=== PATIENT | female | born 1950 | race Caucasian/White ===

== ENCOUNTER 2020-02-22 06:57 | Outpatient (REF) | payer MEDICARE, SELFPAY ==
[2020-02-22 07:24] LABS: Hematocrit 37.1 % (37-47); Hemoglobin 11.5 g/dl (12.0-16.0); Mean Corpuscular Hemoglobin 25.9 pg (27.0-33.0); Mean Corpuscular Volume 83.6 fL (80-98); Mean Platelet Volume 9.7 fL (9.4-12.3); Platelet Count 338 X10*3/uL (160-400); Red Blood Count 4.44 X10*6/uL (4.20-5.50); Red Cell Distribution Width 15.4 % (11.0-16.0); White Blood Count 10.2 X10*3/uL (4.8-10.8)
[2020-02-22 07:51] LABS: Anion Gap 12 (12-20); Blood Urea Nitrogen 13 mg/dL (9-16); Calcium 8.3 mg/dL (8.4-10.2); Carbon Dioxide 28 mmol/L (22-29); Chloride 100 mmol/L (96-108); Estimated Glomerular Filt Rate > 60; Glucose Random 78 mg/dL (60-115); Potassium 4.2 mmol/l (3.3-5.1); Sodium 136 mmol/L (135-145)
== END 2020-02-22 06:58 | disposition home or self-care (01) ==
LOC: HO.MMNH2L 06:57
PROVIDERS: Visit Provider Family Medicine
DX: I10 Essential (primary) hypertension (principal)
CPT/HCPCS: 36415; 80048; 85027

== ENCOUNTER 2020-02-28 | Outpatient (REF) | payer MEDICARE, SELFPAY | END 2020-02-28 00:01 | LOC: HO.MMNH2L | PROVIDERS: Visit Provider Family Medicine | DX: Z20.828 Contact with and (suspected) exposure to other viral communicable diseases (principal) | CPT/HCPCS: U0003 ==

== ENCOUNTER 2020-03-21 05:51 | Outpatient (REF) | payer MEDICARE, SELFPAY ==
[2020-03-21 06:08] LABS: Hematocrit 38.5 % (37-47); Hemoglobin 11.8 g/dl (12.0-16.0); Mean Corpuscular HGB Conc 30.6 g/dl (31.0-35.0); Mean Corpuscular Hemoglobin 25.4 pg (27.0-33.0); Mean Corpuscular Volume 82.8 fL (80-98); Mean Platelet Volume 9.2 fL (9.4-12.3); Platelet Count 358 X10*3/uL (160-400); Red Blood Count 4.65 X10*6/uL (4.20-5.50); Red Cell Distribution Width 16.2 % (11.0-16.0)
[2020-03-21 06:38] LABS: Anion Gap 13 (12-20); Blood Urea Nitrogen 15 mg/dL (9-16); Calcium 8.8 mg/dL (8.4-10.2); Carbon Dioxide 27 mmol/L (22-29); Chloride 102 mmol/L (96-108); Estimated Glomerular Filt Rate > 60; Glucose Random 81 mg/dL (60-115); Potassium 4.7 mmol/l (3.3-5.1); Sodium 137 mmol/L (135-145)
== END 2020-03-21 05:52 | disposition home or self-care (01) ==
LOC: HO.MMNH2L 05:51
PROVIDERS: Visit Provider Family Medicine
DX: I10 Essential (primary) hypertension (principal)
CPT/HCPCS: 36415; 80048; 85027

== ENCOUNTER 2020-05-18 | Outpatient (REF) | payer MEDICARE, SELFPAY ==
[2020-05-18 07:58] LABS: Hemoglobin 12.2 g/dl (12.0-16.0); Mean Corpuscular HGB Conc 31.3 g/dl (31.0-35.0); Mean Corpuscular Hemoglobin 25.2 pg (27.0-33.0); Mean Corpuscular Volume 80.6 fL (80-98); Mean Platelet Volume 9.4 fL (9.4-12.3); Platelet Count 325 X10*3/uL (160-400); Red Blood Count 4.84 X10*6/uL (4.20-5.50); Red Cell Distribution Width 15.9 % (11.0-16.0); White Blood Count 6.4 X10*3/uL (4.8-10.8)
[2020-05-18 08:24] LABS: Anion Gap 13 (12-20); Blood Urea Nitrogen 10 mg/dL (9-16); Calcium 8.8 mg/dL (8.4-10.2); Carbon Dioxide 26 mmol/L (22-29); Chloride 99 mmol/L (96-108); Estimated Glomerular Filt Rate > 60; Glucose Random 81 mg/dL (60-115); Potassium 4.2 mmol/l (3.3-5.1); Sodium 134 mmol/L (135-145)
== END 2020-05-18 00:01 | disposition home or self-care (01) ==
LOC: HO.MMNH2L
PROVIDERS: Visit Provider Family Medicine
DX: M62.82 Rhabdomyolysis (principal); I10 Essential (primary) hypertension; R53.1 Weakness
CPT/HCPCS: 36415; 80048; 85027

== ENCOUNTER 2020-06-17 08:58 | Outpatient (REF) | payer MEDICARE, SELFPAY ==
[2020-06-17 06:53] LABS: Hematocrit 38.6 % (37-47); Mean Corpuscular HGB Conc 31.1 g/dl (31.0-35.0); Mean Corpuscular Hemoglobin 25.2 pg (27.0-33.0); Mean Corpuscular Volume 81.1 fL (80-98); Mean Platelet Volume 9.2 fL (9.4-12.3); Platelet Count 342 X10*3/uL (160-400); Red Blood Count 4.76 X10*6/uL (4.20-5.50); Red Cell Distribution Width 16.5 % (11.0-16.0); White Blood Count 7.6 X10*3/uL (4.8-10.8)
[2020-06-17 07:08] LABS: Anion Gap 11 (12-20); Blood Urea Nitrogen 12 mg/dL (9-16); Calcium 8.7 mg/dL (8.4-10.2); Carbon Dioxide 27 mmol/L (22-29); Chloride 103 mmol/L (96-108); Estimated Glomerular Filt Rate > 60; Glucose Random 79 mg/dL (60-115); Potassium 4.2 mmol/L (3.3-5.1); Sodium 137 mmol/L (135-145)
== END 2020-06-17 08:59 | disposition home or self-care (01) ==
LOC: HO.MMNH2L 08:58
PROVIDERS: Visit Provider Family Medicine
DX: I10 Essential (primary) hypertension (principal)
CPT/HCPCS: 36415; 80048; 85027

== ENCOUNTER 2020-07-15 | Outpatient (REF) | payer MEDICARE, SELFPAY ==
[2020-07-15 07:00] LABS: Hematocrit 38.8 % (37-47); Hemoglobin 11.8 g/dl (12.0-16.0); Mean Corpuscular HGB Conc 30.4 g/dl (31.0-35.0); Mean Corpuscular Hemoglobin 24.9 pg (27.0-33.0); Mean Platelet Volume 9.5 fL (9.4-12.3); Platelet Count 317 X10*3/uL (160-400); Red Blood Count 4.73 X10*6/uL (4.20-5.50); White Blood Count 6.8 X10*3/uL (4.8-10.8)
[2020-07-15 07:20] LABS: Anion Gap 11 (12-20); Blood Urea Nitrogen 13 mg/dL (9-16); Calcium 8.4 mg/dL (8.4-10.2); Carbon Dioxide 25 mmol/L (22-29); Chloride 106 mmol/L (96-108); Estimated Glomerular Filt Rate > 60; Glucose Random 76 mg/dL (60-115); Potassium 4.1 mmol/L (3.3-5.1); Sodium 138 mmol/L (135-145)
== END 2020-07-15 00:01 | disposition home or self-care (01) ==
LOC: HO.MMNH2L
PROVIDERS: Visit Provider Family Medicine
DX: I10 Essential (primary) hypertension (principal)
CPT/HCPCS: 36415; 80048; 85027

== ENCOUNTER 2020-07-31 00:56 | Outpatient (REF) | payer MEDICARE, SELFPAY ==
[2020-07-31 07:37] LABS: Hematocrit 37.8 % (37-47); Hemoglobin 11.9 g/dl (12.0-16.0); Mean Corpuscular HGB Conc 31.5 g/dl (31.0-35.0); Mean Corpuscular Hemoglobin 25.6 pg (27.0-33.0); Mean Corpuscular Volume 81.5 fL (80-98); Mean Platelet Volume 9.3 fL (9.4-12.3); Platelet Count 342 X10*3/uL (160-400); Red Blood Count 4.64 X10*6/uL (4.20-5.50); Red Cell Distribution Width 16.8 % (11.0-16.0)
[2020-07-31 08:11] LABS: Anion Gap 11 (12-20); Blood Urea Nitrogen 14 mg/dL (9-16); Calcium 8.5 mg/dL (8.4-10.2); Carbon Dioxide 26 mmol/L (22-29); Chloride 102 mmol/L (96-108); Estimated Glomerular Filt Rate > 60; Glucose Random 76 mg/dL (60-115); Potassium 4.3 mmol/L (3.3-5.1); Sodium 135 mmol/L (135-145)
== END 2020-07-31 00:57 | disposition home or self-care (01) ==
LOC: HO.MMNH2L 00:56
PROVIDERS: Visit Provider Family Medicine
DX: I10 Essential (primary) hypertension (principal)
CPT/HCPCS: 36415; 80048; 85027

== ENCOUNTER 2020-08-15 00:30 | Outpatient (REF) | payer MEDICARE, SELFPAY ==
[2020-08-15 09:22] LABS: Hematocrit 36.9 % (37-47); Hemoglobin 11.5 g/dl (12.0-16.0); Mean Corpuscular HGB Conc 31.2 g/dl (31.0-35.0); Mean Corpuscular Hemoglobin 25.4 pg (27.0-33.0); Mean Corpuscular Volume 81.6 fL (80-98); Mean Platelet Volume 9.2 fL (9.4-12.3); Platelet Count 347 X10*3/uL (160-400); Red Blood Count 4.52 X10*6/uL (4.20-5.50); Red Cell Distribution Width 16.5 % (11.0-16.0); White Blood Count 9.5 X10*3/uL (4.8-10.8)
[2020-08-15 09:42] LABS: Anion Gap 12 (12-20); Blood Urea Nitrogen 13 mg/dL (9-16); Calcium 8.5 mg/dL (8.4-10.2); Carbon Dioxide 26 mmol/L (22-29); Chloride 102 mmol/L (96-108); Estimated Glomerular Filt Rate > 60; Glucose Random 76 mg/dL (60-115); Potassium 4.6 mmol/L (3.3-5.1); Sodium 135 mmol/L (135-145)
== END 2020-08-15 00:31 | disposition home or self-care (01) ==
LOC: HO.MMNH2L 00:30
PROVIDERS: Visit Provider Family Medicine
DX: I10 Essential (primary) hypertension (principal)
CPT/HCPCS: 36415; 80048; 85027

== ENCOUNTER 2020-08-22 20:30 | Outpatient (REF) | payer MEDICARE, SELFPAY ==
[2020-08-23 07:51] LABS: Glucose Urine UA NEG (NEG); Leukocyte Esterase Urine 3+ (NEG); Nitrite Urine POS (NEG); PH 7.5 (5.0-8.0); Urine Blood TRACE (NEG); Urine Ketones NEG (NEG); Urine Protein TRACE MG/DL (NEG-TRACE)
[2020-08-23 07:52] LABS: Appearance Urine CLOUDY; Color Urine YELLOW
[2020-08-23 08:00] LABS: Amorphous Sediment Urine 2+ /LPF; Bacteria Urine 4+ /LPF; RBC Urine 0-2 /HPF (0); Squamous Epithelial Cell Urine 3+ /LPF; Triple Phosphate Crystal Urine 3+ /LPF; WBC Urine 30-49 /HPF (0-4)
== END 2020-08-22 20:31 | disposition home or self-care (01) ==
LOC: HO.MMNH2L 20:30
PROVIDERS: Visit Provider Family Medicine
DX: N39.0 Urinary tract infection, site not specified (principal)
CPT/HCPCS: 81001; 87086; 87088; 87186

== ENCOUNTER 2020-08-28 00:39 | Outpatient (REF) | payer MEDICARE, SELFPAY ==
[2020-08-28 07:43] LABS: Hematocrit 38.8 % (37-47); Mean Corpuscular HGB Conc 30.9 g/dl (31.0-35.0); Mean Corpuscular Hemoglobin 25.4 pg (27.0-33.0); Mean Corpuscular Volume 82.2 fL (80-98); Mean Platelet Volume 8.9 fL (9.4-12.3); Platelet Count 375 X10*3/uL (160-400); Red Blood Count 4.72 X10*6/uL (4.20-5.50); Red Cell Distribution Width 15.9 % (11.0-16.0); White Blood Count 10.4 X10*3/uL (4.8-10.8)
[2020-08-28 08:06] LABS: Anion Gap 12 (12-20); Blood Urea Nitrogen 12 mg/dL (9-16); Calcium 8.7 mg/dL (8.4-10.2); Carbon Dioxide 29 mmol/L (22-29); Chloride 98 mmol/L (96-108); Estimated Glomerular Filt Rate > 60; Glucose Random 75 mg/dL (60-115); Sodium 135 mmol/L (135-145)
== END 2020-08-28 00:40 | disposition home or self-care (01) ==
LOC: HO.MMNH2L 00:39
PROVIDERS: Visit Provider Family Medicine
DX: I10 Essential (primary) hypertension (principal)
CPT/HCPCS: 36415; 80048; 85027

== ENCOUNTER 2020-08-31 07:43 | Outpatient (REF) | payer MEDICARE, SELFPAY ==
[2020-08-31 09:11] LABS: Cholesterol 102 mg/dL
== END 2020-08-31 07:44 | disposition home or self-care (01) ==
LOC: HO.MMNH2L 07:43
PROVIDERS: Visit Provider Family Medicine
DX: J15.212 Pneumonia due to Methicillin resistant Staphylococcus aureus (principal)
CPT/HCPCS: 36415; 82465

== ENCOUNTER 2020-09-14 06:59 | Outpatient (REF) | payer MEDICARE, SELFPAY ==
[2020-09-14 07:20] LABS: Hematocrit 33.5 % (37-47); Hemoglobin 10.4 g/dl (12.0-16.0); Mean Corpuscular Hemoglobin 25.6 pg (27.0-33.0); Mean Corpuscular Volume 82.3 fL (80-98); Mean Platelet Volume 9.3 fL (9.4-12.3); Platelet Count 299 X10*3/uL (160-400); Red Blood Count 4.07 X10*6/uL (4.20-5.50); Red Cell Distribution Width 15.8 % (11.0-16.0); White Blood Count 7.5 X10*3/uL (4.8-10.8)
[2020-09-14 07:50] LABS: Anion Gap 9 (12-20); Blood Urea Nitrogen 10 mg/dL (9-16); Calcium 8.4 mg/dL (8.4-10.2); Carbon Dioxide 28 mmol/L (22-29); Chloride 103 mmol/L (96-108); Estimated Glomerular Filt Rate > 60; Glucose Random 76 mg/dL (60-115); Potassium 4.1 mmol/L (3.3-5.1); Sodium 136 mmol/L (135-145)
== END 2020-09-14 07:00 | disposition home or self-care (01) ==
LOC: HO.MMNH2L 06:59
PROVIDERS: Visit Provider Family Medicine
DX: I10 Essential (primary) hypertension (principal)
CPT/HCPCS: 36415; 80048; 85027

== ENCOUNTER 2020-09-26 00:25 | Outpatient (REF) | payer MEDICARE, SELFPAY ==
[2020-09-26 07:15] LABS: Hematocrit 38.5 % (37-47); Hemoglobin 11.8 g/dl (12.0-16.0); Mean Corpuscular HGB Conc 30.6 g/dl (31.0-35.0); Mean Corpuscular Hemoglobin 25.3 pg (27.0-33.0); Mean Corpuscular Volume 82.6 fL (80-98); Mean Platelet Volume 9.2 fL (9.4-12.3); Platelet Count 336 X10*3/uL (160-400); Red Blood Count 4.66 X10*6/uL (4.20-5.50); Red Cell Distribution Width 15.6 % (11.0-16.0); White Blood Count 7.6 X10*3/uL (4.8-10.8)
[2020-09-26 07:36] LABS: Anion Gap 10 (12-20); Blood Urea Nitrogen 11 mg/dL (9-16); Carbon Dioxide 29 mmol/L (22-29); Chloride 103 mmol/L (96-108); Estimated Glomerular Filt Rate > 60; Glucose Random 77 mg/dL (60-115); Potassium 4.6 mmol/L (3.3-5.1); Sodium 137 mmol/L (135-145)
== END 2020-09-26 00:26 | disposition home or self-care (01) ==
LOC: HO.MMNH2L 00:25
PROVIDERS: Visit Provider Family Medicine
DX: I10 Essential (primary) hypertension (principal)
CPT/HCPCS: 36415; 80048; 85027

== ENCOUNTER 2020-10-04 06:23 | Outpatient (REF) | payer MEDICARE, SELFPAY ==
[2020-10-04 06:46] LABS: Hematocrit 36.1 % (37-47); Hemoglobin 11.1 g/dl (12.0-16.0); Mean Corpuscular HGB Conc 30.7 g/dl (31.0-35.0); Mean Corpuscular Hemoglobin 25.1 pg (27.0-33.0); Mean Corpuscular Volume 81.7 fL (80-98); Mean Platelet Volume 9.4 fL (9.4-12.3); Platelet Count 345 X10*3/uL (160-400); Red Blood Count 4.42 X10*6/uL (4.20-5.50); Red Cell Distribution Width 15.3 % (11.0-16.0); White Blood Count 8.8 X10*3/uL (4.8-10.8)
[2020-10-04 07:12] LABS: Anion Gap 10 (12-20); Blood Urea Nitrogen 12 mg/dL (9-16); Calcium 8.9 mg/dL (8.4-10.2); Carbon Dioxide 28 mmol/L (22-29); Chloride 102 mmol/L (96-108); Estimated Glomerular Filt Rate > 60; Glucose Random 79 mg/dL (60-115); Potassium 4.4 mmol/L (3.3-5.1); Sodium 136 mmol/L (135-145)
== END 2020-10-04 06:24 | disposition home or self-care (01) ==
LOC: HO.MMNH2L 06:23
PROVIDERS: Visit Provider Family Medicine
DX: I10 Essential (primary) hypertension (principal); I48.91 Unspecified atrial fibrillation; E78.5 Hyperlipidemia, unspecified
CPT/HCPCS: 36415; 80048; 85027

== ENCOUNTER 2020-10-16 07:03 | Outpatient (REF) | payer MEDICARE, SELFPAY ==
[2020-10-16 07:17] LABS: Hematocrit 34.1 % (37-47); Hemoglobin 10.6 g/dl (12.0-16.0); Mean Corpuscular HGB Conc 31.1 g/dl (31.0-35.0); Mean Corpuscular Hemoglobin 25.2 pg (27.0-33.0); Mean Corpuscular Volume 81.2 fL (80-98); Platelet Count 330 X10*3/uL (160-400); Red Cell Distribution Width 15.6 % (11.0-16.0); White Blood Count 10.6 X10*3/uL (4.8-10.8)
[2020-10-16 07:44] LABS: Anion Gap 10 (12-20); Blood Urea Nitrogen 12 mg/dL (9-16); Calcium 8.9 mg/dL (8.4-10.2); Carbon Dioxide 26 mmol/L (22-29); Chloride 105 mmol/L (96-108); Estimated Glomerular Filt Rate > 60; Glucose Random 76 mg/dL (60-115); Potassium 4.3 mmol/L (3.3-5.1); Sodium 137 mmol/L (135-145)
== END 2020-10-16 07:04 | disposition home or self-care (01) ==
LOC: HO.MMNH2L 07:03
PROVIDERS: Visit Provider Family Medicine
DX: I10 Essential (primary) hypertension (principal); I48.91 Unspecified atrial fibrillation; E78.5 Hyperlipidemia, unspecified
CPT/HCPCS: 36415; 80048; 85027

== ENCOUNTER 2020-10-23 00:28 | Outpatient (REF) | payer MEDICARE, SELFPAY ==
[2020-10-23 06:08] LABS: Hematocrit 34.7 % (37-47); Hemoglobin 10.9 g/dl (12.0-16.0); Mean Corpuscular HGB Conc 31.4 g/dl (31.0-35.0); Mean Corpuscular Hemoglobin 25.3 pg (27.0-33.0); Mean Corpuscular Volume 80.5 fL (80-98); Mean Platelet Volume 8.9 fL (9.4-12.3); Platelet Count 352 X10*3/uL (160-400); Red Blood Count 4.31 X10*6/uL (4.20-5.50); Red Cell Distribution Width 15.3 % (11.0-16.0); White Blood Count 11.3 X10*3/uL (4.8-10.8)
[2020-10-23 06:30] LABS: Anion Gap 8 (12-20); Blood Urea Nitrogen 13 mg/dL (9-16); Calcium 8.5 mg/dL (8.4-10.2); Carbon Dioxide 27 mmol/L (22-29); Chloride 102 mmol/L (96-108); Estimated Glomerular Filt Rate > 60; Glucose Random 77 mg/dL (60-115); Potassium 4.1 mmol/L (3.3-5.1); Sodium 133 mmol/L (135-145)
== END 2020-10-23 00:29 | disposition home or self-care (01) ==
LOC: HO.MMNH2L 00:28
PROVIDERS: Visit Provider Family Medicine
DX: I10 Essential (primary) hypertension (principal); I48.91 Unspecified atrial fibrillation; E78.5 Hyperlipidemia, unspecified
CPT/HCPCS: 36415; 80048; 85027

== ENCOUNTER 2020-10-30 00:10 | Outpatient (REF) | payer MEDICARE, SELFPAY ==
[2020-10-30 07:02] LABS: Hematocrit 33.7 % (37-47); Hemoglobin 10.5 g/dl (12.0-16.0); Mean Corpuscular HGB Conc 31.2 g/dl (31.0-35.0); Mean Corpuscular Hemoglobin 24.9 pg (27.0-33.0); Platelet Count 390 X10*3/uL (160-400); Red Blood Count 4.21 X10*6/uL (4.20-5.50); Red Cell Distribution Width 15.1 % (11.0-16.0)
[2020-10-30 07:05] LABS: Anion Gap 11 (12-20); Blood Urea Nitrogen 13 mg/dL (9-16); Calcium 8.8 mg/dL (8.4-10.2); Carbon Dioxide 25 mmol/L (22-29); Chloride 100 mmol/L (96-108); Estimated Glomerular Filt Rate > 60; Glucose Random 78 mg/dL (60-115); Potassium 4.4 mmol/L (3.3-5.1); Sodium 132 mmol/L (135-145)
== END 2020-10-30 00:11 | disposition home or self-care (01) ==
LOC: HO.MMNH2L 00:10
PROVIDERS: Visit Provider Family Medicine
DX: I10 Essential (primary) hypertension (principal); I48.91 Unspecified atrial fibrillation; E78.5 Hyperlipidemia, unspecified
CPT/HCPCS: 36415; 80048; 85027

== ENCOUNTER 2020-11-06 | Outpatient (REF) | payer MEDICARE, SELFPAY ==
[2020-11-06 07:29] LABS: Hematocrit 33.8 % (37-47); Hemoglobin 10.7 g/dl (12.0-16.0); Mean Corpuscular HGB Conc 31.7 g/dl (31.0-35.0); Mean Corpuscular Hemoglobin 24.9 pg (27.0-33.0); Mean Corpuscular Volume 78.8 fL (80-98); Mean Platelet Volume 8.9 fL (9.4-12.3); Platelet Count 380 X10*3/uL (160-400); Red Blood Count 4.29 X10*6/uL (4.20-5.50); Red Cell Distribution Width 15.2 % (11.0-16.0); White Blood Count 9.8 X10*3/uL (4.8-10.8)
[2020-11-06 08:07] LABS: Anion Gap 14 (12-20); Blood Urea Nitrogen 11 mg/dL (9-16); Calcium 8.7 mg/dL (8.4-10.2); Carbon Dioxide 23 mmol/L (22-29); Chloride 97 mmol/L (96-108); Estimated Glomerular Filt Rate > 60; Glucose Random 80 mg/dL (60-115); Potassium 4.6 mmol/L (3.3-5.1); Sodium 129 mmol/L (135-145)
== END 2020-11-06 00:01 | disposition home or self-care (01) ==
LOC: HO.MMNH2L
PROVIDERS: Visit Provider Family Medicine
DX: I10 Essential (primary) hypertension (principal); I48.91 Unspecified atrial fibrillation; E78.5 Hyperlipidemia, unspecified
CPT/HCPCS: 36415; 80048; 85027

== ENCOUNTER 2020-11-14 11:29 | Emergency (ER) | payer MEDICARE, SELFPAY ==
--- NOTE | ~2020-11-14 | XR_ITS ---
EXAMINATION: XR FOOT, RIGHT CLINICAL INFORMATION: Suspicion for osteopenia second digit COMPARISON: None TECHNIQUE: AP, lateral, and oblique views of the right foot. FINDINGS: There is diffuse osteopenia. There is loss of subtalar and ankle mortise joint space with mild soft tissue swelling dorsal proximal foot. There is no bony erosive changes or periosteal thickening of the foot especially second digit. There is mild subluxation of PIP joint second digit. XR/XR foot RT 2V IMPRESSION: Diffuse osteopenia. No visible acute fracture or dislocation. Mild degenerative changes ankle mortise and subtalar joints and intertarsal joints. There is mild proximal dorsal foot soft tissue swelling
[2020-11-14 11:44] VITALS: BP 130/90; BP 158/78; PULSE 53; RESP 17; TEMP 37.1; O2SAT 100; O2SAT 96; BMI 40.8
--- NOTE | 2020-11-14 11:46 | ED.GENADULT ---
HPI - General Adult General Chief complaint: Wound/Laceration Stated complaint: wound check Time Seen by Provider: 11/14/20 11:32 Source: patient Mode of arrival: ambulatory Limitations: no limitations History of Present Illness HPI narrative: Patient comes emergency room by EMS from [facility]. Patient has a wound in her 2nd toe on the right foot, patient finished a course of doxycycline yesterday. The wound keeps worsening. According to the EMS report, patient has a vascular consult next week, but the at the facility noticed that the wound was getting worse and cannot wait until the schedule appointment. Patient denies fever chills. Patient complaining of localized pain. It is unclear when the wound started, patient states that it started getting more painful and more noticeable approximately 4 days ago. However, patient does have history of dementia and it is unclear if the timing of the wound is correct. Related Data Previous Rx's Medication Instructions Recorded sulfamethoxazole-trimethoprim 1 tab PO BID #20 tab 11/14/20 [Bactrim DS] Allergies Allergy/AdvReac Type Severity Reaction Status Date / Time lisinopril Allergy Unknown passed out Verified 09/29/18 00:00 No Known Allergies Allergy Unverified 01/13/20 18:26 Review of Systems Review of Systems: Constitutional : No Weight loss, No Fever, No Chills, No Night Sweats, No Fatigue, No Malaise ENT/Mouth : No Hearing loss, No Ear Pain, No Nasal Congestion, No Sinus Pain, No Hoarseness, No sore throat, No Rhinorrhea, No Swallowing Difficulty Eyes: No Eye Pain, No Swelling, No Redness, No Foreign Body, No Discharge, No Vision Changes Cardiovascular : No Chest Pain, No SOB, No Dyspnea on Exertion, No Orthopnea, No Edema, No Palpitations Respiratory : No Cough, No Sputum, No Wheezing, No Smoke Exposure, No Dyspnea Gastrointestinal : No Nausea, No Vomiting, No Diarrhea, No Constipation, No abdominal Pain, No Hematochezia, No Melena Genitourinary : no irregular bleeding, No Dysuria, No Urinary Frequency, No Hematuria, No Urinary Incontinence, No Urgency, No Flank Pain, No Urinary Flow Changes, No Hesitancy Musculoskeletal : No joint pain, No Myalgias, No Joint Swelling Skin : , complaining of a wound on her 2nd toe on the right foot Neuro : No Weakness, No Numbness, No Paresthesias, No Loss of Consciousness, No Dizziness, No Headache Psych : No Anxiety/Panic, No Depression, No SI/HI/AH/VH, No Social Issues, Heme/Lymph: No Bruising, No Bleeding,No Lymphadenopathy Endocrine : No Polyuria, No Polydipsia, No Temperature Intolerance [facility] Past Medical History Medical History (Updated 11/14/20 @ 15:16 by Ifeoma Cespedes MD) Afib CVA (cerebral vascular accident) Dementia Dysphasia Hemiplegia HTN (hypertension) Tachycardia Social History Social History Advance Directives: Yes Advance Directives Information Provided: Yes Advance Directives on File: No Physical Exam Vital Signs: Vital Signs: Last Vital Signs Temp 97.8 F 11/14/20 12:39 Pulse 57 11/14/20 12:39 Resp 18 11/14/20 12:39 BP 144/56 H 11/14/20 12:39 Pulse Ox 100 11/14/20 12:39 Body Mass Index 40.8 Appearance: Alert. No acute distress. Eyes: Pupils equal, round and reactive to light. ENT: Pharynx normal. Neck: Normal inspection. Neck supple. No lymph nodes noted. No crepitus CVS: Normal heart rate and rhythm. Pulses normal. Normal S1 and S2 Respiratory: No respiratory distress. Breath sounds normal. No Wheezing. No rales Abdomen: Soft and nontender. No rigidity. No distention. good BS x4 Skin: Skin warm and dry. See below Extremities: No lower extremity edema. Patient has as 1 cm x 1 cm ulcer in the dorsal aspect of the 2nd toe on the right foot, some sleep, suspicious for osteomyelitis Neuro: No motor deficit. No sensory deficit. Moving all extermities. No slurred speech. Course Course Course Narrative: I discussed the patient with Dr. Nelson. At this time white blood cell count and lactic acid is normal, patient has no fever, no signs of systemic illness, sepsis not suspected. Patient was start a new course of antibiotics and can follow up as scheduled with vascular surgery. First dose of Bactrim given in the emergency room Medical Decision Making Lab Data Result diagrams: 11/14/20 12:52 11/14/20 12:52 Labs: Lab Results 11/14/20 11/14/20 11/14/20 Range/Units 12:52 12:52 12:52 WBC 8.9 (4.8-10.8) X10*3/uL RBC 4.53 (4.20-5.50) X10*6/uL Hgb 11.4 L (12.0-16.0) g/dl Hct 36.0 L (37-47) % MCV 79.5 L (80-98) fL MCH 25.2 L (27.0-33.0) pg MCHC 31.7 (31.0-35.0) g/dl RDW 15.3 (11.0-16.0) % Plt Count 380 (160-400) X10*3/uL MPV 8.3 L (9.4-12.3) fL Immature Gran % (Auto) 0.7 H (0.0-0.4) % Neut % (Auto) 78.3 H (45-73) % Lymph % (Auto) 13.0 L (20-40) % [place] % (Auto) 6.4 (2-11) % Eos % (Auto) 1.3 (0-4) % Baso % (Auto) 0.3 (0-2) % Lymph # (Auto) 1.2 (1.2-4.9) X10*3/uL [place] # (Auto) 0.6 (0.1-1.2) X10*3/uL Eos # (Auto) 0.1 (0.0-0.4) X10*3/uL Baso # (Auto) 0.0 (0.0-0.2) X10*3/uL Abs Immat Gran (auto) 0.06 H (0.00-0.03) X10*3/uL Absolute Neuts (auto) 7.0 (2.0-8.3) X10*3/uL Absolute Nucleated RBC 0.000 (0.0-0.012) X10*3/uL Nucleated RBC % (auto) 0.0 (0.0-0.2) /100WBC Sodium 130 L (135-145) mmol/L Potassium 4.4 (3.3-5.1) mmol/L Chloride 94 L (96-108) mmol/L Carbon Dioxide 30 H (22-29) mmol/L Anion Gap 10 L (12-20) BUN 14 (9-16) mg/dL Creatinine 0.77 (0.5-1.4) mg/dL Estim Creat Clear Calc 61.6 Estimated GFR > 60 Random Glucose 104 (60-115) mg/dL Lactic Acid 0.9 (0.5-2.0) mmol/L Calcium 9.2 (8.4-10.2) mg/dL Total Bilirubin 0.6 (0.0-1.0) mg/dL Direct Bilirubin 0.2 (0.0-0.5) mg/dL AST 10 (5-31) U/L ALT < 6 (0-31) U/L Alkaline Phosphatase 103 (39-117) U/L Total Protein 6.9 (6.5-8.0) g/dL Albumin 3.5 (3.5-5.0) g/dL Imaging Data Foot x-ray: Radiologist's impression: FINDINGS: There is diffuse osteopenia. There is loss of subtalar and ankle mortise joint space with mild soft tissue swelling dorsal proximal foot. There is no bony erosive changes or periosteal thickening of the foot especially second digit. There is mild subluxation of PIP joint second digit. XR/XR foot RT 2V IMPRESSION: Diffuse osteopenia. No visible acute fracture or dislocation. Mild degenerative changes ankle mortise and subtalar joints and intertarsal joints. There is mild proximal dorsal foot soft tissue swelling Discharge Plan Discharge Clinical Impression: Open wound Patient Disposition: Home, Self-Care Instructions: Chronic Wounds (ED) Additional Instructions: Please follow-up with your primary care physician tomorrow. If you have any worsening or new symptoms, please return to the emergency room or call 911 Prescriptions: New sulfamethoxazole-trimethoprim [Bactrim DS] 800-160 mg tablet 1 tab PO BID Qty: 20 RF: 0 Referrals: Espinoza Nelson MD [Physician] - 2 days Kiki Almanza MD [Physician] - 2 days
[2020-11-14 12:39] VITALS: BP 144/56; PULSE 57; RESP 18; TEMP 36.6; O2SAT 100
[2020-11-14 12:57] LABS: MANUAL DIFF FLAG NO
[2020-11-14 13:02] LABS: Basophils Percent Auto 0.3 % (0-2); Eosinophils Absolute Auto 0.1 X10*3/uL (0.0-0.4); Eosinophils Percent Auto 1.3 % (0-4); Hemoglobin 11.4 g/dl (12.0-16.0); Imm Gran Abs Auto 0.06 X10*3/uL (0.00-0.03); Imm Gran Pct Auto 0.7 % (0.0-0.4); Lymphocytes Absolute Auto 1.2 X10*3/uL (1.2-4.9); Mean Corpuscular HGB Conc 31.7 g/dl (31.0-35.0); Mean Corpuscular Hemoglobin 25.2 pg (27.0-33.0); Mean Corpuscular Volume 79.5 fL (80-98); Mean Platelet Volume 8.3 fL (9.4-12.3); Monocytes Absolute Auto 0.6 X10*3/uL (0.1-1.2); Monocytes Percent Auto 6.4 % (2-11); Neutrophils Percent Auto 78.3 % (45-73); Platelet Count 380 X10*3/uL (160-400); Red Blood Count 4.53 X10*6/uL (4.20-5.50); Red Cell Distribution Width 15.3 % (11.0-16.0); White Blood Count 8.9 X10*3/uL (4.8-10.8)
[2020-11-14 13:14] LABS: Lactic Acid 0.9 mmol/L (0.5-2.0)
[2020-11-14 13:28] LABS: Alanine Aminotransferase < 6 U/L (0-31); Albumin Level 3.5 g/dL (3.5-5.0); Alkaline Phosphatase 103 U/L (39-117); Anion Gap 10 (12-20); Aspartate Amino Transferase 10 U/L (5-31); Bilirubin Direct 0.2 mg/dL (0.0-0.5); Bilirubin Total 0.6 mg/dL (0.0-1.0); Blood Urea Nitrogen 14 mg/dL (9-16); Calcium 9.2 mg/dL (8.4-10.2); Carbon Dioxide 30 mmol/L (22-29); Chloride 94 mmol/L (96-108); Creatinine Clr Calc Pharmacy 61.6; Estimated Glomerular Filt Rate > 60; Glucose Random 104 mg/dL (60-115); Potassium 4.4 mmol/L (3.3-5.1); Sodium 130 mmol/L (135-145); Total Protein 6.9 g/dL (6.5-8.0)
[2020-11-14 16:00] VITALS: BP 178/76; PULSE 57; RESP 18; TEMP 36.6; O2SAT 100
== END 2020-11-14 17:42 | disposition home or self-care (01) ==
PROVIDERS: Emergency Provider Emergency Medicine
DX: L97.519 Non-pressure chronic ulcer of other part of right foot with unspecified severity (principal); M79.89 Other specified soft tissue disorders; I10 Essential (primary) hypertension; I48.91 Unspecified atrial fibrillation; F03.90 Unspecified dementia, unspecified severity, without behavioral disturbance, psychotic disturbance, mood disturbance, and anxiety; Z86.73 Personal history of transient ischemic attack (TIA), and cerebral infarction without residual deficits
CPT/HCPCS: 36415; 73620; 80048; 80076; 83605; 85025; 87040; 99284

== ENCOUNTER 2020-11-27 21:14 | Outpatient (REF) | payer MEDICARE, SELFPAY ==
[2020-11-27 06:50] LABS: Hematocrit 34.6 % (37-47); Hemoglobin 10.7 g/dl (12.0-16.0); Mean Corpuscular HGB Conc 30.9 g/dl (31.0-35.0); Mean Corpuscular Hemoglobin 24.8 pg (27.0-33.0); Mean Corpuscular Volume 80.1 fL (80-98); Mean Platelet Volume 9.3 fL (9.4-12.3); Platelet Count 360 X10*3/uL (160-400); Red Blood Count 4.32 X10*6/uL (4.20-5.50); Red Cell Distribution Width 15.9 % (11.0-16.0); White Blood Count 9.4 X10*3/uL (4.8-10.8)
[2020-11-27 07:10] LABS: Anion Gap 9 (12-20); Blood Urea Nitrogen 13 mg/dL (9-16); Calcium 8.7 mg/dL (8.4-10.2); Carbon Dioxide 26 mmol/L (22-29); Chloride 102 mmol/L (96-108); Estimated Glomerular Filt Rate > 60; Glucose Random 75 mg/dL (60-115); Potassium 4.2 mmol/L (3.3-5.1); Sodium 133 mmol/L (135-145)
== END 2020-11-27 21:15 | disposition home or self-care (01) ==
LOC: HO.MMNH2L 21:14
PROVIDERS: Visit Provider Family Medicine
DX: I10 Essential (primary) hypertension (principal)
CPT/HCPCS: 36415; 80048; 85027

== ENCOUNTER 2020-12-01 07:00 | Outpatient (REF) | payer MEDICARE, SELFPAY | END 2020-12-01 07:01 | disposition home or self-care (01) | LOC: HO.MMNH2L 07:00 | PROVIDERS: Visit Provider Family Medicine | DX: Z13.89 Encounter for screening for other disorder (principal) ==

== ENCOUNTER 2020-12-08 | Outpatient (REF) | payer MEDICARE, SELFPAY ==
[2020-12-08 07:37] LABS: MANUAL DIFF FLAG NO
[2020-12-08 07:56] LABS: Basophils Absolute Auto 0.1 X10*3/uL (0.0-0.2); Basophils Percent Auto 0.8 % (0-2); Eosinophils Absolute Auto 0.3 X10*3/uL (0.0-0.4); Eosinophils Percent Auto 2.7 % (0-4); Imm Gran Abs Auto 0.09 X10*3/uL (0.00-0.03); Imm Gran Pct Auto 0.9 % (0.0-0.4); Lymphocytes Percent Auto 19.3 % (20-40); Mean Corpuscular HGB Conc 31.4 g/dl (31.0-35.0); Mean Corpuscular Hemoglobin 25.2 pg (27.0-33.0); Mean Corpuscular Volume 80.3 fL (80-98); Mean Platelet Volume 9.2 fL (9.4-12.3); Monocytes Absolute Auto 0.8 X10*3/uL (0.1-1.2); Monocytes Percent Auto 7.6 % (2-11); Neutrophils Absolute Auto 7.1 X10*3/uL (2.0-8.3); Neutrophils Percent Auto 68.7 % (45-73); Platelet Count 404 X10*3/uL (160-400); Red Blood Count 4.36 X10*6/uL (4.20-5.50); Red Cell Distribution Width 16.4 % (11.0-16.0); White Blood Count 10.4 X10*3/uL (4.8-10.8)
[2020-12-08 08:18] LABS: Alanine Aminotransferase 16 U/L (0-31); Albumin Level 3.2 g/dL (3.5-5.0); Alkaline Phosphatase 88 U/L (39-117); Anion Gap 13 (12-20); Aspartate Amino Transferase 17 U/L (5-31); Bilirubin Total 0.4 mg/dL (0.0-1.0); Blood Urea Nitrogen 11 mg/dL (9-16); Calcium 8.9 mg/dL (8.4-10.2); Carbon Dioxide 25 mmol/L (22-29); Chloride 99 mmol/L (96-108); Estimated Glomerular Filt Rate > 60; Glucose Random 75 mg/dL (60-115); Potassium 4.6 mmol/L (3.3-5.1); Sodium 132 mmol/L (135-145); Total Protein 6.3 g/dL (6.5-8.0)
== END 2020-12-08 00:01 | disposition home or self-care (01) ==
LOC: HO.MMNH2L
PROVIDERS: Visit Provider Family Medicine
DX: I10 Essential (primary) hypertension (principal)
CPT/HCPCS: 36415; 80053; 85025

== ENCOUNTER 2020-12-15 05:00 | Outpatient (REF) | payer MEDICARE, SELFPAY ==
[2020-12-15 07:37] LABS: Hemoglobin 11.1 g/dl (12.0-16.0); Mean Corpuscular HGB Conc 30.8 g/dl (31.0-35.0); Mean Corpuscular Hemoglobin 24.9 pg (27.0-33.0); Mean Corpuscular Volume 80.7 fL (80-98); Mean Platelet Volume 8.7 fL (9.4-12.3); Platelet Count 314 X10*3/uL (160-400); Red Blood Count 4.46 X10*6/uL (4.20-5.50); Red Cell Distribution Width 16.7 % (11.0-16.0); White Blood Count 8.8 X10*3/uL (4.8-10.8)
[2020-12-15 07:57] LABS: Anion Gap 12 (12-20); Blood Urea Nitrogen 15 mg/dL (9-16); Carbon Dioxide 27 mmol/L (22-29); Chloride 101 mmol/L (96-108); Estimated Glomerular Filt Rate > 60; Glucose Random 69 mg/dL (60-115); Potassium 4.3 mmol/L (3.3-5.1); Sodium 136 mmol/L (135-145)
== END 2020-12-15 05:01 | disposition home or self-care (01) ==
LOC: HO.MMNH2L 05:00
PROVIDERS: Visit Provider Family Medicine
DX: I10 Essential (primary) hypertension (principal)
CPT/HCPCS: 36415; 80048; 85027

== ENCOUNTER 2021-01-02 05:00 | Outpatient (REF) | payer MEDICARE, SELFPAY ==
[2021-01-02 07:14] LABS: Hematocrit 37.2 % (37-47); Hemoglobin 11.6 g/dl (12.0-16.0); Mean Corpuscular HGB Conc 31.2 g/dl (31.0-35.0); Mean Corpuscular Hemoglobin 25.4 pg (27.0-33.0); Mean Corpuscular Volume 81.4 fL (80-98); Mean Platelet Volume 9.2 fL (9.4-12.3); Platelet Count 423 X10*3/uL (160-400); Red Blood Count 4.57 X10*6/uL (4.20-5.50); Red Cell Distribution Width 17.2 % (11.0-16.0); White Blood Count 10.4 X10*3/uL (4.8-10.8)
[2021-01-02 08:13] LABS: Anion Gap 11 (12-20); Blood Urea Nitrogen 11 mg/dL (9-16); Calcium 8.6 mg/dL (8.4-10.2); Carbon Dioxide 28 mmol/L (22-29); Chloride 103 mmol/L (96-108); Estimated Glomerular Filt Rate > 60; Glucose Random 69 mg/dL (60-115); Potassium 4.7 mmol/L (3.3-5.1); Sodium 137 mmol/L (135-145)
== END 2021-01-02 05:01 ==
LOC: HO.MMNH2L 05:00
PROVIDERS: Visit Provider Family Medicine
DX: I10 Essential (primary) hypertension (principal)
CPT/HCPCS: 36415; 80048; 85027

== ENCOUNTER 2021-01-15 00:23 | Outpatient (REF) | payer MEDICARE, SELFPAY ==
[2021-01-15 06:53] LABS: Hematocrit 37.8 % (37-47); Hemoglobin 11.6 g/dl (12.0-16.0); Mean Corpuscular HGB Conc 30.7 g/dl (31.0-35.0); Mean Corpuscular Hemoglobin 24.8 pg (27.0-33.0); Mean Corpuscular Volume 80.9 fL (80-98); Mean Platelet Volume 9.2 fL (9.4-12.3); Platelet Count 391 X10*3/uL (160-400); Red Blood Count 4.67 X10*6/uL (4.20-5.50); Red Cell Distribution Width 17.3 % (11.0-16.0); White Blood Count 9.7 X10*3/uL (4.8-10.8)
[2021-01-15 07:12] LABS: Anion Gap 12 (12-20); Blood Urea Nitrogen 12 mg/dL (9-16); Calcium 8.9 mg/dL (8.4-10.2); Carbon Dioxide 26 mmol/L (22-29); Chloride 100 mmol/L (96-108); Estimated Glomerular Filt Rate > 60; Glucose Random 71 mg/dL (60-115); Potassium 4.4 mmol/L (3.3-5.1); Sodium 134 mmol/L (135-145)
== END 2021-01-15 00:24 | disposition home or self-care (01) ==
LOC: HO.MMNH2L 00:23
PROVIDERS: Visit Provider Family Medicine
DX: I10 Essential (primary) hypertension (principal)
CPT/HCPCS: 36415; 80048; 85027

== ENCOUNTER 2021-02-19 06:25 | Outpatient (REF) | payer MEDICARE, SELFPAY ==
[2021-02-19 06:44] LABS: MANUAL DIFF FLAG NO
[2021-02-19 07:00] LABS: Basophils Percent Auto 0.4 % (0-2); Eosinophils Absolute Auto 0.2 X10*3/uL (0.0-0.4); Eosinophils Percent Auto 1.8 % (0-4); Hematocrit 36.2 % (37-47); Hemoglobin 11.3 g/dl (12.0-16.0); Imm Gran Abs Auto 0.05 X10*3/uL (0.00-0.03); Imm Gran Pct Auto 0.6 % (0.0-0.4); Lymphocytes Absolute Auto 1.9 X10*3/uL (1.2-4.9); Lymphocytes Percent Auto 22.1 % (20-40); Mean Corpuscular HGB Conc 31.2 g/dl (31.0-35.0); Mean Corpuscular Hemoglobin 25.1 pg (27.0-33.0); Mean Corpuscular Volume 80.4 fL (80-98); Mean Platelet Volume 9.1 fL (9.4-12.3); Monocytes Absolute Auto 0.7 X10*3/uL (0.1-1.2); Monocytes Percent Auto 8.3 % (2-11); Neutrophils Absolute Auto 5.7 X10*3/uL (2.0-8.3); Neutrophils Percent Auto 66.8 % (45-73); Platelet Count 379 X10*3/uL (160-400); Red Cell Distribution Width 17.2 % (11.0-16.0); White Blood Count 8.6 X10*3/uL (4.8-10.8)
[2021-02-19 07:36] LABS: Alanine Aminotransferase 18 U/L (0-31); Albumin Level 3.3 g/dL (3.5-5.0); Alkaline Phosphatase 85 U/L (39-117); Anion Gap 12 (12-20); Aspartate Amino Transferase 22 U/L (5-31); Bilirubin Direct 0.2 mg/dL (0.0-0.5); Bilirubin Total 0.3 mg/dL (0.0-1.0); Blood Urea Nitrogen 12 mg/dL (9-16); Calcium 8.7 mg/dL (8.4-10.2); Carbon Dioxide 24 mmol/L (22-29); Chloride 104 mmol/L (96-108); Estimated Glomerular Filt Rate > 60; Glucose Random 81 mg/dL (60-115); Potassium 4.5 mmol/L (3.3-5.1); Sodium 135 mmol/L (135-145); Total Protein 6.6 g/dL (6.5-8.0)
== END 2021-02-19 06:26 | disposition home or self-care (01) ==
LOC: HO.MMNH2L 06:25
PROVIDERS: Visit Provider Family Medicine
DX: Z89.429 Acquired absence of other toe(s), unspecified side (principal)
CPT/HCPCS: 36415; 80053; 82248; 85025

== ENCOUNTER 2021-02-26 06:39 | Outpatient (REF) | payer MEDICARE, SELFPAY ==
[2021-02-26 06:53] LABS: MANUAL DIFF FLAG NO
[2021-02-26 07:20] LABS: Basophils Percent Auto 0.4 % (0-2); Eosinophils Absolute Auto 0.2 X10*3/uL (0.0-0.4); Eosinophils Percent Auto 2.7 % (0-4); Hematocrit 36.4 % (37.0-47.0); Hemoglobin 11.3 g/dl (12.0-16.0); Imm Gran Abs Auto 0.09 X10*3/uL (0.00-0.03); Imm Gran Pct Auto 1.1 % (0.0-0.4); Lymphocytes Absolute Auto 1.8 X10*3/uL (1.2-4.9); Lymphocytes Percent Auto 21.9 % (20-40); Mean Corpuscular Hemoglobin 24.9 pg (27.0-33.0); Mean Corpuscular Volume 80.2 fL (80.0-98.0); Mean Platelet Volume 8.8 fL (9.4-12.3); Monocytes Absolute Auto 0.8 X10*3/uL (0.1-1.2); Monocytes Percent Auto 9.2 % (2-11); Neutrophils Absolute Auto 5.26 x10*3/uL (2.0-8.3); Neutrophils Percent Auto 64.7 % (45-73); Platelet Count 374 X10*3/uL (160-400); Red Blood Count 4.54 X10*6/uL (4.20-5.50); Red Cell Distribution Width 17.1 % (11.0-16.0); White Blood Count 8.1 X10*3/uL (4.8-10.8)
[2021-02-26 07:41] LABS: Anion Gap 12 (12-20); Blood Urea Nitrogen 13 mg/dL (9-16); Calcium 8.6 mg/dL (8.4-10.2); Carbon Dioxide 25 mmol/L (22-29); Chloride 103 mmol/L (96-108); Estimated Glomerular Filt Rate > 60; Glucose Fasting 72 mg/dL (60-99); Potassium 4.4 mmol/L (3.3-5.1); Sodium 136 mmol/L (135-145)
== END 2021-02-26 06:40 | disposition home or self-care (01) ==
LOC: HO.MMNH2L 06:39
PROVIDERS: Visit Provider Family Medicine
DX: I10 Essential (primary) hypertension (principal)
CPT/HCPCS: 36415; 80048; 85025

== ENCOUNTER 2021-02-26 08:17 | Outpatient (REF) | payer MEDICARE, SELFPAY ==
[2021-01-29 07:09] LABS: Hematocrit 33.5 % (37-47); Hemoglobin 10.7 g/dl (12.0-16.0); Mean Corpuscular HGB Conc 31.9 g/dl (31.0-35.0); Mean Corpuscular Hemoglobin 25.7 pg (27.0-33.0); Mean Corpuscular Volume 80.5 fL (80-98); Mean Platelet Volume 9.1 fL (9.4-12.3); Platelet Count 350 X10*3/uL (160-400); Red Blood Count 4.16 X10*6/uL (4.20-5.50); Red Cell Distribution Width 17.2 % (11.0-16.0); White Blood Count 12.1 X10*3/uL (4.8-10.8)
[2021-01-29 07:50] LABS: Anion Gap 14 (12-20); Blood Urea Nitrogen 17 mg/dL (9-16); Calcium 8.8 mg/dL (8.4-10.2); Carbon Dioxide 26 mmol/L (22-29); Chloride 101 mmol/L (96-108); Estimated Glomerular Filt Rate > 60; Glucose Random 76 mg/dL (60-115); Potassium 4.5 mmol/L (3.3-5.1); Sodium 136 mmol/L (135-145)
== END 2021-02-26 08:18 | disposition home or self-care (01) ==
LOC: HO.MMNH2L 08:17
PROVIDERS: Visit Provider Family Medicine
DX: I10 Essential (primary) hypertension (principal)
CPT/HCPCS: 36415; 80048; 85027

== ENCOUNTER 2021-03-05 00:35 | Outpatient (REF) | payer MEDICARE, SELFPAY ==
[2021-03-05 06:25] LABS: MANUAL DIFF FLAG NO
[2021-03-05 06:49] LABS: Basophils Percent Auto 0.2 % (0-2); Eosinophils Absolute Auto 0.2 X10*3/uL (0.0-0.4); Eosinophils Percent Auto 2.8 % (0-4); Hematocrit 33.5 % (37.0-47.0); Hemoglobin 10.4 g/dl (12.0-16.0); Imm Gran Abs Auto 0.06 X10*3/uL (0.00-0.03); Imm Gran Pct Auto 0.7 % (0.0-0.4); Lymphocytes Absolute Auto 2.2 X10*3/uL (1.2-4.9); Lymphocytes Percent Auto 25.1 % (20-40); Mean Corpuscular Volume 80.5 fL (80.0-98.0); Mean Platelet Volume 9.1 fL (9.4-12.3); Monocytes Absolute Auto 0.7 X10*3/uL (0.1-1.2); Monocytes Percent Auto 7.5 % (2-11); Neutrophils Absolute Auto 5.5 x10*3/uL (2.0-8.3); Neutrophils Percent Auto 63.7 % (45-73); Platelet Count 370 X10*3/uL (160-400); Red Blood Count 4.16 X10*6/uL (4.20-5.50); Red Cell Distribution Width 17.1 % (11.0-16.0); White Blood Count 8.6 X10*3/uL (4.8-10.8)
[2021-03-05 07:23] LABS: Anion Gap 13 (12-20); Blood Urea Nitrogen 15 mg/dL (9-16); Calcium 8.4 mg/dL (8.4-10.2); Carbon Dioxide 25 mmol/L (22-29); Chloride 103 mmol/L (96-108); Estimated Glomerular Filt Rate > 60; Glucose Random 71 mg/dL (60-115); Potassium 4.4 mmol/L (3.3-5.1); Sodium 137 mmol/L (135-145)
== END 2021-03-05 00:36 | disposition home or self-care (01) ==
LOC: HO.MMNH2L 00:35
PROVIDERS: Visit Provider Family Medicine
DX: I10 Essential (primary) hypertension (principal)
CPT/HCPCS: 36415; 80048; 85025

== ENCOUNTER 2021-03-12 00:35 | Outpatient (REF) | payer MEDICARE, SELFPAY ==
[2021-03-12 07:11] LABS: MANUAL DIFF FLAG NO
[2021-03-12 07:38] LABS: Basophils Percent Auto 0.3 % (0-2); Eosinophils Absolute Auto 0.3 X10*3/uL (0.0-0.4); Eosinophils Percent Auto 2.2 % (0-4); Hematocrit 35.1 % (37.0-47.0); Hemoglobin 10.7 g/dl (12.0-16.0); Imm Gran Abs Auto 0.08 X10*3/uL (0.00-0.03); Imm Gran Pct Auto 0.7 % (0.0-0.4); Lymphocytes Absolute Auto 1.8 X10*3/uL (1.2-4.9); Lymphocytes Percent Auto 15.5 % (20-40); Mean Corpuscular HGB Conc 30.5 g/dl (31.0-35.0); Mean Corpuscular Hemoglobin 24.7 pg (27.0-33.0); Mean Corpuscular Volume 80.9 fL (80.0-98.0); Mean Platelet Volume 9.3 fL (9.4-12.3); Monocytes Absolute Auto 0.8 X10*3/uL (0.1-1.2); Monocytes Percent Auto 6.8 % (2-11); Neutrophils Absolute Auto 8.6 x10*3/uL (2.0-8.3); Neutrophils Percent Auto 74.5 % (45-73); Platelet Count 343 X10*3/uL (160-400); Red Blood Count 4.34 X10*6/uL (4.20-5.50); Red Cell Distribution Width 17.2 % (11.0-16.0); White Blood Count 11.6 X10*3/uL (4.8-10.8)
[2021-03-12 08:11] LABS: Anion Gap 13 (12-20); Blood Urea Nitrogen 14 mg/dL (9-16); Calcium 8.2 mg/dL (8.4-10.2); Carbon Dioxide 25 mmol/L (22-29); Chloride 102 mmol/L (96-108); Estimated Glomerular Filt Rate > 60; Glucose Random 70 mg/dL (60-115); Potassium 4.6 mmol/L (3.3-5.1); Sodium 135 mmol/L (135-145)
== END 2021-03-12 00:36 | disposition home or self-care (01) ==
LOC: HO.MMNH2L 00:35
PROVIDERS: Visit Provider Family Medicine
DX: I10 Essential (primary) hypertension (principal)
CPT/HCPCS: 36415; 80048; 85025

== ENCOUNTER 2021-04-02 00:22 | Outpatient (REF) | payer MEDICARE, SELFPAY ==
[2021-04-02 07:34] LABS: MANUAL DIFF FLAG NO
[2021-04-02 08:05] LABS: Basophils Percent Auto 0.5 % (0-2); Eosinophils Absolute Auto 0.3 X10*3/uL (0.0-0.4); Eosinophils Percent Auto 3.5 % (0-4); Hematocrit 35.1 % (37.0-47.0); Hemoglobin 10.7 g/dl (12.0-16.0); Imm Gran Abs Auto 0.06 X10*3/uL (0.00-0.03); Imm Gran Pct Auto 0.8 % (0.0-0.4); Lymphocytes Absolute Auto 1.9 X10*3/uL (1.2-4.9); Lymphocytes Percent Auto 25.1 % (20-40); Mean Corpuscular HGB Conc 30.5 g/dl (31.0-35.0); Mean Corpuscular Hemoglobin 24.6 pg (27.0-33.0); Mean Corpuscular Volume 80.7 fL (80.0-98.0); Mean Platelet Volume 9.1 fL (9.4-12.3); Monocytes Absolute Auto 0.7 X10*3/uL (0.1-1.2); Monocytes Percent Auto 9.5 % (2-11); Neutrophils Absolute Auto 4.5 x10*3/uL (2.0-8.3); Neutrophils Percent Auto 60.6 % (45-73); Platelet Count 370 X10*3/uL (160-400); Red Blood Count 4.35 X10*6/uL (4.20-5.50); Red Cell Distribution Width 17.2 % (11.0-16.0); White Blood Count 7.5 X10*3/uL (4.8-10.8)
[2021-04-02 08:21] LABS: Anion Gap 11 (12-20); Blood Urea Nitrogen 14 mg/dL (9-16); Calcium 8.4 mg/dL (8.4-10.2); Carbon Dioxide 25 mmol/L (22-29); Chloride 106 mmol/L (96-108); Estimated Glomerular Filt Rate > 60; Glucose Random 72 mg/dL (60-115); Potassium 4.5 mmol/L (3.3-5.1); Sodium 137 mmol/L (135-145)
== END 2021-04-02 00:23 | disposition home or self-care (01) ==
LOC: HO.MMNH2L 00:22
PROVIDERS: Visit Provider Family Medicine
DX: I10 Essential (primary) hypertension (principal)
CPT/HCPCS: 36415; 80048; 85025

== ENCOUNTER 2021-04-02 00:22 | Outpatient (REF) | payer MEDICARE, SELFPAY ==
[2021-03-19 06:55] LABS: MANUAL DIFF FLAG NO
[2021-03-19 07:05] LABS: Basophils Percent Auto 0.4 % (0-2); Eosinophils Absolute Auto 0.3 X10*3/uL (0.0-0.4); Eosinophils Percent Auto 3.6 % (0-4); Hematocrit 34.4 % (37.0-47.0); Hemoglobin 10.4 g/dl (12.0-16.0); Imm Gran Abs Auto 0.09 X10*3/uL (0.00-0.03); Imm Gran Pct Auto 1.2 % (0.0-0.4); Lymphocytes Absolute Auto 2.2 X10*3/uL (1.2-4.9); Mean Corpuscular HGB Conc 30.2 g/dl (31.0-35.0); Mean Corpuscular Hemoglobin 24.5 pg (27.0-33.0); Mean Corpuscular Volume 80.9 fL (80.0-98.0); Monocytes Absolute Auto 0.6 X10*3/uL (0.1-1.2); Neutrophils Absolute Auto 4.1 x10*3/uL (2.0-8.3); Neutrophils Percent Auto 56.8 % (45-73); Platelet Count 368 X10*3/uL (160-400); Red Blood Count 4.25 X10*6/uL (4.20-5.50); Red Cell Distribution Width 17.2 % (11.0-16.0); White Blood Count 7.2 X10*3/uL (4.8-10.8)
[2021-03-19 07:28] LABS: Anion Gap 11 (12-20); Blood Urea Nitrogen 15 mg/dL (9-16); Calcium 8.6 mg/dL (8.4-10.2); Carbon Dioxide 26 mmol/L (22-29); Chloride 103 mmol/L (96-108); Estimated Glomerular Filt Rate > 60; Glucose Random 77 mg/dL (60-115); Potassium 4.6 mmol/L (3.3-5.1); Sodium 135 mmol/L (135-145)
== END 2021-04-02 00:23 | disposition home or self-care (01) ==
LOC: HO.MMNH2L 00:22
PROVIDERS: Visit Provider Family Medicine
DX: I10 Essential (primary) hypertension (principal)
CPT/HCPCS: 36415; 80048; 85025

== ENCOUNTER 2021-04-09 06:28 | Outpatient (REF) | payer MEDICARE, SELFPAY ==
[2021-04-09 06:47] LABS: MANUAL DIFF FLAG NO
[2021-04-09 07:04] LABS: Basophils Percent Auto 0.4 % (0-2); Eosinophils Absolute Auto 0.3 X10*3/uL (0.0-0.4); Hemoglobin 10.4 g/dl (12.0-16.0); Imm Gran Abs Auto 0.04 X10*3/uL (0.00-0.03); Imm Gran Pct Auto 0.5 % (0.0-0.4); Lymphocytes Absolute Auto 1.8 X10*3/uL (1.2-4.9); Lymphocytes Percent Auto 22.1 % (20-40); Mean Corpuscular HGB Conc 30.6 g/dl (31.0-35.0); Mean Corpuscular Hemoglobin 24.3 pg (27.0-33.0); Mean Corpuscular Volume 79.4 fL (80.0-98.0); Monocytes Absolute Auto 0.7 X10*3/uL (0.1-1.2); Monocytes Percent Auto 8.2 % (2-11); Neutrophils Absolute Auto 5.4 x10*3/uL (2.0-8.3); Neutrophils Percent Auto 65.8 % (45-73); Platelet Count 348 X10*3/uL (160-400); Red Blood Count 4.28 X10*6/uL (4.20-5.50); Red Cell Distribution Width 17.2 % (11.0-16.0); White Blood Count 8.2 X10*3/uL (4.8-10.8)
[2021-04-09 07:38] LABS: Anion Gap 9 (12-20); Blood Urea Nitrogen 14 mg/dL (9-16); Calcium 8.9 mg/dL (8.4-10.2); Carbon Dioxide 27 mmol/L (22-29); Chloride 103 mmol/L (96-108); Estimated Glomerular Filt Rate > 60; Glucose Random 81 mg/dL (60-115); Potassium 4.4 mmol/L (3.3-5.1); Sodium 135 mmol/L (135-145)
== END 2021-04-09 06:29 | disposition home or self-care (01) ==
LOC: HO.MMNH2L 06:28
PROVIDERS: Visit Provider Family Medicine
DX: I10 Essential (primary) hypertension (principal)
CPT/HCPCS: 36415; 80048; 85025

== ENCOUNTER 2021-06-04 | Outpatient (REF) | payer MEDICARE, SELFPAY ==
[2021-06-04 07:21] LABS: MANUAL DIFF FLAG NO
[2021-06-04 07:36] LABS: Basophils Percent Auto 0.4 % (0-2); Eosinophils Absolute Auto 0.3 X10*3/uL (0.0-0.4); Eosinophils Percent Auto 4.3 % (0-4); Hematocrit 34.8 % (37.0-47.0); Hemoglobin 10.4 g/dl (12.0-16.0); Imm Gran Abs Auto 0.05 X10*3/uL (0.00-0.03); Imm Gran Pct Auto 0.7 % (0.0-0.4); Lymphocytes Absolute Auto 1.7 X10*3/uL (1.2-4.9); Lymphocytes Percent Auto 22.3 % (20-40); Mean Corpuscular HGB Conc 29.9 g/dl (31.0-35.0); Mean Corpuscular Hemoglobin 23.7 pg (27.0-33.0); Mean Corpuscular Volume 79.3 fL (80.0-98.0); Mean Platelet Volume 9.9 fL (9.4-12.3); Monocytes Absolute Auto 0.8 X10*3/uL (0.1-1.2); Monocytes Percent Auto 10.5 % (2-11); Neutrophils Absolute Auto 4.6 x10*3/uL (2.0-8.3); Neutrophils Percent Auto 61.8 % (45-73); Platelet Count 360 X10*3/uL (160-400); Red Blood Count 4.39 X10*6/uL (4.20-5.50); Red Cell Distribution Width 18.2 % (11.0-16.0); White Blood Count 7.4 X10*3/uL (4.8-10.8)
[2021-06-04 08:26] LABS: Anion Gap 10 (12-20); Blood Urea Nitrogen 15 mg/dL (9-16); Calcium 8.8 mg/dL (8.4-10.2); Carbon Dioxide 27 mmol/L (22-29); Chloride 105 mmol/L (96-108); Estimated Glomerular Filt Rate 58; Glucose Random 63 mg/dL (60-115); Potassium 4.4 mmol/L (3.3-5.1); Sodium 138 mmol/L (135-145)
== END 2021-06-04 00:01 | disposition home or self-care (01) ==
LOC: HO.MMNH2L
PROVIDERS: Visit Provider Family Medicine
DX: I10 Essential (primary) hypertension (principal)
CPT/HCPCS: 36415; 80048; 85025

== ENCOUNTER 2021-07-09 00:44 | Outpatient (REF) | payer MEDICARE, SELFPAY ==
[2021-07-09 06:46] LABS: MANUAL DIFF FLAG NO
[2021-07-09 06:56] LABS: Basophils Percent Auto 0.3 % (0-2); Eosinophils Absolute Auto 0.3 X10*3/uL (0.0-0.4); Eosinophils Percent Auto 3.7 % (0-4); Hematocrit 34.7 % (37.0-47.0); Hemoglobin 10.5 g/dl (12.0-16.0); Imm Gran Abs Auto 0.05 X10*3/uL (0.00-0.03); Imm Gran Pct Auto 0.5 % (0.0-0.4); Lymphocytes Absolute Auto 1.8 X10*3/uL (1.2-4.9); Lymphocytes Percent Auto 19.8 % (20-40); Mean Corpuscular HGB Conc 30.3 g/dl (31.0-35.0); Mean Corpuscular Hemoglobin 23.6 pg (27.0-33.0); Mean Platelet Volume 9.3 fL (9.4-12.3); Monocytes Absolute Auto 1.1 X10*3/uL (0.1-1.2); Monocytes Percent Auto 11.5 % (2-11); Neutrophils Absolute Auto 5.9 x10*3/uL (2.0-8.3); Neutrophils Percent Auto 64.2 % (45-73); Platelet Count 375 X10*3/uL (160-400); Red Blood Count 4.45 X10*6/uL (4.20-5.50); Red Cell Distribution Width 18.1 % (11.0-16.0); White Blood Count 9.2 X10*3/uL (4.8-10.8)
[2021-07-09 07:23] LABS: Anion Gap 10 (12-20); Blood Urea Nitrogen 12 mg/dL (9-16); Calcium 8.9 mg/dL (8.4-10.2); Carbon Dioxide 27 mmol/L (22-29); Chloride 103 mmol/L (96-108); Estimated Glomerular Filt Rate > 60; Glucose Fasting 71 mg/dL (60-99); Potassium 4.3 mmol/L (3.3-5.1); Sodium 136 mmol/L (135-145)
== END 2021-07-09 00:45 | disposition home or self-care (01) ==
LOC: HO.MMNH2L 00:44
PROVIDERS: Visit Provider Family Medicine
DX: I10 Essential (primary) hypertension (principal)
CPT/HCPCS: 36415; 80048; 85025

== ENCOUNTER 2021-08-06 | Outpatient (REF) | payer MEDICARE, MEDICAID, SELFPAY ==
[2021-08-07 06:49] LABS: MANUAL DIFF FLAG NO
[2021-08-07 07:22] LABS: Basophils Percent Auto 0.2 % (0-2); Eosinophils Absolute Auto 0.2 X10*3/uL (0.0-0.4); Eosinophils Percent Auto 2.7 % (0-4); Hematocrit 35.3 % (37.0-47.0); Hemoglobin 10.8 g/dl (12.0-16.0); Imm Gran Abs Auto 0.04 X10*3/uL (0.00-0.03); Imm Gran Pct Auto 0.5 % (0.0-0.4); Lymphocytes Absolute Auto 1.5 X10*3/uL (1.2-4.9); Lymphocytes Percent Auto 18.3 % (20-40); Mean Corpuscular HGB Conc 30.6 g/dl (31.0-35.0); Mean Corpuscular Hemoglobin 23.9 pg (27.0-33.0); Mean Corpuscular Volume 78.3 fL (80.0-98.0); Mean Platelet Volume 9.4 fL (9.4-12.3); Monocytes Absolute Auto 0.7 X10*3/uL (0.1-1.2); Monocytes Percent Auto 9.2 % (2-11); Neutrophils Absolute Auto 5.5 x10*3/uL (2.0-8.3); Neutrophils Percent Auto 69.1 % (45-73); Platelet Count 365 X10*3/uL (160-400); Red Blood Count 4.51 X10*6/uL (4.20-5.50); Red Cell Distribution Width 18.5 % (11.0-16.0)
[2021-08-07 07:33] LABS: Anion Gap 12 (12-20); Blood Urea Nitrogen 12 mg/dL (9-16); Carbon Dioxide 24 mmol/L (22-29); Chloride 103 mmol/L (96-108); Estimated Glomerular Filt Rate > 60; Glucose Random 79 mg/dL (60-115); Potassium 4.3 mmol/L (3.3-5.1); Sodium 135 mmol/L (135-145)
== END 2021-08-06 00:01 | disposition home or self-care (01) ==
LOC: HO.MMNH2L
PROVIDERS: Visit Provider Family Medicine
DX: I10 Essential (primary) hypertension (principal)
CPT/HCPCS: 36415; 80048; 85025

== ENCOUNTER 2021-09-10 | Outpatient (REF) | payer MEDICARE, MEDICAID, SELFPAY ==
[2021-09-10 07:13] LABS: MANUAL DIFF FLAG NO
[2021-09-10 07:26] LABS: Basophils Percent Auto 0.4 % (0-2); Eosinophils Absolute Auto 0.2 X10*3/uL (0.0-0.4); Eosinophils Percent Auto 3.2 % (0-4); Hematocrit 35.6 % (37.0-47.0); Imm Gran Abs Auto 0.05 X10*3/uL (0.00-0.03); Imm Gran Pct Auto 0.7 % (0.0-0.4); Lymphocytes Absolute Auto 1.7 X10*3/uL (1.2-4.9); Lymphocytes Percent Auto 22.9 % (20-40); Mean Corpuscular HGB Conc 30.9 g/dl (31.0-35.0); Mean Corpuscular Hemoglobin 24.4 pg (27.0-33.0); Mean Corpuscular Volume 78.9 fL (80.0-98.0); Mean Platelet Volume 9.4 fL (9.4-12.3); Monocytes Absolute Auto 0.6 X10*3/uL (0.1-1.2); Monocytes Percent Auto 8.6 % (2-11); Neutrophils Absolute Auto 4.6 x10*3/uL (2.0-8.3); Neutrophils Percent Auto 64.2 % (45-73); Platelet Count 367 X10*3/uL (160-400); Red Blood Count 4.51 X10*6/uL (4.20-5.50); Red Cell Distribution Width 17.8 % (11.0-16.0); White Blood Count 7.2 X10*3/uL (4.8-10.8)
[2021-09-10 07:49] LABS: Anion Gap 11 (12-20); Blood Urea Nitrogen 11 mg/dL (9-16); Calcium 8.8 mg/dL (8.4-10.2); Carbon Dioxide 27 mmol/L (22-29); Chloride 103 mmol/L (96-108); Estimated Glomerular Filt Rate > 60; Glucose Random 77 mg/dL (60-115); Potassium 4.5 mmol/L (3.3-5.1); Sodium 136 mmol/L (135-145)
== END 2021-09-10 00:01 | disposition home or self-care (01) ==
LOC: HO.MMNH2L
PROVIDERS: Visit Provider Family Medicine
DX: I10 Essential (primary) hypertension (principal); I69.351 Hemiplegia and hemiparesis following cerebral infarction affecting right dominant side
CPT/HCPCS: 36415; 80048; 85025

== ENCOUNTER 2021-09-13 07:12 | Outpatient (REF) | payer MEDICARE, MEDICAID, SELFPAY ==
[2021-09-13 07:26] LABS: Appearance Urine HAZY; Color Urine YELLOW; Glucose Urine UA NEG (NEG); Leukocyte Esterase Urine 3+ (NEG); Nitrite Urine NEG (NEG); Urine Blood NEG (NEG); Urine Ketones NEG (NEG); Urine Protein NEG (NEG-TRACE)
[2021-09-13 07:40] LABS: Squamous Epithelial Cell Urine 1+ /LPF
[2021-09-13 07:41] LABS: Bacteria Urine 1+ /LPF; RBC Urine 0 /HPF (0)
== END 2021-09-13 07:13 | disposition home or self-care (01) ==
LOC: HO.MMNH2L 07:12
PROVIDERS: Visit Provider Family Medicine
DX: R31.9 Hematuria, unspecified (principal)
CPT/HCPCS: 81001; 87086

== ENCOUNTER 2021-09-17 05:00 | Outpatient (REF) | payer MEDICARE, MEDICAID, SELFPAY | END 2021-09-17 05:01 | disposition home or self-care (01) | LOC: HO.MMNH2L 05:00 | PROVIDERS: Visit Provider Family Medicine | DX: Z13.89 Encounter for screening for other disorder (principal) ==

== ENCOUNTER 2021-09-25 12:29 | Emergency (ER) | payer MEDICARE, MEDICAID, SELFPAY ==
--- NOTE | ~2021-09-25 | CT_ITS ---
EXAMINATION: CT ABDOMEN AND PELVIS WITHOUT CONTRAST CLINICAL INFORMATION: Vaginal bleeding COMPARISON: CT pelvis earlier today, CT abdomen pelvis 09/08/2019 TECHNIQUE: Multidetector volumetric imaging was performed from the superior aspect of the liver through the pubic symphysis. Sagittal and coronal reformatted images were obtained on the technologist's workstation. This CT examination was performed using dose optimization techniques as appropriate, variously including the following: *Automated exposure control *Adjustment of mA and/or kV according to patient size (this includes techniques or standardized protocols for targeted exams where dose is matched to indication/reason for exam; i.e. extremities or head) *Use of iterative reconstruction technique DLP: 495 mGy-cm FINDINGS: LUNG BASES: Status post median sternotomy. No consolidations or pleural effusions are seen LIVER, GALLBLADDER, AND BILIARY TREE: The liver is normal in size, shape, and attenuation. Calcified granulomas are present. No worrisome focal hepatic lesion or biliary ductal dilatation is present. The gallbladder is unremarkable with no evidence of radiopaque gallstones, gallbladder wall thickening, or obvious pericholecystic inflammatory changes. PANCREAS: Unremarkable. SPLEEN: Splenic granulomas are seen. ADRENAL GLANDS: Unremarkable. KIDNEYS AND URETERS: The kidneys are normal in size, shape, and attenuation. No hydronephrosis, hydroureter, or calculi seen. Renal calcifications consistent with renal vascular atherosclerosis. No perinephric stranding. BLADDER: Bladder demonstrates symmetric wall thickening. No calculi are seen. GASTROINTESTINAL TRACT: The small and large bowel are unremarkable. The appendix is unremarkable. ABDOMINAL WALL: No significant hernia is appreciated. LYMPH NODES: Normal. VASCULAR: There is an infrarenal abdominal aortic aneurysm measuring a maximum of 3.6 x 3.7 cm. On the 09/08/2019 CT scan, maximal dimension of the infrarenal aorta was 3.3 cm. Dense atherosclerotic calcifications are seen involving the abdominal aorta and all of its branches along with the iliofemoral vessels. Given the degree of calcification, I suspect some stenoses may be present in the iliac arteries, especially on the right. PELVIC VISCERA: Uterus is retroflexed. An abnormal adnexal mass is not seen. No free intraperitoneal fluid is present. OSSEOUS STRUCTURES: Degenerative changes present throughout the spine most marked from L4 through S1. There is grade 1 anterolisthesis of L5 upon S1. CT/CT abdomen pelvis wo con IMPRESSION: 1. Infrarenal 3.7 cm AAA which has increased by 0.4 cm since 09/08/2019. 2. A cause for the patient's vaginal bleeding is not found. 3. Incidental note made of hepatic and splenic granulomas consistent with prior granulomatous disease, severe atherosclerosis, symmetric bladder wall thickening and degenerative changes in the spine. Fleischner guidelines were followed.
--- NOTE | ~2021-09-25 | US_ITS ---
EXAMINATION: US PELVIS CLINICAL INFORMATION: Vaginal bleeding COMPARISON: CT abdomen pelvis 09/08/2019 TECHNIQUE: Ultrasound of the pelvis is performed using both transabdominal and transvaginal transducers along with Doppler. Transvaginal imaging is performed due to inadequate visualization transabdominally. FINDINGS: Uterus: The uterus is retroverted and retroflexed and measures 5.0 x 2.9 x 3.6 cm. The double wall endometrial thickness is thickened at 8 mm for patient of 71 years of age. A tiny cystic area is present in the endometrium. There is a question of a 4 mm endometrial polyp present although this may represent cystic areas around the endometrium as the snuff grinder and screener was not convinced that this represented a polyp. The uterus is smooth in contour and has normal myometrial echogenicity. No visible fibroid. Fluid is noted in the vagina consistent with given history of vaginal bleeding. Adnexa: Both ovaries are visualized. There is normal color flow to the adnexa. There is no ovarian torsion. There is no pelvic ascites or fluid collection. Right ovary measures 2.2 x 1.7 x 0.6 cm for a volume cc. Some calcifications are present. Left ovary could not be seen US/US pelvic and transvaginal IMPRESSION: Small cystic area in the thickened endometrial canal with question of the endometrial polyp. Further evaluation with hysteroscopy or sonohysterogram may be useful in this patient with continued vaginal bleeding
[2021-09-25 12:36] VITALS: BP 128/80; PULSE 59; O2SAT 98
[2021-09-25 12:37] VITALS: BP 122/94; PULSE 61; RESP 19; TEMP 37.2; O2SAT 97; BMI 21.7
--- NOTE | 2021-09-25 12:54 | ED_ITS ---
HPI - Female Genitourinary General Chief complaint: Vaginal Bleeding Stated complaint: VAGINAL BLEEDING FROM SNF PER EMS Time Seen by Provider: 09/25/21 12:37 Source: patient, EMS and RN notes reviewed Mode of arrival: EMS Limitations: no limitations History of Present Illness HPI Narrative: 71-year-old female came in for evaluation vaginal bleeding. 71-year-old from [facility] with history of mild dementia came in for 1 day noticed by patient and the staff of heavy vaginal bleeding that is slowing down now. Patient decline any abdominal pain or pelvic pain, no history of malignancy, patient history is significant for without complication, patient is postmenopausal for over 20 years. Related Data Previous Rx's Medication Instructions Recorded sulfamethoxazole 800 1 tab PO BID #20 tab 11/14/20 mg-trimethoprim 160 mg tablet (Bactrim DS) Allergies Allergy/AdvReac Type Severity Reaction Status Date / Time lisinopril Allergy Unknown passed out Verified 09/29/18 00:00 No Known Allergies Allergy Unverified 01/13/20 18:26 Review of Systems Review of Systems: All other systems are reviewed and are negative Constitutional: Reports as per HPI and Reports no additional constitutional complaints Eyes: Reports as per HPI and Reports no additional eye complaints Reports system reviewed and no additional complaints, except as documented Cardiovascular: Reports as per HPI and Reports no additional cardiovascular complaints Respiratory: Reports as per HPI and Reports no additional respiratory complaints Gastrointestinal: Reports as per HPI and Reports no additional gastrointestinal complaints Genitourinary: Reports no additional female genitourinary complaints Musculoskeletal: Reports no additional musculoskeletal complaints Skin/Breast: Reports system reviewed and no additional complaints, except as docu Psychiatric: Reports no additional psychiatric complaints Endocrine: Reports no additional endocrine complaints Hematologic/Lymphatic: Reports no additional hematologic/lymphatic complaints Allergic/Immunologic: Reports no additional allergic/immunologic complaints Reports system reviewed and no additional complaints, except as documented and Reports Abnormal speech present [facility] Past Medical History Medical History Afib CVA (cerebral vascular accident) Dementia Dysphasia Hemiplegia HTN (hypertension) Tachycardia Social History Social History Patient Tobacco Use Status: Former Tobacco user Use of substances other than those prescribed or required for medical reasons: No Advance Directives: No Advance Directives Information Provided: No Physical Exam Vital Signs: Vital Signs: Last Vital Signs Temp 99 F 09/25/21 12:37 Pulse 61 09/25/21 12:37 Resp 19 09/25/21 12:37 BP 122/94 H 09/25/21 12:37 Pulse Ox 97 09/25/21 12:37 BMI result Body Mass Index 21.7 Vital signs have been reviewed as appeared to be correct. Blood pressure normal. Heart rate normal. Respiration rate normal. Temperature normal. Oxygen saturation normal. Appearance: Alert. Oriented X3. No acute distress. Head: Normal external exam. Normocephalic. Atraumatic. No Reaves signs noted. No raccoon eyes noted Eyes: PERRLA. EOMI. Conjunctiva and sclera normal. Eyelids normal. ENT: TM's Normal. Pharynx normal. Uvula midline. Moist mucous membranes. No trismus noted. No drooling noted. No muffled voice noted. Neck: Normal inspection. Neck supple. FROM. No adenopathy. Thyroid Normal. No meningeal signs. No neck mass noted. CVS: Normal heart rate and rhythm. Heart sound normal. No murmurs noted. Pulses normal throughout. Respiratory: No respiratory distress. Painless inspiration. Breath sounds normal. No wheezes/rales/rhonchi noted. Chest nontender. No accessory muscle usage noted or decreased air movement noted. Abdomen: Soft and nontender. Bowel sounds normal in all 4 quadrants. No distention noted. No organomegaly noted. No visible injury noted. Rectal exam: Brown stool with no blood. Pelvic exam: 2 cc of blood in the vaginal vault, no blood clots, no palpable adnexa, no obvious mass. Back: No CVA tenderness. Full range of motion noted. Skin: Skin warm and dry. Normal skin color. Normal skin turgor. No rashes/lesions/lacerations noted. Extremities: No lower extremity edema. Extremities exhibit normal range of motion. Extremities nontender. Neuro: Oriented X 3. Cranial nerve exam: II-XII are grossly intact No motor deficit. No sensory deficit. Reflexes normal. Course Course Course Narrative: Assessment and plan. 71-year-old female came in with vaginal bleeding, patient hemodynamically stable, with stable H&H, repeat pelvic exam shows no active bleeding and no blood in the vault, CT/ultrasound were discussed with Dr. Bang who recommended to discharge the patient and follow-up as an outpatient in his office for further endometrial sampling and evaluation. Incidentally increases 0.4 cm in the size of infrarenal AAA 3.7 cm in diameter. Will discharge the patient to follow-up as an outpatient with Dr. Nelson. [facility] - Female Genitourinary Lab Data Attestation: I reviewed the patient's lab results. Result diagrams: 09/25/21 12:55 09/25/21 12:55 Labs: Lab Results 09/25/21 09/25/21 09/25/21 Range/Units 12:55 12:55 13:14 WBC 8.5 (4.8-10.8) X10*3/uL RBC 4.46 (4.20-5.50) X10*6/uL Hgb 10.9 L (12.0-16.0) g/dl Hct 35.7 L (37.0-47.0) % MCV 80.0 (80.0-98.0) fL MCH 24.4 L (27.0-33.0) pg MCHC 30.5 L (31.0-35.0) g/dl RDW 17.9 H (11.0-16.0) % Plt Count 363 (160-400) X10*3/uL MPV 9.1 L (9.4-12.3) fL Immature Gran % (Auto) 0.6 H (0.0-0.4) % Neut % (Auto) 66.6 (45-73) % Lymph % (Auto) 20.0 (20-40) % [place] % (Auto) 9.6 (2-11) % Eos % (Auto) 2.7 (0-4) % Baso % (Auto) 0.5 (0-2) % Lymph # (Auto) 1.7 (1.2-4.9) X10*3/uL [place] # (Auto) 0.8 (0.1-1.2) X10*3/uL Eos # (Auto) 0.2 (0.0-0.4) X10*3/uL Baso # (Auto) 0.0 (0.0-0.2) X10*3/uL Abs Immat Gran (auto) 0.05 H (0.00-0.03) X10*3/uL Absolute Neuts (auto) 5.7 (2.0-8.3) x10*3/uL Absolute Nucleated RBC 0.000 (0.0-0.012) X10*3/uL Nucleated RBC % (auto) 0.0 (0.0-0.2) /100WBC Sodium 133 L (135-145) mmol/L Potassium 4.4 (3.3-5.1) mmol/L Chloride 101 (96-108) mmol/L Carbon Dioxide 24 (22-29) mmol/L Anion Gap 12 (12-20) BUN 15 (9-16) mg/dL Creatinine 0.91 (0.5-1.4) mg/dL Estim Creat Clear Calc 53.0 Estimated GFR > 60 Random Glucose 127 H (60-115) mg/dL Calcium 8.8 (8.4-10.2) mg/dL Total Bilirubin 0.5 (0.0-1.0) mg/dL Direct Bilirubin 0.2 (0.0-0.5) mg/dL AST 16 (5-31) U/L ALT 14 (0-31) U/L Alkaline Phosphatase 96 (39-117) U/L Total Protein 6.6 (6.5-8.0) g/dL Albumin 3.3 L (3.5-5.0) g/dL Lipase 49 (8-78) U/L Stool Occult Blood NEGATIVE (NEGATIVE) Blood Type Antibody Screen 09/25/21 Range/Units 14:11 WBC (4.8-10.8) X10*3/uL RBC (4.20-5.50) X10*6/uL Hgb (12.0-16.0) g/dl Hct (37.0-47.0) % MCV (80.0-98.0) fL MCH (27.0-33.0) pg MCHC (31.0-35.0) g/dl RDW (11.0-16.0) % Plt Count (160-400) X10*3/uL MPV (9.4-12.3) fL Immature Gran % (Auto) (0.0-0.4) % Neut % (Auto) (45-73) % Lymph % (Auto) (20-40) % [place] % (Auto) (2-11) % Eos % (Auto) (0-4) % Baso % (Auto) (0-2) % Lymph # (Auto) (1.2-4.9) X10*3/uL [place] # (Auto) (0.1-1.2) X10*3/uL Eos # (Auto) (0.0-0.4) X10*3/uL Baso # (Auto) (0.0-0.2) X10*3/uL Abs Immat Gran (auto) (0.00-0.03) X10*3/uL Absolute Neuts (auto) (2.0-8.3) x10*3/uL Absolute Nucleated RBC (0.0-0.012) X10*3/uL Nucleated RBC % (auto) (0.0-0.2) /100WBC Sodium (135-145) mmol/L Potassium (3.3-5.1) mmol/L Chloride (96-108) mmol/L Carbon Dioxide (22-29) mmol/L Anion Gap (12-20) BUN (9-16) mg/dL Creatinine (0.5-1.4) mg/dL Estim Creat Clear Calc Estimated GFR Random Glucose (60-115) mg/dL Calcium (8.4-10.2) mg/dL Total Bilirubin (0.0-1.0) mg/dL Direct Bilirubin (0.0-0.5) mg/dL AST (5-31) U/L ALT (0-31) U/L Alkaline Phosphatase (39-117) U/L Total Protein (6.5-8.0) g/dL Albumin (3.5-5.0) g/dL Lipase (8-78) U/L Stool Occult Blood (NEGATIVE) Blood Type O Positive Antibody Screen NEGATIVE Imaging Data CT scan - abdomen: Attestation: I personally reviewed and interpreted this imaging study as follows: Radiologist's impression: 1.? Infrarenal 3.7 cm AAA which has increased by 0.4 cm since 09/08/2019. 2.? A cause for the patient's vaginal bleeding is not found. 3.? Incidental note made of hepatic and splenic granulomas consistent with prior granulomatous disease, severe atherosclerosis, symmetric bladder wall thickening and degenerative changes in the spine. ? Pelvic ultrasound: Attestation: I personally reviewed and interpreted this imaging study as follows: Radiologist's impression: Small cystic area in the thickened endometrial canal with question of the endometrial polyp. Further evaluation with hysteroscopy or sonohysterogram may be useful in this patient with continued vaginal bleeding Discharge Plan Discharge Clinical Impression: Postmenopausal bleeding, Abdominal aortic aneurysm (AAA) Patient Disposition: [facility] Instructions: Endometrial Biopsy (DC), Nonruptured Abdominal Aortic Aneurysm (DC) Prescriptions: No Action sulfamethoxazole-trimethoprim [Bactrim DS] 800-160 mg tablet 1 tab PO BID Qty: 20 0RF Referrals: Farrukh Rebolledo MD [Primary Care Provider] - Jace Bang MD [Physician] - Espinoza Nelson MD [Physician] -
[2021-09-25 12:59] LABS: MANUAL DIFF FLAG NO
[2021-09-25 13:02] LABS: Basophils Percent Auto 0.5 % (0-2); Eosinophils Absolute Auto 0.2 X10*3/uL (0.0-0.4); Eosinophils Percent Auto 2.7 % (0-4); Hematocrit 35.7 % (37.0-47.0); Hemoglobin 10.9 g/dl (12.0-16.0); Imm Gran Abs Auto 0.05 X10*3/uL (0.00-0.03); Imm Gran Pct Auto 0.6 % (0.0-0.4); Lymphocytes Absolute Auto 1.7 X10*3/uL (1.2-4.9); Mean Corpuscular HGB Conc 30.5 g/dl (31.0-35.0); Mean Corpuscular Hemoglobin 24.4 pg (27.0-33.0); Mean Platelet Volume 9.1 fL (9.4-12.3); Monocytes Absolute Auto 0.8 X10*3/uL (0.1-1.2); Monocytes Percent Auto 9.6 % (2-11); Neutrophils Absolute Auto 5.7 x10*3/uL (2.0-8.3); Neutrophils Percent Auto 66.6 % (45-73); Platelet Count 363 X10*3/uL (160-400); Red Blood Count 4.46 X10*6/uL (4.20-5.50); Red Cell Distribution Width 17.9 % (11.0-16.0); White Blood Count 8.5 X10*3/uL (4.8-10.8)
[2021-09-25] MEDS: 0.9 % Sodium Chloride 1,000 ML 999 ML IV (13:17)
--- NOTE | 2021-09-25 13:19 | PC.NURSE ---
Vaginal and rectal exam with this RN and Dr Vázquez, bleeding vaginal. Pt denies pain/discomfort. Stool card sent to lab. Ultrasound to bedside at this time.
[2021-09-25 13:20] LABS: Alanine Aminotransferase 14 U/L (0-31); Albumin Level 3.3 g/dL (3.5-5.0); Alkaline Phosphatase 96 U/L (39-117); Anion Gap 12 (12-20); Aspartate Amino Transferase 16 U/L (5-31); Bilirubin Direct 0.2 mg/dL (0.0-0.5); Bilirubin Total 0.5 mg/dL (0.0-1.0); Blood Urea Nitrogen 15 mg/dL (9-16); Calcium 8.8 mg/dL (8.4-10.2); Carbon Dioxide 24 mmol/L (22-29); Chloride 101 mmol/L (96-108); Estimated Glomerular Filt Rate > 60; Glucose Random 127 mg/dL (60-115); Lipase 49 U/L (8-78); Potassium 4.4 mmol/L (3.3-5.1); Sodium 133 mmol/L (135-145); Total Protein 6.6 g/dL (6.5-8.0)
[2021-09-25 13:26] LABS: OBS Int Ctl Valid YES; OBS1 NEGATIVE (NEGATIVE)
--- NOTE | 2021-09-25 15:48 | PM.GYNCN ---
[employer] - CN: HPI Data of Consult Consult date: 09/25/21 Primary Care Provider: Farrukh Rebolledo MD Consult Narrative Narrative: I was consulted on Emmy Marie is a 71 year old female from group home with history of mild dementia came in for 1 day history of heavy vaginal bleeding that is slowing down now, pain or pelvic pain. cc:: CC: OB PMFSH Past Medical History Medical History Afib CVA (cerebral vascular accident) Dementia Dysphasia Hemiplegia HTN (hypertension) Tachycardia Social History Social History Patient Tobacco Use Status: Former Tobacco user Use of substances other than those prescribed or required for medical reasons: No Advance Directives: No Advance Directives Information Provided: No Meds Allergies Allergy/AdvReac Type Severity Reaction Status Date / Time lisinopril Allergy Unknown passed out Verified 09/29/18 00:00 No Known Allergies Allergy Unverified 01/13/20 18:26 [employer] Physical Exam Vitals Vital signs: Temp Pulse Resp BP Pulse Ox 99 F 61 19 122/94 H 97 09/25/21 12:37 09/25/21 12:37 09/25/21 12:37 09/25/21 12:37 09/25/21 12:37 BMI result Body Mass Index 21.7 Additional Comments: Per Dr. Vázquez pelvic exam : Pelvic exam:? 2 cc of blood in the vaginal vault, no blood clots, no palpable adnexa, no obvious mass. [employer] - Results Labs CBC & Chem 7: 09/25/21 12:55 09/25/21 12:55 Labs: Short CBC 09/25/21 Range/Units 12:55 WBC 8.5 (4.8-10.8) X10*3/uL Hgb 10.9 L (12.0-16.0) g/dl Hct 35.7 L (37.0-47.0) % Plt Count 363 (160-400) X10*3/uL BMP 09/25/21 12:55 Sodium 133 L Potassium 4.4 Chloride 101 Carbon Dioxide 24 BUN 15 Creatinine 0.91 Calcium 8.8 Liver Function 09/25/21 Range/Units 12:55 Total Bilirubin 0.5 (0.0-1.0) mg/dL Direct Bilirubin 0.2 (0.0-0.5) mg/dL AST 16 (5-31) U/L ALT 14 (0-31) U/L Alkaline Phosphatase 96 (39-117) U/L Albumin 3.3 L (3.5-5.0) g/dL Antibody Screen Antibody Screen NEGATIVE 09/25/21 14:11 Imaging US - abdomen: Radiologist's impression: ITS Impressions Pelvic/Transvag US 09/25/21 13:38 IMPRESSION: Small cystic area in the thickened endometrial canal with question of the endometrial polyp. Further evaluation with hysteroscopy or sonohysterogram may be useful in this patient with continued vaginal bleeding Abdomen/Pelvis CT 09/25/21 14:06 IMPRESSION: 1. Infrarenal 3.7 cm AAA which has increased by 0.4 cm since 09/08/2019. 2. A cause for the patient's vaginal bleeding is not found. 3. Incidental note made of hepatic and splenic granulomas consistent with prior granulomatous disease, severe atherosclerosis, symmetric bladder wall thickening and degenerative changes in the spine. Fleischner guidelines were followed. Assessment and Plan (1) Postmenopausal bleeding: Status: Acute Since the endometrial stripe thickenss measured by ultrasound was more than 4mm, with possible endometrial polyp, I recommended to after motor the following: The recommended next step is an endometrial sampling via hysteroscopy D&C possible polypectomy versus office endometrial biopsy to r/o endometrial pathology including polyp, hyperplasia or cancer. The patient is to follow-up in the office as soon as possible. I spent a total of 20 minute reviewing the chart, communicating with a a provider and documenting in medical record
[2021-09-25 16:00] VITALS: BP 197/98; PULSE 69; RESP 13; O2SAT 99
--- NOTE | 2021-09-25 18:03 | PC.NURSE ---
RN-RN report called into [facility]. pt to transfer via ambulance.
[2021-09-25 21:48] VITALS: BP 200/115; PULSE 66; RESP 16; O2SAT 95
--- NOTE | 2021-09-25 21:53 | PC.NURSE ---
Per EMS At 5 30 mins out with ambulance as of 2153 no ambulance has arrived
== END 2021-09-25 22:31 | disposition skilled nursing facility (03) ==
PROVIDERS: Emergency Provider Emergency Medicine; PCP Family Medicine
DX: N95.0 Postmenopausal bleeding (principal); I71.4 Abdominal aortic aneurysm, without rupture; I10 Essential (primary) hypertension; I48.91 Unspecified atrial fibrillation; Z86.73 Personal history of transient ischemic attack (TIA), and cerebral infarction without residual deficits
CPT/HCPCS: 36415; 74176; 76830; 76856; 80048; 80076; 82272; 83690; 85025; 86850; 86900; 86901; 96360; 99284

== ENCOUNTER 2021-10-08 06:18 | Outpatient (REF) | payer MEDICARE, MEDICAID, SELFPAY ==
[2021-10-08 06:22] LABS: MANUAL DIFF FLAG NO
[2021-10-08 06:48] LABS: Basophils Percent Auto 0.5 % (0-2); Eosinophils Absolute Auto 0.3 X10*3/uL (0.0-0.4); Eosinophils Percent Auto 3.3 % (0-4); Imm Gran Pct Auto 1.1 % (0.0-0.4); Lymphocytes Absolute Auto 1.6 X10*3/uL (1.2-4.9); Lymphocytes Percent Auto 18.5 % (20-40); Mean Corpuscular HGB Conc 30.3 g/dl (31.0-35.0); Mean Corpuscular Volume 79.1 fL (80.0-98.0); Monocytes Absolute Auto 1.1 X10*3/uL (0.1-1.2); Monocytes Percent Auto 12.5 % (2-11); Neutrophils Absolute Auto 5.6 x10*3/uL (2.0-8.3); Neutrophils Percent Auto 64.1 % (45-73); Platelet Count 394 X10*3/uL (160-400); Red Blood Count 4.17 X10*6/uL (4.20-5.50); Red Cell Distribution Width 17.4 % (11.0-16.0); White Blood Count 8.7 X10*3/uL (4.8-10.8)
[2021-10-08 07:22] LABS: Anion Gap 11 (12-20); Blood Urea Nitrogen 15 mg/dL (9-16); Calcium 8.4 mg/dL (8.4-10.2); Carbon Dioxide 25 mmol/L (22-29); Chloride 103 mmol/L (96-108); Estimated Glomerular Filt Rate > 60; Glucose Random 79 mg/dL (60-115); Potassium 4.3 mmol/L (3.3-5.1); Sodium 135 mmol/L (135-145)
== END 2021-10-08 06:19 | disposition home or self-care (01) ==
LOC: HO.MMNH2L 06:18
PROVIDERS: Visit Provider Family Medicine
DX: I69.351 Hemiplegia and hemiparesis following cerebral infarction affecting right dominant side (principal)
CPT/HCPCS: 36415; 80048; 85025

== ENCOUNTER 2021-11-05 06:35 | Outpatient (REF) | payer MEDICARE, MEDICAID, SELFPAY ==
[2021-11-05 06:30] LABS: MANUAL DIFF FLAG NO
[2021-11-05 06:51] LABS: Basophils Percent Auto 0.4 % (0-2); Eosinophils Absolute Auto 0.2 X10*3/uL (0.0-0.4); Eosinophils Percent Auto 2.6 % (0-4); Hematocrit 32.3 % (37.0-47.0); Hemoglobin 9.9 g/dl (12.0-16.0); Imm Gran Abs Auto 0.05 X10*3/uL (0.00-0.03); Imm Gran Pct Auto 0.7 % (0.0-0.4); Lymphocytes Absolute Auto 1.7 X10*3/uL (1.2-4.9); Lymphocytes Percent Auto 22.7 % (20-40); Mean Corpuscular HGB Conc 30.7 g/dl (31.0-35.0); Mean Corpuscular Hemoglobin 24.1 pg (27.0-33.0); Mean Corpuscular Volume 78.6 fL (80.0-98.0); Mean Platelet Volume 9.7 fL (9.4-12.3); Monocytes Absolute Auto 0.7 X10*3/uL (0.1-1.2); Monocytes Percent Auto 9.6 % (2-11); Neutrophils Absolute Auto 4.9 x10*3/uL (2.0-8.3); Platelet Count 395 X10*3/uL (160-400); Red Blood Count 4.11 X10*6/uL (4.20-5.50); Red Cell Distribution Width 17.2 % (11.0-16.0); White Blood Count 7.6 X10*3/uL (4.8-10.8)
[2021-11-05 07:22] LABS: Anion Gap 10 (12-20); Blood Urea Nitrogen 16 mg/dL (9-16); Calcium 8.6 mg/dL (8.4-10.2); Carbon Dioxide 25 mmol/L (22-29); Chloride 104 mmol/L (96-108); Estimated Glomerular Filt Rate > 60; Glucose Random 78 mg/dL (60-115); Potassium 4.4 mmol/L (3.3-5.1); Sodium 135 mmol/L (135-145)
== END 2021-11-05 06:36 | disposition home or self-care (01) ==
LOC: HO.MMNH2L 06:35
PROVIDERS: Visit Provider Family Medicine
DX: I69.351 Hemiplegia and hemiparesis following cerebral infarction affecting right dominant side (principal)
CPT/HCPCS: 36415; 80048; 85025

== ENCOUNTER 2021-12-03 05:00 | Outpatient (REF) | payer MEDICARE, MEDICAID, SELFPAY | END 2021-12-03 05:01 | disposition home or self-care (01) | LOC: HO.MMNH2L 05:00 | PROVIDERS: Visit Provider Family Medicine | DX: Z13.89 Encounter for screening for other disorder (principal) ==

== ENCOUNTER 2021-12-04 10:31 | Outpatient (REF) | payer MEDICARE, MEDICAID, SELFPAY ==
[2021-12-04 05:56] LABS: MANUAL DIFF FLAG NO
[2021-12-04 06:14] LABS: Basophils Percent Auto 0.5 % (0-2); Eosinophils Absolute Auto 0.3 X10*3/uL (0.0-0.4); Eosinophils Percent Auto 3.6 % (0-4); Hemoglobin 10.4 g/dl (12.0-16.0); Imm Gran Abs Auto 0.04 X10*3/uL (0.00-0.03); Imm Gran Pct Auto 0.5 % (0.0-0.4); Lymphocytes Absolute Auto 1.7 X10*3/uL (1.2-4.9); Lymphocytes Percent Auto 20.2 % (20-40); Mean Corpuscular HGB Conc 30.6 g/dl (31.0-35.0); Mean Corpuscular Hemoglobin 23.6 pg (27.0-33.0); Mean Corpuscular Volume 77.1 fL (80.0-98.0); Mean Platelet Volume 9.1 fL (9.4-12.3); Monocytes Absolute Auto 0.9 X10*3/uL (0.1-1.2); Monocytes Percent Auto 9.9 % (2-11); Neutrophils Absolute Auto 5.6 x10*3/uL (2.0-8.3); Neutrophils Percent Auto 65.3 % (45-73); Platelet Count 367 X10*3/uL (160-400); Red Blood Count 4.41 X10*6/uL (4.20-5.50); Red Cell Distribution Width 17.2 % (11.0-16.0); White Blood Count 8.6 X10*3/uL (4.8-10.8)
[2021-12-04 06:39] LABS: Anion Gap 13 (12-20); Blood Urea Nitrogen 15 mg/dL (9-16); Calcium 8.4 mg/dL (8.4-10.2); Carbon Dioxide 24 mmol/L (22-29); Chloride 103 mmol/L (96-108); Estimated Glomerular Filt Rate > 60; Glucose Random 82 mg/dL (60-115); Potassium 4.4 mmol/L (3.3-5.1); Sodium 136 mmol/L (135-145)
== END 2021-12-04 10:32 | disposition home or self-care (01) ==
LOC: HO.MMNH2L 10:31
PROVIDERS: Visit Provider Family Medicine
DX: I69.351 Hemiplegia and hemiparesis following cerebral infarction affecting right dominant side (principal)
CPT/HCPCS: 36415; 80048; 85025

== ENCOUNTER 2021-12-15 13:40 | Inpatient (IN) | payer MEDICARE, MEDICAID, SELFPAY ==
--- NOTE | ~2021-12-15 | XR_ITS ---
EXAMINATION: XR shoulder RT min 2V, XR elbow RT 2V, XR humerus RT CLINICAL INFORMATION: Syncope and fall with right arm deformity COMPARISON: None. TECHNIQUE: Lateral view of the right humerus. Axillary and AP views of the right shoulder. Lateral view of the right elbow. FINDINGS: Suboptimal nonstandard views were obtained. There is a comminuted angulated fracture of the proximal third of the right humerus. There is approximately 45 degree lateral angulation with a butterfly fragment. The right humeral head appears normally positioned with respect to the glenoid. There is deformity of the distal third of the right clavicle which is appears chronic and healed. The distal humerus appears intact. No gross dislocation at the elbow joint. XR/XR elbow RT 2V IMPRESSION: Comminuted angulated fracture of the proximal third of the right humerus, as described above. No dislocation at the right shoulder or elbow joints.
--- NOTE | ~2021-12-15 | XR_ITS ---
EXAMINATION: XR CHEST CLINICAL INFORMATION: Syncope COMPARISON: 09/10/2019 TECHNIQUE: Frontal view of the chest was obtained. FINDINGS: Chronic interstitial opacity again seen. No new focal consolidation. No pleural effusion or pneumothorax. Calcified aortic arch. Sternal wires. The inferior most sternal wire is fractured. Mediastinal vascular clips. Normal heart size. There is a comminuted angulated right proximal humeral fracture. No displaced right rib fracture seen although osteopenia limits evaluation. XR/XR chest 1V IMPRESSION: Comminuted angulated right proximal humeral fracture. No acute pulmonary disease.
--- NOTE | ~2021-12-15 | XR_ITS ---
EXAMINATION: XR shoulder RT min 2V, XR elbow RT 2V, XR humerus RT CLINICAL INFORMATION: Syncope and fall with right arm deformity COMPARISON: None. TECHNIQUE: Lateral view of the right humerus. Axillary and AP views of the right shoulder. Lateral view of the right elbow. FINDINGS: Suboptimal nonstandard views were obtained. There is a comminuted angulated fracture of the proximal third of the right humerus. There is approximately 45 degree lateral angulation with a butterfly fragment. The right humeral head appears normally positioned with respect to the glenoid. There is deformity of the distal third of the right clavicle which is appears chronic and healed. The distal humerus appears intact. No gross dislocation at the elbow joint. XR/XR humerus RT IMPRESSION: Comminuted angulated fracture of the proximal third of the right humerus, as described above. No dislocation at the right shoulder or elbow joints.
--- NOTE | ~2021-12-15 | XR_ITS ---
EXAMINATION: XR shoulder RT min 2V, XR elbow RT 2V, XR humerus RT CLINICAL INFORMATION: Syncope and fall with right arm deformity COMPARISON: None. TECHNIQUE: Lateral view of the right humerus. Axillary and AP views of the right shoulder. Lateral view of the right elbow. FINDINGS: Suboptimal nonstandard views were obtained. There is a comminuted angulated fracture of the proximal third of the right humerus. There is approximately 45 degree lateral angulation with a butterfly fragment. The right humeral head appears normally positioned with respect to the glenoid. There is deformity of the distal third of the right clavicle which is appears chronic and healed. The distal humerus appears intact. No gross dislocation at the elbow joint. XR/XR shoulder RT min 2V IMPRESSION: Comminuted angulated fracture of the proximal third of the right humerus, as described above. No dislocation at the right shoulder or elbow joints.
--- NOTE | ~2021-12-15 | CT_ITS ---
EXAMINATION: CT HEAD WITHOUT CONTRAST CT CERVICAL SPINE WITHOUT CONTRAST CLINICAL INFORMATION: Fall. Syncope. COMPARISON: Brain MRI 09/13/2019. CT head 09/08/2019. TECHNIQUE: Dental Scheduler images were obtained. CT imaging of the head and cervical spine was performed without contrast. Data was reformatted into multiplanar images at the acquisition workstation. This CT examination was performed using dose optimization techniques as appropriate, including one or more of the following: Automated exposure control, iterative reconstruction, and adjustment of technique factors (mA and/or kVp) according to patient size (this includes techniques or standardized protocols for targeted exams where dose is matched to indication/reason for exam). DLP: 1032 mGy-cm. FINDINGS: Head: There is no acute intracranial hemorrhage or abnormal extra-axial collection. There is stable prominence of the lateral and third ventricles when compared to prior imaging from 09/13/2019. There are numerous foci of hypoattenuation within the periventricular white matter, basal ganglia, and shanika that most likely represent a chronic manifestation of small vessel ischemia. Foreman-white matter differentiation is otherwise preserved and there is no evidence of acute territorial infarct. The calvarium and skull base are intact. Mastoid air cells and middle ear cavities are well aerated. No active paranasal sinus disease. Cervical spine: Alignment is normal. Vertebral heights are preserved. There is no acute fracture. No abnormal prevertebral soft tissue swelling. Canal patency is not well assessed on this examination due to inherent limitations of CT without intrathecal contrast. Shallow protrusions and/or bulging discs in conjunction with facet degenerative change causes at least moderate canal stenosis at the levels of C3-C4 and C4-C5. Uncovertebral joint spurring and facet degenerative change causes varying degrees of neuroforaminal encroachment that appear to be most advanced at C3-C4 and C4-C5. Heavily calcified atheromatous plaque involves both carotid bifurcations. Soft tissues of the neck are unremarkable. Grossly no pathologically enlarged cervical lymph nodes. There is pleural-parenchymal scarring at the apices of both lungs. CT/CT cervical spine wo con IMPRESSION: Head: There are numerous chronic small vessel ischemic changes primarily involving the periventricular white matter, basal ganglia, and shanika. Stable ventriculomegaly. Grossly no evidence of acute territorial infarct or hemorrhage. Cervical spine: There is advanced multilevel degenerative spondylosis of the cervical spine with at least moderate canal stenosis at C3-C4 and C4-C5. If there are clinical symptoms of compressive myelopathy then a dedicated cervical spine MRI can be obtained for better anatomic characterization of the cord and canal. Uncovertebral joint spurring and facet degenerative change causes moderate to severe neuroforaminal encroachment levels of C3-C4 and C4-C5.
[2021-12-15 14:00] VITALS: BP 199/92; PULSE 87; RESP 18; O2SAT 99; BMI 21.7
--- NOTE | 2021-12-15 14:12 | ECG_ITS ---
Test Reason : Fall Blood Pressure : / mmHG Vent. Rate : 088 BPM Atrial Rate : 088 BPM P-R Int : 160 ms QRS Dur : 100 ms QT Int : 372 ms P-R-T Axes : 061 036 052 degrees QTc Int : 450 ms Normal sinus rhythm with sinus arrhythmia Septal infarct (cited on or before 18-JUN-2012) Abnormal ECG When compared with ECG of 08-SEP-2019 13:38, Vent. rate has decreased BY 44 BPM Non-specific change in ST segment in Inferior leads T wave inversion no longer evident in Inferior leads Referred By: Casper Vázquez Electronically Signed By:AMARI VELAZQUEZ
--- NOTE | 2021-12-15 14:15 | ED.FALL ---
HPI - Fall General Chief Complaint: Fall Stated Complaint: Fall Time Seen by Provider: 12/15/21 14:11 Source: patient and EMS Mode of arrival: EMS Limitations: no limitations History of Present Illness HPI Narrative: 71-year-old female brought in by ambulance after fall. Patient is a [facility] was sitting on a chair when she felt lightheadedness patient fell forward from the chair to the ground, lost consciousness for few seconds, complaining of right arm pain and deformity, patient declined taking any anticoagulation. No CP, no SOB, no headache, no neck pain. Related Data Home Medications Medication Instructions Recorded Confirmed acetaminophen 325 mg tablet 650 mg PO Q6H PRN Pain 12/15/21 12/15/21 (Tylenol) aspirin 81 mg chewable tablet 81 mg PO DAILY 12/15/21 12/15/21 calcium carbonate 500 mg-vitamin 1 tab PO DAILY 12/15/21 12/15/21 D3 10 mcg (400 unit) tablet (Calcium 500 + D) clopidogrel 75 mg tablet 1 tab PO DAILY 12/15/21 12/15/21 diclofenac sodium 1 % topical gel 2 g topical BID 12/15/21 12/15/21 docusate sodium 100 mg capsule 100 mg PO DAILY PRN Constipation 12/15/21 12/15/21 (Colace) isosorbide mononitrate 60 mg 1 tab PO DAILY 12/15/21 12/15/21 tablet,extended release 24 hr magnesium hydroxide 400 mg/5 mL 400 mg PO DAILY PRN Constipation 12/15/21 12/15/21 oral suspension (Milk of Magnesia) metoprolol tartrate 100 mg tablet 1 tab PO BID 12/15/21 12/15/21 rosuvastatin 40 mg tablet 1 tab PO BEDTIME 12/15/21 12/15/21 Allergies Allergy/AdvReac Type Severity Reaction Status Date / Time lisinopril Allergy Unknown passed out Verified 09/29/18 00:00 No Known Allergies Allergy Unverified 01/13/20 18:26 Review of Systems Review of Systems: All other systems are reviewed and are negative Constitutional: Reports as per HPI and Reports no additional constitutional complaints Eyes: Reports as per HPI and Reports no additional eye complaints Reports system reviewed and no additional complaints, except as documented Cardiovascular: Reports as per HPI and Reports no additional cardiovascular complaints Respiratory: Reports as per HPI and Reports no additional respiratory complaints Gastrointestinal: Reports as per HPI and Reports no additional gastrointestinal complaints Genitourinary: Reports no additional female genitourinary complaints Musculoskeletal: Reports no additional musculoskeletal complaints Skin/Breast: Reports system reviewed and no additional complaints, except as docu Psychiatric: Reports no additional psychiatric complaints Endocrine: Reports no additional endocrine complaints Hematologic/Lymphatic: Reports no additional hematologic/lymphatic complaints Allergic/Immunologic: Reports no additional allergic/immunologic complaints Reports system reviewed and no additional complaints, except as documented and Reports Abnormal speech present [facility] Past Medical History Medical History Afib CVA (cerebral vascular accident) Dementia Dysphasia Hemiplegia HTN (hypertension) Tachycardia Social History Social History Patient Tobacco Use Status: Former Tobacco user Advance Directives: Yes Advance Directives on File: Yes Advance Directives Date on File: 11/15/20 Physical Exam Vital Signs: Vital Signs: Last Vital Signs Pulse 87 12/15/21 14:00 Resp 18 12/15/21 14:00 BP 199/92 H 12/15/21 14:00 Pulse Ox 99 12/15/21 14:00 O2 Del Method 12/15/21 14:00 BMI result Body Mass Index 21.7 Vital signs have been reviewed as appeared to be correct. Blood pressure elevated. Heart rate normal. Respiration rate normal. Temperature normal. Oxygen saturation normal. Appearance: Alert. Oriented X3. No acute distress. Head: Normal external exam. Normocephalic. Atraumatic. No Reaves signs noted. No raccoon eyes noted Eyes: PERRLA. EOMI. Conjunctiva and sclera normal. Eyelids normal. ENT: TM's Normal. Pharynx normal. Uvula midline. Moist mucous membranes. No trismus noted. No drooling noted. No muffled voice noted. Neck: Normal inspection. Neck supple. FROM. No adenopathy. Thyroid Normal. No meningeal signs. No neck mass noted. CVS: Normal heart rate and rhythm. Heart sound normal. No murmurs noted. Pulses normal throughout. Respiratory: No respiratory distress. Painless inspiration. Breath sounds normal. No wheezes/rales/rhonchi noted. Chest nontender. No accessory muscle usage noted or decreased air movement noted. Abdomen: Soft and nontender. Bowel sounds normal in all 4 quadrants. No distention noted. No organomegaly noted. No visible injury noted. Back: No CVA tenderness. Full range of motion noted. Skin: Skin warm and dry. Normal skin color. Normal skin turgor. No rashes/lesions/lacerations noted. Extremities: No lower extremity edema. Extremities exhibit normal range of motion. Extremities nontender. Obvious deformity of the right humerus, neurovascularly intact distally. Neuro: Oriented X 3. Cranial nerve exam: II-XII are grossly intact No motor deficit. No sensory deficit. Reflexes normal. Course Course Course Narrative: 71-year-old female came in after a syncopal episode with few seconds of loss of consciousness resulted and falling and right humerus fracture. Patient neurovascularly intact. Admit for syncopal workup and continuous cardiac monitoring. MDM - Fall Medical Records Attestation: I reviewed the patient's medical records. Lab Data Attestation: I reviewed the patient's lab results. Result diagrams: 12/15/21 15:03 12/15/21 15:03 Labs: Lab Results 12/15/21 12/15/21 12/15/21 Range/Units 15:03 15:03 15:03 WBC 16.9 H (4.8-10.8) X10*3/uL RBC 4.24 (4.20-5.50) X10*6/uL Hgb 10.2 L (12.0-16.0) g/dl Hct 32.6 L (37.0-47.0) % MCV 76.9 L (80.0-98.0) fL MCH 24.1 L (27.0-33.0) pg MCHC 31.3 (31.0-35.0) g/dl RDW 17.8 H (11.0-16.0) % Plt Count 406 H (160-400) X10*3/uL MPV 8.8 L (9.4-12.3) fL Immature Gran % (Auto) 0.7 H (0.0-0.4) % Neut % (Auto) 88.2 H (45-73) % Lymph % (Auto) 5.6 L (20-40) % [place] % (Auto) 5.0 (2-11) % Eos % (Auto) 0.2 (0-4) % Baso % (Auto) 0.3 (0-2) % Lymph # (Auto) 0.9 L (1.2-4.9) X10*3/uL [place] # (Auto) 0.9 (0.1-1.2) X10*3/uL Eos # (Auto) 0.0 (0.0-0.4) X10*3/uL Baso # (Auto) 0.1 (0.0-0.2) X10*3/uL Abs Immat Gran (auto) 0.12 H (0.00-0.03) X10*3/uL Absolute Neuts (auto) 14.9 H (2.0-8.3) x10*3/uL Absolute Nucleated RBC 0.000 (0.0-0.012) X10*3/uL Nucleated RBC % (auto) 0.0 (0.0-0.2) /100WBC Sodium 135 (135-145) mmol/L Potassium 4.2 (3.3-5.1) mmol/L Chloride 100 (96-108) mmol/L Carbon Dioxide 24 (22-29) mmol/L Anion Gap 15 (12-20) BUN 15 (9-16) mg/dL Creatinine 0.85 (0.5-1.4) mg/dL Estim Creat Clear Calc 56.8 Estimated GFR > 60 Random Glucose 140 H (60-115) mg/dL Calcium 9.0 D (8.4-10.2) mg/dL Total Bilirubin 0.4 (0.0-1.0) mg/dL Direct Bilirubin 0.2 (0.0-0.5) mg/dL AST 15 (5-31) U/L ALT 11 (0-31) U/L Alkaline Phosphatase 103 (39-117) U/L Troponin I High Sens 9.3 (<3.5-17.0) ng/L B-Natriuretic Peptide (<100) pg/mL Total Protein 6.8 (6.5-8.0) g/dL Albumin 3.6 (3.5-5.0) g/dL Lipase 40 (8-78) U/L COVID-19 (DEBBIE) (Negative) COVID-19 Clin Com 12/15/21 12/15/21 Range/Units 15:03 15:03 WBC (4.8-10.8) X10*3/uL RBC (4.20-5.50) X10*6/uL Hgb (12.0-16.0) g/dl Hct (37.0-47.0) % MCV (80.0-98.0) fL MCH (27.0-33.0) pg MCHC (31.0-35.0) g/dl RDW (11.0-16.0) % Plt Count (160-400) X10*3/uL MPV (9.4-12.3) fL Immature Gran % (Auto) (0.0-0.4) % Neut % (Auto) (45-73) % Lymph % (Auto) (20-40) % [place] % (Auto) (2-11) % Eos % (Auto) (0-4) % Baso % (Auto) (0-2) % Lymph # (Auto) (1.2-4.9) X10*3/uL [place] # (Auto) (0.1-1.2) X10*3/uL Eos # (Auto) (0.0-0.4) X10*3/uL Baso # (Auto) (0.0-0.2) X10*3/uL Abs Immat Gran (auto) (0.00-0.03) X10*3/uL Absolute Neuts (auto) (2.0-8.3) x10*3/uL Absolute Nucleated RBC (0.0-0.012) X10*3/uL Nucleated RBC % (auto) (0.0-0.2) /100WBC Sodium (135-145) mmol/L Potassium (3.3-5.1) mmol/L Chloride (96-108) mmol/L Carbon Dioxide (22-29) mmol/L Anion Gap (12-20) BUN (9-16) mg/dL Creatinine (0.5-1.4) mg/dL Estim Creat Clear Calc Estimated GFR Random Glucose (60-115) mg/dL Calcium (8.4-10.2) mg/dL Total Bilirubin (0.0-1.0) mg/dL Direct Bilirubin (0.0-0.5) mg/dL AST (5-31) U/L ALT (0-31) U/L Alkaline Phosphatase (39-117) U/L Troponin I High Sens (<3.5-17.0) ng/L B-Natriuretic Peptide 306 H (<100) pg/mL Total Protein (6.5-8.0) g/dL Albumin (3.5-5.0) g/dL Lipase (8-78) U/L COVID-19 (DEBBIE) Negative (Negative) COVID-19 Clin Com See Note Imaging Data Head and cervical C-spine CT: Attestation: I personally reviewed and interpreted this imaging study as follows: Radiologist's impression: There are numerous chronic small vessel ischemic changes primarily involving the periventricular white matter, basal ganglia, and shanika. Stable ventriculomegaly. Grossly no evidence of acute territorial infarct or hemorrhage. ? Cervical spine: There is advanced multilevel degenerative spondylosis of the cervical spine with at least moderate canal stenosis at C3-C4 and C4-C5. If there are clinical symptoms of compressive myelopathy then a dedicated cervical spine MRI can be obtained for better anatomic characterization of the cord and canal. Uncovertebral joint spurring and facet degenerative change causes moderate to severe neuroforaminal encroachment levels of C3-C4 and C4-C5.? Chest x-ray: Attestation: I personally reviewed and interpreted this imaging study as follows: Radiologist's impression: No acute pulmonary disease. Right shoulder/humerus/elbow x-ray: Attestation: I personally reviewed and interpreted this imaging study as follows: Radiologist's impression: Comminuted angulated fracture of the proximal third of the right humerus, as described above. No dislocation at the right shoulder or elbow joints.? ECG Data Attestation: I personally reviewed and interpreted this ECG as follows: Interpretation: Normal sinus rhythm at 88 beats per minutes, normal intervals, no ST-T changes. Discharge Plan Discharge Clinical Impression: Syncope, Closed comminuted fracture of right humerus Patient Disposition: Admitted As Inpatient Prescriptions: No Action aspirin 81 mg Tablet,Chewable 81 mg PO DAILY calcium carbonate-vitamin D3 [Calcium 500 + D] 500 mg-10 mcg (400 unit) Tablet 1 tab PO DAILY acetaminophen [Tylenol] 325 mg Tablet 650 mg PO Q6H PRN (Reason: Pain) metoprolol tartrate 100 mg tablet 1 tab PO BID clopidogrel 75 mg tablet 1 tab PO DAILY isosorbide mononitrate 60 mg tablet extended release 24 hr 1 tab PO DAILY magnesium hydroxide [Milk of Magnesia] 400 mg/5 mL Suspension 400 mg PO DAILY PRN (Reason: Constipation) docusate sodium [Colace] 100 mg Capsule 100 mg PO DAILY PRN (Reason: Constipation) rosuvastatin 40 mg tablet 1 tab PO BEDTIME diclofenac sodium 1 % Gel 2 g TOPICAL BID Rx Instructions: ARCH OF FEET
[2021-12-15] MEDS: Morphine Sulfate 2 MG/ML CARTRIDGE IVPUSH ×2 (14:39→21:25)
[2021-12-15] MEDS: ondansetron HCL 4 MG/2 ML VIAL IVPUSH (14:51)
[2021-12-15 15:09] LABS: Basophils Absolute Auto 0.1 X10*3/uL (0.0-0.2); Basophils Percent Auto 0.3 % (0-2); Eosinophils Percent Auto 0.2 % (0-4); Hematocrit 32.6 % (37.0-47.0); Hemoglobin 10.2 g/dl (12.0-16.0); Imm Gran Abs Auto 0.12 X10*3/uL (0.00-0.03); Imm Gran Pct Auto 0.7 % (0.0-0.4); Lymphocytes Absolute Auto 0.9 X10*3/uL (1.2-4.9); Lymphocytes Percent Auto 5.6 % (20-40); MANUAL DIFF FLAG NO; Mean Corpuscular HGB Conc 31.3 g/dl (31.0-35.0); Mean Corpuscular Hemoglobin 24.1 pg (27.0-33.0); Mean Corpuscular Volume 76.9 fL (80.0-98.0); Mean Platelet Volume 8.8 fL (9.4-12.3); Monocytes Absolute Auto 0.9 X10*3/uL (0.1-1.2); Neutrophils Absolute Auto 14.9 x10*3/uL (2.0-8.3); Neutrophils Percent Auto 88.2 % (45-73); Platelet Count 406 X10*3/uL (160-400); Red Blood Count 4.24 X10*6/uL (4.20-5.50); Red Cell Distribution Width 17.8 % (11.0-16.0); White Blood Count 16.9 X10*3/uL (4.8-10.8)
--- NOTE | 2021-12-15 15:11 | PHA.MEDREC ---
Pharmacy Consult ? Medication Reconciliation Pharmacy has completed the medication reconciliation.
[2021-12-15 15:26] LABS: COVID-19 Test Negative (Negative)
[2021-12-15 15:38] LABS: Alanine Aminotransferase 11 U/L (0-31); Albumin Level 3.6 g/dL (3.5-5.0); Alkaline Phosphatase 103 U/L (39-117); Anion Gap 15 (12-20); Aspartate Amino Transferase 15 U/L (5-31); Bilirubin Direct 0.2 mg/dL (0.0-0.5); Bilirubin Total 0.4 mg/dL (0.0-1.0); Blood Urea Nitrogen 15 mg/dL (9-16); Carbon Dioxide 24 mmol/L (22-29); Chloride 100 mmol/L (96-108); Creatinine Clr Calc Pharmacy 56.8; Estimated Glomerular Filt Rate > 60; Glucose Random 140 mg/dL (60-115); Lipase 40 U/L (8-78); Potassium 4.2 mmol/L (3.3-5.1); Sodium 135 mmol/L (135-145); Total Protein 6.8 g/dL (6.5-8.0)
[2021-12-15 15:44] LABS: B Type Natriuretic Peptide 306 pg/mL (<100); Troponin-I High Sensitivity 9.3 ng/L (<3.5-17.0)
--- NOTE | 2021-12-15 16:20 | PC.NURSE ---
facility updated on pt
--- NOTE | 2021-12-15 16:42 | PM.IMHP ---
History of Present Illness Date of Service: 12/15/21 Chief Complaint: fall 71 year old women presenting from [facility] after fall. Apparently she was sitting in a chair felt lightheaded and fell forward onto the ground. According to the notes she had lost consciousness for few seconds. She did not recal much about what happened. She did have some right arm pain. Shoulder, humeral and elbow x-ray showed comminuted angulated fracture of the proximal 3rd of the right humerus with no dislocation of the shoulder or elbow joint. Noted elevation in white blood cell count to 16.9, all other labs within acceptable limits. Blood culture and urinalysis pending no consolidation or effusion noted on chest x-ray. Elevated blood pressure noted as high as 199/92. In the ER she was given morphine, Zofran. She will be admitted for further management and treatment of acute humeral fracture. Review of Systems Review of Systems: Denies any recent fever chills or decrease in appetite respiratory denies any shortness of breath coverage production cardiovascular denies chest pain gastrointestinal denies any dysphagia abdominal pain nausea vomiting or diarrhea genitourinary denies any dysuria frequency or hematuria musculoskeletal See HPI neuropsych denies any weakness or seizures all other systems reviewed are negative [facility] Medical History Afib CVA (cerebral vascular accident) Dementia Dysphasia Hemiplegia HTN (hypertension) Tachycardia Social History Patient Tobacco Use Status: Former Tobacco user Advance Directives: Yes Advance Directives on File: Yes Advance Directives Date on File: 11/15/20 Meds Allergies Allergy/AdvReac Type Severity Reaction Status Date / Time lisinopril Allergy Unknown passed out Verified 09/29/18 00:00 No Known Allergies Allergy Unverified 01/13/20 18:26 Active Medications: Current Medications Pharmacy Consult (Consult Rx Perform Med Rec) 1 each MISCELLANE ONCE PRN PRN Reason: Consult order Pharmacy Consult (Consult Rx Perform Med Rec) 1 each MISCELLANE ONCE PRN PRN Reason: Consult order Home Medications Medication Instructions Recorded Confirmed Last Taken Type acetaminophen 325 mg tablet 650 mg PO Q6H PRN Pain 12/15/21 12/15/21 Unknown History (Tylenol) aspirin 81 mg chewable tablet 81 mg PO DAILY 12/15/21 12/15/21 Unknown History calcium carbonate 500 mg-vitamin 1 tab PO DAILY 12/15/21 12/15/21 Unknown History D3 10 mcg (400 unit) tablet (Calcium 500 + D) clopidogrel 75 mg tablet 1 tab PO DAILY 12/15/21 12/15/21 Unknown History diclofenac sodium 1 % topical gel 2 g topical BID 12/15/21 12/15/21 Unknown History docusate sodium 100 mg capsule 100 mg PO DAILY PRN Constipation 12/15/21 12/15/21 Unknown History (Colace) isosorbide mononitrate 60 mg 1 tab PO DAILY 12/15/21 12/15/21 Unknown History tablet,extended release 24 hr magnesium hydroxide 400 mg/5 mL 400 mg PO DAILY PRN Constipation 12/15/21 12/15/21 Unknown History oral suspension (Milk of Magnesia) metoprolol tartrate 100 mg tablet 1 tab PO BID 12/15/21 12/15/21 Unknown History rosuvastatin 40 mg tablet 1 tab PO BEDTIME 12/15/21 12/15/21 Unknown History Physical Exam Vital Signs and Narrative: Vital Signs: Last Vital Signs Pulse 87 12/15/21 14:00 Resp 18 12/15/21 14:00 BP 199/92 H 12/15/21 14:00 Pulse Ox 99 12/15/21 14:00 O2 Del Method 12/15/21 14:00 BMI result Body Mass Index 21.7 Appearing in no acute distress head is normocephalic atraumatic eyes pupils are PERRLA sclera is anicteric mouth throat mucous membranes are intact and moist neck is supple no lymphadenopathy, no JVD noted lung sounds are clear to auscultation heart regular rate rhythm, clear S1, S2 positive bowel sounds, abdomen is soft, nontender neuro patient is alert x3, no focal deficits Results Labs CBC and Chem 7: 12/15/21 15:03 12/15/21 15:03 Labs: Laboratory Results - last 24 hr 12/15/21 12/15/21 12/15/21 15:03 15:03 15:03 MCV 76.9 L MCH 24.1 L MCHC 31.3 RDW 17.8 H Plt Count 406 H MPV 8.8 L Immature Gran % (Auto) 0.7 H Neut % (Auto) 88.2 H Lymph % (Auto) 5.6 L [place] % (Auto) 5.0 Eos % (Auto) 0.2 Baso % (Auto) 0.3 Lymph # (Auto) 0.9 L [place] # (Auto) 0.9 Eos # (Auto) 0.0 Baso # (Auto) 0.1 Abs Immat Gran (auto) 0.12 H Absolute Neuts (auto) 14.9 H Absolute Nucleated RBC 0.000 Nucleated RBC % (auto) 0.0 Anion Gap 15 Estim Creat Clear Calc 56.8 Estimated GFR > 60 Random Glucose 140 H Calcium 9.0 D Total Bilirubin 0.4 Direct Bilirubin 0.2 AST 15 ALT 11 Alkaline Phosphatase 103 B-Natriuretic Peptide 306 H Total Protein 6.8 Albumin 3.6 Lipase 40 COVID-19 (DEBBIE) COVID-19 Clin Com 12/15/21 15:03 MCV MCH MCHC RDW Plt Count MPV Immature Gran % (Auto) Neut % (Auto) Lymph % (Auto) [place] % (Auto) Eos % (Auto) Baso % (Auto) Lymph # (Auto) [place] # (Auto) Eos # (Auto) Baso # (Auto) Abs Immat Gran (auto) Absolute Neuts (auto) Absolute Nucleated RBC Nucleated RBC % (auto) Anion Gap Estim Creat Clear Calc Estimated GFR Random Glucose Calcium Total Bilirubin Direct Bilirubin AST ALT Alkaline Phosphatase B-Natriuretic Peptide Total Protein Albumin Lipase COVID-19 (DEBBIE) Negative COVID-19 Clin Com See Note Imaging Radiologist's Impressions: Impressions Chest X-Ray 12/15/21 14:38 IMPRESSION: Comminuted angulated right proximal humeral fracture. No acute pulmonary disease. Elbow X-Ray 12/15/21 14:38 IMPRESSION: Comminuted angulated fracture of the proximal third of the right humerus, as described above. No dislocation at the right shoulder or elbow joints. Humerus X-Ray 12/15/21 14:38 IMPRESSION: Comminuted angulated fracture of the proximal third of the right humerus, as described above. No dislocation at the right shoulder or elbow joints. Shoulder X-Ray 12/15/21 14:38 IMPRESSION: Comminuted angulated fracture of the proximal third of the right humerus, as described above. No dislocation at the right shoulder or elbow joints. Cervical Spine CT 12/15/21 15:30 IMPRESSION: Head: There are numerous chronic small vessel ischemic changes primarily involving the periventricular white matter, basal ganglia, and shanika. Stable ventriculomegaly. Grossly no evidence of acute territorial infarct or hemorrhage. Cervical spine: There is advanced multilevel degenerative spondylosis of the cervical spine with at least moderate canal stenosis at C3-C4 and C4-C5. If there are clinical symptoms of compressive myelopathy then a dedicated cervical spine MRI can be obtained for better anatomic characterization of the cord and canal. Uncovertebral joint spurring and facet degenerative change causes moderate to severe neuroforaminal encroachment levels of C3-C4 and C4-C5. Head CT 12/15/21 15:30 IMPRESSION: Head: There are numerous chronic small vessel ischemic changes primarily involving the periventricular white matter, basal ganglia, and shanika. Stable ventriculomegaly. Grossly no evidence of acute territorial infarct or hemorrhage. Cervical spine: There is advanced multilevel degenerative spondylosis of the cervical spine with at least moderate canal stenosis at C3-C4 and C4-C5. If there are clinical symptoms of compressive myelopathy then a dedicated cervical spine MRI can be obtained for better anatomic characterization of the cord and canal. Uncovertebral joint spurring and facet degenerative change causes moderate to severe neuroforaminal encroachment levels of C3-C4 and C4-C5. Assessment and Plan (1) Syncope: Status: Acute Plan 71-year-old woman after fall secondary to syncope found to have a humeral fracture Right comminuted angulated humeral fracture secondary to fall Orthopedic consultation Pain management Fall secondary to syncope Keep on telemetry Sinus arrhythmia noted on EKG with nonspecific T-wave abnormalities Normal troponin No complaints of chest pain Closely monitor Hypertensive urgency. Multifactorial Likely secondary to history of hypertension and pain from fracture continue metoprolol Will add hydralazine for systolic blood pressure greater than 190 Consider adding another agent if blood pressure remains elevated Leukocytosis No signs of infection Blood cultures and UA pending AFib paroxysmal, chronic hold aspirin, Plavix, continue metoprolol DVT Prophylaxis with mechanical compression boots Attending Dr. Fragoso Patient likely requires 2 midnights in the hospital for treatment of humeral fracture possibly necessitating surgery and treatment of hypertensive urgency. Quality Stroke Does the patient have a stroke diagnosis?: No VTE Prior VTE?: No VTE Risk Level:: Medical - moderate - high VTE Device Contraindication: N/A - Device Ordered VTE Drug Contraindication: Treatment Not Indicated
[2021-12-15 17:24] VITALS: BP 194/89; PULSE 92; RESP 16; TEMP 36.6; O2SAT 94
[2021-12-15] MEDS: oxyCODONE HCl Immed Release 5 MG TABLET PO (17:39)
[2021-12-15 21:11] VITALS: BP 128/60; PULSE 74; RESP 16; TEMP 36.7; O2SAT 94
[2021-12-15] MEDS: Metoprolol Tartrate 100 MG TABLET PO (21:24)
[2021-12-15] MEDS: Atorvastatin Calcium 80 MG TABLET PO (21:25)
[2021-12-16] MEDS: Morphine Sulfate 2 MG/ML CARTRIDGE IVPUSH (05:58)
[2021-12-16 06:00] VITALS: BP 157/70; PULSE 64; RESP 14; O2SAT 94
--- NOTE | 2021-12-16 06:31 | PC.NURSE ---
This PCT Assisted Carlee CALDERÓN and PCt [place] with linen change and changing PT over into gown.
[2021-12-16 07:00] LABS: MANUAL DIFF FLAG NO
[2021-12-16 07:03] LABS: Basophils Percent Auto 0.3 % (0-2); Eosinophils Percent Auto 0.3 % (0-4); Hematocrit 30.7 % (37.0-47.0); Hemoglobin 9.4 g/dl (12.0-16.0); Imm Gran Abs Auto 0.04 X10*3/uL (0.00-0.03); Imm Gran Pct Auto 0.4 % (0.0-0.4); Lymphocytes Absolute Auto 1.5 X10*3/uL (1.2-4.9); Lymphocytes Percent Auto 15.8 % (20-40); Mean Corpuscular HGB Conc 30.6 g/dl (31.0-35.0); Mean Corpuscular Hemoglobin 23.3 pg (27.0-33.0); Mean Platelet Volume 9.3 fL (9.4-12.3); Monocytes Absolute Auto 1.1 X10*3/uL (0.1-1.2); Monocytes Percent Auto 11.6 % (2-11); Neutrophils Absolute Auto 6.9 x10*3/uL (2.0-8.3); Neutrophils Percent Auto 71.6 % (45-73); Platelet Count 394 X10*3/uL (160-400); Red Blood Count 4.04 X10*6/uL (4.20-5.50); Red Cell Distribution Width 17.5 % (11.0-16.0); White Blood Count 9.6 X10*3/uL (4.8-10.8)
[2021-12-16 07:23] LABS: Anion Gap 15 (12-20); Blood Urea Nitrogen 15 mg/dL (9-16); Calcium 9.4 mg/dL (8.4-10.2); Carbon Dioxide 24 mmol/L (22-29); Chloride 99 mmol/L (96-108); Creatinine Clr Calc Pharmacy 60.4; Estimated Glomerular Filt Rate > 60; Glucose Random 108 mg/dL (60-115); Potassium 4.7 mmol/L (3.3-5.1); Sodium 133 mmol/L (135-145)
[2021-12-16] MEDS: Metoprolol Tartrate 100 MG TABLET PO ×2 (08:02→22:24)
[2021-12-16] MEDS: Isosorbide Mononitrate 60 MG TAB.ER.24H PO (08:02)
[2021-12-16 08:14] VITALS: BP 142/79; PULSE 66; RESP 20; TEMP 37.1; O2SAT 91
--- NOTE | 2021-12-16 08:15 | PC.NURSE ---
Pt ao x 3. Resting in bed. Jayda care provided. Pt aware of plan of care.
--- NOTE | 2021-12-16 08:23 | PC.NURSE ---
Right ac IV line extravasation when flushed. Bruise noted around surrounding area. IV line removed.
--- NOTE | 2021-12-16 09:25 | P.PNIM_ITS ---
Subjective Subjective Date of Service: 12/16/21 Review of Systems Follow up Humeral fracture still with pain but better Physical Exam Vital Signs: Vital Signs: Last Vital Signs Temp 98.7 F 12/16/21 08:14 Pulse 66 12/16/21 08:14 Resp 20 12/16/21 08:14 BP 142/79 H 12/16/21 08:14 Pulse Ox 91 L 12/16/21 08:14 O2 Del Method 12/16/21 08:14 BMI result Body Mass Index 21.7 Appearing in no acute distress lung sounds are clear to auscultation heart regular rate rhythm, clear S1, S2 positive bowel sounds, abdomen is soft, nontender neuro patient is alert x3, no focal deficits Left arm sling on Objective Data Active Medications Acetaminophen (Acetaminophen 325 Mg Tablet) 650 mg PO Q6H PRN PRN Reason: Pain, Mild (Pain Scale 1-3) Atorvastatin Calcium (Atorvastatin Calcium 80 Mg Tablet) 80 mg PO BEDTIME [facility] Last Admin: 12/15/21 21:25 Dose: 80 mg Documented By: PARDEEP Docusate Sodium (Docusate Sodium 100 Mg Capsule) 100 mg PO DAILY PRN PRN Reason: Constipation Hydralazine HCl (Hydralazine Hcl 10 Mg Tablet) 10 mg PO TID PRN; Protocol PRN Reason: SBP>190 Isosorbide Mononitrate (Isosorbide Mononitrate 60 Mg Tab.Er.24h) 60 mg PO DAILY [facility]; Protocol Last Admin: 12/16/21 08:02 Dose: 60 mg Documented By: NATY Magnesium Hydroxide (Milk Of Magnesia 30 Ml Oral.Susp) 30 ml PO DAILY PRN PRN Reason: Constipation Metoprolol Tartrate (Metoprolol Tartrate 100 Mg Tablet) 100 mg PO BID [facility]; Protocol Last Admin: 12/16/21 08:02 Dose: 100 mg Documented By: NATY Morphine Sulfate (Morphine Sulfate 2 Mg/Ml Cartridge) 2 mg IVPUSH Q4H PRN; Protocol PRN Reason: Pain, Moderate (Pain Scale 4-6 Last Admin: 12/16/21 05:58 Dose: 2 mg Documented By: PARDEEP Ondansetron HCl (Ondansetron Hcl 4 Mg/2 Ml Vial) 4 mg IVPUSH Q8H PRN PRN Reason: Nausea and Vomiting Oxycodone HCl (Oxycodone Hcl Immed Release 5 Mg Tablet) 5 mg PO Q6H PRN PRN Reason: Pain, Severe (Pain Scale 7-10) Last Admin: 12/15/21 17:39 Dose: 5 mg Documented By: NATY Oxycodone HCl (Oxycodone Hcl Immed Release 5 Mg Tablet) 5 mg PO Q6H PRN PRN Reason: Pain, Moderate (Pain Scale 4-6 Pharmacy Consult (Consult Rx Perform Med Rec) 1 each MISCELLANE ONCE PRN PRN Reason: Consult order Pharmacy Consult (Consult Rx Perform Med Rec) 1 each MISCELLANE ONCE PRN PRN Reason: Consult order Sodium Chloride (0.9 % Sodium Chloride Flush 3 Ml Syringe) 3 ml IVFLUSH QSHIFT [facility] Last Admin: 12/16/21 08:27 Dose: Not Given Documented By: OMARI Non-Admin Reason: iv discontinued Labs CBC & Chem 7: 12/16/21 06:37 12/16/21 06:37 Labs: Laboratory Results - last 24 hr 12/15/21 12/15/21 12/15/21 15:03 15:03 15:03 MCV 76.9 L MCH 24.1 L MCHC 31.3 RDW 17.8 H Plt Count 406 H MPV 8.8 L Immature Gran % (Auto) 0.7 H Neut % (Auto) 88.2 H Lymph % (Auto) 5.6 L [place] % (Auto) 5.0 Eos % (Auto) 0.2 Baso % (Auto) 0.3 Lymph # (Auto) 0.9 L [place] # (Auto) 0.9 Eos # (Auto) 0.0 Baso # (Auto) 0.1 Abs Immat Gran (auto) 0.12 H Absolute Neuts (auto) 14.9 H Absolute Nucleated RBC 0.000 Nucleated RBC % (auto) 0.0 Anion Gap 15 Estim Creat Clear Calc 56.8 Estimated GFR > 60 Random Glucose 140 H Calcium 9.0 D Total Bilirubin 0.4 Direct Bilirubin 0.2 AST 15 ALT 11 Alkaline Phosphatase 103 B-Natriuretic Peptide 306 H Total Protein 6.8 Albumin 3.6 Lipase 40 COVID-19 (DEBBIE) COVID-19 Clin Com 12/15/21 12/16/21 12/16/21 15:03 06:37 06:37 MCV 76.0 L MCH 23.3 L MCHC 30.6 L RDW 17.5 H Plt Count 394 MPV 9.3 L Immature Gran % (Auto) 0.4 Neut % (Auto) 71.6 Lymph % (Auto) 15.8 L [place] % (Auto) 11.6 H Eos % (Auto) 0.3 Baso % (Auto) 0.3 Lymph # (Auto) 1.5 [place] # (Auto) 1.1 Eos # (Auto) 0.0 Baso # (Auto) 0.0 Abs Immat Gran (auto) 0.04 H Absolute Neuts (auto) 6.9 Absolute Nucleated RBC 0.000 Nucleated RBC % (auto) 0.0 Anion Gap 15 Estim Creat Clear Calc 60.4 Estimated GFR > 60 Random Glucose 108 Calcium 9.4 Total Bilirubin Direct Bilirubin AST ALT Alkaline Phosphatase B-Natriuretic Peptide Total Protein Albumin Lipase COVID-19 (DEBBIE) Negative COVID-19 Clin Com See Note Assessment and Plan (1) Syncope: Status: Acute Plan 71-year-old woman after fall secondary to syncope found to have a humeral fract ure Right comminuted angulated humeral fracture secondary to fall Orthopedic consultation pending Pain management Fall secondary to syncope Keep on telemetry Sinus arrhythmia noted on EKG with nonspecific T-wave abnormalities Normal troponin No complaints of chest pain Closely monitor Hypertensive urgency.? Multifactorial improving Likely secondary to history of hypertension and pain from fracture continue metoprolol Will add hydralazine for systolic blood pressure greater than 190 Consider adding another agent if blood pressure remains elevated Leukocytosis No signs of infection Blood cultures and UA pending AFib paroxysmal, chronic hold aspirin, Plavix, continue metoprolol DVT Prophylaxis with mechanical compression boots Attending Dr. Cobos Patient likely requires 2 midnights in the hospital? for treatment of humeral fracture possibly necessitating surgery and treatment of hypertensive urgency. Quality Stroke Does the patient have a stroke diagnosis?: No VTE Prior VTE?: No VTE Risk Level:: Medical - moderate - high VTE Device Contraindication: N/A - Device Ordered VTE Drug Contraindication: Treatment Not Indicated
--- NOTE | 2021-12-16 10:02 | PC.NURSE ---
Pt currently sleeping in bed. Equal chest rises bilaterally. No apparent distress noted. Will continue to monitor.
[2021-12-16] MEDS: oxyCODONE HCl Immed Release 5 MG TABLET PO (11:16)
--- NOTE | 2021-12-16 11:24 | PM.EVENT ---
Event Note Date of Service: 12/16/21 Event Note: 71 yo female with humeral shaft fx -patient should be placed in posterior splint and sling -will need circumferential splint to reduce fracture along with sling
--- NOTE | 2021-12-16 14:38 | PC.NURSE ---
Pt is ao x 3 watching tv in bed. Breaths are equal bilaterally. Abd is soft and non tender. Pt incontinent of urine. Jayda care provided. Reports pain 4/10. Pt aware of plan of care. Will continue to monitor.
--- NOTE | 2021-12-16 17:06 | PC.NURSE ---
incontinent of urine, cleansed, repositioned, pt is alert, able to follow commands, good csm of fingers right hand, right arm in splint and sling, aware ofplan for admission and need for urine. purewhick placed by pct to deminish need for movement causing pain to right arm. palpable radial pulse on right.
[2021-12-16 20:00] VITALS: BP 149/67; PULSE 71; O2SAT 96
--- NOTE | 2021-12-16 20:04 | PC.NURSE ---
Pt resting quietly. skin pwd. sling/splint placed properly. good CSM, palpable radial pulse. awaits room on floor
--- NOTE | 2021-12-16 22:10 | PC.NURSE ---
has been sleeping on and off. offered pain meds mult times and declined.
[2021-12-16] MEDS: Atorvastatin Calcium 80 MG TABLET PO (22:24)
[2021-12-17] VITALS: BP 142/79; PULSE 71; RESP 16; TEMP 36.1; O2SAT 94
[2021-12-17] MEDS: 0.9 % Sodium Chloride Flush 3 ML SYRINGE IVFLUSH ×2 (00:06→10:29)
[2021-12-17 01:41] VITALS: BP 188/81
[2021-12-17] MEDS: hydrALAZINE HCl 10 MG TABLET PO (02:02)
[2021-12-17 03:23] VITALS: BP 191/83; PULSE 64; RESP 18; TEMP 36.1; O2SAT 93
[2021-12-17 06:31] VITALS: BP 179/72
[2021-12-17 07:00] LABS: Hematocrit 30.8 % (37.0-47.0); Hemoglobin 9.5 g/dl (12.0-16.0); Mean Corpuscular HGB Conc 30.8 g/dl (31.0-35.0); Mean Corpuscular Hemoglobin 23.4 pg (27.0-33.0); Mean Corpuscular Volume 75.9 fL (80.0-98.0); Mean Platelet Volume 9.4 fL (9.4-12.3); Platelet Count 371 X10*3/uL (160-400); Red Blood Count 4.06 X10*6/uL (4.20-5.50); Red Cell Distribution Width 17.5 % (11.0-16.0); White Blood Count 12.7 X10*3/uL (4.8-10.8)
[2021-12-17 07:13] LABS: Anion Gap 15 (12-20); Blood Urea Nitrogen 15 mg/dL (9-16); Calcium 8.9 mg/dL (8.4-10.2); Carbon Dioxide 24 mmol/L (22-29); Chloride 97 mmol/L (96-108); Creatinine Clr Calc Pharmacy 63.5; Estimated Glomerular Filt Rate > 60; Glucose Random 98 mg/dL (60-115); Potassium 4.2 mmol/L (3.3-5.1); Sodium 132 mmol/L (135-145)
[2021-12-17 08:30] VITALS: BP 158/87; PULSE 72; RESP 16; TEMP 36.3; O2SAT 91
--- NOTE | 2021-12-17 09:47 | MHC.CM.PN ---
CM CALLED PTS DAUGHTER/HCP, FARIDA CASTILLO ([phone]) WHO REPORTS THE PT IS A LTC RESIDENT OF [facility] SHE REPORTS SHE BELIEVES THE PTS PCP IS THE DOCTOR FROM [facility], ARUN SEAY. PT HAS A HCP AND MOLST ON FILE CM WILL CONTACT [facility] FOR VAX INFO IMM DELIVERED, ORIGINAL LEFT AT BEDSIDE PER DISCUSSION, COPY SENT TO [facility]DS CURRENT DC PLAN IS RETURN TO [facility] VIA BLS
[2021-12-17] MEDS: Isosorbide Mononitrate 60 MG TAB.ER.24H PO (10:28)
[2021-12-17] MEDS: Metoprolol Tartrate 100 MG TABLET PO (10:28)
[2021-12-17] MEDS: amLODIPine Besylate 2.5 MG TABLET PO (10:29)
--- NOTE | 2021-12-17 11:21 | PC.NURSE ---
Patient AXO x2 unsure of time. Resting comfortably in bed. Patient has been sleeping on and off. Sling on right arm. Patient complaint of pain /, Tylenol offered, patient refused.
[2021-12-17 12:17] VITALS: BP 103/55; PULSE 63; RESP 19; TEMP 36.7; O2SAT 92
--- NOTE | 2021-12-17 14:51 | P.DS_ITS ---
DS: Providers Provider Date of Service: 12/17/21 Date of admission: 12/16/21 04:33 Primary care physician: Unknown Physician Consults: 12/15/21 16:36 Consult to Orthopedics Routine Consulting Provider: Jus Moralez Reason for consultation: Humeral fx Has provider been notified: No Attending physician on discharge: Kojo Llanos Discharging clinician: Marnie Edwards DS: Diagnosis Discharge Diagnosis (1) Syncope: Status: Acute DS: Summary Hospital Course Hospital Course: 71 year old women presenting from [facility] after fall.? Apparently she was sitting in a chair felt lightheaded and fell forward onto the ground.? According to the notes she had lost consciousness for few seconds. She did not recal much about what happened. ? She did have some right arm pain.? Shoulder, humeral and elbow x-ray showed comminuted angulated fracture of the proximal 3rd of the right humerus with no dislocation of the shoulder or elbow joint. Noted elevati on in white blood cell count to 16.9, all other labs within acceptable limits.? Blood culture and urinalysis pending no consolidation or effusion noted on chest x-ray.? Elevated blood pressure noted as high as 199/92.? In the ER she was given morphine, Zofran.? She will be admitted for further management and treatment of acute humeral fracture. Right comminuted angulated humeral fracture secondary to fall Orthopedic team rec sling Pain management Prescription sent for oxycodone for pain Follow-up with the orthopedic surgery team outpatient Fall secondary to syncope. Unknown etiology but no further episodes during hospital admission Head CT negative for any acute infarction or hemorrhage No noted arrhythmias that may have caused any syncope no ischemic changes on EKG Normal troponin No complaints of chest pain No noted hypoglycemia or significant hypotension No signs of infection Possibly related to hypertensive urgency, blood pressure under better control now Hypertensive urgency.? Multifactorial improving Likely secondary to history of hypertension and pain from fracture continue metoprolol treated with hydralazine as needed Blood pressure still remain elevated, Norvasc 2.5 mg daily added Monitor blood pressures Leukocytosis Likely related to stress from fall No signs of infection blood cultures negative after 24 hours AFib paroxysmal, chronic aspirin, Plavix, continue metoprolol Time Spent with Patient Time attestation: Total time spent providing and/or coordinating discharge services: Discharge coordination time: Greater than 30 minutes Quality: Safe Use of Opioids Does Pt have an Active Cancer Diagnosis on the Problem List?: No Quality: Stroke Does the patient have a stroke diagnosis?: No Physical Exam Vital Signs: Vital Signs: Last Vital Signs Temp 98.1 F 12/17/21 12:17 Pulse 63 12/17/21 12:17 Resp 19 12/17/21 12:17 BP 103/55 L 12/17/21 12:17 Pulse Ox 92 12/17/21 12:17 O2 Del Method 12/17/21 12:17 BMI result Body Mass Index 21.7 Appearing in no acute distress head is normocephalic atraumatic eyes pupils are PERRLA sclera is anicteric mouth throat mucous membranes are intact and moist neck is supple no lymphadenopathy, no JVD noted lung sounds are clear to auscultation heart regular rate rhythm, clear S1, S2 positive bowel sounds, abdomen is soft, nontender neuro patient is alert x3, no focal deficits DS: Data Data Completed and Pending Labs on day of discharge: Laboratory Results - last 24 hr 12/17/21 12/17/21 06:25 06:25 WBC 12.7 H RBC 4.06 L Hgb 9.5 L Hct 30.8 L MCV 75.9 L MCH 23.4 L MCHC 30.8 L RDW 17.5 H Plt Count 371 MPV 9.4 Absolute Nucleated RBC 0.000 Nucleated RBC % (auto) 0.0 Sodium 132 L Potassium 4.2 Chloride 97 Carbon Dioxide 24 Anion Gap 15 BUN 15 Creatinine 0.76 Estim Creat Clear Calc 63.5 Estimated GFR > 60 Random Glucose 98 Calcium 8.9 Preliminary micro results at discharge 12/15/21 21:51 Blood Culture - Preliminary Blood - Venous No growth after 24 hours. 12/15/21 21:48 Blood Culture - Preliminary Blood - Venous No growth after 24 hours. Discharge Plan Discharge Anticipated Discharge Date/Time: 12/17/21 14:48 Patient Disposition: er LT Discharge Diagnosis: Right comminuted angulated humeral fracture Fall Syncope Hypertensive urgency [facility]errals: [facility] [Outside] - 1 Week Jus Moralez MD [Physician] - 1 Week Discharge Medications: New amlodipine 2.5 mg Tablet 2.5 mg PO DAILY Qty: 30 0RF Protocol: Hold for SBP< HOLD for SBP < : 90 oxycodone 5 mg Tablet 5 mg PO Q6H PRN (Reason: Pain, Severe (Pain Scale 7-10)) Qty: 12 0RF Rx Instructions: Partial Fill upon patient request. Continued aspirin 81 mg Tablet,Chewable 81 mg PO DAILY calcium carbonate-vitamin D3 [Calcium 500 + D] 500 mg-10 mcg (400 unit) Tablet 1 tab PO DAILY acetaminophen [Tylenol] 325 mg Tablet 650 mg PO Q6H PRN (Reason: Pain) metoprolol tartrate 100 mg tablet 1 tab PO BID clopidogrel 75 mg tablet 1 tab PO DAILY isosorbide mononitrate 60 mg tablet extended release 24 hr 1 tab PO DAILY magnesium hydroxide [Milk of Magnesia] 400 mg/5 mL Suspension 400 mg PO DAILY PRN (Reason: Constipation) docusate sodium [Colace] 100 mg Capsule 100 mg PO DAILY PRN (Reason: Constipation) rosuvastatin 40 mg tablet 1 tab PO BEDTIME diclofenac sodium 1 % Gel 2 g TOPICAL BID Rx Instructions: ARCH OF FEET Discharge Orders: Discharge Order (Routine); Ordered 12/17/21 Ordered By: Marnie Edwards Diet: Advance to usual diet Activity on Discharge: As tolerated Stand Alone Forms: Patient Portal Discharge page Care Plan Goals: no further falling episodes Health Concerns: Right comminuted angulated humeral fracture Fall Syncope Hypertensive urgency Plan of Treatment: Follow-up with primary care provider as needed Take all medications as prescribed Right arm to remain in sling at all times, ok to work on elbow and wrist ROM Ok to work on pendulums Follow up with orthopedics in 1 weeks Assessment: see discharge summary
--- NOTE | 2021-12-17 14:52 | PM.CNOR ---
History of Present Illness HPI Consult date: 12/17/21 Chief complaint: Rt Humerus Fx Narrative: 71 year old women presenting from [facility] after fall.? Apparently she was sitting in a chair felt lightheaded and fell forward onto the ground.? She did have some right arm pain.? Shoulder, humeral and elbow x-ray showed comminuted angulated fracture of the proximal 3rd of the right humerus with no dislocation of the shoulder or elbow joint. She was admitted to the medical service and ortho was consulted for further recommendations. Review of Systems Review of Systems: per [facility] Past Medical History Medical History Afib CVA (cerebral vascular accident) Dementia Dysphasia Hemiplegia HTN (hypertension) Tachycardia Social History Social History Patient Tobacco Use Status: Former Tobacco user Advance Directives: Yes Advance Directives on File: Yes Advance Directives Date on File: 11/15/20 service: No Current occupational status: retired Meds Allergies Allergy/AdvReac Type Severity Reaction Status Date / Time lisinopril Allergy Unknown passed out Verified 09/29/18 00:00 No Known Allergies Allergy Unverified 01/13/20 18:26 Active Medications: Current Medications Acetaminophen (Acetaminophen 325 Mg Tablet) 650 mg PO Q6H PRN PRN Reason: Pain, Mild (Pain Scale 1-3) Amlodipine Besylate (Amlodipine Besylate 2.5 Mg Tablet) 2.5 mg PO DAILY KALEY; Protocol Last Admin: 12/17/21 10:29 Dose: 2.5 mg Atorvastatin Calcium (Atorvastatin Calcium 80 Mg Tablet) 80 mg PO BEDTIME KALEY Last Admin: 12/16/21 22:24 Dose: 80 mg Docusate Sodium (Docusate Sodium 100 Mg Capsule) 100 mg PO DAILY PRN PRN Reason: Constipation Hydralazine HCl (Hydralazine Hcl 10 Mg Tablet) 10 mg PO TID PRN; Protocol PRN Reason: SBP>190 Last Admin: 12/17/21 02:02 Dose: 10 mg Isosorbide Mononitrate (Isosorbide Mononitrate 60 Mg Tab.Er.24h) 60 mg PO DAILY KALEY; Protocol Last Admin: 12/17/21 10:28 Dose: 60 mg Magnesium Hydroxide (Milk Of Magnesia 30 Ml Oral.Susp) 30 ml PO DAILY PRN PRN Reason: Constipation Metoprolol Tartrate (Metoprolol Tartrate 100 Mg Tablet) 100 mg PO BID [facility]; Protocol Last Admin: 12/17/21 10:28 Dose: 100 mg Morphine Sulfate (Morphine Sulfate 2 Mg/Ml Cartridge) 2 mg IVPUSH Q4H PRN; Protocol PRN Reason: Pain, Moderate (Pain Scale 4-6 Last Admin: 12/16/21 05:58 Dose: 2 mg Ondansetron HCl (Ondansetron Hcl 4 Mg/2 Ml Vial) 4 mg IVPUSH Q8H PRN PRN Reason: Nausea and Vomiting Oxycodone HCl (Oxycodone Hcl Immed Release 5 Mg Tablet) 5 mg PO Q6H PRN PRN Reason: Pain, Severe (Pain Scale 7-10) Last Admin: 12/16/21 11:16 Dose: 5 mg Oxycodone HCl (Oxycodone Hcl Immed Release 5 Mg Tablet) 5 mg PO Q6H PRN PRN Reason: Pain, Moderate (Pain Scale 4-6 Pharmacy Consult (Consult Rx Perform Med Rec) 1 each MISCELLANE ONCE PRN PRN Reason: Consult order Pharmacy Consult (Consult Rx Perform Med Rec) 1 each MISCELLANE ONCE PRN PRN Reason: Consult order Sodium Chloride (0.9 % Sodium Chloride Flush 3 Ml Syringe) 3 ml IVFLUSH [facility] Last Admin: 12/17/21 10:29 Dose: 3 ml Home Medications Medication Instructions Recorded Confirmed Last Taken Type acetaminophen 325 mg tablet 650 mg PO Q6H PRN Pain 12/15/21 12/15/21 Unknown History (Tylenol) aspirin 81 mg chewable tablet 81 mg PO DAILY 12/15/21 12/15/21 Unknown History calcium carbonate 500 mg-vitamin 1 tab PO DAILY 12/15/21 12/15/21 Unknown History D3 10 mcg (400 unit) tablet (Calcium 500 + D) clopidogrel 75 mg tablet 1 tab PO DAILY 12/15/21 12/15/21 Unknown History diclofenac sodium 1 % topical gel 2 g topical BID 12/15/21 12/15/21 Unknown History docusate sodium 100 mg capsule 100 mg PO DAILY PRN Constipation 12/15/21 12/15/21 Unknown History (Colace) isosorbide mononitrate 60 mg 1 tab PO DAILY 12/15/21 12/15/21 Unknown History tablet,extended release 24 hr magnesium hydroxide 400 mg/5 mL 400 mg PO DAILY PRN Constipation 12/15/21 12/15/21 Unknown History oral suspension (Milk of Magnesia) metoprolol tartrate 100 mg tablet 1 tab PO BID 12/15/21 12/15/21 Unknown History rosuvastatin 40 mg tablet 1 tab PO BEDTIME 12/15/21 12/15/21 Unknown History Physical Exam Vital Signs: Vital Signs: Last Vital Signs Temp 98.1 F 12/17/21 12:17 Pulse 63 12/17/21 12:17 Resp 19 12/17/21 12:17 BP 103/55 L 12/17/21 12:17 Pulse Ox 92 12/17/21 12:17 O2 Del Method 12/17/21 12:17 BMI result Body Mass Index 21.7 Const: General: cooperative, healthy appearing and comfortable Extrem: Other: Right shoulder normal to inspection. Swelling and tenderness over the proximal humerus. Anterior deltoid sensation intact. Elbow and wrist ROM intact. NVI. Results Labs Result Diagrams: 12/17/21 06:25 12/17/21 06:25 Labs: Abnormal lab results 12/17/21 12/17/21 Range/Units 06:25 06:25 WBC 12.7 H (4.8-10.8) X10*3/uL RBC 4.06 L (4.20-5.50) X10*6/uL Hgb 9.5 L (12.0-16.0) g/dl Hct 30.8 L (37.0-47.0) % MCV 75.9 L (80.0-98.0) fL MCH 23.4 L (27.0-33.0) pg MCHC 30.8 L (31.0-35.0) g/dl RDW 17.5 H (11.0-16.0) % Sodium 132 L (135-145) mmol/L H & H 12/15/21 12/16/21 12/17/21 Range/Units 15:03 06:37 06:25 Hgb 10.2 L 9.4 L 9.5 L (12.0-16.0) g/dl Hct 32.6 L 30.7 L 30.8 L (37.0-47.0) % All other labs normal. Assessment and Plan (1) Closed comminuted fracture of right humerus: Status: Acute Plan She will continue to use the sling at all times. She can remove for ROM of the elbow and wrist, and pendulums. She can remove for hygiene. She should avoid positions away from the body. I would like to see her in our office in 7-10 days once the swelling has subsided to be fit for a thermal molded splint and new xrays. Procedures Date of Service Date of Service: 12/17/21
--- NOTE | 2021-12-17 15:19 | MHC.CM.PN ---
Addendum entered by Iris Cardona 12/17/21 15:22: Patient's daughter Elizabeth made aware via telephone. Original Note: Per Marnie SELBY, patient will be discharged back to [facility] booked for 6pm. Continue to monitor for d/c needs.
== END 2021-12-17 19:35 | DRG 563 ==
LOC: HO.ED 16:26 → HO.EDOVER 12-16 04:36
PROVIDERS: Admitting Provider Hospitalist; Emergency Provider Emergency Medicine; PCP Family Medicine; Visit Provider Nurse Practitioner Acute Care
DX: S42.201A Unspecified fracture of upper end of right humerus, initial encounter for closed fracture (principal); W07.XXXA Fall from chair, initial encounter; D72.829 Elevated white blood cell count, unspecified; I16.0 Hypertensive urgency; I48.0 Paroxysmal atrial fibrillation; F03.90 Unspecified dementia, unspecified severity, without behavioral disturbance, psychotic disturbance, mood disturbance, and anxiety; Z88.8 Allergy status to other drugs, medicaments and biological substances; Z79.02 Long term (current) use of antithrombotics/antiplatelets; Z79.82 Long term (current) use of aspirin; Z79.899 Other long term (current) drug therapy
CPT/HCPCS: 36415; 70450; 71045; 72125; 73030; 73060; 73070; 80048; 80076; 83690; 83880; 84484; 85025; 85027; 87040; 87635; 93005; 96374; 96375; 99285; J2270; J2405

== ENCOUNTER 2021-12-27 10:02 | Outpatient (REF) | payer MEDICARE, MEDICAID, SELFPAY ==
--- NOTE | ~2021-12-27 | XR_ITS ---
EXAMINATION: XR SHOULDER, RIGHT CLINICAL INFORMATION: Pain COMPARISON: Right shoulder x-rays December 15, 2021 TECHNIQUE: Two views of the right shoulder. FINDINGS: Again demonstrated is a comminuted angled fracture through the proximal right humerus. The distal fracture fragment demonstrates medial offset by approximately 1 shaft width. The right humeral head demonstrates grossly unremarkable alignment with the glenoid fossa on these 2 views. There are mild degenerative changes of the right acromioclavicular joint. Visualized right-sided ribs and lung parenchyma are unremarkable. XR/XR shoulder RT min 2V IMPRESSION: Stable appearance of comminuted fracture of the proximal right humerus.
== END 2021-12-27 10:03 | disposition home or self-care (01) ==
LOC: HO.HOSX 10:02
PROVIDERS: Visit Provider Physician Assistant
DX: S42.351A Displaced comminuted fracture of shaft of humerus, right arm, initial encounter for closed fracture (principal); Z79.899 Other long term (current) drug therapy; W07.XXXA Fall from chair, initial encounter; Y93.9 Activity, unspecified; Y92.9 Unspecified place or not applicable; Y99.9 Unspecified external cause status
CPT/HCPCS: 73030; 99202

== ENCOUNTER 2022-01-01 06:29 | Outpatient (REF) | payer MEDICARE, MEDICAID, SELFPAY ==
[2022-01-01 06:32] LABS: MANUAL DIFF FLAG NO
[2022-01-01 06:59] LABS: Hematocrit 31.3 % (37.0-47.0); Hemoglobin 9.5 g/dl (12.0-16.0); White Blood Count 11.2 X10*3/uL (4.8-10.8)
[2022-01-01 07:00] LABS: Basophils Absolute Auto 0.1 X10*3/uL (0.0-0.2); Basophils Percent Auto 0.4 % (0-2); Eosinophils Absolute Auto 0.2 X10*3/uL (0.0-0.4); Eosinophils Percent Auto 1.8 % (0-4); Imm Gran Abs Auto 0.09 X10*3/uL (0.00-0.03); Imm Gran Pct Auto 0.8 % (0.0-0.4); Lymphocytes Absolute Auto 1.9 X10*3/uL (1.2-4.9); Mean Corpuscular HGB Conc 30.4 g/dl (31.0-35.0); Mean Corpuscular Hemoglobin 23.8 pg (27.0-33.0); Mean Corpuscular Volume 78.3 fL (80.0-98.0); Mean Platelet Volume 9.1 fL (9.4-12.3); Monocytes Absolute Auto 0.8 X10*3/uL (0.1-1.2); Monocytes Percent Auto 7.1 % (2-11); Neutrophils Absolute Auto 8.1 x10*3/uL (2.0-8.3); Neutrophils Percent Auto 72.9 % (45-73); Platelet Count 433 X10*3/uL (160-400); Red Cell Distribution Width 19.9 % (11.0-16.0)
[2022-01-01 07:37] LABS: Anion Gap 14 (12-20); Blood Urea Nitrogen 16 mg/dL (9-16); Calcium 8.1 mg/dL (8.4-10.2); Carbon Dioxide 24 mmol/L (22-29); Chloride 99 mmol/L (96-108); Estimated Glomerular Filt Rate > 60; Glucose Random 75 mg/dL (60-115); Potassium 3.9 mmol/L (3.3-5.1); Sodium 133 mmol/L (135-145)
== END 2022-01-01 06:30 | disposition home or self-care (01) ==
LOC: HO.MMNH2L 06:29
PROVIDERS: Visit Provider Family Medicine
DX: I69.351 Hemiplegia and hemiparesis following cerebral infarction affecting right dominant side (principal)
CPT/HCPCS: 36415; 80048; 85025

== ENCOUNTER 2022-01-24 08:03 | Outpatient (REF) | payer MEDICARE, MEDICAID, SELFPAY | END 2022-01-24 08:04 | disposition home or self-care (01) | LOC: HO.HOSX 08:03 | PROVIDERS: Visit Provider Physician Assistant | DX: Z13.89 Encounter for screening for other disorder (principal) ==

== ENCOUNTER 2022-01-28 07:28 | Outpatient (REF) | payer MEDICARE, MEDICAID, SELFPAY | END 2022-01-28 07:29 | disposition home or self-care (01) | LOC: HO.MMNH2L 07:28 | PROVIDERS: Visit Provider Family Medicine | DX: Z13.89 Encounter for screening for other disorder (principal) ==

== ENCOUNTER 2022-03-15 06:09 | Outpatient (REF) | payer MEDICARE, MEDICAID, SELFPAY ==
[2022-03-15 06:12] LABS: MANUAL DIFF FLAG NO
[2022-03-15 06:48] LABS: Basophils Absolute Auto 0.1 X10*3/uL (0.0-0.2); Basophils Percent Auto 0.4 % (0-2); Eosinophils Percent Auto 0.2 % (0-4); Hematocrit 27.9 % (37.0-47.0); Hemoglobin 8.5 g/dl (12.0-16.0); Imm Gran Abs Auto 0.09 X10*3/uL (0.00-0.03); Imm Gran Pct Auto 0.7 % (0.0-0.4); Lymphocytes Absolute Auto 1.2 X10*3/uL (1.2-4.9); Lymphocytes Percent Auto 8.3 % (20-40); Mean Corpuscular HGB Conc 30.5 g/dl (31.0-35.0); Mean Corpuscular Hemoglobin 22.8 pg (27.0-33.0); Monocytes Absolute Auto 0.9 X10*3/uL (0.1-1.2); Monocytes Percent Auto 6.5 % (2-11); Neutrophils Absolute Auto 11.6 x10*3/uL (2.0-8.3); Neutrophils Percent Auto 83.9 % (45-73); Platelet Count 481 X10*3/uL (160-400); Red Blood Count 3.72 X10*6/uL (4.20-5.50); Red Cell Distribution Width 20.1 % (11.0-16.0); White Blood Count 13.8 X10*3/uL (4.8-10.8)
[2022-03-15 07:03] LABS: Alanine Aminotransferase 25 U/L (0-31); Albumin Level 2.5 g/dL (3.5-5.0); Alkaline Phosphatase 158 U/L (39-117); Anion Gap 15 (12-20); Aspartate Amino Transferase 15 U/L (5-31); Bilirubin Total 0.3 mg/dL (0.0-1.0); Blood Urea Nitrogen 54 mg/dL (9-16); Calcium 8.7 mg/dL (8.4-10.2); Carbon Dioxide 22 mmol/L (22-29); Chloride 105 mmol/L (96-108); Estimated Glomerular Filt Rate 26; Glucose Random 106 mg/dL (60-115); Potassium 4.7 mmol/L (3.3-5.1); Sodium 137 mmol/L (135-145)
== END 2022-03-15 06:10 | disposition home or self-care (01) ==
LOC: HO.MMNH2L 06:09
PROVIDERS: Visit Provider Family Medicine
DX: R41.82 Altered mental status, unspecified (principal)
CPT/HCPCS: 36415; 80053; 85025

== ENCOUNTER 2022-03-17 17:17 | Inpatient (IN) | payer MEDICARE, MEDICAID, SELFPAY ==
[2022-03-17] VITALS (10 sets, daily range): BP systolic 82–113; BP diastolic 54–73; PULSE 112–145; RESP 18–28; TEMP 36.7–38.2; O2SAT 91–100; BMI 20.7
--- NOTE | ~2022-03-17 | XR_ITS ---
EXAMINATION: XR CHEST CLINICAL INFORMATION: Question of pneumonia COMPARISON: Chest x-ray 03/17/2022 TECHNIQUE: Frontal view of the chest was obtained. FINDINGS: Development of relatively extensive airspace opacity/consolidation left lung with mid lower and lower lung predominance obscuring the left hemidiaphragm and partially obscuring left heart border. Left costophrenic angle is indistinct. Difficult to exclude small left pleural effusion. Elevation left hemidiaphragm redemonstrated. Somewhat coarse and increased reticular markings in the right lung are noted, slightly more conspicuous than on prior. Right lung otherwise clear. No pneumothorax. Cardiomediastinal silhouette is unchanged. Status post median sternotomy. Fractures of the inferior most sternal wire noted. IVC filter ejects in the right upper abdomen. No acute osseous injury. There is a ununited displaced fracture deformity of the right proximal humerus and chronic right distal humeral fracture deformity. XR/XR chest 1V IMPRESSION: Development of relatively extensive airspace opacity/consolidation in the left mid and lower lung with obscuration of the left hemidiaphragm and left costophrenic angle. Findings consistent with pneumonia or aspiration in the appropriate clinical setting.
--- NOTE | ~2022-03-17 | CT_ITS ---
EXAMINATION: CT HEAD WITHOUT CONTRAST CLINICAL INFORMATION: ams on neha COMPARISON: 12/15/2021 TECHNIQUE: Contiguous axial imaging was performed of the head without the administration of IV contrast. This CT examination was performed using dose optimization techniques as appropriate, variously including the following: *Automated exposure control *Adjustment of mA and/or kV according to patient size (this includes techniques or standardized protocols for targeted exams where dose is matched to indication/reason for exam; i.e. extremities or head) *Use of iterative reconstruction technique Dose: 700 mGy-cm FINDINGS: Severe lateral and third ventriculomegaly is again noted, disproportionate to the degree of sulcal prominence. Fourth ventricle is also dilated. The callosal angle measures 60 degrees. Findings are again consistent with noncommunicating hydrocephalus degree of ventricular dilatation appears slightly increased as compared to prior. Chronic lacunar infarcts are again seen within the cerebellar hemispheres and left caudate head. Multiple areas of hypoattenuation in the subcortical and periventricular white matter are most consistent with chronic microangiopathic changes. There is no evidence of acute intracranial hemorrhage or territorial infarction. No abnormal mass-effect or midline shift is seen. Foreman to white matter differentiation is well preserved. No extra axial fluid collections. The soft tissues and osseous structures are normal. Paranasal sinuses are clear. Small partial right mastoid effusion. CT/CT head/brain wo IV con IMPRESSION: 1. No acute intracranial pathology. 2. The degree of marked ventriculomegaly appears slightly increased as compared to prior. 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 3. Chronic lacunar infarcts in the cerebellar hemispheres and left caudate head. Moderate chronic microangiopathic white matter changes.
--- NOTE | ~2022-03-17 | XR_ITS ---
EXAMINATION: XR CHEST CLINICAL INFORMATION: Shortness of breath COMPARISON: Chest x-ray 12/15/2021 TECHNIQUE: Frontal view of the chest was obtained. 5:48 PM FINDINGS: Status post median sternotomy. Surgical clips over the cardiac silhouette. Vascular calcifications of aorta. Low lung volume. No pulmonary vascular congestion. No focal consolidation, pleural effusion or pneumothorax. Redemonstration of the fracture proximal shaft right humerus. XR/XR chest 1V IMPRESSION: No acute abnormality of chest.
--- NOTE | ~2022-03-17 | FL_ITS ---
PROCEDURE: XR BARIUM SWALLOW CLINICAL INFORMATION: Evaluate swallowing function. COMPARISON: None TECHNIQUE: Modified barium swallow was performed in lateral fluoroscopy position with patient sitting of a chair and oral administration of various consistency barium by the speech therapist. FINDINGS: On oral administration of puree, honey and nectar consistency barium there is normal propagation of bolus from the oral cavity through the pharynx into the upper esophagus without laryngeal penetration or aspiration. FLUOROSCOPY TIME: 2.5 minutes DOSE AREA PRODUCT: 1.864 uGy-m2 (microgray-meter squared) FL/FL barium swallow modified IMPRESSION: 1. Unremarkable modified barium swallow exam. 2. Correlate with speech therapy results.
--- NOTE | ~2022-03-17 | CT_ITS ---
EXAMINATION: CT CHEST WITHOUT CONTRAST CLINICAL INFORMATION: Hypoxia COMPARISON: CT chest from 09/08/2019 TECHNIQUE: Multidetector volumetric CT imaging of the chest was done. Axial MIP volume rendering provided. Sagittal and coronal reformatted images were obtained. This CT examination was performed using dose optimization techniques as appropriate, variously including the following: *Automated exposure control *Adjustment of mA and/or kV according to patient size (this includes techniques or standardized protocols for targeted exams where dose is matched to indication/reason for exam; i.e. extremities or head) *Use of iterative reconstruction technique DLP: 230 mGy-cm FINDINGS: LUNGS/PLEURA: Respiratory motion artifact limits evaluation. Biapical pleural parenchymal scarring. M emphysematous changes throughout the bilateral lung reza. Peripheral reticular nodular opacities. Redemonstration of multiple nodules throughout the bilateral lung reza some of which demonstrate increase in size or new for example in the right upper lobe (series 4, image 61 and 75) measuring up to 4 mm. Consolidative focus versus atelectasis in the left lower lobe. Right basilar atelectasis. Mild bronchiectatic changes in the lingula and the right lower lobe. Mild bronchial wall thickening which may be seen in setting of infectious/inflammatory etiology. Central airways are patent. No pneumothorax. No large pleural effusion. MEDIASTINUM: Heart is not enlarged. No pericardial effusion. Prominent coronary artery and valvular calcifications. Aorta is nonaneurysmal and demonstrates atherosclerotic calcifications. Main pulmonary artery is not enlarged. Nonspecific soft tissue thickening in the posterior mediastinum which may represent thickened esophagus versus enlarged lymph nodes, evaluation limited without intravenous contrast. Additionally the proximal portion of the esophagus demonstrates wall thickening Calcification of the right thyroid lobe, stable. Sternotomy wires AXILLA: No lymphadenopathy. UPPER ABDOMEN: Calcifications in the right hepatic lobe nonspecific. Abdominal aorta is nonaneurysmal and demonstrates atherosclerotic calcifications the stomach is distended. Calcifications in the spleen. This again demonstrates lobular configuration, nonspecific. OSSEOUS STRUCTURES: Osteopenia. Sternotomy wires. Multilevel degenerative changes of the thoracolumbar spine. No large lytic or blastic lesions are noted. CT/CT chest wo IV con IMPRESSION: 1. Respiratory motion artifact limits evaluation. 2. Redemonstration of multiple nodules throughout the bilateral lung reza some of which demonstrate increase in size or new for example in the right upper lobe measuring up to 4 mm. Follow-up as per Fleischner criteria. 3. Consolidative focus versus atelectasis in the left lower lobe. 4. Mild bronchiectatic changes in the lingula and the right lower lobe. Mild bronchial wall thickening which may be seen in setting of infectious/inflammatory etiology. 5. Nonspecific soft tissue thickening in the posterior mediastinum which may represent thickened esophagus versus enlarged lymph nodes, evaluation limited without intravenous contrast. Additionally the proximal portion of the esophagus demonstrates wall thickening which may be secondary to underdistention. 6. Osteopenia. Various management parameters for solitary pulmonary nodules are in the literature. According to the Fleischner Society, recommendations for pulmonary nodules are as follows: According to the UPDATED 2017 Fleischner Society recommendations, the advised follow-up imaging for solid nodules < 6 mm is: LOW RISK PATIENT: No routine follow-up. HIGH RISK PATIENT: Optional CT at 12 months.
--- NOTE | 2022-03-17 17:27 | ECG_ITS ---
Test Reason : SHORT OF BREATH Blood Pressure : / mmHG Vent. Rate : 142 BPM Atrial Rate : 142 BPM P-R Int : 104 ms QRS Dur : 090 ms QT Int : 372 ms P-R-T Axes : 010 018 084 degrees QTc Int : 572 ms Sinus tachycardia with short TN with occasional Premature ventricular complexes Left ventricular hypertrophy with repolarization abnormality ( R in aVL ) Intra-ventricular conduction delay Nonspecific ST abnormality Abnormal ECG When compared with ECG of 15-DEC-2021 14:11, Premature ventricular complexes are now Present TN interval has decreased Vent. rate has increased BY 54 BPM Criteria for Septal infarct are no longer Present Referred By: Abdirizak Martinez Electronically Signed By:SAMARIA MARCH MD
[2022-03-17] MEDS: dilTIAZem HCL 50 MG/10 ML VIAL 10 MG IVPUSH ×2 (17:30→19:14)
--- NOTE | 2022-03-17 17:41 | ED.SOB ---
HPI - SOB/Dyspnea General Chief Complaint: Altered Mental Status Stated Complaint: ALTERED FROM BASELINE PER SNF,SOB 16L NRB Time Seen by Provider: 03/17/22 17:21 Source: EMS and RN notes reviewed Mode of arrival: EMS Limitations: altered mental status History of Present Illness HPI Narrative: Patient having 2 years old with history of CVA with expressive aphasia, dementia AFib on Eliquis came from custodial for change in mental status since yesterday evening got worse prior to arrival noticed to have temperature of 100.7 degrees on arrival saturating 88% at room air when EMS arrived was tachycardic in 150s Adenocard 6 and then 12 mg were given without much response. Related Data Home Medications Medication Instructions Recorded Confirmed acetaminophen 325 mg tablet 650 mg PO Q6H PRN Pain 12/15/21 12/27/21 (Tylenol) aspirin 81 mg chewable tablet 81 mg PO DAILY 12/15/21 12/27/21 calcium carbonate 500 mg-vitamin 1 tab PO DAILY 12/15/21 12/27/21 D3 10 mcg (400 unit) tablet (Calcium 500 + D) clopidogrel 75 mg tablet 1 tab PO DAILY 12/15/21 12/27/21 diclofenac sodium 1 % topical gel 2 g topical BID 12/15/21 12/27/21 docusate sodium 100 mg capsule 100 mg PO DAILY PRN Constipation 12/15/21 12/27/21 (Colace) isosorbide mononitrate 60 mg 1 tab PO DAILY 12/15/21 12/27/21 tablet,extended release 24 hr magnesium hydroxide 400 mg/5 mL 400 mg PO DAILY PRN Constipation 12/15/21 12/27/21 oral suspension (Milk of Magnesia) metoprolol tartrate 100 mg tablet 1 tab PO BID 12/15/21 12/27/21 rosuvastatin 40 mg tablet 1 tab PO BEDTIME 12/15/21 12/27/21 Previous Rx's Medication Instructions Recorded amlodipine 2.5 mg tablet 2.5 mg PO DAILY #30 tabs 12/17/21 oxycodone 5 mg tablet 5 mg PO Q6H PRN Pain, Severe (Pain 12/17/21 Scale 7-10) #12 tabs Allergies Allergy/AdvReac Type Severity Reaction Status Date / Time lisinopril Allergy Unknown passed out Verified 12/27/21 14:19 No Known Allergies Allergy Unverified 12/27/21 14:19 Review of Systems Review of Systems: Yes Unobtainable due to mental status PMFSH Past Medical History Medical History Afib CVA (cerebral vascular accident) Dementia Dysphasia Hemiplegia HTN (hypertension) Tachycardia Social History Social History Patient Tobacco Use Status: Former Tobacco user Advance Directives: Yes Advance Directives on File: Yes Advance Directives Date on File: 11/15/20 service: No Current occupational status: retired Physical Exam Vital Signs: Vital Signs: Last Vital Signs Temp 99.1 F 03/18/22 00:37 Pulse 111 H 03/18/22 00:37 Resp 20 03/18/22 00:37 BP 91/52 L 03/18/22 00:37 Pulse Ox 100 03/18/22 00:37 O2 Del Method 03/18/22 00:37 O2 Flow Rate 10 03/17/22 22:56 Oxygen Flow Rate 10 03/17/22 17:51 BMI result Body Mass Index 20.7 Appearance: Alert. Oriented X3. In moderate distress expressive aphasia+ Eyes: PERRLA, No Nystagmus ENT: Pharynx normal. Oral Mucosa moist Neck: Normal inspection. Neck supple. CVS: Normal heart rate and rhythm. Pulses normal. Respiratory: No respiratory distress. Equal air entry bilateral, no wheezing/rales/rhonchi Abdomen: Soft and nontender. Bowel sounds are present, no mass palpable, no CVA tenderness Skin: Skin warm and dry. Normal skin color. Normal skin turgor. Extremities: No lower extremity edema. No calf tenderness Neuro: Oriented and awake. Right-sided residual weakness No sensory deficit.No cerebellar signs , cranial nerves II-XII intact ,aphasic with minimal communication Course Reevaluation(s) Reevaluation #1: Patient with sepsis with atrial fibrillation with fast ventricular rate with JUDITH with change in mental status likely from sepsis will do head CTe as patient is on Eliquis Time: 19:00 Reevaluation #2: Case discussed in detail with patient's daughter who agreed not to do CPR would like to have any medications the patient is DNR DNI Time: 20:23 Reevaluation #3: Patient with persistent AFib heart rate 140-150 on max dose of Cardizem drip was given Lopressor blood pressure 86/50 patient received 50 joules of synchronized shock and responded heart rate in 120s sinus tachycardia Time: :22 Medications Administered Generic Name Dose Route Start Last Admin Trade Name Freq PRN Reason Stop Dose Admin Diltiazem HCl 125 mg/ Sodium 125 mls @ 0 mls/hr 03/17/22 19:30 03/17/22 20:57 Chloride IVCONT 15 mg/hr .Q0M KALEY 15 mls/hr Titration Protocol Per Protocol Sodium Chloride 1,000 mls @ 999 mls/hr 03/18/22 00:45 03/18/22 00:46 Ns IV 03/18/22 01:45 999 mls/hr .Q1H1M ONE Administration Discontinued Medications Generic Name Dose Route Start Last Admin Trade Name Freq PRN Reason Stop Dose Admin Diltiazem HCl 10 mg 03/17/22 17:26 03/17/22 17:30 Diltiazem Hcl 50 Mg/10 Ml Vial IVPUSH 03/17/22 17:27 10 mg STAT STA Administration Diltiazem HCl 10 mg 03/17/22 19:19 03/17/22 19:14 Diltiazem Hcl 50 Mg/10 Ml Vial IVPUSH 03/17/22 19:20 10 mg STAT STA Administration Ceftriaxone Sodium 1 gm/ 50 mls @ 100 mls/hr 03/17/22 17:36 03/17/22 19:32 Sodium Chloride IV 03/17/22 18:05 Infused ONCE ONE Infusion Sodium Chloride 500 mls @ 500 mls/hr 03/17/22 18:55 03/17/22 19:32 Ns IV 03/17/22 19:54 Infused .Q1H ONE Infusion Sodium Chloride 1,000 mls @ 999 mls/hr 03/17/22 19:19 03/17/22 21:50 Ns IV 03/17/22 20:19 Infused .Q1H1M ONE Infusion Piperacillin Sod/Tazobactam 50 mls @ 100 mls/hr 03/17/22 21:32 03/17/22 22:47 Sod 2.25 gm/ Sodium Chloride IV 03/17/22 22:01 Infused ONCE ONE Infusion Metoprolol Tartrate 5 mg 03/17/22 19:19 03/17/22 19:16 Metoprolol Tartrate 5 Mg/5 Ml Vial IVPUSH 03/17/22 19:20 5 mg ONCE ONE Administration Sodium Bicarbonate 50 meq 03/17/22 19:42 03/17/22 20:18 Sodium Bicarbonate 8.4% 50 Meq/50 Ml Syringe IVPUSH 03/17/22 19:43 50 meq ONCE ONE Administration MDM - SOB/Dyspnea MDM Narrative Medical decision making narrative: 0110 Patient history of atrial fibrillation on Eliquis came with altered mental status and palpitation and shortness of breath noticed to have temperature in the ER Dennis catheter was placed which drained pus like urine. Initial lactic acid level was 2.4 improved after IV fluids and antibiotics patient received more than 30 cc/kilograms IV fluid initial Rocephin was given which changed to Zosyn for possible Pseudomonas resistant bacteria although in the past patient has mirabilis sensitive to cephalosporin. Is discussed with patient's daughter in agreement to keep patient DNI/DNR no heroic measures supportive treatment and antibiotics okay does not want central line Medical Records Attestation: I reviewed the patient's medical records. Lab Data Attestation: I reviewed the patient's lab results. Result diagrams: 03/17/22 18:07 03/17/22 18:07 Labs: Lab Results 03/17/22 03/17/22 03/17/22 Range/Units 18:07 18:07 18:07 WBC 25.0 H (4.8-10.8) X10*3/uL RBC 4.10 L (4.20-5.50) X10*6/uL Hgb 9.2 L (12.0-16.0) g/dl Hct 30.2 L (37.0-47.0) % MCV 73.7 L (80.0-98.0) fL MCH 22.4 L (27.0-33.0) pg MCHC 30.5 L (31.0-35.0) g/dl RDW 20.5 H (11.0-16.0) % Plt Count 593 H (160-400) X10*3/uL MPV 8.9 L (9.4-12.3) fL Immature Gran % (Auto) 0.8 H (0.0-0.4) % Neut % (Auto) 93.2 H (45-73) % Lymph % (Auto) 2.2 L (20-40) % [place] % (Auto) 3.4 (2-11) % Eos % (Auto) 0.0 (0-4) % Baso % (Auto) 0.4 (0-2) % Lymph # (Auto) 0.6 L (1.2-4.9) X10*3/uL [place] # (Auto) 0.9 (0.1-1.2) X10*3/uL Eos # (Auto) 0.0 (0.0-0.4) X10*3/uL Baso # (Auto) 0.1 (0.0-0.2) X10*3/uL Abs Immat Gran (auto) 0.21 H (0.00-0.03) X10*3/uL Absolute Neuts (auto) 23.3 H (2.0-8.3) x10*3/uL Absolute Nucleated RBC 0.000 (0.0-0.012) X10*3/uL Nucleated RBC % (auto) 0.0 (0.0-0.2) /100WBC Smear Tech's Comments VERIFIED PT 30.2 H (10.0-13.1) SEC INR 2.5 H (0.9-1.1) Sodium 142 (135-145) mmol/L Potassium 5.4 H (3.3-5.1) mmol/L Chloride 106 (96-108) mmol/L Carbon Dioxide 20 L (22-29) mmol/L Anion Gap 21 H (12-20) BUN 96 H (9-16) mg/dL Creatinine 3.47 H (0.5-1.4) mg/dL Estim Creat Clear Calc 13.1 Estimated GFR 13 Random Glucose 200 H (60-115) mg/dL Lactic Acid (0.5-2.0) mmol/L Lactic Acid F/U @ 2Hr (0.5-2.0) mmol/L Lactic Acid F/U @ 4Hr (0.5-2.0) mmol/L Calcium 9.2 (8.4-10.2) mg/dL Magnesium 2.6 (1.6-2.6) mg/dL Total Bilirubin 0.3 (0.0-1.0) mg/dL AST 117 H (5-31) U/L ALT 97 H (0-31) U/L Alkaline Phosphatase 246 H (39-117) U/L Troponin I High Sens (<3.5-17.0) ng/L Total Protein 6.8 (6.5-8.0) g/dL Albumin 2.7 L (3.5-5.0) g/dL Urine Color Urine Appearance Urine pH (5.0-9.0) Ur Specific [place] (1.005-1.025) Urine Protein (Neg-Trace) mg/dL Urine Glucose (UA) (Negative) mg/dL Urine Ketones (Negative) mg/dL Urine Blood (Negative) Urine Nitrite (Negative) Ur Leukocyte Esterase (Negative) Urine RBC (0-2) /HPF Urine WBC (0-5) /HPF Ur Squamous Epith Cells (0-2) /HPF Urine Bacteria (None Seen) Hyaline Casts (0-2) /LPF Influenza Type A (PCR) (Negative) Influenza Type B (PCR) (Negative) RSV RNA Qual (PCR) (Negative) SARS-CoV-2 RNA (RT-PCR) (Negative) 03/17/22 03/17/22 03/17/22 Range/Units 18:07 18:08 18:10 WBC (4.8-10.8) X10*3/uL RBC (4.20-5.50) X10*6/uL Hgb (12.0-16.0) g/dl Hct (37.0-47.0) % MCV (80.0-98.0) fL MCH (27.0-33.0) pg MCHC (31.0-35.0) g/dl RDW (11.0-16.0) % Plt Count (160-400) X10*3/uL MPV (9.4-12.3) fL Immature Gran % (Auto) (0.0-0.4) % Neut % (Auto) (45-73) % Lymph % (Auto) (20-40) % [place] % (Auto) (2-11) % Eos % (Auto) (0-4) % Baso % (Auto) (0-2) % Lymph # (Auto) (1.2-4.9) X10*3/uL [place] # (Auto) (0.1-1.2) X10*3/uL Eos # (Auto) (0.0-0.4) X10*3/uL Baso # (Auto) (0.0-0.2) X10*3/uL Abs Immat Gran (auto) (0.00-0.03) X10*3/uL Absolute Neuts (auto) (2.0-8.3) x10*3/uL Absolute Nucleated RBC (0.0-0.012) X10*3/uL Nucleated RBC % (auto) (0.0-0.2) /100WBC Smear Tech's Comments PT (10.0-13.1) SEC INR (0.9-1.1) Sodium (135-145) mmol/L Potassium (3.3-5.1) mmol/L Chloride (96-108) mmol/L Carbon Dioxide (22-29) mmol/L Anion Gap (12-20) BUN (9-16) mg/dL Creatinine (0.5-1.4) mg/dL Estim Creat Clear Calc Estimated GFR Random Glucose (60-115) mg/dL Lactic Acid 2.2 H* (0.5-2.0) mmol/L Lactic Acid F/U @ 2Hr (0.5-2.0) mmol/L Lactic Acid F/U @ 4Hr (0.5-2.0) mmol/L Calcium (8.4-10.2) mg/dL Magnesium (1.6-2.6) mg/dL Total Bilirubin (0.0-1.0) mg/dL AST (5-31) U/L ALT (0-31) U/L Alkaline Phosphatase (39-117) U/L Troponin I High Sens 52.5 H* D (<3.5-17.0) ng/L Total Protein (6.5-8.0) g/dL Albumin (3.5-5.0) g/dL Urine Color Urine Appearance Urine pH (5.0-9.0) Ur Specific [place] (1.005-1.025) Urine Protein (Neg-Trace) mg/dL Urine Glucose (UA) (Negative) mg/dL Urine Ketones (Negative) mg/dL Urine Blood (Negative) Urine Nitrite (Negative) Ur Leukocyte Esterase (Negative) Urine RBC (0-2) /HPF Urine WBC (0-5) /HPF Ur Squamous Epith Cells (0-2) /HPF Urine Bacteria (None Seen) Hyaline Casts (0-2) /LPF Influenza Type A (PCR) NEGATIVE (Negative) Influenza Type B (PCR) NEGATIVE (Negative) RSV RNA Qual (PCR) NEGATIVE (Negative) SARS-CoV-2 RNA (RT-PCR) NEGATIVE (Negative) 03/17/22 03/17/22 03/17/22 Range/Units 21:01 21:16 23:33 WBC (4.8-10.8) X10*3/uL RBC (4.20-5.50) X10*6/uL Hgb (12.0-16.0) g/dl Hct (37.0-47.0) % MCV (80.0-98.0) fL MCH (27.0-33.0) pg MCHC (31.0-35.0) g/dl RDW (11.0-16.0) % Plt Count (160-400) X10*3/uL MPV (9.4-12.3) fL Immature Gran % (Auto) (0.0-0.4) % Neut % (Auto) (45-73) % Lymph % (Auto) (20-40) % [place] % (Auto) (2-11) % Eos % (Auto) (0-4) % Baso % (Auto) (0-2) % Lymph # (Auto) (1.2-4.9) X10*3/uL [place] # (Auto) (0.1-1.2) X10*3/uL Eos # (Auto) (0.0-0.4) X10*3/uL Baso # (Auto) (0.0-0.2) X10*3/uL Abs Immat Gran (auto) (0.00-0.03) X10*3/uL Absolute Neuts (auto) (2.0-8.3) x10*3/uL Absolute Nucleated RBC (0.0-0.012) X10*3/uL Nucleated RBC % (auto) (0.0-0.2) /100WBC Smear Tech's Comments PT (10.0-13.1) SEC INR (0.9-1.1) Sodium (135-145) mmol/L Potassium (3.3-5.1) mmol/L Chloride (96-108) mmol/L Carbon Dioxide (22-29) mmol/L Anion Gap (12-20) BUN (9-16) mg/dL Creatinine (0.5-1.4) mg/dL Estim Creat Clear Calc Estimated GFR Random Glucose (60-115) mg/dL Lactic Acid (0.5-2.0) mmol/L Lactic Acid F/U @ 2Hr 2.4 H* (0.5-2.0) mmol/L Lactic Acid F/U @ 4Hr 1.4 (0.5-2.0) mmol/L Calcium (8.4-10.2) mg/dL Magnesium (1.6-2.6) mg/dL Total Bilirubin (0.0-1.0) mg/dL AST (5-31) U/L ALT (0-31) U/L Alkaline Phosphatase (39-117) U/L Troponin I High Sens (<3.5-17.0) ng/L Total Protein (6.5-8.0) g/dL Albumin (3.5-5.0) g/dL Urine Color Yellow Urine Appearance Turbid Urine pH 6.0 (5.0-9.0) Ur Specific [place] 1.015 (1.005-1.025) Urine Protein 100 (2+) H (Neg-Trace) mg/dL Urine Glucose (UA) Negative (Negative) mg/dL Urine Ketones Negative (Negative) mg/dL Urine Blood Large (3+) H (Negative) Urine Nitrite Negative (Negative) Ur Leukocyte Esterase Large (3+) H (Negative) Urine RBC >20 H (0-2) /HPF Urine WBC >50 H (0-5) /HPF Ur Squamous Epith Cells 0-2 (0-2) /HPF Urine Bacteria 4+ (None Seen) Hyaline Casts 3-5 (0-2) /LPF Influenza Type A (PCR) (Negative) Influenza Type B (PCR) (Negative) RSV RNA Qual (PCR) (Negative) SARS-CoV-2 RNA (RT-PCR) (Negative) ECG Data Attestation: I personally reviewed and interpreted this ECG as follows: Interpretation: Sinus tachycardia with heart rate 142 beats per minute LVH no acute ST-T changes no acute ischemia Discharge Plan Discharge Clinical Impression: Altered mental status, Sepsis, Atrial fibrillation with rapid ventricular response Patient Disposition: Admitted As Inpatient
[2022-03-17 18:19] LABS: Basophils Absolute Auto 0.1 X10*3/uL (0.0-0.2); Basophils Percent Auto 0.4 % (0-2); Hematocrit 30.2 % (37.0-47.0); Hemoglobin 9.2 g/dl (12.0-16.0); Imm Gran Abs Auto 0.21 X10*3/uL (0.00-0.03); Imm Gran Pct Auto 0.8 % (0.0-0.4); Lymphocytes Absolute Auto 0.6 X10*3/uL (1.2-4.9); Lymphocytes Percent Auto 2.2 % (20-40); MANUAL DIFF FLAG SCAN; Mean Corpuscular HGB Conc 30.5 g/dl (31.0-35.0); Mean Corpuscular Hemoglobin 22.4 pg (27.0-33.0); Mean Corpuscular Volume 73.7 fL (80.0-98.0); Mean Platelet Volume 8.9 fL (9.4-12.3); Monocytes Absolute Auto 0.9 X10*3/uL (0.1-1.2); Monocytes Percent Auto 3.4 % (2-11); Neutrophils Absolute Auto 23.3 x10*3/uL (2.0-8.3); Neutrophils Percent Auto 93.2 % (45-73); Platelet Count 593 X10*3/uL (160-400); Red Cell Distribution Width 20.5 % (11.0-16.0); SCAN SMEAR FLAG 1
[2022-03-17 18:23] LABS: INTERNATIONAL NORM RATIO 2.5 (0.9-1.1); Prothrombin Time 30.2 SEC (10.0-13.1)
--- NOTE | 2022-03-17 18:30 | PC.NURSE ---
Pt remains obtunded, H 140,. Difficulty obtaining blood cultures d/t difficulty stick however able to obtain and sent abx started with 500ml bolus. Color pale, pt responsive to tactile stimuli. 500ml NS bolus started as ordered.
[2022-03-17 18:41] LABS: SLIDE REVIEW VERIFIED
--- NOTE | 2022-03-17 18:45 | PC.NURSE ---
Addendum entered by Rosa Chaudhry 03/17/22 19:32: Correction: Note written at 1920 Original Note: Dr Evans made aware of prior assessment. Pt then noted with HR of 170s, Dr Evans called to bedside. Additional Cardizem 10mg IVP given with minimal effect. Metoprolol 5mg IVP given with improvement, HR down to 119, BP stable. Pt noted to have watery stool incontinence. Pacer pads placed for precaution. Dr Evans called daughter to inform of current status. Per Cristina daughter unable to come d/t her recent surgery but confirms current MOLST form with DNI but Full code. Pt noted with mottling to lower extremities. NRB remains in place at 10lpm, sat 98%. Tachypenic. Attempted to straight cath x1 and no urine output note, cath removed.
[2022-03-17] MEDS: cefTRIAXone sodium 1 GM in 0.9 % Sodium Chloride 50 ML IV (18:50)
[2022-03-17] MEDS: 0.9 % Sodium Chloride 500 ML IV (18:57)
[2022-03-17 19:09] LABS: Troponin-I High Sensitivity 52.5 ng/L (<3.5-17.0)
[2022-03-17 19:10] LABS: Lactic Acid 2.2 mmol/L (0.5-2.0)
[2022-03-17 19:11] LABS: Alanine Aminotransferase 97 U/L (0-31); Albumin Level 2.7 g/dL (3.5-5.0); Alkaline Phosphatase 246 U/L (39-117); Anion Gap 21 (12-20); Aspartate Amino Transferase 117 U/L (5-31); Bilirubin Total 0.3 mg/dL (0.0-1.0); Blood Urea Nitrogen 96 mg/dL (9-16); Calcium 9.2 mg/dL (8.4-10.2); Carbon Dioxide 20 mmol/L (22-29); Chloride 106 mmol/L (96-108); Creatinine Clr Calc Pharmacy 13.1; Estimated Glomerular Filt Rate 13; Glucose Random 200 mg/dL (60-115); Magnesium 2.6 mg/dL (1.6-2.6); Potassium 5.4 mmol/L (3.3-5.1); Sodium 142 mmol/L (135-145); Total Protein 6.8 g/dL (6.5-8.0)
[2022-03-17 19:15] LABS: Influenza A PCR NEGATIVE (Negative); Influenza B PCR NEGATIVE (Negative); Resp Syncy Virus RNA Qual PCR NEGATIVE (Negative); SARS COV2 PCR INHOUSE NEGATIVE (Negative)
[2022-03-17] MEDS: Metoprolol Tartrate 5 MG/5 ML VIAL IVPUSH (19:16)
[2022-03-17] MEDS: 0.9 % Sodium Chloride 1,000 ML 999 ML IV (19:34)
[2022-03-17] MEDS: dilTIAZem HCL 125 MG in 0.9 % Sodium Chloride 100 ML 10 MG IVCONT (20:03)
[2022-03-17 20:13] LABS: Reflex Lactate? Lactic Acid Added
[2022-03-17] MEDS: Sodium Bicarbonate 8.4% 50 MEQ/50 ML SYRINGE IVPUSH (20:18)
--- NOTE | 2022-03-17 20:49 | PC.NURSE ---
Kirsten phone call with Dr. Evans regarding code status for pt. Daughter would like pt to be medically treatment no intubatin or CPR. RN Notified Lona
[2022-03-17 21:13] LABS: Appearance Urine Turbid; Color Urine Yellow; Glucose Urine UA Negative (Negative); Leukocyte Esterase Urine Large (3+) (Negative); Nitrite Urine Negative (Negative); Specific Gravity - Urine 1.015 (1.005-1.025); UMIC TRIGGER UACC YES; Urine Blood Large (3+) (Negative); Urine Ketones Negative (Negative); Urine Protein 100 (2+) mg/dL (Neg-Trace)
--- NOTE | 2022-03-17 21:26 | ECG_ITS ---
Test Reason : TACHY Blood Pressure : / mmHG Vent. Rate : 119 BPM Atrial Rate : 119 BPM P-R Int : 134 ms QRS Dur : 098 ms QT Int : 312 ms P-R-T Axes : 066 047 066 degrees QTc Int : 438 ms Sinus tachycardia with Premature atrial complexes Possible Left atrial enlargement Intra-ventricular conduction delay Nonspecific ST abnormality Abnormal ECG When compared with ECG of 17-MAR-2022 17:34, Premature ventricular complexes are no longer Present Premature atrial complexes are now Present Criteria for Inferior infarct are no longer Present Heart rate has decreased Referred By: Lukas Garcia Electronically Signed By:SAMARIA MARCH MD
--- NOTE | 2022-03-17 21:50 | PC.NURSE ---
At change of shift pt had an increase heart rate in 140's to 160's with a low blood pressure. Dr Evans aware. Pt medicated Per Jun for heard rate, after administration of medication heart rate and blood pressure improved. Pt incontinent of lose stool. Jayda care and completed bed change. Dennis placed by pt Mars Zamorano and UA collected and sent. Pt on bedside monitor and pacer pad placed. Reported of to pt MARS Zamorano.
--- NOTE | 2022-03-17 22:10 | PC.NURSE ---
Critical result of 2.4 lactic recvd by lab. STEPHANE Zamorano notified.
[2022-03-17 22:12] LABS: ~Lactic Acid-LAB USE ONLY 2.4 mmol/L (0.5-2.0)
[2022-03-17 22:15] LABS: Bacteria Urine 4+ (None Seen); RBC Urine >20 /HPF (0-2); Squamous Epithelial Cell Urine 0-2 /HPF (0-2); UACC Culture Trigger YES; WBC Urine >50 /HPF (0-5)
[2022-03-17] MEDS: Piperacillin Sodium/Tazobactam 2.25 GM in 0.9 % Sodium Chloride 50 ML IV (22:17)
[2022-03-17 23:19] LABS: Reflex Lactate? 2 Y
[2022-03-17 23:48] LABS: ~Lactic Acid-LAB USE ONLY 1.4 mmol/L (0.5-2.0)
[2022-03-18] VITALS (31 sets, daily range): BP systolic 78–122; BP diastolic 50–69; PULSE 79–114; RESP 16–24; TEMP 37.1–37.5; O2SAT 81–100
--- NOTE | 2022-03-18 00:30 | PC.NURSE ---
This RN transported pt to CT on monitor.
[2022-03-18] MEDS: 0.9 % Sodium Chloride 1,000 ML 999 ML IV (00:46)
--- NOTE | 2022-03-18 01:03 | PM.IMHP ---
History of Present Illness Date of Service: 03/18/22 Chief Complaint: lethargy 72-year-old female with past medical history of coronary artery disease, comes in from [facility] for lethargy, AMS and hypoxia. Patient is completely up tended, minimally responsive to painful stimuli, unable to respond. History is obtained from EMR, as well as her daughter in ED physician. Least sent from prison for hypoxia as well as altered mental status. On arrival to the ED patient was found to be in AFib with RVR with a heart rate in the 150s to 160s, patient also found to have tachypnea with a respiratory rate in the mid 20s, hypoxic requiring 10 L on non-rebreather, with hypotension. I spoke extensively with her daughter, who states that at this time she does want patient to be treated with IV antibiotics for the current problem, but does not want patient to have significant or invasive intervention at this time. For the patient's RVR she was initially started on Cardizem drip with minimal affect, patient was cardioverted in the ED with improvement in her heart rate. Her blood pressure was low, she received the 30 cc/kg fluids, patient also had 2 episodes of bloody bowel movements while in the ED. Labs are significant for WBC count of 25, hemoglobin of 9.2, medic of 30.2, pH of 7.53, PT of 30.2, INR of 2.5, sodium of 142, potassium of 5.4, creatinine of 3.47 with a baseline of around 0.74, lactic acid of 2.2 improved with IV fluids, troponin 52.5 repeat pending, UA positive for large leukocyte Estrace and WBC Patient started on IV antibiotics and will be admitted for further management Review of Systems Review of Systems: Yes Unobtainable due to mental condition and Unobtainable due to mental status [facility] Medical History Afib CVA (cerebral vascular accident) Dementia Dysphasia Hemiplegia HTN (hypertension) Tachycardia Social History Patient Tobacco Use Status: Former Tobacco user Advance Directives: Yes Advance Directives on File: Yes Advance Directives Date on File: 11/15/20 service: No Current occupational status: retired Meds Allergies Allergy/AdvReac Type Severity Reaction Status Date / Time lisinopril Allergy Unknown passed out Verified 12/27/21 14:19 No Known Allergies Allergy Unverified 12/27/21 14:19 Active Medications: Current Medications Diltiazem HCl 125 mg/ Sodium (Chloride) 125 mls @ 0 mls/hr IVCONT .Q0M KALEY; Protocol Last Titration: 03/17/22 20:57 Dose: 15 mg/hr, 15 mls/hr Sodium Chloride (Ns) 1,000 mls @ 999 mls/hr IV .Q1H1M ONE Stop: 03/18/22 01:45 Last Admin: 03/18/22 00:46 Dose: 999 mls/hr Home Medications Medication Instructions Recorded Confirmed Last Taken Type acetaminophen 325 mg tablet 650 mg PO Q6H PRN Pain 12/15/21 12/27/21 Unknown History (Tylenol) aspirin 81 mg chewable tablet 81 mg PO DAILY 12/15/21 12/27/21 Unknown History calcium carbonate 500 mg-vitamin 1 tab PO DAILY 12/15/21 12/27/21 Unknown History D3 10 mcg (400 unit) tablet (Calcium 500 + D) clopidogrel 75 mg tablet 1 tab PO DAILY 12/15/21 12/27/21 Unknown History diclofenac sodium 1 % topical gel 2 g topical BID 12/15/21 12/27/21 Unknown History docusate sodium 100 mg capsule 100 mg PO DAILY PRN Constipation 12/15/21 12/27/21 Unknown History (Colace) isosorbide mononitrate 60 mg 1 tab PO DAILY 12/15/21 12/27/21 Unknown History tablet,extended release 24 hr magnesium hydroxide 400 mg/5 mL 400 mg PO DAILY PRN Constipation 12/15/21 12/27/21 Unknown History oral suspension (Milk of Magnesia) metoprolol tartrate 100 mg tablet 1 tab PO BID 12/15/21 12/27/21 Unknown History rosuvastatin 40 mg tablet 1 tab PO BEDTIME 12/15/21 12/27/21 Unknown History Physical Exam Vital Signs and Narrative: Vital Signs: Last Vital Signs Temp 99.1 F 03/18/22 00:37 Pulse 111 H 03/18/22 00:37 Resp 20 03/18/22 00:37 BP 91/52 L 03/18/22 00:37 Pulse Ox 100 03/18/22 00:37 O2 Del Method 03/18/22 00:37 O2 Flow Rate 10 03/17/22 22:56 Oxygen Flow Rate 10 03/17/22 17:51 BMI result Body Mass Index 20.7 Const: Other: Completely of tender, minimally responsive to painful stimuli Eyes: General: appearance normal, both eyes and all related structures Pupils: Equal, round and reactive pupils present Resp: Other: On non-rebreather Effort & Inspection: normal respiratory effort Cardio: Other: Abnormal rhythm, tachycardic GI: Palpation (GI): Soft to palpation Auscultation: normal bowel sounds Skin: Other: Dry mucosal membranes General skin exam: no rashes or lesions noted Neuro: Other: Unable to assess Cranial nerves: Yes Equal, round and reactive pupils present Extrem: General: Yes normal to inspection and Yes no pedal edema Results Labs CBC and Chem 7: 03/18/22 05:57 03/18/22 05:57 Labs: Laboratory Results - last 24 hr 03/17/22 03/17/22 03/17/22 18:07 18:07 18:07 MCV 73.7 L MCH 22.4 L MCHC 30.5 L RDW 20.5 H Plt Count 593 H MPV 8.9 L Immature Gran % (Auto) 0.8 H Neut % (Auto) 93.2 H Lymph % (Auto) 2.2 L Martin % (Auto) 3.4 Eos % (Auto) 0.0 Baso % (Auto) 0.4 Lymph # (Auto) 0.6 L Martin # (Auto) 0.9 Eos # (Auto) 0.0 Baso # (Auto) 0.1 Abs Immat Gran (auto) 0.21 H Absolute Neuts (auto) 23.3 H Absolute Nucleated RBC 0.000 Nucleated RBC % (auto) 0.0 Smear Tech's Comments VERIFIED PT 30.2 H INR 2.5 H Anion Gap 21 H Estim Creat Clear Calc 13.1 Estimated GFR 13 Random Glucose 200 H Lactic Acid Lactic Acid F/U @ 2Hr Lactic Acid F/U @ 4Hr Calcium 9.2 Magnesium 2.6 Total Bilirubin 0.3 AST 117 H ALT 97 H Alkaline Phosphatase 246 H Troponin I High Sens Total Protein 6.8 Albumin 2.7 L Urine Color Urine Appearance Urine pH Ur Specific [place] Urine Protein Urine Glucose (UA) Urine Ketones Urine Blood Urine Nitrite Ur Leukocyte Esterase Urine RBC Urine WBC Ur Squamous Epith Cells Urine Bacteria Hyaline Casts Influenza Type A (PCR) Influenza Type B (PCR) RSV RNA Qual (PCR) SARS-CoV-2 RNA (RT-PCR) 03/17/22 03/17/22 03/17/22 18:07 18:08 18:10 MCV MCH MCHC RDW Plt Count MPV Immature Gran % (Auto) Neut % (Auto) Lymph % (Auto) Martin % (Auto) Eos % (Auto) Baso % (Auto) Lymph # (Auto) Martin # (Auto) Eos # (Auto) Baso # (Auto) Abs Immat Gran (auto) Absolute Neuts (auto) Absolute Nucleated RBC Nucleated RBC % (auto) Smear Tech's Comments PT INR Anion Gap Estim Creat Clear Calc Estimated GFR Random Glucose Lactic Acid 2.2 H* Lactic Acid F/U @ 2Hr Lactic Acid F/U @ 4Hr Calcium Magnesium Total Bilirubin AST ALT Alkaline Phosphatase Troponin I High Sens 52.5 H* D Total Protein Albumin Urine Color Urine Appearance Urine pH Ur Specific [place] Urine Protein Urine Glucose (UA) Urine Ketones Urine Blood Urine Nitrite Ur Leukocyte Esterase Urine RBC Urine WBC Ur Squamous Epith Cells Urine Bacteria Hyaline Casts Influenza Type A (PCR) NEGATIVE Influenza Type B (PCR) NEGATIVE RSV RNA Qual (PCR) NEGATIVE SARS-CoV-2 RNA (RT-PCR) NEGATIVE 03/17/22 03/17/22 03/17/22 21:01 21:16 23:33 MCV MCH MCHC RDW Plt Count MPV Immature Gran % (Auto) Neut % (Auto) Lymph % (Auto) Martin % (Auto) Eos % (Auto) Baso % (Auto) Lymph # (Auto) Martin # (Auto) Eos # (Auto) Baso # (Auto) Abs Immat Gran (auto) Absolute Neuts (auto) Absolute Nucleated RBC Nucleated RBC % (auto) Smear Tech's Comments PT INR Anion Gap Estim Creat Clear Calc Estimated GFR Random Glucose Lactic Acid Lactic Acid F/U @ 2Hr 2.4 H* Lactic Acid F/U @ 4Hr 1.4 Calcium Magnesium Total Bilirubin AST ALT Alkaline Phosphatase Troponin I High Sens Total Protein Albumin Urine Color Yellow Urine Appearance Turbid Urine pH 6.0 Ur Specific [place] 1.015 Urine Protein 100 (2+) H Urine Glucose (UA) Negative Urine Ketones Negative Urine Blood Large (3+) H Urine Nitrite Negative Ur Leukocyte Esterase Large (3+) H Urine RBC >20 H Urine WBC >50 H Ur Squamous Epith Cells 0-2 Urine Bacteria 4+ Hyaline Casts 3-5 Influenza Type A (PCR) Influenza Type B (PCR) RSV RNA Qual (PCR) SARS-CoV-2 RNA (RT-PCR) Imaging Radiologist's Impressions: Impressions Chest X-Ray 03/17/22 17:53 IMPRESSION: No acute abnormality of chest. Head CT 03/18/22 00:30 IMPRESSION: 1. No acute intracranial pathology. 2. The degree of marked ventriculomegaly appears slightly increased as compared to prior. 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 3. Chronic lacunar infarcts in the cerebellar hemispheres and left caudate head. Moderate chronic microangiopathic white matter changes. Assessment and Plan (1) Encephalopathy: Status: Acute (2) Sepsis: Status: Acute (3) Atrial fibrillation with rapid ventricular response: Status: Acute (4) Acute GI bleeding: Status: Acute (5) Acute respiratory failure with hypoxia: Status: Acute Plan 72-year-old female with past medical history of AFib on anticoagulation, history of CVA, history of dementia, hypertension, hemiplegia, dysphagia, presents to the hospital with altered mental status and hypoxia # encephalopathy - likely toxic metabolic secondary to acute sepsis, as well as hypoxia - patient of tended, minimally responsive to painful stimuli - head CT negative - at this time will treat underlying disease including the sepsis and hypoxia - monitor mental status # sepsis - secondary to UTI - aspiration cannot be ruled out given her hypoxia - will treat with IV antibiotics -follow cultures # AFib with RVR - likely precipitated by sepsis, hypoxia - patient was on Cardizem drip, cardioverted in the ED as she was poorly controlled on the drip - with heart rate improved - will continue home metoprolol, - will hold anticoagulation in the setting of GI bleed # acute GI bleed - a 2 episodes of bloody bowel movements in the ED - spoke to the daughter about this, at this time she does not want any further intervention until patient is more stable, back to her baseline - will hold anticoagulation - follow CBC # acute respiratory failure with hypoxia - unclear etiology at this time, chest x-ray negative, patient does have history of dysphagia, unclear if she aspirated, which may not show on chest x-ray right away - will obtain chest CT - PE less likely as patient is anticoagulate DVT prophylaxis: SCDs in the setting of GI bleed Patient require minimum 2 night hospital stay given her requirement for antibiotics IV Quality Stroke Does the patient have a stroke diagnosis?: No VTE Prior VTE?: No VTE Risk Level:: Medical - moderate - high VTE Device Contraindication: Treatment Not Indicated VTE Drug Contraindication: N/A - Med Ordered
--- NOTE | 2022-03-18 01:31 | PC.NURSE ---
Pt cleaned and linen changed.
[2022-03-18 01:32] LABS: Venous Blood Gas Refer to POC result
[2022-03-18 01:33] LABS: VBG Base Excess -1.7 mmol/L; VBG HCO3 20 mmol/L (22-26); VBG pCO2 23 mmHg; VBG pH 7.53 (7.32-7.43); VBG pO2 110 mmHg
[2022-03-18] MEDS: Lactated Ringers 1,000 ML 100 ML IVCONT (01:40)
--- NOTE | 2022-03-18 02:15 | PC.NURSE ---
Pt has what looks like blood in stool. notified orders placed. BP 82/52 MD notified.
[2022-03-18 02:35] LABS: OBS Int Ctl Valid YES; OBS1 POSITIVE (NEGATIVE)
--- NOTE | 2022-03-18 02:45 | PC.NURSE ---
Pt cleaned and linen changed. Pt placed in a position of comfort.
[2022-03-18 06:24] LABS: Hematocrit 32.8 % (37.0-47.0); Hemoglobin 9.9 g/dl (12.0-16.0); Mean Corpuscular HGB Conc 30.2 g/dl (31.0-35.0); Mean Corpuscular Hemoglobin 23.9 pg (27.0-33.0); Mean Corpuscular Volume 79.2 fL (80.0-98.0); Platelet Count 426 X10*3/uL (160-400); Red Blood Count 4.14 X10*6/uL (4.20-5.50); Red Cell Distribution Width 19.4 % (11.0-16.0); White Blood Count 24.9 X10*3/uL (4.8-10.8)
[2022-03-18 06:25] LABS: Anion Gap 16 (12-20); Blood Urea Nitrogen 78 mg/dL (9-16); Calcium 8.2 mg/dL (8.4-10.2); Carbon Dioxide 21 mmol/L (22-29); Chloride 117 mmol/L (96-108); Creatinine Clr Calc Pharmacy 19.2; Estimated Glomerular Filt Rate 20; Glucose Random 160 mg/dL (60-115); Sodium 150 mmol/L (135-145)
[2022-03-18 07:05] LABS: Band Neutrophils Percent 9 % (3-5); Monocytes Absolute Manual 0.5 X10*3/uL (0.1-1.2); Monocytes Percent Manual 2 % (2-11); Neutrophils Absolute Manual 24.4 X10*3/uL (2.0-8.3); Neutrophils Percent Manual 89 % (45-73)
[2022-03-18 07:06] LABS: Burr Cells 1+ (0-2) /OIF; Hypochromasia 1+ (5-14) /OIF; Platelet Estimate SLIGHTLY INCREASED (NORMAL); Platelet Morphology Comment NORMAL; Polychromasia 1+ (0-2) /OIF; RBC Morphology NOTED
--- NOTE | 2022-03-18 07:14 | PHA.MEDREC ---
Pharmacy Consult ? Medication Reconciliation Pharmacy has completed the medication reconciliation. Patient came from [facility] with a medication list. Lisa Barragan, GianlucaD
--- NOTE | 2022-03-18 07:27 | PC.NURSE ---
REPORT RECEIVED FOR SHIFT CHANGE. PT POORLY RESPONSIVE, RESPIRATION ARE EQUAL AND NONLABORED, NRB MASK WAS REPLACED WITH THE GUERRIER, VITALS ARE STABLE. SHE HAS RBC INFUSING, CARDIZEM GTT WAS HELD CHARTED. [facility] CATH IS IN PLACE WITH CLOUDY URINE OUTPUT.
[2022-03-18 08:34] LABS: Troponin-I High Sensitivity 54.8 ng/L (<3.5-17.0)
[2022-03-18] MEDS: Dextrose 5 % and Lactated Ring 1,000 ML 100 ML IVCONT ×2 (09:59→18:11)
--- NOTE | 2022-03-18 09:59 | MHC.CM.PN ---
spoke with pts catalina ,who confirms that pt is a [facility] resident from [facility] ,pt is covid vax x 3 will need bls whehn dcd
--- NOTE | 2022-03-18 10:36 | PC.NURSE ---
dressing placed on right and left heel ankle wounds, pt arousable during cleaning for bowel movement she has several areas of skin breakdown. cardizem gtt increased
--- NOTE | 2022-03-18 11:48 | PC.NURSE ---
PT plaCED ON NRB FOR O2 Sats in the 70's pt is responding to verbal stim. she was unable to improve her o2 on a simple mask
--- NOTE | 2022-03-18 14:23 | PM.EVENT ---
Event Note Date of Service: 03/18/22 Event Note: 72-year-old female with past medical history of coronary artery disease, CVA , atrial fibrillation, dementia, intermediate resident was sent to [facility] due to acute mental status change and hypoxia patient remained somnolent minimally responsive to painful stimuli 72-year-old female with past medical history of AFib on anticoagulation, history of CVA, history of dementia, hypertension, hemiplegia, dysphagia, presents to the hospital with altered mental status and hypoxia # acute toxic metabolic encephalopathy due to acute sepsis, hypoxia head CT negative treat infection and hypoxia follow clinical course, at present NPO will give is swallow trial once awake # sepsis - secondary to UTI, CT chest showed a focus left lower lobe mild bronchiectatic changes in lingula and multiple no due stool or the bilateral lung reza - aspiration cannot be ruled out given her hypoxia urine culture positive for Gram-negative rods, blood culture positive for Gram-negative ace and Gram-positive cocci continue IV ceftriaxone added vanco x1 dose and follow final urine and blood cultures # acute kidney injury will avoid hypotension continue IV fluid follow BMP, hold losartan, isosorbide and metoprolol 100 mg # mild hypernatremia sodium 150 added D5 to ring elected # paroxysmal AFib with RVR - likely precipitated by sepsis, hypoxia - patient converted to normal sinus rhythm will continue IV Cardizem drip since heart rate poorly controlled will place back on by mouth metoprolol on able to swallow,hold anticoagulation in the setting of GI bleed # acute GI bleed - 2 episodes of bloody bowel movements in the ED, daughter does not want any further intervention until patient is more stable, back to her baseline - will hold anticoagulation, hold aspirin, follow CBC will obtain GI consult of [place] with daughter tomorrow # acute respiratory failure with hypoxia - noted to have persistent hypoxia on non-rebreather therefore placed on high-flow oxygen, etiology likely aspiration pneumonia, bronchiectasis, gradually wean oxygen DVT prophylaxis: SCDs in the setting of GI bleed
--- NOTE | 2022-03-18 16:13 | PHA.PROG ---
Admission Date/Time: March 18, 2022 01:02 Indication: Bacteremia Weight in k.6 kg Adjusted body weight in Kg: [place] body weight in Kg: Obesity Dosing Indication % IBW: Serum Creatinine - Last 168 Hours 03/17/22 03/18/22 18:07 05:57 Creatinine 3.47 H 2.36 H Estimated CrCl and GFR - Last 168 Hours 03/17/22 03/18/22 18:07 05:57 Estim Creat Clear Calc 13.1 19.2 Estimated GFR 13 20 Vancomycin Loading Dose: 1250mg X 1 Current Vancomycin Dosing Regimen: 500mg Q24H Vancomycin Monitoring using AUC goal of 400 - 600 range with trough as surrogate marker: 465mg/L Date and Time for next Vancomycin Level to be drawn: 03/21/22 @1500 Pharmacist Comments on Vancomycin Plan: Renal function very poor, will continue to monitor and adjust accordingly Vancomycin dosing will take advantage of [employer] as a clinical decision support tool that uses Bayesian modeling to calculate individual patient's pharmacokinetic parameters and forecast the patient's drug concentration time course with the target goal AUC 24 range of 400 - 600 mg/L/hr.
[2022-03-18] MEDS: vancomycin HCL 1,250 MG in 0.9 % Sodium Chloride 250 ML 166.67 MG IV (18:11)
[2022-03-18] MEDS: cefTRIAXone sodium 1 GM in 0.9 % Sodium Chloride 50 ML IV (19:57)
[2022-03-19] VITALS (13 sets, daily range): BP systolic 85–126; BP diastolic 50–78; PULSE 74–135; RESP 17–24; TEMP 36.3–36.8; O2SAT 84–99
--- NOTE | 2022-03-19 | ECG_ITS ---
Test Reason : Rhythm changes Blood Pressure : / mmHG Vent. Rate : 121 BPM Atrial Rate : 121 BPM P-R Int : 136 ms QRS Dur : 096 ms QT Int : 308 ms P-R-T Axes : 061 025 162 degrees QTc Int : 437 ms Sinus tachycardia with Premature atrial complexes Marked ST abnormality, possible lateral subendocardial injury Abnormal ECG When compared with ECG of 17-MAR-2022 21:26, ST more depressed Lateral leads Referred By: Lukas Garcia Electronically Signed By:SAMARIA MARCH MD
[2022-03-19 00:11] LABS: White Blood Count 18.2 X10*3/uL (4.8-10.8)
[2022-03-19 00:12] LABS: Basophils Percent Auto 0.2 % (0-2); Eosinophils Percent Auto 0.1 % (0-4); Hematocrit 25.3 % (37.0-47.0); Hemoglobin 7.5 g/dl (12.0-16.0); Imm Gran Abs Auto 0.12 X10*3/uL (0.00-0.03); Imm Gran Pct Auto 0.7 % (0.0-0.4); Lymphocytes Absolute Auto 0.7 X10*3/uL (1.2-4.9); Lymphocytes Percent Auto 3.9 % (20-40); MANUAL DIFF FLAG SCAN; Mean Corpuscular HGB Conc 29.6 g/dl (31.0-35.0); Mean Corpuscular Volume 87.8 fL (80.0-98.0); Mean Platelet Volume 9.1 fL (9.4-12.3); Monocytes Absolute Auto 0.6 X10*3/uL (0.1-1.2); Monocytes Percent Auto 3.3 % (2-11); Neutrophils Absolute Auto 16.7 x10*3/uL (2.0-8.3); Neutrophils Percent Auto 91.8 % (45-73); Platelet Count 244 X10*3/uL (160-400); Red Blood Count 2.88 X10*6/uL (4.20-5.50); Red Cell Distribution Width 21.5 % (11.0-16.0); SCAN SMEAR FLAG 1
[2022-03-19 00:15] LABS: SLIDE REVIEW VERIFIED
[2022-03-19] MEDS: Dextrose 5 % and Lactated Ring 1,000 ML 100 ML IVCONT ×2 (04:27→14:15)
[2022-03-19 07:00] LABS: Hematocrit 34.7 % (37.0-47.0); Hemoglobin 10.6 g/dl (12.0-16.0); Mean Corpuscular HGB Conc 30.5 g/dl (31.0-35.0); Mean Corpuscular Hemoglobin 24.8 pg (27.0-33.0); Mean Corpuscular Volume 81.3 fL (80.0-98.0); Mean Platelet Volume 9.2 fL (9.4-12.3); Platelet Count 320 X10*3/uL (160-400); Red Blood Count 4.27 X10*6/uL (4.20-5.50); White Blood Count 23.4 X10*3/uL (4.8-10.8)
[2022-03-19 07:35] LABS: Blood Urea Nitrogen 77 mg/dL (9-16); Calcium 8.4 mg/dL (8.4-10.2); Creatinine Clr Calc Pharmacy 23.5; Estimated Glomerular Filt Rate 26; Glucose Random 135 mg/dL (60-115)
[2022-03-19 07:49] LABS: Anion Gap 15 (12-20); Carbon Dioxide 18 mmol/L (22-29); Chloride 128 mmol/L (96-108); Sodium 158 mmol/L (135-145)
--- NOTE | 2022-03-19 09:10 | HE.PHANOTE ---
Vancomycin Dosing Addendum Patient's Scr dropped from 2.36 to 1.93. Clearing has increased, thus, dose must be increased. New regimen is 750 mg Q24H. Predicted AUC 577 mg/L/hr. Patient has bacteremia, thus, higher AUC goal is desired. Next level to be drawn 03/21 @1500. Renal function monitored daily.
[2022-03-19 10:26] LABS: Potassium 2.6 mmol/L (3.3-5.1)
[2022-03-19] MEDS: Morphine Sulfate 2 MG/ML CARTRIDGE IVPUSH (14:13)
--- NOTE | 2022-03-19 16:48 | HO.PM.IMPN ---
Subjective Subjective Date of Service: 03/19/22 Interval History: Responsed to simple questions appropriately. Appears comfortable Review of Systems Unable to obtain Physical Exam Vital Signs: Vital Signs: Last Vital Signs Temp 97.5 F 03/19/22 15:08 Pulse 113 H 03/19/22 15:08 Resp 18 03/19/22 15:08 BP 113/65 03/19/22 15:08 Pulse Ox 96 03/19/22 15:08 O2 Del Method 03/19/22 15:08 O2 Flow Rate 5 03/19/22 15:08 FiO2 48.6 03/19/22 11:17 Oxygen Flow Rate 10 03/17/22 17:51 BMI result Body Mass Index 20.7 Const: Other: No acute distress tolerating high-flow Resp: Other: Diminished at bases but otherwise clear Cardio: Other: No S4; positive S1-S2; no S3 murmurs rubs or gallops Extrem: Other: No edema bilaterally Objective Data Active Medications Diltiazem HCl 125 mg/ Sodium (Chloride) 125 mls @ 0 mls/hr IVCONT .Q0M [facility]; Protocol Last Titration: 03/18/22 17:45 Dose: 0 mg/hr, 0 mls/hr Documented By: MILANA Ceftriaxone Sodium 1 gm/ (Sodium Chloride) 50 mls @ 100 mls/hr IV Q24H [facility] Last Infusion: 03/18/22 21:41 Dose: 0 mls/hr Documented By: BRAXTON Dextrose/Lactated Ringer's (D5lr) 1,000 mls @ 100 mls/hr IVCONT .Q10H [facility] Last Admin: 03/19/22 14:15 Dose: 100 mls/hr Documented By: OLLIE Vancomycin HCl 750 mg/ Sodium (Chloride) 265 mls @ 265 mls/hr IV Q24H [facility] Ondansetron HCl (Ondansetron Hcl 4 Mg/2 Ml Vial) 4 mg IVPUSH Q8H PRN PRN Reason: Nausea and Vomiting Pharmacy Consult (Consult Rx Vancomycin Dosing) 1 each MISCELLANE DAILY PRN PRN Reason: Consult order Labs CBC & Chem 7: 03/19/22 06:28 03/19/22 06:28 Labs: Laboratory Results - last 24 hr 03/18/22 03/19/22 03/19/22 23:26 06:28 06:28 MCV 87.8 D 81.3 D MCH 26.0 L 24.8 L MCHC 29.6 L 30.5 L RDW 21.5 H 21.0 H Plt Count 244 D 320 D MPV 9.1 L 9.2 L Immature Gran % (Auto) 0.7 H Neut % (Auto) 91.8 H Lymph % (Auto) 3.9 L [place] % (Auto) 3.3 Eos % (Auto) 0.1 Baso % (Auto) 0.2 Lymph # (Auto) 0.7 L [place] # (Auto) 0.6 Eos # (Auto) 0.0 Baso # (Auto) 0.0 Abs Immat Gran (auto) 0.12 H Absolute Neuts (auto) 16.7 H Absolute Nucleated RBC 0.000 0.000 Nucleated RBC % (auto) 0.0 0.0 Smear Tech's Comments VERIFIED Anion Gap 15 Estim Creat Clear Calc 23.5 Estimated GFR 26 Random Glucose 135 H Calcium 8.4 Microbiology Microbiology Results: Microbiology 03/17/22 18:51 Blood Culture - Preliminary Blood - Venous Gram negative ace Prelim: GPC Gram Stain only 03/17/22 18:51 Blood Culture - Preliminary Blood - Venous Gram negative ace Prelim: GPC Gram Stain only 03/17/22 22:50 Urine Culture - Preliminary Urine Catheterized - Dennis Catheter Gram negative ace Assessment and Plan (1) Gram-negative bacteremia: Status: Acute (2) Acute respiratory failure with hypoxia: Status: Acute (3) Encephalopathy: Status: Acute (4) Atrial fibrillation with rapid ventricular response: Status: Acute (5) Acute GI bleeding: Status: Acute Plan 72-year-old female with past medical history of AFib on anticoagulation, history of CVA, history of dementia, hypertension, hemiplegia, dysphagia, presents to the hospital with altered mental status and hypoxia 1. Gram-negative bacteremia (likely secondary to urinary source) -continue ceftriaxone/vancomycin pending complete culture results -ID consult 2.Encephalopathy (likely to 1) - likely toxic metabolic secondary to acute sepsis, as well as hypoxia - improving -follow clinically 2.AFib with RVR.. ( Now in sinus rhythm) -continue Cardizem drip overnight pending speech eval -continue to hold anticoagulation -resume orals for rate control once speech clears 3.Acute GI bleed -Daughter does not want any further intervention until patient is more stable, back to her baseline - will hold anticoagulation - follow CBC 4.Acute respiratory failure with hypoxia - question consolidative focus left lower lobe. Continue antibiotic therapy -speech eval to rule out aspiration Boots in the setting of GI bleed DNR DNI Patient will require ongoing therapy for IV antibiotics to treat gram-negative bacteremia Quality Stroke Does the patient have a stroke diagnosis?: No VTE Prior VTE?: No VTE Risk Level:: Medical - moderate - high VTE Device Contraindication: Treatment Not Indicated VTE Drug Contraindication: N/A - Med Ordered
[2022-03-19] MEDS: Dextrose 5 % 1,000 ML 125 ML IVCONT (18:07)
[2022-03-19] MEDS: cefTRIAXone sodium 1 GM in 0.9 % Sodium Chloride 50 ML IV (18:26)
[2022-03-19] MEDS: vancomycin HCL 750 MG in 0.9 % Sodium Chloride 250 ML 265 MG IV (18:27)
[2022-03-20] MEDS: Dextrose 5 % 1,000 ML 125 ML IVCONT ×3 (02:41→17:40)
[2022-03-20 03:19] VITALS: BP 130/72; PULSE 118; RESP 20; TEMP 36.9; O2SAT 97
[2022-03-20 07:25] VITALS: BP 141/66; PULSE 113; RESP 16; TEMP 36.8; O2SAT 98
[2022-03-20 09:18] LABS: Basophils Absolute Auto 0.1 X10*3/uL (0.0-0.2); Basophils Percent Auto 0.3 % (0-2); Hematocrit 33.6 % (37.0-47.0); Hemoglobin 10.2 g/dl (12.0-16.0); Imm Gran Abs Auto 0.25 X10*3/uL (0.00-0.03); Imm Gran Pct Auto 1.1 % (0.0-0.4); Lymphocytes Percent Auto 4.6 % (20-40); MANUAL DIFF FLAG SCAN; Mean Corpuscular HGB Conc 30.4 g/dl (31.0-35.0); Mean Corpuscular Hemoglobin 25.1 pg (27.0-33.0); Mean Corpuscular Volume 82.6 fL (80.0-98.0); Mean Platelet Volume 9.3 fL (9.4-12.3); Monocytes Absolute Auto 0.7 X10*3/uL (0.1-1.2); Monocytes Percent Auto 3.1 % (2-11); Neutrophils Absolute Auto 20.5 x10*3/uL (2.0-8.3); Neutrophils Percent Auto 90.9 % (45-73); Platelet Count 273 X10*3/uL (160-400); Red Blood Count 4.07 X10*6/uL (4.20-5.50); Red Cell Distribution Width 21.4 % (11.0-16.0); SCAN SMEAR FLAG 1; White Blood Count 22.5 X10*3/uL (4.8-10.8)
[2022-03-20 09:36] LABS: Anion Gap 13 (12-20); Blood Urea Nitrogen 58 mg/dL (9-16); Calcium 8.4 mg/dL (8.4-10.2); Carbon Dioxide 20 mmol/L (22-29); Chloride 125 mmol/L (96-108); Creatinine Clr Calc Pharmacy 24.9; Estimated Glomerular Filt Rate 27; Glucose Random 102 mg/dL (60-115); Magnesium 2.1 mg/dL (1.6-2.6); Potassium 2.9 mmol/L (3.3-5.1); Sodium 155 mmol/L (135-145)
[2022-03-20 09:40] LABS: SLIDE REVIEW VERIFIED
[2022-03-20 09:54] LABS: Alanine Aminotransferase 108 U/L (0-31); Albumin Level 1.9 g/dL (3.5-5.0); Alkaline Phosphatase 159 U/L (39-117); Anion Gap 14 (12-20); Aspartate Amino Transferase 38 U/L (5-31); Bilirubin Total 0.2 mg/dL (0.0-1.0); Blood Urea Nitrogen 58 mg/dL (9-16); Calcium 8.4 mg/dL (8.4-10.2); Carbon Dioxide 18 mmol/L (22-29); Chloride 126 mmol/L (96-108); Creatinine Clr Calc Pharmacy 24.5; Estimated Glomerular Filt Rate 27; Glucose Fasting 102 mg/dL (60-99); Potassium 3.1 mmol/L (3.3-5.1); Sodium 155 mmol/L (135-145); Total Protein 5.1 g/dL (6.5-8.0)
[2022-03-20] MEDS: Potassium Chloride/H20 10 MEQ/100 ML PIGGYBACK 100 MEQ IV ×4 (10:36→15:00)
[2022-03-20 11:13] VITALS: BP 130/57; PULSE 111; RESP 16; TEMP 36.3; O2SAT 100
--- NOTE | 2022-03-20 13:18 | P.CNID_ITS ---
History of Present Illness Data of Consult Service Date: 03/20/22 Requesting physician: Lukas Garcia Primary Care Provider: Farrukh Rebolledo MD HPI Reason for consult: respiratory failure She presents from detention with hypoxia and bloody stool. She has some LLL infiltrate. She was started on Ceftriaxone and Vancomycin. Review of Systems Review of Systems: Yes Unobtainable due to mental condition PMFSH Past Medical History Medical History Afib CVA (cerebral vascular accident) Dementia Dysphasia Hemiplegia HTN (hypertension) Tachycardia Family History Family history: reviewed and not pertinent Social History Social History Household Members: Unknown / Unable to assess Housing: Shelter Patient Tobacco Use Status: Former Tobacco user Advance Directives Date on File: 11/15/20 service: No Current occupational status: retired Meds Allergies Allergy/AdvReac Type Severity Reaction Status Date / Time lisinopril Allergy Unknown passed out Verified 12/27/21 14:19 Active Medications: Current Medications Diltiazem HCl 125 mg/ Sodium (Chloride) 125 mls @ 0 mls/hr IVCONT .Q0M [facility]; Protocol Last Titration: 03/18/22 17:45 Dose: Infused Ceftriaxone Sodium 1 gm/ (Sodium Chloride) 50 mls @ 100 mls/hr IV Q24H [facility] Last Infusion: 03/19/22 20:37 Dose: Infused Vancomycin HCl 750 mg/ Sodium (Chloride) 265 mls @ 265 mls/hr IV Q24H [facility] Last Infusion: 03/19/22 20:37 Dose: Infused Dextrose (D5w) 1,000 mls @ 125 mls/hr IVCONT .Q8H [facility] Last Admin: 03/20/22 10:36 Dose: 125 mls/hr Ondansetron HCl (Ondansetron Hcl 4 Mg/2 Ml Vial) 4 mg IVPUSH Q8H PRN PRN Reason: Nausea and Vomiting Pharmacy Consult (Consult Rx Vancomycin Dosing) 1 each MISCELLANE DAILY PRN PRN Reason: Consult order Home Medications Medication Instructions Recorded Confirmed Last Taken Type acetaminophen 325 mg tablet 650 mg PO Q6H PRN Pain 12/15/21 03/18/22 Unknown History (Tylenol) aspirin 81 mg chewable tablet 81 mg PO DAILY 12/15/21 03/18/22 Unknown History calcium carbonate 500 mg-vitamin 1 tab PO DAILY 12/15/21 03/18/22 Unknown History D3 10 mcg (400 unit) tablet (Calcium 500 + D) docusate sodium 100 mg capsule 100 mg PO DAILY PRN Constipation 12/15/21 03/18/22 Unknown History (Colace) isosorbide mononitrate 60 mg 1 tab PO DAILY 12/15/21 03/18/22 Unknown History tablet,extended release 24 hr rosuvastatin 40 mg tablet 1 tab PO BEDTIME 12/15/21 03/18/22 Unknown History apixaban 5 mg tablet 5 mg PO BID 03/18/22 03/18/22 Unknown History losartan 25 mg tablet 1 tab PO DAILY 03/18/22 03/18/22 Unknown History metoprolol succinate 100 mg 100 mg PO DAILY 03/18/22 03/18/22 Unknown History tablet,extended release 24 hr mirtazapine 15 mg tablet 15 mg PO BEDTIME 03/18/22 03/18/22 Unknown History Physical Exam Vital Signs: Vital Signs: Last Vital Signs Temp 97.4 F 03/20/22 11:13 Pulse 111 H 03/20/22 11:13 Resp 16 03/20/22 11:13 BP 130/57 L 03/20/22 11:13 Pulse Ox 100 03/20/22 11:13 O2 Del Method 03/20/22 11:13 O2 Flow Rate 5 03/20/22 11:13 FiO2 48.6 03/19/22 11:17 Oxygen Flow Rate 10 03/17/22 17:51 BMI result Body Mass Index 20.7 Const: General: cooperative HEENT: Head: Yes normal to inspection Face and sinus: Yes normal facial exam Mouth: Normal oral and palatal mucosa present Teeth and gingiva: dentition normal Eyes: General: appearance normal, both eyes and all related structures P upils: Equal, round and reactive pupils present Resp: Other: rhonchi bases Cardio: Rate: regular rate Rhythm: regular rhythm GI: Palpation (GI): Soft to palpation and nontender : General: Yes no CVA tenderness Back/Spine/Pelvis: Back: no CVA tenderness Skin: General skin exam: no rashes or lesions noted Neuro: General: moves all extremities Cranial nerves: Yes Equal, round and reactive pupils present Extrem: General: Yes normal to inspection Psych: Appearance: grossly normal Results Labs CBC & Chem 7: 03/20/22 08:44 03/20/22 08:44 Labs: Short CBC 03/20/22 Range/Units 08:44 WBC 22.5 H (4.8-10.8) X10*3/uL Hgb 10.2 L (12.0-16.0) g/dl Hct 33.6 L (37.0-47.0) % Plt Count 273 (160-400) X10*3/uL BMP 03/20/22 03/20/22 08:44 08:44 Sodium 155 H 155 H Potassium 3.1 L 2.9 L Chloride 126 H 125 H Carbon Dioxide 18 L 20 L BUN 58 H 58 H Creatinine 1.85 H 1.82 H Calcium 8.4 8.4 Liver Function 03/20/22 Range/Units 08:44 Total Bilirubin 0.2 (0.0-1.0) mg/dL AST 38 H (5-31) U/L ALT 108 H (0-31) U/L Alkaline Phosphatase 159 H (39-117) U/L Albumin 1.9 L (3.5-5.0) g/dL Microbiology Microbiology Results: Microbiology 03/17/22 18:51 Blood - Venous Blood Culture - Preliminary Proteus mirabilis Prelim: GPC Gram Stain only 03/17/22 18:51 Blood - Venous Blood Culture - Preliminary Proteus mirabilis Gram positive cocci 03/17/22 22:50 Urine Catheterized - Dennis Catheter Urine Culture - Final Escherichia coli Assessment and Plan (1) Acute respiratory failure with hypoxia: Status: Acute She has GI bleed also possible cause of fever She has some aspiration possible gram negative MRSA less likelly (2) Encephalopathy: Status: Acute (3) Altered mental status: Status: Acute Plan Would continue Ceftriaxone for now Would stop Vancomycin if MRSA negative. Possible 3-5 d IV Ceftriaxone and then finish po Ceftin.
--- NOTE | 2022-03-20 14:27 | MHC.CM.PN ---
PER MD ROUNDS, PT NOT YET MEDICALLY READY FOR DC (IV ABT, ID CONSULT) CM WILL CONTINUE TO FOLLOW. LINDA JEFFERY
[2022-03-20 15:52] VITALS: BP 145/66; PULSE 107; RESP 17; TEMP 37.1; O2SAT 90
--- NOTE | 2022-03-20 16:35 | HO.PM.IMPN ---
Subjective Subjective Date of Service: 03/20/22 Interval History: No acute issues overnight. Confused but a bit more alert Review of Systems Unable to obtain Physical Exam Vital Signs: Vital Signs: Last Vital Signs Temp 98.7 F 03/20/22 15:52 Pulse 107 H 03/20/22 15:52 Resp 17 03/20/22 15:52 BP 145/66 H 03/20/22 15:52 Pulse Ox 90 L 03/20/22 15:52 O2 Del Method 03/20/22 15:52 O2 Flow Rate 5 03/20/22 15:52 FiO2 48.6 03/19/22 11:17 Oxygen Flow Rate 10 03/17/22 17:51 BMI result Body Mass Index 20.7 Const: Other: Awake minimally verbal Resp: Other: Clear to auscultation bilaterally no rales rhonchi wheezes Cardio: Other: No S4; positive S1-S2; no S3 murmurs rubs or gallops GI: Other: Soft positive bowel sounds Extrem: Other: No edema bilaterally Objective Data Active Medications Diltiazem HCl 125 mg/ Sodium (Chloride) 125 mls @ 0 mls/hr IVCONT .Q0M [facility]; Protocol Last Titration: 03/18/22 17:45 Dose: 0 mg/hr, 0 mls/hr Documented By: MILANA Ceftriaxone Sodium 1 gm/ (Sodium Chloride) 50 mls @ 100 mls/hr IV Q24H [facility] Last Infusion: 03/19/22 20:37 Dose: 0 mls/hr Documented By: NONI Vancomycin HCl 750 mg/ Sodium (Chloride) 265 mls @ 265 mls/hr IV Q24H [facility] Last Infusion: 03/19/22 20:37 Dose: 0 mls/hr Documented By: NONI Dextrose (D5w) 1,000 mls @ 125 mls/hr IVCONT .Q8H [facility] Last Admin: 03/20/22 10:36 Dose: 125 mls/hr Documented By: MILANA Ondansetron HCl (Ondansetron Hcl 4 Mg/2 Ml Vial) 4 mg IVPUSH Q8H PRN PRN Reason: Nausea and Vomiting Pharmacy Consult (Consult Rx Vancomycin Dosing) 1 each MISCELLANE DAILY PRN PRN Reason: Consult order Labs CBC & Chem 7: 03/20/22 08:44 03/20/22 08:44 Labs: Laboratory Results - last 24 hr 03/20/22 03/20/22 03/20/22 08:44 08:44 08:44 MCV 82.6 MCH 25.1 L MCHC 30.4 L RDW 21.4 H Plt Count 273 MPV 9.3 L Immature Gran % (Auto) 1.1 H Neut % (Auto) 90.9 H Lymph % (Auto) 4.6 L [place] % (Auto) 3.1 Eos % (Auto) 0.0 Baso % (Auto) 0.3 Lymph # (Auto) 1.0 L [place] # (Auto) 0.7 Eos # (Auto) 0.0 Baso # (Auto) 0.1 Abs Immat Gran (auto) 0.25 H Absolute Neuts (auto) 20.5 H Absolute Nucleated RBC 0.000 Nucleated RBC % (auto) 0.0 Smear Tech's Comments VERIFIED Anion Gap 14 13 Estim Creat Clear Calc 24.5 24.9 Estimated GFR 27 27 Random Glucose 102 Fasting Glucose 102 H Calcium 8.4 8.4 Magnesium 2.1 Total Bilirubin 0.2 AST 38 H ALT 108 H Alkaline Phosphatase 159 H Total Protein 5.1 L Albumin 1.9 L Microbiology Microbiology Results: Microbiology 03/17/22 18:51 Blood Culture - Preliminary Blood - Venous Proteus mirabilis Prelim: GPC Gram Stain only 03/17/22 18:51 Blood Culture - Preliminary Blood - Venous Proteus mirabilis Gram positive cocci 03/17/22 22:50 Urine Culture - Final Urine Catheterized - Dennis Catheter Escherichia coli Assessment and Plan (1) Gram-negative bacteremia: Status: Acute (2) Encephalopathy: Status: Acute (3) Atrial fibrillation with rapid ventricular response: Status: Acute Plan 72-year-old female with past medical history of AFib on anticoagulation, history of CVA, history of dementia, hypertension, hemiplegia, dysphagia, presents to the hospital with altered mental status and hypoxia 1. Gram-negative bacteremia.... Proteus -continue ceftriaxone/vancomycin pending MRSA swab -MRSA negative will DC vancomycin 2.Encephalopathy (likely to 1) - likely toxic metabolic secondary to acute sepsis, as well as hypoxia - improving -follow clinically 2.AFib with RVR.. ( Now in sinus rhythm) -continue Cardizem drip overnight ... Start oral Cardizem in a.m. -continue to hold anticoagulation -speech eval noted diet changed. Will institute oral meds in a.m. 3.Acute GI bleed -Daughter does not want any further intervention until patient is more stable, back to her baseline - will hold anticoagulation - follow CBC 4.Acute respiratory failure with hypoxia - question consolidative focus left lower lobe... Continue ceftriaxone and vancomycin 5. E coli bacteremia -continue ceftriaxone and vancomycin -MRSA swab. .. If negative will DC vancomycin Boots in the setting of GI bleed DNR DNI Patient will require ongoing therapy for IV antibiotics to treat gram-negative bacteremia Quality Stroke Does the patient have a stroke diagnosis?: No VTE Prior VTE?: No VTE Risk Level:: Medical - moderate - high VTE Device Contraindication: Treatment Not Indicated VTE Drug Contraindication: N/A - Med Ordered
--- NOTE | 2022-03-20 17:16 | MHC.SL.SWA ---
Addendum entered and electronically signed by Moraima Perez MA, CCC-DIRECTOR CON[employer] 03/20/22 18:42: D.S. Original Note: Speech Pathologist Impression:Dysphagia Risk of Aspiration Due to: Reduced Cognition Dysphasia Diet Status: Upgrade Liquid Consistency and Strategies for Safe Swallow: Liquid Intake Recommendation: [place] Thick Liquid Intake Strategies: Small Sips No Straws Solid Food Consistency: Dietary Recommendations: Pureed (NDD1) Oral Medication Intake: Crushed or Whole with Puree Please contact the pharmacy regarding appropriate crushable or liquid drug formulations that are available whenever modified delivery is recommended. Compensatory Strategies and Precautions to be Taken for Safe Swallow: Sitting Upright (90 deg) No Straw Liquids from Cup Liquids from Spoon Small Bites and Sips Supervision While Eating and Drinking for Safe Swallow: Total Assistance (1:1) Swallowing Recommended Treatments: Compens. Strategy Educat. Recommendation for Speech: Outpatient Speech Therapy Inpatient Speech Therapy Comment: Recommend UPGRADE to PUREE solids (NDD1), NECTAR thick liquids, pills CRUSHED/WHOLE in PUREE. Recommend 1-1 assistance with feeding. Pt to be given very small sips d/t risk of aspiration. Aspiration precautions apply. Per Oumar Huff, pt's baseline is regular solids and thin liquids, pills whole w/ liquid, self-feed. Hunting Sales Associate Clinican/Clinical Fellow: Yes: Milly Benton M.A., CF-DIRECTOR [employer] Supervisory Statement: I have reviewed and agree with the student/clinical fellow's documentation: Speech Language Pathologist:
[2022-03-20] MEDS: vancomycin HCL 750 MG in 0.9 % Sodium Chloride 250 ML 265 MG IV (17:40)
[2022-03-20] MEDS: cefTRIAXone sodium 1 GM in 0.9 % Sodium Chloride 50 ML IV (19:01)
[2022-03-20 19:35] VITALS: BP 131/75; PULSE 113; RESP 19; TEMP 37.2; O2SAT 97
[2022-03-20 23:57] VITALS: BP 124/91; PULSE 102; RESP 18; TEMP 37.1; O2SAT 93
[2022-03-21 03:22] VITALS: BP 125/75; PULSE 105; RESP 20; TEMP 37.1; O2SAT 97
[2022-03-21] MEDS: Dextrose 5 % 1,000 ML 125 ML IVCONT ×2 (03:23→11:25)
[2022-03-21 06:50] LABS: MANUAL DIFF FLAG NO
[2022-03-21 06:55] LABS: Basophils Percent Auto 0.1 % (0-2); Eosinophils Absolute Auto 0.1 X10*3/uL (0.0-0.4); Eosinophils Percent Auto 0.5 % (0-4); Hematocrit 34.4 % (37.0-47.0); Hemoglobin 10.1 g/dl (12.0-16.0); Imm Gran Abs Auto 0.13 X10*3/uL (0.00-0.03); Imm Gran Pct Auto 0.9 % (0.0-0.4); Lymphocytes Percent Auto 7.1 % (20-40); Mean Corpuscular HGB Conc 29.4 g/dl (31.0-35.0); Mean Corpuscular Hemoglobin 24.4 pg (27.0-33.0); Mean Corpuscular Volume 83.1 fL (80.0-98.0); Monocytes Absolute Auto 0.4 X10*3/uL (0.1-1.2); Neutrophils Absolute Auto 12.7 x10*3/uL (2.0-8.3); Neutrophils Percent Auto 88.4 % (45-73); Platelet Count 201 X10*3/uL (160-400); Red Blood Count 4.14 X10*6/uL (4.20-5.50); Red Cell Distribution Width 21.9 % (11.0-16.0); White Blood Count 14.3 X10*3/uL (4.8-10.8)
[2022-03-21 07:35] LABS: Alanine Aminotransferase 124 U/L (0-31); Alkaline Phosphatase 158 U/L (39-117); Anion Gap 12 (12-20); Aspartate Amino Transferase 63 U/L (5-31); Bilirubin Total 0.3 mg/dL (0.0-1.0); Blood Urea Nitrogen 45 mg/dL (9-16); Calcium 8.1 mg/dL (8.4-10.2); Carbon Dioxide 18 mmol/L (22-29); Chloride 120 mmol/L (96-108); Creatinine Clr Calc Pharmacy 30.4; Estimated Glomerular Filt Rate 34; Glucose Fasting 90 mg/dL (60-99); Potassium 3.3 mmol/L (3.3-5.1); Sodium 147 mmol/L (135-145); Total Protein 5.1 g/dL (6.5-8.0)
[2022-03-21 08:00] VITALS: BP 141/76; PULSE 109; RESP 18; TEMP 36.4; O2SAT 95
[2022-03-21 11:51] VITALS: BP 91/56; PULSE 112; RESP 16; TEMP 36.6; O2SAT 97
--- NOTE | 2022-03-21 12:14 | HO.PM.IMPN ---
Subjective Subjective Date of Service: 03/21/22 Interval History: No acute issues overnight. Confused but a bit more alert Review of Systems Unable to obtain Physical Exam Vital Signs: Vital Signs: Last Vital Signs Temp 97.9 F 03/21/22 11:51 Pulse 112 H 03/21/22 11:51 Resp 16 03/21/22 11:51 BP 91/56 L 03/21/22 11:51 Pulse Ox 97 03/21/22 11:51 O2 Del Method 03/21/22 11:51 O2 Flow Rate 6 03/21/22 11:51 FiO2 48.6 03/19/22 11:17 Oxygen Flow Rate 10 03/17/22 17:51 BMI result Body Mass Index 20.7 Const: Other: Awake minimally verbal Resp: Other: Clear to auscultation bilaterally no rales rhonchi wheezes Cardio: Other: No S4; positive S1-S2; no S3 murmurs rubs or gallops GI: Other: Soft positive bowel sounds Extrem: Other: No edema bilaterally Objective Data Active Medications Diltiazem HCl 125 mg/ Sodium (Chloride) 125 mls @ 0 mls/hr IVCONT .Q0M [facility]; Protocol Last Titration: 03/18/22 17:45 Dose: 0 mg/hr, 0 mls/hr Documented By: MILANA Ceftriaxone Sodium 1 gm/ (Sodium Chloride) 50 mls @ 100 mls/hr IV Q24H [facility] Last Infusion: 03/20/22 20:32 Dose: 0 mls/hr Documented By: VARSHA Vancomycin HCl 750 mg/ Sodium (Chloride) 265 mls @ 265 mls/hr IV Q24H [facility] Last Infusion: 03/20/22 19:04 Dose: 0 mls/hr Documented By: MILANA Dextrose (D5w) 1,000 mls @ 125 mls/hr IVCONT .Q8H [facility] Last Admin: 03/21/22 11:25 Dose: 125 mls/hr Documented By: RORY Ondansetron HCl (Ondansetron Hcl 4 Mg/2 Ml Vial) 4 mg IVPUSH Q8H PRN PRN Reason: Nausea and Vomiting Pharmacy Consult (Consult Rx Vancomycin Dosing) 1 each MISCELLANE DAILY PRN PRN Reason: Consult order Labs CBC & Chem 7: 03/21/22 06:44 03/21/22 06:44 Labs: Laboratory Results - last 24 hr 03/21/22 03/21/22 06:44 06:44 MCV 83.1 MCH 24.4 L MCHC 29.4 L RDW 21.9 H Plt Count 201 D MPV 9.0 L Immature Gran % (Auto) 0.9 H Neut % (Auto) 88.4 H Lymph % (Auto) 7.1 L [place] % (Auto) 3.0 Eos % (Auto) 0.5 Baso % (Auto) 0.1 Lymph # (Auto) 1.0 L [place] # (Auto) 0.4 Eos # (Auto) 0.1 Baso # (Auto) 0.0 Abs Immat Gran (auto) 0.13 H Absolute Neuts (auto) 12.7 H Absolute Nucleated RBC 0.000 Nucleated RBC % (auto) 0.0 Anion Gap 12 Estim Creat Clear Calc 30.4 Estimated GFR 34 Fasting Glucose 90 Calcium 8.1 L Total Bilirubin 0.3 AST 63 H ALT 124 H Alkaline Phosphatase 158 H Total Protein 5.1 L Albumin 2.0 L Microbiology Microbiology Results: Microbiology 03/17/22 18:51 Blood Culture - Preliminary Blood - Venous Proteus mirabilis Staphylococcus species 03/17/22 18:51 Blood Culture - Preliminary Blood - Venous Proteus mirabilis Prelim: GPC Gram Stain only 03/17/22 22:50 Urine Culture - Final Urine Catheterized - Dennis Catheter Escherichia coli Assessment and Plan (1) Gram-negative bacteremia: Status: Acute (2) Atrial fibrillation with rapid ventricular response: Status: Acute (3) Acute respiratory failure with hypoxia: Status: Acute Plan 72-year-old female with past medical history of AFib on anticoagulation, history of CVA, history of dementia, hypertension, hemiplegia, dysphagia, presents to the hospital with altered mental status and hypoxia 1. Gram-negative bacteremia.... Proteus -continue ceftriaxone/vancomycin pending MRSA swab -MRSA negative will DC vancomycin 2.Encephalopathy (likely to 1) - improved 2.AFib with RVR.. ( Now in sinus rhythm) -Start oral Cardizem... DC drip 1 hour after Cardizem given -continue to hold anticoagulation . 3.Acute GI bleed -Daughter does not want any further intervention until patient is more stable, back to her baseline - will hold anticoagulation - follow CBC 4.Acute respiratory failure with hypoxia -titrating O2 with good results - question consolidative focus left lower lobe... Continue ceftriaxone and vancomycin 5. E coli bacteremia -continue ceftriaxone and vancomycin -MRSA swab. .. If negative will DC vancomycin Boots in the setting of GI bleed DNR DNI Patient will require ongoing therapy for IV antibiotics to treat gram-negative bacteremia Quality Stroke Does the patient have a stroke diagnosis?: No VTE Prior VTE?: No VTE Risk Level:: Medical - moderate - high VTE Device Contraindication: Treatment Not Indicated VTE Drug Contraindication: N/A - Med Ordered
[2022-03-21] MEDS: dilTIAZem HCL CD 120 MG CAP.ER.DEG PO (12:36)
[2022-03-21 12:44] VITALS: BP 101/60; PULSE 114; RESP 20
[2022-03-21 15:16] VITALS: BP 105/64; PULSE 120; RESP 19; TEMP 36.9; O2SAT 98
[2022-03-21 16:08] LABS: Vancomycin Trough 21.6 mcg/mL (10.0-20.0)
--- NOTE | 2022-03-21 16:32 | HE.PHANOTE ---
Vancomycin Dosing Addendum Patients level came back this afternoon, 21.6 mg/L. Level is high, will decrease dose. Patient is now to be at 500 mg Q24H. Renal function is stable. Level due for 03/23 @1500. Predicted AUC 415 mg/L/hr
[2022-03-21] MEDS: vancomycin HCL 500 MG in 0.9 % Sodium Chloride 100 ML 110 MG IV (17:08)
[2022-03-21] MEDS: cefTRIAXone sodium 1 GM in 0.9 % Sodium Chloride 50 ML IV (17:54)
[2022-03-21 19:47] VITALS: BP 114/89; PULSE 89; RESP 19; TEMP 37.1; O2SAT 96
[2022-03-21 21:01] LABS: Anion Gap 17 (12-20); Blood Urea Nitrogen 43 mg/dL (9-16); Carbon Dioxide 17 mmol/L (22-29); Chloride 113 mmol/L (96-108); Creatinine Clr Calc Pharmacy 30.1; Estimated Glomerular Filt Rate 34; Glucose Random 215 mg/dL (60-115); Magnesium 1.6 mg/dL (1.6-2.6); Potassium 3.9 mmol/L (3.3-5.1); Sodium 143 mmol/L (135-145)
[2022-03-22] VITALS: BP 149/83; PULSE 103; RESP 16; TEMP 36.4; O2SAT 97
--- NOTE | 2022-03-22 02:02 | HO.WOUNDCONS ---
History of Present Illness Data of Consult Service Date: 03/20/22 Requesting physician: Lukas Garcia Primary Care Provider: Farrukh Rebolledo MD HPI Reason for consult: buttock wound pt was admitted on 03/17 with mental status changes and noted to be bacteremic and had GI bleed. she had a left elbow wound ?etiology -? pressure injury or laceration from prehospital and now with stage 2 pressure injury to bilateral buttocks. pt is confused so hard to get acurate history PMFSH Medical History Afib CVA (cerebral vascular accident) Dementia Dysphasia Hemiplegia HTN (hypertension) Tachycardia Social History Household Members: Unknown / Unable to assess Housing: [place]way Patient Tobacco Use Status: Former Tobacco user Advance Directives Date on File: 11/15/20 service: No Current occupational status: retired Meds Allergies Allergy/AdvReac Type Severity Reaction Status Date / Time lisinopril Allergy Unknown passed out Verified 12/27/21 14:19 Active Medications: Current Medications Diltiazem HCl (Diltiazem Hcl Cd 120 Mg Cap.Er.Deg) 120 mg PO DAILY [facility]; Protocol Last Admin: 03/21/22 12:36 Dose: 120 mg Diltiazem HCl 125 mg/ Sodium (Chloride) 125 mls @ 0 mls/hr IVCONT .Q0M [facility]; Protocol Last Titration: 03/18/22 17:45 Dose: Infused Ceftriaxone Sodium 1 gm/ (Sodium Chloride) 50 mls @ 100 mls/hr IV Q24H [facility] Last Infusion: 03/21/22 18:36 Dose: Infused Vancomycin HCl 500 mg/ Sodium (Chloride) 110 mls @ 110 mls/hr IV Q24H [facility] Last Infusion: 03/21/22 18:18 Dose: Infused Ondansetron HCl (Ondansetron Hcl 4 Mg/2 Ml Vial) 4 mg IVPUSH Q8H PRN PRN Reason: Nausea and Vomiting Pharmacy Consult (Consult Rx Vancomycin Dosing) 1 each MISCELLANE DAILY PRN PRN Reason: Consult order Home Medications Medication Instructions Recorded Confirmed Last Taken Type acetaminophen 325 mg tablet 650 mg PO Q6H PRN Pain 12/15/21 03/18/22 Unknown History (Tylenol) aspirin 81 mg chewable tablet 81 mg PO DAILY 12/15/21 03/18/22 Unknown History calcium carbonate 500 mg-vitamin 1 tab PO DAILY 12/15/21 03/18/22 Unknown History D3 10 mcg (400 unit) tablet (Calcium 500 + D) docusate sodium 100 mg capsule 100 mg PO DAILY PRN Constipation 12/15/21 03/18/22 Unknown History (Colace) isosorbide mononitrate 60 mg 1 tab PO DAILY 12/15/21 03/18/22 Unknown History tablet,extended release 24 hr rosuvastatin 40 mg tablet 1 tab PO BEDTIME 12/15/21 03/18/22 Unknown History apixaban 5 mg tablet 5 mg PO BID 03/18/22 03/18/22 Unknown History losartan 25 mg tablet 1 tab PO DAILY 03/18/22 03/18/22 Unknown History metoprolol succinate 100 mg 100 mg PO DAILY 03/18/22 03/18/22 Unknown History tablet,extended release 24 hr mirtazapine 15 mg tablet 15 mg PO BEDTIME 03/18/22 03/18/22 Unknown History Physical Exam Vital Signs and Narrative: Vital Signs: Last Vital Signs Temp 97.6 F 03/22/22 00:00 Pulse 103 H 03/22/22 00:00 Resp 16 03/22/22 00:00 BP 149/83 H 03/22/22 00:00 Pulse Ox 97 03/22/22 00:00 O2 Del Method 03/22/22 00:00 O2 Flow Rate 6 03/22/22 00:00 FiO2 48.6 03/19/22 11:17 Oxygen Flow Rate 10 03/17/22 17:51 BMI result Body Mass Index 20.7 Skin: Other: right elbow has open defect about a dine size with at least 1-1.5 cm undermining in most directions - clean edges no bleeding no infection. area is sore to pt the bilateral buttock has mild stage 2 skin breakdown due most likely to pressure and moisture no infection Neuro: Other: confused Results Labs CBC and Chem 7: 03/21/22 06:44 03/21/22 19:39 Labs: Laboratory Results - last 24 hr 03/21/22 03/21/22 03/21/22 06:44 06:44 15:05 MCV 83.1 MCH 24.4 L MCHC 29.4 L RDW 21.9 H Plt Count 201 D MPV 9.0 L Immature Gran % (Auto) 0.9 H Neut % (Auto) 88.4 H Lymph % (Auto) 7.1 L [place] % (Auto) 3.0 Eos % (Auto) 0.5 Baso % (Auto) 0.1 Lymph # (Auto) 1.0 L [place] # (Auto) 0.4 Eos # (Auto) 0.1 Baso # (Auto) 0.0 Abs Immat Gran (auto) 0.13 H Absolute Neuts (auto) 12.7 H Absolute Nucleated RBC 0.000 Nucleated RBC % (auto) 0.0 Anion Gap 12 Estim Creat Clear Calc 30.4 Estimated GFR 34 Random Glucose Fasting Glucose 90 Calcium 8.1 L Magnesium Total Bilirubin 0.3 AST 63 H ALT 124 H Alkaline Phosphatase 158 H Total Protein 5.1 L Albumin 2.0 L Vancomycin Trough 21.6 H 03/21/ 19:39 MCV MCH MCHC RDW Plt Count MPV Immature Gran % (Auto) Neut % (Auto) Lymph % (Auto) [place] % (Auto) Eos % (Auto) Baso % (Auto) Lymph # (Auto) [place] # (Auto) Eos # (Auto) Baso # (Auto) Abs Immat Gran (auto) Absolute Neuts (auto) Absolute Nucleated RBC Nucleated RBC % (auto) Anion Gap 17 Estim Creat Clear Calc 30.1 Estimated GFR 34 Random Glucose 215 H Fasting Glucose Calcium 8.0 L Magnesium 1.6 Total Bilirubin AST ALT Alkaline Phosphatase Total Protein Albumin Vancomycin Trough Assessment and Plan (1) Pressure injury of buttock, stage 2: Status: Acute (2) Wound, open, elbow: Status: Acute Plan 72 year old female with right elbow wound with open area to fat and undemining - trial of silver nitrate and barrier cream. hard area to heal. nutrition support and relief of pressure the buttock wounds are mild - stage 2 skin - barrier zinc oxide and rotating every 2 hrs and offloading, moisture control
[2022-03-22 03:18] VITALS: BP 158/80; PULSE 97; RESP 16; TEMP 36.6; O2SAT 93
[2022-03-22 06:23] LABS: MANUAL DIFF FLAG NO
[2022-03-22 06:40] LABS: Basophils Percent Auto 0.2 % (0-2); Eosinophils Absolute Auto 0.2 X10*3/uL (0.0-0.4); Eosinophils Percent Auto 1.5 % (0-4); Hematocrit 31.5 % (37.0-47.0); Imm Gran Abs Auto 0.16 X10*3/uL (0.00-0.03); Imm Gran Pct Auto 1.2 % (0.0-0.4); Lymphocytes Absolute Auto 1.1 X10*3/uL (1.2-4.9); Lymphocytes Percent Auto 8.3 % (20-40); Mean Corpuscular HGB Conc 31.7 g/dl (31.0-35.0); Mean Corpuscular Volume 78.8 fL (80.0-98.0); Mean Platelet Volume 10.1 fL (9.4-12.3); Monocytes Absolute Auto 0.5 X10*3/uL (0.1-1.2); Monocytes Percent Auto 3.3 % (2-11); Neutrophils Absolute Auto 11.7 x10*3/uL (2.0-8.3); Neutrophils Percent Auto 85.5 % (45-73); Platelet Count 153 X10*3/uL (160-400); Red Cell Distribution Width 21.7 % (11.0-16.0); White Blood Count 13.6 X10*3/uL (4.8-10.8)
[2022-03-22 07:52] LABS: Alanine Aminotransferase 155 U/L (0-31); Alkaline Phosphatase 166 U/L (39-117); Aspartate Amino Transferase 84 U/L (5-31); Bilirubin Total 0.5 mg/dL (0.0-1.0); Blood Urea Nitrogen 33 mg/dL (9-16); Calcium 7.8 mg/dL (8.4-10.2); Creatinine Clr Calc Pharmacy 38.2; Estimated Glomerular Filt Rate 45; Glucose Fasting 83 mg/dL (60-99); Total Protein 4.9 g/dL (6.5-8.0)
[2022-03-22 08:00] VITALS: BP 106/70; PULSE 100; RESP 16; TEMP 36.8; O2SAT 98
[2022-03-22 08:05] LABS: Anion Gap 13 (12-20); Carbon Dioxide 21 mmol/L (22-29); Chloride 115 mmol/L (96-108); Potassium 2.7 mmol/L (3.3-5.1); Sodium 146 mmol/L (135-145)
--- NOTE | 2022-03-22 09:02 | HE.PHANOTE ---
RE MELISSA Arreola CURRENT DOSE, NEXT TROUGH 03/23@1500 [facility]
[2022-03-22] MEDS: dilTIAZem HCL CD 120 MG CAP.ER.DEG PO (09:44)
[2022-03-22] MEDS: Acetaminophen 325 MG TABLET 650 MG PO (10:45)
[2022-03-22 11:31] VITALS: BP 100/60; PULSE 114; RESP 18; TEMP 36.7; O2SAT 94
--- NOTE | 2022-03-22 12:36 | MHC.CM.PN ---
PT NOT MEDICALLY CLEARED TODAY DCP CONTINUES TO BE RETURN TO [facility] VIA S
--- NOTE | 2022-03-22 15:20 | P.PNIM_ITS ---
Subjective Subjective Date of Service: 03/22/22 Interval History: Slowly improving. More responsive today and taking small amounts p.o. Review of Systems Denies chest pain Denies shortness of breath Denies nausea vomiting diarrhea Physical Exam Vital Signs: Vital Signs: Last Vital Signs Temp 98.0 F 03/22/22 11:31 Pulse 114 H 03/22/22 11:31 Resp 18 03/22/22 11:31 BP 100/60 03/22/22 11:31 Pulse Ox 94 03/22/22 11:31 O2 Del Method 03/22/22 11:31 O2 Flow Rate 6 03/22/22 11:31 FiO2 48.6 03/19/22 11:17 Oxygen Flow Rate 10 03/17/22 17:51 BMI result Body Mass Index 20.7 Const: Other: Awake more engaging Resp: Other: Clear to auscultation bilaterally no rales rhonchi wheezes Cardio: Other: No S4; positive S1-S2; no S3 murmurs rubs or gallops GI: Other: Soft positive bowel sounds Extrem: Other: No edema bilaterally Objective Data Active Medications Acetaminophen (Acetaminophen 325 Mg Tablet) 650 mg PO Q4H PRN PRN Reason: Pain, Mild (Pain Scale 1-3) Last Admin: 03/22/22 10:45 Dose: 650 mg Documented By: MARY ANNE Diltiazem HCl (Diltiazem Hcl Cd 120 Mg Cap.Er.Deg) 120 mg PO DAILY [facility]; Protocol Last Admin: 03/22/22 09:44 Dose: 120 mg Documented By: MARY ANNE Diltiazem HCl 125 mg/ Sodium (Chloride) 125 mls @ 0 mls/hr IVCONT .Q0M [facility]; Protocol Last Titration: 03/18/22 17:45 Dose: 0 mg/hr, 0 mls/hr Documented By: MILANA Ceftriaxone Sodium 1 gm/ (Sodium Chloride) 50 mls @ 100 mls/hr IV Q24H [facility] Last Infusion: 03/21/22 18:36 Dose: 100 mls/hr Documented By: RORY Vancomycin HCl 500 mg/ Sodium (Chloride) 110 mls @ 110 mls/hr IV Q24H [facility] Last Infusion: 03/21/22 18:18 Dose: 110 mls/hr Documented By: RORY Ondansetron HCl (Ondansetron Hcl 4 Mg/2 Ml Vial) 4 mg IVPUSH Q8H PRN PRN Reason: Nausea and Vomiting Pharmacy Consult (Consult Rx Vancomycin Dosing) 1 each MISCELLANE DAILY PRN PRN Reason: Consult order Labs CBC & Chem 7: 03/22/22 05:39 03/22/22 05:39 Labs: Laboratory Results - last 24 hr 03/21/22 03/21/22 03/22/22 15:05 19:39 05:39 MCV 78.8 L MCH 25.0 L MCHC 31.7 RDW 21.7 H Plt Count 153 L MPV 10.1 Immature Gran % (Auto) 1.2 H Neut % (Auto) 85.5 H Lymph % (Auto) 8.3 L [place] % (Auto) 3.3 Eos % (Auto) 1.5 Baso % (Auto) 0.2 Lymph # (Auto) 1.1 L [place] # (Auto) 0.5 Eos # (Auto) 0.2 Baso # (Auto) 0.0 Abs Immat Gran (auto) 0.16 H Absolute Neuts (auto) 11.7 H Absolute Nucleated RBC 0.000 Nucleated RBC % (auto) 0.0 Anion Gap 17 Estim Creat Clear Calc 30.1 Estimated GFR 34 Random Glucose 215 H Fasting Glucose Calcium 8.0 L Magnesium 1.6 Total Bilirubin AST ALT Alkaline Phosphatase Total Protein Albumin Vancomycin Trough 21.6 H 03/22/22 05:39 MCV MCH MCHC RDW Plt Count MPV Immature Gran % (Auto) Neut % (Auto) Lymph % (Auto) [place] % (Auto) Eos % (Auto) Baso % (Auto) Lymph # (Auto) [place] # (Auto) Eos # (Auto) Baso # (Auto) Abs Immat Gran (auto) Absolute Neuts (auto) Absolute Nucleated RBC Nucleated RBC % (auto) Anion Gap 13 Estim Creat Clear Calc 38.2 Estimated GFR 45 Random Glucose Fasting Glucose 83 Calcium 7.8 L Magnesium Total Bilirubin 0.5 AST 84 H ALT 155 H Alkaline Phosphatase 166 H D Total Protein 4.9 L Albumin 2.0 L D Vancomycin Trough Microbiology Microbiology Results: Microbiology 03/17/22 18:51 Blood Culture - Final Blood - Venous Proteus mirabilis Prelim: GPC Gram Stain only 03/17/22 18:51 Blood Culture - Final Blood - Venous Proteus mirabilis Methicillin Res Staph Aureus Assessment and Plan (1) Gram-negative bacteremia: Status: Acute (2) Atrial fibrillation with rapid ventricular response: Status: Acute Plan 72-year-old female with past medical history of AFib on anticoagulation, history of CVA, history of dementia, hypertension, hemiplegia, dysphagia, presents to the hospital with altered mental status and hypoxia 1. Gram-negative bacteremia.... Proteus -continue ceftriaxone/vancomycin... Two organisms Proteus and MRSA bacteremia 2.AFib with RVR.. ( Now in sinus rhythm) -oral Cardizem -continue to hold anticoagulation . 3.Acute GI bleed -Daughter does not want any further intervention until patient is more stable, back to her baseline - will hold anticoagulation - follow CBC.. Stable thus far 4.Acute respiratory failure with hypoxia -titrating O2 with good results -question consolidative focus left lower lobe... Continue ceftriaxone and vancomycin 5. E coli (UTI) -continue ceftriaxone and vancomycin Boots in the setting of GI bleed DNR DNI Patient will require ongoing therapy for IV antibiotics to treat gram-negative bacteremia Quality Stroke Does the patient have a stroke diagnosis?: No VTE Prior VTE?: No VTE Risk Level:: Medical - moderate - high VTE Device Contraindication: Treatment Not Indicated VTE Drug Contraindication: N/A - Med Ordered
--- NOTE | 2022-03-22 15:23 | MHC.SL.SWA ---
Speech Pathologist Impression: Risk of Aspiration Due to: Reduced Cognition Dysphasia Diet Status: Recommend patient continue on current recommended diet of PUREE (NDD1) with [place] thick liquids, pills crushed in puree (no change). Liquid Consistency and Strategies for Safe Swallow: Liquid Intake Recommendation: [place] Thick Liquid Intake Strategies: Small Sips Solid Food Consistency: Dietary Recommendations: Pureed (NDD1) Additional Modifications to Solid Foods: Oral Medication Intake: Crushed with Puree Please contact the pharmacy regarding appropriate crushable or liquid drug formulations that are available whenever modified delivery is recommended. Compensatory Strategies and Precautions to be Taken for Safe Swallow: Sitting Upright (90 deg) No Straw Liquids from Cup Liquids from Spoon Small Bites and Sips Alternate Liquids/Solids Supervision While Eating and Drinking for Safe Swallow: Total Assistance (1:1) Foods to Avoid: Swallowing Recommended Treatments: Compens. Strategy Educat. Recommendation for Speech: Outpatient Speech Therapy Inpatient Speech Therapy Comment: Patient seen for po trials, repeat swallow assessment this a.m. Patient was seated in bed, somewhat listing to left side, attempt was made to assist patient to more upright position in bed. Patient had eaten small amount at breakfast, and declined taking any po solids for this trial, reporting issue was both appetite and dislike of the texture. Patient accepted sips of [place] Thick liquid, which she preferred to independently sip from cup. Patient noted to take small sips only, produce a timely oral phase, mild delay of swallow, mildly reduced laryngeal elevation. On cup of nectar thick, no clinical signs of aspiration. Recommend patient continue on current recommended diet of PUREE (NDD1) with [place] thick liquids, pills crushed in puree (no change). Frequency/Duration: Date Range for Service Req: Timeline to reassess: Notching Machine Operator Clinican/Clinical Fellow: No Supervisory Statement: I have reviewed and agree with the student/clinical fellow's documentation: N/A Speech Language Pathologist: Eve Saucedo M.A., CCC-MARKETING COMPLIANCE MANAGER
[2022-03-22 16:00] VITALS: BP 133/71; PULSE 96; RESP 16; TEMP 36.2; O2SAT 95
[2022-03-22] MEDS: vancomycin HCL 500 MG in 0.9 % Sodium Chloride 100 ML 110 MG IV (18:08)
[2022-03-22] MEDS: cefTRIAXone sodium 1 GM in 0.9 % Sodium Chloride 50 ML IV (19:15)
[2022-03-22 20:00] VITALS: BP 117/58; PULSE 99; RESP 18; TEMP 36.6; O2SAT 95
[2022-03-23] VITALS (12 sets, daily range): BP systolic 108–129; BP diastolic 59–72; PULSE 106–130; RESP 16–20; TEMP 36.1–37; O2SAT 90–98
[2022-03-23 07:10] LABS: Estimated Glomerular Filt Rate 54
[2022-03-23] MEDS: dilTIAZem HCL CD 120 MG CAP.ER.DEG PO (08:53)
--- NOTE | 2022-03-23 14:56 | HO.PM.IMPN ---
Subjective Subjective Date of Service: 03/23/22 Interval History: No acute issues overnight. Review of Systems Denies chest pain Denies shortness of breath Denies nausea vomiting diarrhea Physical Exam Vital Signs: Vital Signs: Last Vital Signs Temp 98.0 F 03/23/22 12:00 Pulse 122 H 03/23/22 12:00 Resp 20 03/23/22 12:00 BP 111/71 03/23/22 12:00 Pulse Ox 94 03/23/22 12:00 O2 Del Method 03/23/22 12:00 O2 Flow Rate 3 03/23/22 12:00 FiO2 48.6 03/19/22 11:17 Oxygen Flow Rate 10 03/17/22 17:51 BMI result Body Mass Index 20.7 Const: Other: Awake more engaging Resp: Other: Clear to auscultation bilaterally no rales rhonchi wheezes Cardio: Other: No S4; positive S1-S2; no S3 murmurs rubs or gallops GI: Other: Soft positive bowel sounds Extrem: Other: No edema bilaterally Objective Data Active Medications Acetaminophen (Acetaminophen 325 Mg Tablet) 650 mg PO Q4H PRN PRN Reason: Pain, Mild (Pain Scale 1-3) Last Admin: 03/22/22 10:45 Dose: 650 mg Documented By: MARY ANNE Diltiazem HCl (Diltiazem Hcl Cd 120 Mg Cap.Er.Deg) 120 mg PO DAILY [facility]; Protocol Last Admin: 03/23/22 08:53 Dose: 120 mg Documented By: DESHAWN Ceftriaxone Sodium 1 gm/ (Sodium Chloride) 50 mls @ 100 mls/hr IV Q24H [facility] Last Infusion: 03/22/22 21:05 Dose: 0 mls/hr Documented By: FALGUNI Vancomycin HCl 500 mg/ Sodium (Chloride) 110 mls @ 110 mls/hr IV Q24H [facility] Last Infusion: 03/22/22 19:10 Dose: 0 mls/hr Documented By: FALGUNI Diltiazem HCl 125 mg/ Sodium (Chloride) 125 mls @ 0 mls/hr IVCONT .Q0M [facility]; Protocol Ondansetron HCl (Ondansetron Hcl 4 Mg/2 Ml Vial) 4 mg IVPUSH Q8H PRN PRN Reason: Nausea and Vomiting Pharmacy Consult (Consult Rx Vancomycin Dosing) 1 each MISCELLANE DAILY PRN PRN Reason: Consult order Labs CBC & Chem 7: 03/22/22 05:39 03/23/22 06:06 Labs: Laboratory Results - last 24 hr 03/23/22 06:06 Estim Creat Clear Calc 45.0 Estimated GFR 54 Assessment and Plan (1) Gram-negative bacteremia: Status: Acute (2) Atrial fibrillation with rapid ventricular response: Status: Acute Plan 72-year-old female with past medical history of AFib on anticoagulation, history of CVA, history of dementia, hypertension, hemiplegia, dysphagia, presents to the hospital with altered mental status and hypoxia 1. Gram-negative bacteremia.... Proteus -continue ceftriaxone/vancomycin... Two organisms Proteus and MRSA bacteremia 2.AFib with RVR.. -restart cardizem drip -continue to hold anticoagulation -will add digit if necessary . 3.Acute GI bleed -Daughter does not want any further intervention until patient is more stable, back to her baseline - will hold anticoagulation - follow CBC.. Stable thus far 4.Acute respiratory failure with hypoxia -titrating O2 with good results -question consolidative focus left lower lobe... Continue ceftriaxone and vancomycin 5. E coli (UTI) -continue ceftriaxone and vancomycin Boots in the setting of GI bleed DNR DNI Patient will require ongoing therapy for IV antibiotics to treat gram-negative bacteremia Quality Stroke Does the patient have a stroke diagnosis?: No VTE Prior VTE?: No VTE Risk Level:: Medical - moderate - high VTE Device Contraindication: Treatment Not Indicated VTE Drug Contraindication: N/A - Med Ordered
--- NOTE | 2022-03-23 15:48 | HE.PHANOTE ---
Vancomycin Dosing Addendum Patients level came back this evening at 19 mg/L. Patient recieved two doses of 500 mg and the trough dropped from 21.6 to 19. I suspect the trough will not continue to drop, level to be pulled after one dose to ensure it does not continue to drop. Level due 03/24 @1500. Patients expected trough for this time through insight is 15.2 however the actual trough is 19. Patients renal function improved, crcl went from 38.2 to 45 mL/min. predicted AUC 352 mg/L/hr.
[2022-03-23] MEDS: cefTRIAXone sodium 1 GM in 0.9 % Sodium Chloride 50 ML IV (17:40)
[2022-03-23] MEDS: dilTIAZem HCL 125 MG in 0.9 % Sodium Chloride 100 ML IVCONT (17:41)
[2022-03-23] MEDS: vancomycin HCL 500 MG in 0.9 % Sodium Chloride 100 ML 110 MG IV (18:06)
[2022-03-24 04:00] VITALS: BP 116/67; PULSE 103; RESP 20; TEMP 36.4; O2SAT 82
[2022-03-24] MEDS: dilTIAZem HCL 125 MG in 0.9 % Sodium Chloride 100 ML 10 MG IVCONT (05:47)
[2022-03-24 07:22] LABS: Estimated Glomerular Filt Rate 54
[2022-03-24 08:00] VITALS: BP 118/64; PULSE 102; RESP 20; TEMP 36.4; O2SAT 94
[2022-03-24 12:00] VITALS: BP 118/75; PULSE 105; RESP 20; TEMP 37.2; O2SAT 98
--- NOTE | 2022-03-24 15:06 | P.PNIM_ITS ---
Subjective Subjective Date of Service: 03/24/22 Interval History: Continues to improve slowly. No acute issue Review of Systems Denies chest pain Denies shortness of breath Denies nausea vomiting diarrhea Physical Exam Vital Signs: Vital Signs: Last Vital Signs Temp 98.9 F 03/24/22 12:00 Pulse 105 H 03/24/22 12:00 Resp 20 03/24/22 12:00 BP 118/75 03/24/22 12:00 Pulse Ox 98 03/24/22 12:00 O2 Del Method 03/24/22 12:00 O2 Flow Rate 4 03/24/22 12:00 FiO2 48.6 03/19/22 11:17 Oxygen Flow Rate 10 03/17/22 17:51 BMI result Body Mass Index 20.7 Const: Other: Awake more engaging Resp: Other: Clear to auscultation bilaterally no rales rhonchi wheezes Cardio: Other: No S4; positive S1-S2; no S3 murmurs rubs or gallops GI: Other: Soft positive bowel sounds Extrem: Other: No edema bilaterally Objective Data Active Medications Acetaminophen (Acetaminophen 325 Mg Tablet) 650 mg PO Q4H PRN PRN Reason: Pain, Mild (Pain Scale 1-3) Last Admin: 03/22/22 10:45 Dose: 650 mg Documented By: MARY ANNE Ceftriaxone Sodium 1 gm/ (Sodium Chloride) 50 mls @ 100 mls/hr IV Q24H [facility] Last Infusion: 03/23/22 18:17 Dose: 0 mls/hr Documented By: DESHAWN Vancomycin HCl 500 mg/ Sodium (Chloride) 110 mls @ 110 mls/hr IV Q24H [facility] Last Infusion: 03/23/22 19:45 Dose: 0 mls/hr Documented By: DESHAWN Diltiazem HCl 125 mg/ Sodium (Chloride) 125 mls @ 0 mls/hr IVCONT .Q0M [facility]; Protocol Last Admin: 03/24/22 05:47 Dose: 10 mg/hr, 10 mls/hr Documented By: KEVIN Metoprolol Succinate (Metoprolol Succinate Er 100 Mg Tab.Er.24h) 100 mg PO DAILY [facility]; Protocol Ondansetron HCl (Ondansetron Hcl 4 Mg/2 Ml Vial) 4 mg IVPUSH Q8H PRN PRN Reason: Nausea and Vomiting Pharmacy Consult (Consult Rx Vancomycin Dosing) 1 each MISCELLANE DAILY PRN PRN Reason: Consult order Labs CBC & Chem 7: 03/22/22 05:39 03/24/22 06:12 Labs: Laboratory Results - last 24 hr 03/23/22 03/24/22 15:08 06:12 Estim Creat Clear Calc 45.0 Estimated GFR 54 Random Vancomycin 19.0 Assessment and Plan (1) Gram-negative bacteremia: Status: Acute (2) Chronic atrial fibrillation: Status: Acute Plan 72-year-old female with past medical history of AFib on anticoagulation, history of CVA, history of dementia, hypertension, hemiplegia, dysphagia, presents to the hospital with altered mental status and hypoxia 1. Gram-negative bacteremia.... Proteus/MRSA -continue ceftriaxone/vancomycin... -will discuss switch to oral and duration with ID in am 2.AFib with RVR.. -restart cardizem drip... Rate control. Switch to oral in a.m. if remains control -continue to hold anticoagulation -will add digit if necessary . 3.Acute GI bleed -Daughter does not want any further intervention until patient is more stable, back to her baseline - will hold anticoagulation - follow CBC.. Stable thus far 4.Acute respiratory failure with hypoxia -titrating O2 with good results -question consolidative focus left lower lobe... Continue ceftriaxone and vancomycin 5. E coli (UTI) -continue ceftriaxone and vancomycin -discussed with ID in a.m. Boots in the setting of GI bleed DNR DNI Patient will require ongoing therapy for IV antibiotics to treat gram-negative bacteremia Quality Stroke Does the patient have a stroke diagnosis?: No VTE Prior VTE?: No VTE Risk Level:: Medical - moderate - high VTE Device Contraindication: Treatment Not Indicated VTE Drug Contraindication: N/A - Med Ordered
--- NOTE | 2022-03-24 15:34 | PC.NURSE ---
Cardizem gtt paused per MD. Patient is sinus tachycardia on tele monitor HR 107.
[2022-03-24] MEDS: vancomycin HCL 500 MG in 0.9 % Sodium Chloride 100 ML 110 MG IV (15:42)
[2022-03-24 16:00] VITALS: BP 147/72; PULSE 109; RESP 16; TEMP 37.1; O2SAT 91
[2022-03-24 16:18] LABS: Vancomycin Random 20.1 mcg/mL (15-20)
--- NOTE | 2022-03-24 17:04 | HE.PHANOTE ---
Vancomycin Dosing Addendum Patients level came back this evening at 20.1 mg/L. Patient received vancomycin dose at 1542 when dose was due at 1700. Vancomcyin on hold. Random to be drawn tomorrow 03/25 @1500 to see where patients levels lie.
[2022-03-24] MEDS: cefTRIAXone sodium 1 GM in 0.9 % Sodium Chloride 50 ML IV (18:39)
[2022-03-24 20:00] VITALS: BP 118/71; PULSE 104; RESP 16; TEMP 36.8; O2SAT 94
[2022-03-24 23:48] VITALS: BP 130/77; PULSE 102; RESP 18; TEMP 36.9; O2SAT 97
[2022-03-25 03:40] VITALS: BP 129/79; PULSE 56; RESP 18; TEMP 37.2; O2SAT 99
[2022-03-25 06:09] LABS: MANUAL DIFF FLAG NO
[2022-03-25 06:21] LABS: Basophils Percent Auto 0.2 % (0-2); Eosinophils Percent Auto 0.2 % (0-4); Hematocrit 33.7 % (37.0-47.0); Hemoglobin 10.2 g/dl (12.0-16.0); Imm Gran Abs Auto 0.09 X10*3/uL (0.00-0.03); Imm Gran Pct Auto 0.7 % (0.0-0.4); Mean Corpuscular HGB Conc 30.3 g/dl (31.0-35.0); Mean Corpuscular Hemoglobin 24.7 pg (27.0-33.0); Mean Corpuscular Volume 81.6 fL (80.0-98.0); Mean Platelet Volume 10.3 fL (9.4-12.3); Monocytes Absolute Auto 0.5 X10*3/uL (0.1-1.2); Neutrophils Absolute Auto 10.6 x10*3/uL (2.0-8.3); Neutrophils Percent Auto 86.9 % (45-73); Platelet Count 189 X10*3/uL (160-400); Red Blood Count 4.13 X10*6/uL (4.20-5.50); Red Cell Distribution Width 22.3 % (11.0-16.0); White Blood Count 12.2 X10*3/uL (4.8-10.8)
[2022-03-25 08:00] VITALS: BP 121/89; PULSE 122; RESP 20; TEMP 36.9; O2SAT 96
[2022-03-25 09:05] LABS: Vancomycin Random 14.5 mcg/mL (15-20)
[2022-03-25] MEDS: Metoprolol Succinate ER 100 MG TAB.ER.24H PO (09:12)
--- NOTE | 2022-03-25 09:18 | HE.PHANOTE ---
VANCO DOSING BASED ON SCR AND RANDOM TODAY AT DOSE CONTINUED THIS AFTERNOON AND NEXT TROUGH SET FOR 03/26 @ 1500. LOOKS LIKE THE TROUGH ON 03/24 MIGHT HAVE BEEN TAKING DURING THE VANCO BEING GIVEN AND WAS FALSELY HIGH
[2022-03-25 09:53] LABS: Alanine Aminotransferase 45 U/L (0-31); Alkaline Phosphatase 147 U/L (39-117); Aspartate Amino Transferase 15 U/L (5-31); Bilirubin Total 0.2 mg/dL (0.0-1.0); Blood Urea Nitrogen 20 mg/dL (9-16); Calcium 7.9 mg/dL (8.4-10.2); Creatinine Clr Calc Pharmacy 54.7; Estimated Glomerular Filt Rate > 60; Glucose Fasting 88 mg/dL (60-99); Total Protein 5.3 g/dL (6.5-8.0)
[2022-03-25 10:02] LABS: Anion Gap 13 (12-20); Carbon Dioxide 23 mmol/L (22-29); Chloride 123 mmol/L (96-108); Sodium 156 mmol/L (135-145)
[2022-03-25] MEDS: dilTIAZem HCL 125 MG in 0.9 % Sodium Chloride 100 ML 10 MG IVCONT (10:21)
--- NOTE | 2022-03-25 11:39 | P.PNIM_ITS ---
Subjective Subjective Date of Service: 03/25/22 Interval History: More awake tolerating diet. Return to AFib with rapid ventricular response this a.m. Review of Systems Denies chest pain Denies shortness of breath Denies nausea vomiting diarrhea Physical Exam Vital Signs: Vital Signs: Last Vital Signs Temp 98.4 F 03/25/22 08:00 Pulse 122 H 03/25/22 08:00 Resp 20 03/25/22 08:00 BP 121/89 03/25/22 08:00 Pulse Ox 96 03/25/22 08:00 O2 Del Method 03/25/22 08:00 O2 Flow Rate 4 03/25/22 08:00 FiO2 48.6 03/19/22 11:17 Oxygen Flow Rate 10 03/17/22 17:51 BMI result Body Mass Index 20.7 Const: Other: Awake more engaging Resp: Other: Clear to auscultation bilaterally no rales rhonchi wheezes Cardio: Other: No S4; positive S1-S2; no S3 murmurs rubs or gallops GI: Other: Soft positive bowel sounds Extrem: Other: No edema bilaterally Objective Data Active Medications Acetaminophen (Acetaminophen 325 Mg Tablet) 650 mg PO Q4H PRN PRN Reason: Pain, Mild (Pain Scale 1-3) Last Admin: 03/22/22 10:45 Dose: 650 mg Documented By: MARY ANNE Ceftriaxone Sodium 1 gm/ (Sodium Chloride) 50 mls @ 100 mls/hr IV Q24H [facility] Last Infusion: 03/24/22 19:27 Dose: 0 mls/hr Documented By: MERLENE Vancomycin HCl 500 mg/ Sodium (Chloride) 110 mls @ 110 mls/hr IV Q24H [facility] Last Infusion: 03/24/22 18:31 Dose: 0 mls/hr Documented By: MERLENE Diltiazem HCl 125 mg/ Sodium (Chloride) 125 mls @ 0 mls/hr IVCONT .Q0M [facility]; Protocol Last Admin: 03/25/22 10:21 Dose: 10 mg/hr, 10 mls/hr Documented By: JUSTIN Dextrose (D5w) 1,000 mls @ 100 mls/hr IVCONT .Q10H [facility] Metoprolol Succinate (Metoprolol Succinate Er 100 Mg Tab.Er.24h) 100 mg PO DAILY [facility]; Protocol Last Admin: 03/25/22 09:12 Dose: 100 mg Documented By: JUSTIN Ondansetron HCl (Ondansetron Hcl 4 Mg/2 Ml Vial) 4 mg IVPUSH Q8H PRN PRN Reason: Nausea and Vomiting Pharmacy Consult (Consult Rx Vancomycin Dosing) 1 each MISCELLANE DAILY PRN PRN Reason: Consult order Labs CBC & Chem 7: 03/25/22 05:32 03/25/22 05:32 Labs: Laboratory Results - last 24 hr 03/24/22 03/25/22 03/25/22 15:58 05:32 05:32 MCV 81.6 MCH 24.7 L MCHC 30.3 L RDW 22.3 H Plt Count 189 MPV 10.3 Immature Gran % (Auto) 0.7 H Neut % (Auto) 86.9 H Lymph % (Auto) 8.0 L [place] % (Auto) 4.0 Eos % (Auto) 0.2 Baso % (Auto) 0.2 Lymph # (Auto) 1.0 L [place] # (Auto) 0.5 Eos # (Auto) 0.0 Baso # (Auto) 0.0 Abs Immat Gran (auto) 0.09 H Absolute Neuts (auto) 10.6 H Absolute Nucleated RBC 0.000 Nucleated RBC % (auto) 0.0 Anion Gap 13 Estim Creat Clear Calc 54.7 Estimated GFR > 60 Fasting Glucose 88 Calcium 7.9 L Total Bilirubin 0.2 AST 15 ALT 45 H Alkaline Phosphatase 147 H Total Protein 5.3 L Albumin 2.0 L Random Vancomycin 20.1 H 03/25/22 08:39 MCV MCH MCHC RDW Plt Count MPV Immature Gran % (Auto) Neut % (Auto) Lymph % (Auto) [place] % (Auto) Eos % (Auto) Baso % (Auto) Lymph # (Auto) [place] # (Auto) Eos # (Auto) Baso # (Auto) Abs Immat Gran (auto) Absolute Neuts (auto) Absolute Nucleated RBC Nucleated RBC % (auto) Anion Gap Estim Creat Clear Calc Estimated GFR Fasting Glucose Calcium Total Bilirubin AST ALT Alkaline Phosphatase Total Protein Albumin Random Vancomycin 14.5 L Assessment and Plan (1) Gram-negative bacteremia: Status: Acute (2) Atrial fibrillation with rapid ventricular response: Status: Acute (3) Acute GI bleeding: Status: Acute Plan 72-year-old female with past medical history of AFib on anticoagulation, history of CVA, history of dementia, hypertension, hemiplegia, dysphagia, presents to the hospital with altered mental status and hypoxia 1. Gram-negative bacteremia.... Proteus/MRSA -continue ceftriaxone/vancomycin.(7).. -will discuss switch to oral and duration with ID in am 2.AFib with RVR.. -restart cardizem drip... . Briefly 1127 but restarted this a.m. -continue to hold anticoagulation -digits therapeutic 3.Acute GI bleed -Daughter does not want any further intervention until patient is more stable, back to her baseline - will hold anticoagulation... No further bleeding noted - follow CBC.. Stable thus far 4.Acute respiratory failure with hypoxia -titrating O2 with good results -question consolidative focus left lower lobe... Continue ceftriaxone and vancomycin 5. E coli (UTI) -continue ceftriaxone and vancomycin Boots in the setting of GI bleed DNR DNI Patient will require ongoing therapy for IV antibiotics to treat gram-negative bacteremia Quality Stroke Does the patient have a stroke diagnosis?: No VTE Prior VTE?: No VTE Risk Level:: Medical - moderate - high VTE Device Contraindication: Treatment Not Indicated VTE Drug Contraindication: N/A - Med Ordered
[2022-03-25 11:47] VITALS: BP 108/59; PULSE 116; RESP 20; TEMP 36.8; O2SAT 94
[2022-03-25] MEDS: Dextrose 5 % 1,000 ML 100 ML IVCONT ×2 (12:42→21:26)
[2022-03-25 14:42] VITALS: BMI 20.7
--- NOTE | 2022-03-25 14:45 | MHC.CLN ---
RE: CONSULT PT WITH INCREASED NUTRITION RISK R/T PRESSURE INJURIES DIET RX: PUREED WITH NT LIQ-APPROPRIATE PO INTAKE 25-50% RECOMMEND ADDING ENSURE BID TO INCREASE PO AND PROMOTE WOUND HEALING SUPP TO PROVIDE 700KCALS, 40G PROTEIN MONITOR PO INTAKE CLOSELY SEE ALSO FULL CLINICAL NUTRITION ASSESSMENT
[2022-03-25 15:25] VITALS: BP 128/65; PULSE 93; RESP 14; TEMP 37.3; O2SAT 95
--- NOTE | 2022-03-25 15:54 | MHC.CM.PN ---
DP return to [facility]. No DC today. Patient has been restarted on a Cardizem gtt today. CM will follow.
[2022-03-25] MEDS: vancomycin HCL 500 MG in 0.9 % Sodium Chloride 100 ML 110 MG IV (18:42)
--- NOTE | 2022-03-25 18:48 | PC.NURSE ---
Alert and responsive. VSS, afebrile, no acute resp. distress noted. HR up in the 130s sustaining, asymptomatic. MD updated, cardizem re-started at 10mg/hr. D5 running at 100ml/hr. Left lower arm IV infiltrated, warm compress applied and arm elevated on pillow. D/5 stopped. Patient converted back to NSR, HR in the 90s, cardizem gtt stopped. Doctor Radha notified via tiger text, awaiting responsive. right arm swelling noted, arm elevated on pillow. Dressing changed as ordered. Repositioned as needed. Will continue to monitor and treat per plan of care.
[2022-03-25 19:20] VITALS: BP 117/66; PULSE 99; RESP 16; TEMP 36.8; O2SAT 94
[2022-03-25] MEDS: cefTRIAXone sodium 1 GM in 0.9 % Sodium Chloride 50 ML IV (20:14)
[2022-03-25 21:25] LABS: HIV AB/AG Nonreactive (Nonreactive); HIV Num 1 0.24 S/CO (0.00-0.99)
[2022-03-25 23:38] VITALS: BP 138/70; PULSE 89; RESP 14; TEMP 37.1; O2SAT 98
[2022-03-26] VITALS (8 sets, daily range): BP systolic 95–127; BP diastolic 58–73; PULSE 89–111; RESP 18–22; TEMP 36.1–37.1; O2SAT 90–98
[2022-03-26 06:10] LABS: MANUAL DIFF FLAG NO
[2022-03-26 06:44] LABS: Basophils Percent Auto 0.3 % (0-2); Eosinophils Percent Auto 0.1 % (0-4); Hematocrit 35.7 % (37.0-47.0); Hemoglobin 10.4 g/dl (12.0-16.0); Imm Gran Abs Auto 0.11 X10*3/uL (0.00-0.03); Imm Gran Pct Auto 0.8 % (0.0-0.4); Lymphocytes Absolute Auto 1.6 X10*3/uL (1.2-4.9); Lymphocytes Percent Auto 10.7 % (20-40); Mean Corpuscular HGB Conc 29.1 g/dl (31.0-35.0); Mean Corpuscular Hemoglobin 25.1 pg (27.0-33.0); Mean Corpuscular Volume 86.2 fL (80.0-98.0); Monocytes Absolute Auto 0.8 X10*3/uL (0.1-1.2); Monocytes Percent Auto 5.3 % (2-11); Neutrophils Percent Auto 82.8 % (45-73); Platelet Count 209 X10*3/uL (160-400); Red Blood Count 4.14 X10*6/uL (4.20-5.50); Red Cell Distribution Width 23.2 % (11.0-16.0); White Blood Count 14.5 X10*3/uL (4.8-10.8)
[2022-03-26 08:08] LABS: Alanine Aminotransferase 34 U/L (0-31); Alkaline Phosphatase 137 U/L (39-117); Anion Gap 11 (12-20); Aspartate Amino Transferase 13 U/L (5-31); Bilirubin Total 0.3 mg/dL (0.0-1.0); Blood Urea Nitrogen 21 mg/dL (9-16); Calcium 7.6 mg/dL (8.4-10.2); Carbon Dioxide 25 mmol/L (22-29); Chloride 118 mmol/L (96-108); Creatinine Clr Calc Pharmacy 48.3; Estimated Glomerular Filt Rate 59; Glucose Fasting 151 mg/dL (60-99); Sodium 151 mmol/L (135-145); Total Protein 5.5 g/dL (6.5-8.0)
[2022-03-26 08:12] LABS: HBS Num1 2.18 mIU/mL (0-7.99); HBsAGNum1 0.28 S/CO (0.00-0.99); Hepatitis B Core Antibody Nonreactive (Nonreactive); Hepatitis B Surface Antigen Negative (Negative); ~Hepatitis B Surface Antibody NONREACTIVE (Nonreactive)
[2022-03-26] MEDS: Metoprolol Succinate ER 100 MG TAB.ER.24H PO (10:12)
[2022-03-26] MEDS: Dextrose 5 % 1,000 ML 100 ML IVCONT (10:24)
--- NOTE | 2022-03-26 13:36 | MHC.SLORD ---
Speech Language Pathology Order Status: Attempted to see patient at lunch, patient reported that she had finished lunch, was no longer hungry or wanting food. Pt. was noted to be on 02 Mask. Will continue to follow.
[2022-03-26 14:18] LABS: Hepatitis C Ab Exposure Source NonReactive (Nonreactive)
--- NOTE | 2022-03-26 14:18 | MHC.SL.SWA ---
NOTE: This Note is from yesterday, 03/25/22, but entered today, Speech Pathologist Impression: Risk of Aspiration Due to: Reduced Cognition Dysphasia Diet Status: Recommend patient continue on current recommended diet of PUREE (NDD1) with [place] thick liquids, pills crushed in puree (no change). Liquid Consistency and Strategies for Safe Swallow: Liquid Intake Recommendation: [place] Thick Liquid Intake Strategies: Small Sips Solid Food Consistency: Dietary Recommendations: Pureed (NDD1) Additional Modifications to Solid Foods: Oral Medication Intake: Crushed with Puree Please contact the pharmacy regarding appropriate crushable or liquid drug formulations that are available whenever modified delivery is recommended. Compensatory Strategies and Precautions to be Taken for Safe Swallow: Sitting Upright (90 deg) No Straw Liquids from Cup Liquids from Spoon Small Bites and Sips Alternate Liquids/Solids Supervision While Eating and Drinking for Safe Swallow: Total Assistance (1:1) Foods to Avoid: Swallowing Recommended Treatments: Compens. Strategy Educat. Recommendation for Speech: Outpatient Speech Therapy Inpatient Speech Therapy Comment: Patient seen at lunch time for toleration of diet, re-assessment of swallow. Nursing reported that patient had done well at breakfast and in general is eating well. Pt given tsp amounts of puree from lunch tray, noted mildly disorganized oral phase, mild delay initiating swallow, mildly reduced laryngeal elevation. After three bites, pt had mild residual in oral cavity, given sip of nectar thick liquid which cleared residual. Pt fed alternating bites of puree with sips of liquid, consumed the meat portion n tray, refused the vegetables. No clinical signs of aspiration throughout. Pt tolerating diet well, with consistencies appropriate for patient. Recommend continue on current diet of Puree (NDD1) with [place] Thick Liquids, pills crushed in puree (no change). Frequency/Duration: Date Range for Service Req: Timeline to reassess: Geospatial Specialist Clinican/Clinical Fellow: No Supervisory Statement: I have reviewed and agree with the student/clinical fellow's documentation: N/A Speech Language Pathologist: Eve Saucedo M.A., CCC-PYROMETER MECHANIC
--- NOTE | 2022-03-26 14:34 | PC.NURSE ---
Addendum entered by Sean Hightower RN 03/26/22 18:50: per md hold D5 for 2 hours until PM labs are drawn Addendum entered by Sean Hightower RN 03/26/22 14:50: speech evaluated pt again stating pt did well on nectar thick Original Note: pt very junky, unable to perform a strong coug hand clear airway. per PCT pt is coughing during meals, md informed, pt is NPO and speech eval was updated, ?'ed re-evalutating pt. pt noted to desat during this episode requiring deep suctioning by RT. fluids maintained. pt was not on cardizem drip this shift.
--- NOTE | 2022-03-26 15:22 | MHC.SL.SWA ---
Speech Pathologist Impression: Risk of Aspiration Due to: Reduced Cognition Dysphasia Diet Status: Recommend NPO until MBSS Study. Liquid Consistency and Strategies for Safe Swallow: Liquid Intake Recommendation: NPO Liquid Intake Strategies: Small Sips Solid Food Consistency: Dietary Recommendations: NPO Additional Modifications to Solid Foods: Oral Medication Intake: Crushed with Puree Please contact the pharmacy regarding appropriate crushable or liquid drug formulations that are available whenever modified delivery is recommended. Compensatory Strategies and Precautions to be Taken for Safe Swallow: Sitting Upright (90 deg) No Straw Liquids from Cup Liquids from Spoon Small Bites and Sips Alternate Liquids/Solids Supervision While Eating and Drinking for Safe Swallow: Total Assistance (1:1) Foods to Avoid: Swallowing Recommended Treatments: Compens. Strategy Educat. Recommendation for Speech: Outpatient Speech Therapy Inpatient Speech Therapy Comment: RN contacted patient as patient apparently had aspiration event during lunch while being fed by WEALTH MANAGEMENT DIRECTOR, required suctioning, then patient was seen for chest xray. SERVICE AND REPAIR SUPERVISOR checked lunch tray, on tray was soup labelled pureed beef barely but was a thin consistency/broth soup (patient's current diet consistencies Puree with [place] Thick liquids). Pt given trial of puree, produced a mildly delayed oral phase, mild delay initiating swallow, mildly reduced laryngeal elevation, no clinical signs of aspiration. Pt given Honey Thick liquid by tsp, with similar swallow response, no clinical signs of aspiration. Pt give tsp of Ensure Shake, which is a thin nectar consistency, produced a similar swallow response, no clinical signs of aspiration, however after delay, patient did cough with upper airway sounding congested. Unclear if this congestion related to previous aspiration event. Out of an abundance of caution, recommend patient be referred for MBSS study, to r/o aspiration, determine safest food/liquid consistencies at this time. Recommend NPO until study can be completed 03/27/22. MD, RD, RN advised of recommendation by secure text. whole w/ liquid, self-feed. Frequency/Duration: Date Range for Service Req: Timeline to reassess: Supervisor Brine Clinican/Clinical Fellow: No Supervisory Statement: I have reviewed and agree with the student/clinical fellow's documentation: N/A Speech Language Pathologist: Eve Saucedo M.A., CCC-SERVICE AND REPAIR SUPERVISOR
--- NOTE | 2022-03-26 15:23 | PM.CNCAR ---
History of Present Illness History of Present Illness Date of Service: 03/26/22 Requesting physician: Jannette Saleh Chief complaint: Acute hypoxic respiratory failure Narrative: 72-year-old female who we have been asked to see for paroxysmal atrial fibrillation. She has known history of atrial fibrillation and has been on Eliquis. She has previous history of stroke. It appears she is bedridden and has right-sided hemiparesis. She also has been diagnosed with UTI. Patient does not know why she is in the hospital. She is denying any pain or any symptoms at this point. I reviewed our EKGs and they are mostly sinus tachycardia with premature atrial complexes. There was some documentation that she was in atrial fibrillation after getting Cardizem in the ER she reverted to sinus rhythm. There is no clear EKGs or rhythm strips to prove that. In any case she has known history of AFib in the past. Currently she is sinus rhythm with premature atrial complexes. [facility] Past Medical History Medical History Afib CVA (cerebral vascular accident) Dementia Dysphasia Hemiplegia HTN (hypertension) Tachycardia Family History Family history: reviewed and not pertinent Social History Social History Household Members: Unknown / Unable to assess Housing: Care Home Patient Tobacco Use Status: Former Tobacco user Advance Directives Date on File: 11/15/20 service: No Current occupational status: retired Meds Allergies Allergy/AdvReac Type Severity Reaction Status Date / Time lisinopril Allergy Unknown passed out Verified 12/27/21 14:19 Active Medications: Current Medications Acetaminophen (Acetaminophen 325 Mg Tablet) 650 mg PO Q4H PRN PRN Reason: Pain, Mild (Pain Scale 1-3) Last Admin: 03/22/22 10:45 Dose: 650 mg Ceftriaxone Sodium 1 gm/ (Sodium Chloride) 50 mls @ 100 mls/hr IV Q24H [facility] Last Infusion: 03/25/22 20:47 Dose: Infused Vancomycin HCl 500 mg/ Sodium (Chloride) 110 mls @ 110 mls/hr IV Q24H [facility] Last Infusion: 03/25/22 20:06 Dose: Infused Dextrose (D5w) 1,000 mls @ 100 mls/hr IVCONT .Q10H [facility] Last Admin: 03/26/22 10:24 Dose: 100 mls/hr Metoprolol Succinate (Metoprolol Succinate Er 100 Mg Tab.Er.24h) 100 mg PO DAILY [facility]; Protocol Last Admin: 03/26/22 10:12 Dose: 100 mg Ondansetron HCl (Ondansetron Hcl 4 Mg/2 Ml Vial) 4 mg IVPUSH Q8H PRN PRN Reason: Nausea and Vomiting Pharmacy Consult (Consult Rx Vancomycin Dosing) 1 each MISCELLANE DAILY PRN PRN Reason: Consult order Home Medications Medication Instructions Recorded Confirmed Last Taken Type acetaminophen 325 mg tablet 650 mg PO Q6H PRN Pain 12/15/21 03/18/22 Unknown History (Tylenol) aspirin 81 mg chewable tablet 81 mg PO DAILY 12/15/21 03/18/22 Unknown History calcium carbonate 500 mg-vitamin 1 tab PO DAILY 12/15/21 03/18/22 Unknown History D3 10 mcg (400 unit) tablet (Calcium 500 + D) docusate sodium 100 mg capsule 100 mg PO DAILY PRN Constipation 12/15/21 03/18/22 Unknown History (Colace) isosorbide mononitrate 60 mg 1 tab PO DAILY 12/15/21 03/18/22 Unknown History tablet,extended release 24 hr rosuvastatin 40 mg tablet 1 tab PO BEDTIME 12/15/21 03/18/22 Unknown History apixaban 5 mg tablet 5 mg PO BID 03/18/22 03/18/22 Unknown History losartan 25 mg tablet 1 tab PO DAILY 03/18/22 03/18/22 Unknown History metoprolol succinate 100 mg 100 mg PO DAILY 03/18/22 03/18/22 Unknown History tablet,extended release 24 hr mirtazapine 15 mg tablet 15 mg PO BEDTIME 03/18/22 03/18/22 Unknown History Physical Exam Vital Signs: Vital Signs: Last Vital Signs Temp 98.8 F 03/26/22 12:00 Pulse 109 H 03/26/22 12:00 Resp 22 H 03/26/22 12:00 BP 95/58 L 03/26/22 12:00 Pulse Ox 92 03/26/22 12:00 O2 Del Method 03/26/22 12:00 O2 Flow Rate 6 03/26/22 12:00 FiO2 48.6 03/19/22 11:17 Oxygen Flow Rate 10 03/17/22 17:51 BMI result Body Mass Index 20.7 GENERAL APPEARANCE: Ill-appearing. On supplemental oxygen. NECK: no carotid bruit, no jugular venous distention. SKIN: no suspicious lesions, warm and dry. HEART: no murmurs, regular rate and rhythm. LUNGS: clear to auscultation bilaterally. ABDOMEN: soft, nontender. EXTREMITIES: no edema. PERIPHERAL PULSES: equal. NEUROLOGIC: Right-sided hemiparesis. Objective Labs and Meds Result diagrams: 03/26/22 05:41 03/26/22 07:19 Lab results: Laboratory Results - last 24 hr 03/25/22 03/26/22 03/26/22 05:32 05:41 07:19 WBC 14.5 H RBC 4.14 L Hgb 10.4 L Hct 35.7 L MCV 86.2 MCH 25.1 L MCHC 29.1 L RDW 23.2 H Plt Count 209 MPV 10.0 Immature Gran % (Auto) 0.8 H Neut % (Auto) 82.8 H Lymph % (Auto) 10.7 L [place] % (Auto) 5.3 Eos % (Auto) 0.1 Baso % (Auto) 0.3 Lymph # (Auto) 1.6 [place] # (Auto) 0.8 Eos # (Auto) 0.0 Baso # (Auto) 0.0 Abs Immat Gran (auto) 0.11 H Absolute Neuts (auto) 12.0 H Absolute Nucleated RBC 0.000 Nucleated RBC % (auto) 0.0 Sodium 151 H Potassium 3.0 L Chloride 118 H Carbon Dioxide 25 Anion Gap 11 L BUN 21 H Creatinine 0.94 Estim Creat Clear Calc 48.3 Estimated GFR 59 Fasting Glucose 151 H Calcium 7.6 L Total Bilirubin 0.3 AST 13 ALT 34 H Alkaline Phosphatase 137 H Total Protein 5.5 L Albumin 2.0 L Hep Bs Antigen Negative Hep Bs Antibody NONREACTIVE Hep B Core Total Ab Nonreactive Hepatitis C Antibody NonReactive HIV 1&2 Ab/P24 Ag 4thGn Nonreactive Assessment and Plan (1) PAF (paroxysmal atrial fibrillation): Status: Acute Plan 72-year-old female who is presenting with urinary tract infection and is on antibiotics. She has known history of atrial fibrillation. It appears she had AFib in the ER and was given Cardizem and reverted to sinus rhythm. No clear documentation is there but she already has known history of atrial fibrillation soda diagnosis is not new. Currently her EKGs are showing sinus rhythm with premature atrial complexes. Continue Eliquis as before. Continue her metoprolol. Tachycardia is likely due to infection. No further recommendations currently. Thank you for allowing me to participate in the care of your patient. Please feel free to contact me if you have any questions. Procedures Date of Service Date of Service: 03/26/22
--- NOTE | 2022-03-26 16:23 | PM.CNPUL ---
History of Present Illness History of Present Illness Consult date: 03/26/22 Requesting physician: Jannette Saleh Chief complaint: Acute hypoxic respiratory failure Narrative: 72-year-old lady with underlying history of dementia, CVA, hemiplegia, dysphagia, hypertension admitted on 03/18/2022 with alteration of mental status, hypoxia, acute GI bleed, AFib with RVR requiring cardioversion in the emergency room, MRSA and Gram-negative bacteremia with UTI, and lethargy. Along patient's healthcare proxy/daughter wishes patient was treated conservatively for underlying GI bleed. She was started on broad-spectrum antibiotics for underlying bacteremia and UTI. Her hospital course was significant for worsening hypoxia secondary to recurrent pulmonary aspiration. Patient now requires 6-8 L of supplemental oxygen via Oxymizer mask to maintain normal oximetry. Patient is in DNR/DNI code status. Patient is a awake, but not cooperative with history of exam, information obtained from the chart review. Review of Systems Review of Systems: Yes Unobtainable due to mental status PMFSH Past Medical History Medical History Afib CVA (cerebral vascular accident) Dementia Dysphasia Hemiplegia HTN (hypertension) Tachycardia Family History Family history: reviewed and not pertinent Social History Social History Household Members: Unknown / Unable to assess Housing: Correction Patient Tobacco Use Status: Former Tobacco user Advance Directives Date on File: 11/15/20 service: No Current occupational status: retired Meds Allergies Allergy/AdvReac Type Severity Reaction Status Date / Time lisinopril Allergy Unknown passed out Verified 12/27/21 14:19 Active Medications: Current Medications Acetaminophen (Acetaminophen 325 Mg Tablet) 650 mg PO Q4H PRN PRN Reason: Pain, Mild (Pain Scale 1-3) Last Admin: 03/22/22 10:45 Dose: 650 mg Vancomycin HCl 500 mg/ Sodium (Chloride) 110 mls @ 110 mls/hr IV Q24H [facility] Last Infusion: 03/25/22 20:06 Dose: Infused Dextrose (D5w) 1,000 mls @ 100 mls/hr IVCONT .Q10H [facility] Last Admin: 03/26/22 10:24 Dose: 100 mls/hr Piperacillin Sod/Tazobactam (Sod 3.375 gm/ Sodium Chloride) 50 mls @ 100 mls/hr IV Q6H [facility] Albumin Human (Kedbumin 25 %) 100 mls @ 100 mls/hr IV Q6H [facility] Stop: 03/27/22 10:59 Metoprolol Succinate (Metoprolol Succinate Er 100 Mg Tab.Er.24h) 100 mg PO DAILY [facility]; Protocol Last Admin: 03/26/22 10:12 Dose: 100 mg Ondansetron HCl (Ondansetron Hcl 4 Mg/2 Ml Vial) 4 mg IVPUSH Q8H PRN PRN Reason: Nausea and Vomiting Pharmacy Consult (Consult Rx Vancomycin Dosing) 1 each MISCELLANE DAILY PRN PRN Reason: Consult order Home Medications Medication Instructions Recorded Confirmed Last Taken Type acetaminophen 325 mg tablet 650 mg PO Q6H PRN Pain 12/15/21 03/18/22 Unknown History (Tylenol) aspirin 81 mg chewable tablet 81 mg PO DAILY 12/15/21 03/18/22 Unknown History calcium carbonate 500 mg-vitamin 1 tab PO DAILY 12/15/21 03/18/22 Unknown History D3 10 mcg (400 unit) tablet (Calcium 500 + D) docusate sodium 100 mg capsule 100 mg PO DAILY PRN Constipation 12/15/21 03/18/22 Unknown History (Colace) isosorbide mononitrate 60 mg 1 tab PO DAILY 12/15/21 03/18/22 Unknown History tablet,extended release 24 hr rosuvastatin 40 mg tablet 1 tab PO BEDTIME 12/15/21 03/18/22 Unknown History apixaban 5 mg tablet 5 mg PO BID 03/18/22 03/18/22 Unknown History losartan 25 mg tablet 1 tab PO DAILY 03/18/22 03/18/22 Unknown History metoprolol succinate 100 mg 100 mg PO DAILY 03/18/22 03/18/22 Unknown History tablet,extended release 24 hr mirtazapine 15 mg tablet 15 mg PO BEDTIME 03/18/22 03/18/22 Unknown History Physical Exam Vital Signs: Vital Signs: Last Vital Signs Temp 98.0 F 03/26/22 16:00 Pulse 111 H 03/26/22 16:00 Resp 19 03/26/22 16:00 BP 95/58 L 03/26/22 12:00 Pulse Ox 93 03/26/22 16:00 O2 Del Method 03/26/22 16:00 O2 Flow Rate 6 03/26/22 16:00 FiO2 48.6 03/19/22 11:17 Oxygen Flow Rate 10 03/17/22 17:51 BMI result Body Mass Index 20.7 Const: General: no acute distress and awake Eyes: Sclerae: sclerae normal Neck: Neck: Yes no lymphadenopathy, Yes trachea midline and Yes supple Resp: Effort & Inspection: no respiratory distress and tachypneic Auscultation: crackles (Diffuse bilateral) Cardio: Rate: tachycardic Rhythm: abnormal rhythm irregularly irregular Heart sounds: no gallops, no murmurs and no rubs GI: Palpation (GI): Soft to palpation and Other GI palpation findings present ( Nontender) Auscultation: normal bowel sounds Extrem: General: No clubbing, No cyanosis and Yes edema (Trace bilateral) Results Laboratory Findings CBC and BMP: 03/26/22 05:41 03/26/22 07:19 ABG, PT/INR, D-dimer: PT/INR, D-dimer PT 30.2 SEC (10.0-13.1) H 03/17/22 18:07 INR 2.5 (0.9-1.1) H 03/17/22 18:07 Abnormal lab findings: Abnormal Labs 03/17/22 03/17/22 03/17/22 18:07 18:07 18:07 WBC 25.0 H RBC 4.10 L Hgb 9.2 L Hct 30.2 L MCV 73.7 L MCH 22.4 L MCHC 30.5 L RDW 20.5 H Plt Count 593 H MPV 8.9 L Immature Gran % (Auto) 0.8 H Neut % (Auto) 93.2 H Lymph % (Auto) 2.2 L Lymph # (Auto) 0.6 L Abs Immat Gran (auto) 0.21 H Absolute Neuts (auto) 23.3 H Neutrophils % (Manual) Band Neutrophils % Abs Neuts (Manual) PT 30.2 H INR 2.5 H VBG pH VBG HCO3 Sodium Potassium 5.4 H Chloride Carbon Dioxide 20 L Anion Gap 21 H BUN 96 H Creatinine 3.47 H Random Glucose 200 H Fasting Glucose Lactic Acid Lactic Acid F/U @ 2Hr Calcium AST 117 H ALT 97 H Alkaline Phosphatase 246 H Troponin I High Sens Total Protein Albumin 2.7 L Urine Protein Urine Blood Ur Leukocyte Esterase Urine RBC Urine WBC Vancomycin Trough Random Vancomycin Crossmatch 03/17/22 03/17/22 03/17/22 18:07 18:08 21:01 WBC RBC Hgb Hct MCV MCH MCHC RDW Plt Count MPV Immature Gran % (Auto) Neut % (Auto) Lymph % (Auto) Lymph # (Auto) Abs Immat Gran (auto) Absolute Neuts (auto) Neutrophils % (Manual) Band Neutrophils % Abs Neuts (Manual) PT INR VBG pH VBG HCO3 Sodium Potassium Chloride Carbon Dioxide Anion Gap BUN Creatinine Random Glucose Fasting Glucose Lactic Acid 2.2 H* Lactic Acid F/U @ 2Hr Calcium AST ALT Alkaline Phosphatase Troponin I High Sens 52.5 H* D Total Protein Albumin Urine Protein 100 (2+) H Urine Blood Large (3+) H Ur Leukocyte Esterase Large (3+) H Urine RBC >20 H Urine WBC >50 H Vancomycin Trough Random Vancomycin Crossmatch 03/17/22 03/18/22 03/18/22 21:16 01:26 02:27 WBC RBC Hgb Hct MCV MCH MCHC RDW Plt Count MPV Immature Gran % (Auto) Neut % (Auto) Lymph % (Auto) Lymph # (Auto) Abs Immat Gran (auto) Absolute Neuts (auto) Neutrophils % (Manual) Band Neutrophils % Abs Neuts (Manual) PT INR VBG pH 7.53 H VBG HCO3 20 L Sodium Potassium Chloride Carbon Dioxide Anion Gap BUN Creatinine Random Glucose Fasting Glucose Lactic Acid Lactic Acid F/U @ 2Hr 2.4 H* Calcium AST ALT Alkaline Phosphatase Troponin I High Sens Total Protein Albumin Urine Protein Urine Blood Ur Leukocyte Esterase Urine RBC Urine WBC Vancomycin Trough Random Vancomycin Crossmatch See Detail 03/18/22 03/18/22 03/18/22 05:57 05:57 05:57 WBC 24.9 H RBC 4.14 L Hgb 9.9 L Hct 32.8 L MCV 79.2 L D MCH 23.9 L MCHC 30.2 L RDW 19.4 H Plt Count 426 H D MPV 9.0 L Immature Gran % (Auto) Neut % (Auto) Lymph % (Auto) Lymph # (Auto) Abs Immat Gran (auto) Absolute Neuts (auto) Neutrophils % (Manual) 89 H Band Neutrophils % 9 H Abs Neuts (Manual) 24.4 H PT INR VBG pH VBG HCO3 Sodium 150 H Potassium Chloride 117 H Carbon Dioxide 21 L Anion Gap BUN 78 H Creatinine 2.36 H Random Glucose 160 H Fasting Glucose Lactic Acid Lactic Acid F/U @ 2Hr Calcium 8.2 L D AST ALT Alkaline Phosphatase Troponin I High Sens 54.8 H* Total Protein Albumin Urine Protein Urine Blood Ur Leukocyte Esterase Urine RBC Urine WBC Vancomycin Trough Random Vancomycin Crossmatch 03/18/22 03/19/22 03/19/22 23:26 06:28 06:28 WBC 18.2 H 23.4 H RBC 2.88 L D Hgb 7.5 L D 10.6 L D Hct 25.3 L D 34.7 L D MCV MCH 26.0 L 24.8 L MCHC 29.6 L 30.5 L RDW 21.5 H 21.0 H Plt Count MPV 9.1 L 9.2 L Immature Gran % (Auto) 0.7 H Neut % (Auto) 91.8 H Lymph % (Auto) 3.9 L Lymph # (Auto) 0.7 L Abs Immat Gran (auto) 0.12 H Absolute Neuts (auto) 16.7 H Neutrophils % (Manual) Band Neutrophils % Abs Neuts (Manual) PT INR VBG pH VBG HCO3 Sodium 158 H Potassium 2.6 L D Chloride 128 H Carbon Dioxide 18 L Anion Gap BUN 77 H D Creatinine 1.93 H Random Glucose 135 H Fasting Glucose Lactic Acid Lactic Acid F/U @ 2Hr Calcium AST ALT Alkaline Phosphatase Troponin I High Sens Total Protein Albumin Urine Protein Urine Blood Ur Leukocyte Esterase Urine RBC Urine WBC Vancomycin Trough Random Vancomycin Crossmatch 03/20/22 03/20/22 03/20/22 08:44 08:44 08:44 WBC 22.5 H RBC 4.07 L Hgb 10.2 L Hct 33.6 L MCV MCH 25.1 L MCHC 30.4 L RDW 21.4 H Plt Count MPV 9.3 L Immature Gran % (Auto) 1.1 H Neut % (Auto) 90.9 H Lymph % (Auto) 4.6 L Lymph # (Auto) 1.0 L Abs Immat Gran (auto) 0.25 H Absolute Neuts (auto) 20.5 H Neutrophils % (Manual) Band Neutrophils % Abs Neuts (Manual) PT INR VBG pH VBG HCO3 Sodium 155 H 155 H Potassium 3.1 L 2.9 L Chloride 126 H 125 H Carbon Dioxide 18 L 20 L Anion Gap BUN 58 H 58 H Creatinine 1.85 H 1.82 H Random Glucose Fasting Glucose 102 H Lactic Acid Lactic Acid F/U @ 2Hr Calcium AST 38 H ALT 108 H Alkaline Phosphatase 159 H Troponin I High Sens Total Protein 5.1 L Albumin 1.9 L Urine Protein Urine Blood Ur Leukocyte Esterase Urine RBC Urine WBC Vancomycin Trough Random Vancomycin Crossmatch 03/21/22 03/21/22 03/21/22 06:44 06:44 15:05 WBC 14.3 H RBC 4.14 L Hgb 10.1 L Hct 34.4 L MCV MCH 24.4 L MCHC 29.4 L RDW 21.9 H Plt Count MPV 9.0 L Immature Gran % (Auto) 0.9 H Neut % (Auto) 88.4 H Lymph % (Auto) 7.1 L Lymph # (Auto) 1.0 L Abs Immat Gran (auto) 0.13 H Absolute Neuts (auto) 12.7 H Neutrophils % (Manual) Band Neutrophils % Abs Neuts (Manual) PT INR VBG pH VBG HCO3 Sodium 147 H Potassium Chloride 120 H Carbon Dioxide 18 L Anion Gap BUN 45 H Creatinine 1.49 H Random Glucose Fasting Glucose Lactic Acid Lactic Acid F/U @ 2Hr Calcium 8.1 L AST 63 H ALT 124 H Alkaline Phosphatase 158 H Troponin I High Sens Total Protein 5.1 L Albumin 2.0 L Urine Protein Urine Blood Ur Leukocyte Esterase Urine RBC Urine WBC Vancomycin Trough 21.6 H Random Vancomycin Crossmatch 03/21/22 03/22/22 03/22/22 19:39 05:39 05:39 WBC 13.6 H RBC 4.00 L Hgb 10.0 L Hct 31.5 L MCV 78.8 L MCH 25.0 L MCHC RDW 21.7 H Plt Count 153 L MPV Immature Gran % (Auto) 1.2 H Neut % (Auto) 85.5 H Lymph % (Auto) 8.3 L Lymph # (Auto) 1.1 L Abs Immat Gran (auto) 0.16 H Absolute Neuts (auto) 11.7 H Neutrophils % (Manual) Band Neutrophils % Abs Neuts (Manual) PT INR VBG pH VBG HCO3 Sodium 146 H Potassium 2.7 L D Chloride 113 H 115 H Carbon Dioxide 17 L 21 L Anion Gap BUN 43 H 33 H Creatinine 1.51 H Random Glucose 215 H Fasting Glucose Lactic Acid Lactic Acid F/U @ 2Hr Calcium 8.0 L 7.8 L AST 84 H ALT 155 H Alkaline Phosphatase 166 H D Troponin I High Sens Total Protein 4.9 L Albumin 2.0 L D Urine Protein Urine Blood Ur Leukocyte Esterase Urine RBC Urine WBC Vancomycin Trough Random Vancomycin Crossmatch 03/24/22 03/25/22 03/25/22 15:58 05:32 05:32 WBC 12.2 H RBC 4.13 L Hgb 10.2 L Hct 33.7 L MCV MCH 24.7 L MCHC 30.3 L RDW 22.3 H Plt Count MPV Immature Gran % (Auto) 0.7 H Neut % (Auto) 86.9 H Lymph % (Auto) 8.0 L Lymph # (Auto) 1.0 L Abs Immat Gran (auto) 0.09 H Absolute Neuts (auto) 10.6 H Neutrophils % (Manual) Band Neutrophils % Abs Neuts (Manual) PT INR VBG pH VBG HCO3 Sodium 156 H Potassium 3.0 L Chloride 123 H Carbon Dioxide Anion Gap BUN 20 H Creatinine Random Glucose Fasting Glucose Lactic Acid Lactic Acid F/U @ 2Hr Calcium 7.9 L AST ALT 45 H Alkaline Phosphatase 147 H Troponin I High Sens Total Protein 5.3 L Albumin 2.0 L Urine Protein Urine Blood Ur Leukocyte Esterase Urine RBC Urine WBC Vancomycin Trough Random Vancomycin 20.1 H Crossmatch 03/25/22 03/26/22 03/26/22 08:39 05:41 07:19 WBC 14.5 H RBC 4.14 L Hgb 10.4 L Hct 35.7 L MCV MCH 25.1 L MCHC 29.1 L RDW 23.2 H Plt Count MPV Immature Gran % (Auto) 0.8 H Neut % (Auto) 82.8 H Lymph % (Auto) 10.7 L Lymph # (Auto) Abs Immat Gran (auto) 0.11 H Absolute Neuts (auto) 12.0 H Neutrophils % (Manual) Band Neutrophils % Abs Neuts (Manual) PT INR VBG pH VBG HCO3 Sodium 151 H Potassium 3.0 L Chloride 118 H Carbon Dioxide Anion Gap 11 L BUN 21 H Creatinine Random Glucose Fasting Glucose 151 H Lactic Acid Lactic Acid F/U @ 2Hr Calcium 7.6 L AST ALT 34 H Alkaline Phosphatase 137 H Troponin I High Sens Total Protein 5.5 L Albumin 2.0 L Urine Protein Urine Blood Ur Leukocyte Esterase Urine RBC Urine WBC Vancomycin Trough Random Vancomycin 14.5 L Crossmatch Microbiology: Microbiology 03/17/22 18:51 Blood - Venous Blood Culture - Final Proteus mirabilis Prelim: GPC Gram Stain only 03/17/22 18:51 Blood - Venous Blood Culture - Final Proteus mirabilis Methicillin Res Staph Aureus 03/17/22 22:50 Urine Catheterized - Dennis Catheter Urine Culture - Final Escherichia coli Assessment and Plan (1) Acute respiratory failure with hypoxia: Status: Acute (2) Pulmonary aspiration: Status: Acute Plan Impression: 72-year-old lady with underlying history of CVA with hemiplegia, dementia, dysphagia admitted with multiple medical issues including dyspnea and worsening hypoxia secondary to recurrent pulmonary aspiration, now in DNR/DNI code status. Recommendations: At this time there are no meaningful ways to decrease the risk of pulmonary aspiration. Suggest supportive measures including cough assist, chest physiotherapy with nasotracheal suctioning every 4-8 hours, maintain head of bed above 30 degrees. Patient is already on broad-spectrum antibiotic coverage which would cover possible aspiration pneumonitis on pneumonia. Suggest albumin supplementation to maintain increased intravascular oncotic pressure and decrease the possibility of pulmonary edema. Procedures Date of Service Date of Service: 03/26/22
[2022-03-26 16:31] LABS: ABG Refer to POC result
[2022-03-26 16:32] LABS: ABG Base Excess 2.3 mmol/L; ABG HCO3 25 mmol/L (22-26); ABG pCO2 31 mmHg (32-45); ABG pO2 89 mmHg (83-108)
[2022-03-26 17:45] LABS: Anion Gap 14 (12-20); Blood Urea Nitrogen 21 mg/dL (9-16); Calcium 7.7 mg/dL (8.4-10.2); Carbon Dioxide 22 mmol/L (22-29); Chloride 117 mmol/L (96-108); Creatinine Clr Calc Pharmacy 53.4; Estimated Glomerular Filt Rate > 60; Glucose Random 144 mg/dL (60-115); Potassium 3.5 mmol/L (3.3-5.1); Sodium 149 mmol/L (135-145)
--- NOTE | 2022-03-26 17:54 | HO.PM.IMPN ---
Subjective Subjective Date of Service: 03/26/22 Interval History: acute hypoxemic respiratory failure secondary to aspiration pneumonia possible. Review of Systems Patient is awake , answer simple questions denies any chest pain feels somewhat short of breath abdominal pain or nausea Physical Exam Vital Signs: Vital Signs: Last Vital Signs Temp 98.0 F 03/26/22 16:00 Pulse 111 H 03/26/22 16:00 Resp 19 03/26/22 16:00 BP 95/58 L 03/26/22 12:00 Pulse Ox 93 03/26/22 16:00 O2 Del Method 03/26/22 16:00 O2 Flow Rate 6 03/26/22 16:00 FiO2 48.6 03/19/22 11:17 Oxygen Flow Rate 10 03/17/22 17:51 BMI result Body Mass Index 20.7 Appearance: more awake, answers simple questions, somewhat short of breath cvs: rrr, [id number]. res: clear to auscultation ,no rhonchii or wheezing abd: no rebound or guarding ,nt, bs present. ext pulses present , no cyanosis. neuro: axo3 , nonfocal. Objective Data Active Medications Acetaminophen (Acetaminophen 325 Mg Tablet) 650 mg PO Q4H PRN PRN Reason: Pain, Mild (Pain Scale 1-3) Last Admin: 03/22/22 10:45 Dose: 650 mg Documented By: MARY ANNE Vancomycin HCl 500 mg/ Sodium (Chloride) 110 mls @ 110 mls/hr IV Q24H [facility] Last Infusion: 03/25/22 20:06 Dose: 0 mls/hr Documented By: REINALDO Dextrose (D5w) 1,000 mls @ 100 mls/hr IVCONT .Q10H [facility] Last Admin: 03/26/22 10:24 Dose: 100 mls/hr Documented By: SHALOM Piperacillin Sod/Tazobactam (Sod 3.375 gm/ Sodium Chloride) 50 mls @ 100 mls/hr IV Q6H [facility] Albumin Human (Kedbumin 25 %) 100 mls @ 100 mls/hr IV Q6H [facility] Stop: 03/27/22 10:59 Potassium Chloride (Potassium Chloride/H20) 10 meq in 100 mls @ 100 mls/hr IV Q1H [facility] Stop: 03/26/22 20:59 Metoprolol Succinate (Metoprolol Succinate Er 100 Mg Tab.Er.24h) 100 mg PO DAILY [facility]; Protocol Last Admin: 03/26/22 10:12 Dose: 100 mg Documented By: SHALOM Ondansetron HCl (Ondansetron Hcl 4 Mg/2 Ml Vial) 4 mg IVPUSH Q8H PRN PRN Reason: Nausea and Vomiting Pharmacy Consult (Consult Rx Vancomycin Dosing) 1 each MISCELLANE DAILY PRN PRN Reason: Consult order Labs CBC & Chem 7: 03/26/22 05:41 03/26/22 16:31 Labs: Laboratory Results - last 24 hr 03/25/22 03/26/22 03/26/22 05:32 05:41 07:19 MCV 86.2 MCH 25.1 L MCHC 29.1 L RDW 23.2 H Plt Count 209 MPV 10.0 Immature Gran % (Auto) 0.8 H Neut % (Auto) 82.8 H Lymph % (Auto) 10.7 L [place] % (Auto) 5.3 Eos % (Auto) 0.1 Baso % (Auto) 0.3 Lymph # (Auto) 1.6 [place] # (Auto) 0.8 Eos # (Auto) 0.0 Baso # (Auto) 0.0 Abs Immat Gran (auto) 0.11 H Absolute Neuts (auto) 12.0 H Absolute Nucleated RBC 0.000 Nucleated RBC % (auto) 0.0 O2 Saturation ABG pH at Pt Temp ABG pCO2 at Pt Temp ABG pO2 at Pt Temp ABG HCO3 ABG Base Excess (Actual) Anion Gap 11 L Estim Creat Clear Calc 48.3 Estimated GFR 59 Random Glucose Fasting Glucose 151 H Calcium 7.6 L Total Bilirubin 0.3 AST 13 ALT 34 H Alkaline Phosphatase 137 H Total Protein 5.5 L Albumin 2.0 L Vancomycin Trough Hep Bs Antigen Negative Hep Bs Antibody NONREACTIVE Hep B Core Total Ab Nonreactive Hepatitis C Antibody NonReactive HIV 1&2 Ab/P24 Ag 4thGn Nonreactive 03/26/22 03/26/22 03/26/22 16:20 16:31 16:31 MCV MCH MCHC RDW Plt Count MPV Immature Gran % (Auto) Neut % (Auto) Lymph % (Auto) [place] % (Auto) Eos % (Auto) Baso % (Auto) Lymph # (Auto) [place] # (Auto) Eos # (Auto) Baso # (Auto) Abs Immat Gran (auto) Absolute Neuts (auto) Absolute Nucleated RBC Nucleated RBC % (auto) O2 Saturation 98.0 ABG pH at Pt Temp 7.50 H ABG pCO2 at Pt Temp 31 L ABG pO2 at Pt Temp 89 ABG HCO3 25 ABG Base Excess (Actual) 2.3 Anion Gap 14 Estim Creat Clear Calc 53.4 Estimated GFR > 60 Random Glucose 144 H Fasting Glucose Calcium 7.7 L Total Bilirubin AST ALT Alkaline Phosphatase Total Protein Albumin Vancomycin Trough 13.0 Hep Bs Antigen Hep Bs Antibody Hep B Core Total Ab Hepatitis C Antibody HIV 1&2 Ab/P24 Ag 4thGn Assessment and Plan (1) Gram-negative bacteremia: Status: Acute (2) Atrial fibrillation with rapid ventricular response: Status: Acute (3) Acute GI bleeding: Status: Acute (4) Aspiration pneumonia: Status: Acute (5) Acute respiratory failure with hypoxia: Status: Acute (6) Proteus mirabilis infection: Status: Acute (7) MRSA bacteremia: Status: Acute Plan 72-year-old female with past medical history of AFib on anticoagulation, history of CVA, history of dementia, hypertension, hemiplegia, dysphagia, presents to the hospital with altered mental status and hypoxia 1. acute hypoxemic respiratory failure secondary to possible aspiration pneumonia. has Gram-negative bacteremia.... Proteus/MRSA -continue vancomycin/added zosyn,dc ceftriaxone , nebs, oxygen support, incentive spirometry,nebs, chest physiotherapy, p.r.n. suctioning. NPO, may need MBbs oxygen support to sats around 92 % 2.AFib with RVR.. seems in sinus -continue to hold anticoagulation -will add iv metoprolol 3.Acute GI bleed -Daughter does not want any further intervention until patient is more stable, back to her baseline - will hold anticoagulation... No further bleeding noted - follow CBC.. Stable thus far 4.Acute respiratory failure with hypoxia -titrating O2 with good results -question consolidative focus left lower lobe... Continue ceftriaxone and vancomycin 5. E coli (UTI) -continue ceftriaxone and vancomycin Boots in the setting of GI bleed DNR DNI Above management discussed with patient daughter in detail length- overall prognosis seems to be guarded, daughter wants current conservative management,if patient condition deteriorates, will call the family . In patient need: Acute hypoxemic respiratory failure secondary to aspiration pneumonia-for IV antibiotics to treat gram-negative bacteremia, aspiration pneumonia. Quality Stroke Does the patient have a stroke diagnosis?: No VTE Prior VTE?: No VTE Risk Level:: Medical - moderate - high VTE Device Contraindication: Treatment Not Indicated VTE Drug Contraindication: N/A - Med Ordered
[2022-03-26] MEDS: Piperacillin Sodium/Tazobactam 3.375 GM in 0.9 % Sodium Chloride 50 ML IV ×2 (18:02→22:08)
[2022-03-26] MEDS: Albumin Human 25 % 100 ML IV ×2 (18:02→21:23)
[2022-03-26] MEDS: Potassium Chloride/H20 10 MEQ/100 ML PIGGYBACK 100 MEQ IV ×2 (18:02→19:54)
[2022-03-26] MEDS: vancomycin HCL 500 MG in 0.9 % Sodium Chloride 100 ML 110 MG IV (18:02)
[2022-03-26] MEDS: Albuterol/Iprat 2.5/0.5MG 3 ML AMPUL.NEB INHALE (20:39)
[2022-03-26 22:58] LABS: Anion Gap 15 (12-20); Blood Urea Nitrogen 21 mg/dL (9-16); Carbon Dioxide 20 mmol/L (22-29); Chloride 121 mmol/L (96-108); Creatinine Clr Calc Pharmacy 52.8; Estimated Glomerular Filt Rate > 60; Glucose Random 104 mg/dL (60-115); Potassium 4.2 mmol/L (3.3-5.1); Sodium 152 mmol/L (135-145)
[2022-03-27] VITALS (9 sets, daily range): BP systolic 115–154; BP diastolic 58–103; PULSE 84–108; RESP 16–30; TEMP 35.9–37.2; O2SAT 94–100; BMI 20.7
[2022-03-27] MEDS: Piperacillin Sodium/Tazobactam 3.375 GM in 0.9 % Sodium Chloride 50 ML IV ×4 (06:04→22:27)
[2022-03-27] MEDS: Albumin Human 25 % 100 ML IV ×2 (06:05→11:06)
[2022-03-27] MEDS: Dextrose 5 % 1,000 ML 100 ML IVCONT ×2 (06:30→20:32)
[2022-03-27 06:52] LABS: Basophils Absolute Auto 0.1 X10*3/uL (0.0-0.2); Basophils Percent Auto 0.2 % (0-2); Hematocrit 27.7 % (37.0-47.0); Hemoglobin 8.3 g/dl (12.0-16.0); Imm Gran Abs Auto 0.26 X10*3/uL (0.00-0.03); Lymphocytes Absolute Auto 1.5 X10*3/uL (1.2-4.9); Lymphocytes Percent Auto 5.7 % (20-40); MANUAL DIFF FLAG SCAN; Mean Corpuscular Hemoglobin 24.6 pg (27.0-33.0); Mean Corpuscular Volume 82.2 fL (80.0-98.0); Monocytes Absolute Auto 0.7 X10*3/uL (0.1-1.2); Monocytes Percent Auto 2.7 % (2-11); Neutrophils Absolute Auto 24.1 x10*3/uL (2.0-8.3); Neutrophils Percent Auto 90.4 % (45-73); PLT CLUMP 1; Red Blood Count 3.37 X10*6/uL (4.20-5.50); SCAN SMEAR FLAG 1
--- NOTE | 2022-03-27 07:00 | CA_ITS ---
Transthoracic Echocardiogram Patient (Last, First, Middle): Emmy Marie, Gender: Female Date of : 1950 Age: 72 Procedure Date: 03/27/2022 Procedure Type: Transthoracic Echocardiogram Location: [facility] [place] Height: 165. cm Weight: 56.25 kg BSA: 1.61 m2 Heart Rate: 105 bpm BP: 95 / 58 mmHg Cooler Supervisor: RANJITH Referring MD: Jannette Saleh MD Symptoms: bacteremia Study Quality: Fair ECG Rhythm: Atrial Fibrillation Conclusions: - Normal left ventricular cavity size. There is mildly increased left ventricular wall thickness. The left ventricular systolic function is normal. The visually estimated ejection fraction is between 60-65%. - E/E prime ratio is between 8 and 15 consistent with indeterminate filling pressures. There is severe septal asymmetric hypertrophy. - The basal inferior segment is akinetic. 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 Findings Procedure Information Contrast agent, definity, is being given per protocol without apparent complications. Left Ventricle Normal left ventricular cavity size. There is mildly increased left ventricular wall thickness. The left ventricular systolic function is normal. The visually estimated ejection fraction is between 60-65%. There is evidence of regional wall motion abnormalities. Abnormal diastolic function is noted. Spectral Doppler is indicative of an impaired relaxation filling pattern. E/E prime ratio is between 8 and 15 consistent with indeterminate filling pressures. There is severe septal asymmetric hypertrophy. Wall Motion Rest Echo Findings The basal inferior segment is akinetic. 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 Right Ventricle Normal right ventricular cavity size. There is borderline right ventricular systolic function. Atria The left atrium is mildly dilated. The right atrium is normal in size. Aortic Valve There is a normal trileaflet aortic valve. There is mild thickening of the aortic valve. There is no aortic valve stenosis. There is no aortic valve regurgitation. Mitral Valve There is moderate mitral annular calcification. There is mild mitral valve regurgitation. There is no mitral valve stenosis. Pulmonic Valve The pulmonic valve is likely normal. Tricuspid Valve The tricuspid valve was not well visualized. Tricuspid regurgitation envelope is inadequate for calculation of right ventricular systolic pressure. Mildly elevated right atrial pressure. Great Vessels All visible segments of the aorta are normal in size. The visualized portions of the pulmonary artery and branches are normal. Venous The inferior vena cava is dilated and collapses greater than 50% with inspiration. Pericardium/Pleural There is no evidence of pericardial effusion. Prior Study Comparison No significant change compared to prior study dated: 09/14/2019. Measurements 2D Linear Measurements IVSd: 1.55 0.6-0.9/0.6-1.0 cm LVIDd: 3.61 3.9-5.3/4.2-5.9 cm LVIDd Index: 2.24 2.4-3.2/2.2-3.1 cm/m2 LVIDs: 2.45 2.0-3.6 cm LVPWd: 0.97 0.7-1.1 cm LA Diam: 2.90 2.7-3.8/3.0-4.0 cm LAIDs Index: 1.80 1.5-2.3 cm/m2 LV Mass: 190.63 67-162/88-224 g LV Mass Index: 118.41 43-95/49-115 g/m2 LVOT Diam: 1.90 3.0+(-)1.3 cm 2D Systolic Function EF 4C: 48.40 >55% EF 2C: 62.20 >55% EF BiP: 55.30 >55% Mitral Valve E'Lateral: 6.64 E'Medial: 3.81 MR Vol - PW Dopp: 11.97 MR VTI: 1.71 MR ERO: 7.00 MR Alias Felipe: 0.36 MR RAD: 0.40 Aortic Valve AoV Pk Felipe: 1.66 AoV Mn Felipe: 1.10 AoV VTI: 0.30 AoV Pk Grad: 11.00 Aov Mn Grad: 6.00 ROC Cont.VTI: 2.00 LVOT LVOT Pk Felipe: 1.26 LVOT Mn Felipe: 0.80 LVOT VTI: 0.21 LVOT Pk Grad: 6.00 LVOT Mn Grad: 3.00 LVOT Diam: 1.90 LVOT Area: 2.84 Diastolic Function E'Medial: 3.81 E' Laterial: 6.64 Right Ventricle TAPSE (mm): 10.60 TVS' Felipe: 10.20 Tricuspid Valve RA Press: 8.00 Great Vessels Aorta Sinus of Valsalva: 3.50 2.0-3.5 cm Ao Asc: 3.10 2.1-3.4 cm Pulmonary Valve PV Pk Felipe: 0.88 Peak PV Grad: 3.00 Updated in Other Vendor System with Status of Final Ramón Ndiaye MD electronically signed on 03/27/2022 7:57:04 PM with status of Final
[2022-03-27 07:52] LABS: Alanine Aminotransferase 21 U/L (0-31); Alkaline Phosphatase 108 U/L (39-117); Aspartate Amino Transferase 13 U/L (5-31); Bilirubin Total 0.7 mg/dL (0.0-1.0); Blood Urea Nitrogen 19 mg/dL (9-16); Calcium 8.3 mg/dL (8.4-10.2); Creatinine Clr Calc Pharmacy 49.4; Estimated Glomerular Filt Rate > 60; Glucose Fasting 107 mg/dL (60-99)
[2022-03-27] MEDS: Albuterol/Iprat 2.5/0.5MG 3 ML AMPUL.NEB INHALE ×3 (07:55→15:11)
[2022-03-27 08:01] LABS: Mean Platelet Volume 10.9 fL (9.4-12.3); Platelet Count 174 X10*3/uL (160-400); White Blood Count 26.7 X10*3/uL (4.8-10.8)
[2022-03-27 08:03] LABS: SLIDE REVIEW VERIFIED
[2022-03-27 08:03] LABS: Albumin Level 3.1 g/dL (3.5-5.0); Anion Gap 16 (12-20); Carbon Dioxide 20 mmol/L (22-29); Chloride 118 mmol/L (96-108); Sodium 151 mmol/L (135-145)
[2022-03-27 09:15] LABS: Hematocrit 25.3 % (37.0-47.0); Hemoglobin 7.6 g/dl (12.0-16.0)
[2022-03-27 10:15] LABS: Phosphorus 2.4 mg/dL (2.7-4.5)
--- NOTE | 2022-03-27 10:47 | MHC.SLORD ---
Speech Language Pathology Order Status: MBSS is scheduled for 2pm.
[2022-03-27] MEDS: Magnesium Sulfate/D5W 1 GM/100 ML PIGGYBACK IV (11:05)
[2022-03-27] MEDS: Potassium Chloride/H20 10 MEQ/100 ML PIGGYBACK 100 MEQ IV ×4 (11:05→20:12)
--- NOTE | 2022-03-27 11:09 | MHC.CLN ---
RE: CONSULT PT WITH SUSPECTED ASP PNA/DYSPHAGIA WITH INCREASED NUTRITION RISK R/T PRESSURE INJURIES AND WILL REQUIRE PPN FOR NUTRITION SUPPORT AT THIS TIME PT IS CURRENTLY NPO PREVIOUS PO INTAKE 25-50% REQUESTING PPN MBS SCHEDULED TODAY PER STACK ATTENDANT REVIEWED LABS DISCUSSED WITH PHARMACY RECOMMEND PPN D10AA4.25 AT 45ML/HR TO PROVIDE 551KCALS, 46G PROTEIN REPLETE LYTES NEEDED SEE ALSO FULL CLINICAL NUTRITION ASSESSMENT
[2022-03-27] MEDS: Pantoprazole Sodium 40 MG/10 ML VIAL IVPUSH (11:18)
[2022-03-27 13:04] LABS: Anion Gap 13 (12-20); Blood Urea Nitrogen 18 mg/dL (9-16); Carbon Dioxide 25 mmol/L (22-29); Chloride 117 mmol/L (96-108); Creatinine Clr Calc Pharmacy 52.2; Estimated Glomerular Filt Rate > 60; Glucose Random 119 mg/dL (60-115); Magnesium 2.1 mg/dL (1.6-2.6); Potassium 2.8 mmol/L (3.3-5.1); Sodium 152 mmol/L (135-145)
--- NOTE | 2022-03-27 15:47 | P.PNIM_ITS ---
Subjective Subjective Date of Service: 03/27/22 Interval History: acute hypoxemic respiratory failure secondary to aspiration pneumonia possible. No overnight cross bleeding as per staff Review of Systems Patient is awake , answer simple questions denies any chest pain still short of breath ?abdominal pain or nausea Physical Exam Vital Signs: Vital Signs: Last Vital Signs Temp 98.0 F 03/27/22 15:12 Pulse 84 03/27/22 15:21 Resp 20 03/27/22 15:21 BP 132/68 03/27/22 15:12 Pulse Ox 96 03/27/22 15:12 O2 Del Method 03/27/22 15:12 O2 Flow Rate 3 03/27/22 15:12 FiO2 48.6 03/19/22 11:17 Oxygen Flow Rate 10 03/17/22 17:51 BMI result Body Mass Index 20.7 Appearance:? more awake, answers simple questions, somewhat short of breath cvs: [id number], [id number]. res: clear to auscultation ,no rhonchii or wheezing abd: no rebound or guarding ,nt, bs present. ext pulses present , no cyanosis. neuro: axo3 , nonfocal. Objective Data Active Medications Acetaminophen (Acetaminophen 325 Mg Tablet) 650 mg PO Q4H PRN PRN Reason: Pain, Mild (Pain Scale 1-3) Last Admin: 03/22/22 10:45 Dose: 650 mg Documented By: MARY ANNE Albuterol/Ipratropium (Albuterol/Iprat 2.5/0.5mg 3 Ml Ampul.Neb) 3 ml INHALE RQ4H WHILE AWAKE [facility], 1928[facility]1983 Last Admin: 03/27/22 15:11 Dose: 3 ml Documented By: FRANKO Vancomycin HCl 500 mg/ Sodium (Chloride) 110 mls @ 110 mls/hr IV Q24H [facility], [facility]1983 Last Infusion: 03/26/22 19:40 Dose: 0 mls/hr Documented By: CARMEN Dextrose (D5w) 1,000 mls @ 100 mls/hr IVCONT .Q10H [facility], [facility]1983 Last Admin: 03/27/22 06:30 Dose: 100 mls/hr Documented By: CARMEN Piperacillin Sod/Tazobactam (Sod 3.375 gm/ Sodium Chloride) 50 mls @ 100 mls/hr IV Q6H [facility], [facility]1983 Last Infusion: 03/27/22 12:25 Dose: 0 mls/hr Documented By: VISHAL Magnesium Sulfate 5 meq/Potassium Phosphate 15 mmol/Calcium Gluconate 4.65 meq/Potassium Acetate 20 meq/Multivitamins 18.5 ml/ Trace Metals 1.9 ml/ Amino Acids/Electrolytes/Dextrose 1,046.65 mls @ 45 mls/hr IVCONT DAILY@1800 [facility], [facility]1983 Stop: 03/28/22 17:16 Potassium Chloride (Potassium Chloride/H20) 10 meq in 100 mls @ 100 mls/hr IV Q1H [facility], [facility]1983 Stop: 03/27/22 16:14 Last Admin: 03/27/22 14:15 Dose: Not Given Documented By: SHALOM Non-Admin Reason: See Note Metoprolol Succinate (Metoprolol Succinate Er 100 Mg Tab.Er.24h) 100 mg PO DAILY [facility], [facility]; Protocol Last Admin: 03/26/22 10:12 Dose: 100 mg Documented By: SHALOM Metoprolol Tartrate (Metoprolol Tartrate 5 Mg/5 Ml Vial) 2.5 mg IVPUSH Q6H PRN PRN Reason: afib Ondansetron HCl (Ondansetron Hcl 4 Mg/2 Ml Vial) 4 mg IVPUSH Q8H PRN PRN Reason: Nausea and Vomiting Pantoprazole Sodium (Pantoprazole Sodium 40 Mg/10 Ml Vial) 40 mg IVPUSH DAILY@0630 [facility], [facility] Last Admin: 03/27/22 11:18 Dose: 40 mg Documented By: VISHAL Pharmacy Consult (Consult Rx Vancomycin Dosing) 1 each MISCELLANE DAILY PRN PRN Reason: Consult order Labs CBC & Chem 7: 03/27/22 08:51 03/27/22 12:27 Labs: Laboratory Results - last 24 hr 03/26/22 03/26/22 03/26/22 16:20 16:31 16:31 MCV MCH MCHC RDW Plt Count MPV Immature Gran % (Auto) Neut % (Auto) Lymph % (Auto) Hamilton % (Auto) Eos % (Auto) Baso % (Auto) Lymph # (Auto) Hamilton # (Auto) Eos # (Auto) Baso # (Auto) Abs Immat Gran (auto) Absolute Neuts (auto) Absolute Nucleated RBC Nucleated RBC % (auto) Smear Tech's Comments O2 Saturation 98.0 ABG pH at Pt Temp 7.50 H ABG pCO2 at Pt Temp 31 L ABG pO2 at Pt Temp 89 ABG HCO3 25 ABG Base Excess (Actual) 2.3 Anion Gap 14 Estim Creat Clear Calc 53.4 Estimated GFR > 60 Random Glucose 144 H Fasting Glucose Calcium 7.7 L Phosphorus Magnesium Total Bilirubin AST ALT Alkaline Phosphatase Total Protein Albumin Vancomycin Trough 13.0 Blood Type Antibody Screen Antibody Identification Crossmatch ([facility]) Enhanced Crossmatch Blood Bank Comment 03/26/22 03/27/22 03/27/22 22:06 05:15 06:59 MCV 82.2 MCH 24.6 L MCHC 30.0 L RDW 23.0 H Plt Count 174 MPV 10.9 Immature Gran % (Auto) 1.0 H Neut % (Auto) 90.4 H Lymph % (Auto) 5.7 L Hamilton % (Auto) 2.7 Eos % (Auto) 0.0 Baso % (Auto) 0.2 Lymph # (Auto) 1.5 Hamilton # (Auto) 0.7 Eos # (Auto) 0.0 Baso # (Auto) 0.1 Abs Immat Gran (auto) 0.26 H Absolute Neuts (auto) 24.1 H Absolute Nucleated RBC 0.000 Nucleated RBC % (auto) 0.0 Smear Tech's Comments VERIFIED O2 Saturation ABG pH at Pt Temp ABG pCO2 at Pt Temp ABG pO2 at Pt Temp ABG HCO3 ABG Base Excess (Actual) Anion Gap 15 16 Estim Creat Clear Calc 52.8 49.4 Estimated GFR > 60 > 60 Random Glucose 104 Fasting Glucose 107 H Calcium 8.0 L 8.3 L Phosphorus 2.4 L Magnesium 2.0 Total Bilirubin 0.7 AST 13 D ALT 21 Alkaline Phosphatase 108 D Total Protein 6.0 L D Albumin 3.1 L Vancomycin Trough Blood Type Antibody Screen Antibody Identification Crossmatch ([facility]) Enhanced Crossmatch Blood Bank Comment 03/27/22 03/27/22 03/27/22 06:59 08:51 12:27 MCV MCH MCHC RDW Plt Count MPV Immature Gran % (Auto) Neut % (Auto) Lymph % (Auto) Hamilton % (Auto) Eos % (Auto) Baso % (Auto) Lymph # (Auto) Hamilton # (Auto) Eos # (Auto) Baso # (Auto) Abs Immat Gran (auto) Absolute Neuts (auto) Absolute Nucleated RBC Nucleated RBC % (auto) Smear Tech's Comments O2 Saturation ABG pH at Pt Temp ABG pCO2 at Pt Temp ABG pO2 at Pt Temp ABG HCO3 ABG Base Excess (Actual) Anion Gap 13 Estim Creat Clear Calc Cancelled 52.2 Estimated GFR Cancelled > 60 Random Glucose 119 H Fasting Glucose Calcium 8.0 L Phosphorus Magnesium 2.1 Total Bilirubin AST ALT Alkaline Phosphatase Total Protein Albumin Vancomycin Trough Blood Type O Positive Antibody Screen NEGATIVE Antibody Identification Not Reportable Crossmatch ([facility]) See Detail Enhanced Crossmatch See Detail Blood Bank Comment Technical Microbiology Microbiology Results: Microbiology 03/26/22 11:03 Blood Culture - Preliminary Blood - Venous No growth after 24 hours. 03/26/22 11:03 Blood Culture - Preliminary Blood - Venous No growth after 24 hours. Assessment and Plan (1) MRSA bacteremia: Status: Acute (2) Proteus mirabilis infection: Status: Acute (3) Aspiration pneumonia: Status: Acute (4) Acute respiratory failure with hypoxia: Status: Acute Plan 72-year-old female with past medical history of AFib on anticoagulation, history of CVA, history of dementia, hypertension, hemiplegia, dysphagia, presents to the hospital with altered mental status and hypoxia acute hypoxemic respiratory failure secondary to possible? aspiration pneumonia. has Gram-negative bacteremia.? Proteus/MRSA toxic metabolic encephalopathy- seems multifactorial due to above-acute hypoxemic respiratory failure secondary to possible? aspiration pneumonia/uti/Gi bleed -continue vancomycin/ zosyn,dc ceftriaxone , nebs, oxygen support, incentive sp irometry,nebs, chest physiotherapy, p.r.n. suctioning. ?NPO, may need MBbs in am ?oxygen support to? sats around 92 % AFib with RVR.. seems in sinus -continue to hold anticoagulation -will add iv metoprolol Acute GI bleed -Daughter does not want any further intervention until patient is more stable, back to her baseline - will hold anticoagulation...? No further bleeding noted - follow CBC..? Stable thus far E coli (UTI) -continue zosyn and vancomycin Poor oral intake/npo/aspiration pneumonia added ppn Boots in the setting of GI bleed DNR DNI ? Above management discussed with patient daughter in detail length- overall prognosis seems to be guarded,? daughter wants current conservative management,if patient condition? deteriorates, will call the family . ? In patient need: ? Acute hypoxemic respiratory failure secondary to aspiration pneumonia-for IV antibiotics to treat gram-negative bacteremia, aspiration pneumonia. Quality Stroke Does the patient have a stroke diagnosis?: No VTE Prior VTE?: No VTE Risk Level:: Medical - moderate - high VTE Device Contraindication: Treatment Not Indicated VTE Drug Contraindication: N/A - Med Ordered
--- NOTE | 2022-03-27 16:22 | MHC.CM.PN ---
DP return to LTC @ [facility] via BLS. Per MD rounds no discharge today. Pt's H/H decrease. 1 UPRC ordered. Patient is also scheduled for a MBS.
[2022-03-27] MEDS: vancomycin HCL 500 MG in 0.9 % Sodium Chloride 100 ML 110 MG IV (17:21)
--- NOTE | 2022-03-27 17:26 | MHC.SLORD ---
Speech Language Pathology Order Status: Pt did not arrive to Radiology department for MBSS this afternoon. Per transport, pt was she was receiving blood at scheduled time of MBSS 2pm today and would not be ready for a few hours. Order was deferred for tomorrow. notified via [facility] Message.
[2022-03-27] MEDS: Furosemide 20 MG/2 ML VIAL IVPUSH (17:34)
[2022-03-27 19:42] LABS: Hematocrit 30.3 % (37.0-47.0); Hemoglobin 9.6 g/dl (12.0-16.0)
[2022-03-27 19:54] LABS: Anion Gap 12 (12-20); Blood Urea Nitrogen 19 mg/dL (9-16); Carbon Dioxide 24 mmol/L (22-29); Chloride 114 mmol/L (96-108); Creatinine Clr Calc Pharmacy 55.3; Estimated Glomerular Filt Rate > 60; Glucose Random 107 mg/dL (60-115); Potassium 3.4 mmol/L (3.3-5.1); Sodium 147 mmol/L (135-145)
[2022-03-28] VITALS (8 sets, daily range): BP systolic 101–145; BP diastolic 58–90; PULSE 81–106; RESP 15–20; TEMP 36.1–36.9; O2SAT 94–100
[2022-03-28] MEDS: Pantoprazole Sodium 40 MG/10 ML VIAL IVPUSH (04:45)
[2022-03-28] MEDS: Piperacillin Sodium/Tazobactam 3.375 GM in 0.9 % Sodium Chloride 50 ML IV ×4 (04:45→22:29)
[2022-03-28 06:20] LABS: Hematocrit 31.2 % (37.0-47.0); Hemoglobin 9.4 g/dl (12.0-16.0); Mean Corpuscular HGB Conc 30.1 g/dl (31.0-35.0); Mean Corpuscular Hemoglobin 25.5 pg (27.0-33.0); Mean Corpuscular Volume 84.6 fL (80.0-98.0); Platelet Count 193 X10*3/uL (160-400); Red Blood Count 3.69 X10*6/uL (4.20-5.50); Red Cell Distribution Width 21.2 % (11.0-16.0); White Blood Count 14.6 X10*3/uL (4.8-10.8)
[2022-03-28 06:37] LABS: Creatinine Clr Calc Pharmacy 53.4; Estimated Glomerular Filt Rate > 60
[2022-03-28 06:40] LABS: Anion Gap 10 (12-20); Blood Urea Nitrogen 19 mg/dL (9-16); Calcium 7.8 mg/dL (8.4-10.2); Carbon Dioxide 26 mmol/L (22-29); Chloride 109 mmol/L (96-108); Creatinine Clr Calc Pharmacy 53.4; Estimated Glomerular Filt Rate > 60; Glucose Random 152 mg/dL (60-115); Potassium 2.9 mmol/L (3.3-5.1); Sodium 142 mmol/L (135-145)
[2022-03-28] MEDS: Dextrose 5 % 1,000 ML 100 ML IVCONT (07:55)
[2022-03-28] MEDS: Albuterol/Iprat 2.5/0.5MG 3 ML AMPUL.NEB INHALE ×3 (08:33→16:10)
--- NOTE | 2022-03-28 08:45 | PC.RT ---
RT unable to chart in worklist. CPT done on pt as pep therapy via aerobika flutter valve. Pt effort fair, poor insp capacity noted. Weak ineffective cough noted. Pt was transitioned from oxymask at 3 lpm to 4 lpm n/c, RN aware.
[2022-03-28 09:08] LABS: Magnesium 1.9 mg/dL (1.6-2.6)
[2022-03-28 11:03] LABS: Albumin Level 2.8 g/dL (3.5-5.0)
--- NOTE | 2022-03-28 11:09 | MHC.CLN ---
F/U MBS RE-SCHEDULED FOR TODAY PER TOOTH GRINDER PT RECEIVED PPN D10AA4.25 WITH D5W AT 45ML/HR PROVIDED 721KCALS, 46G PROTEIN REVIEWED LABS DISCUSSED WITH PHARMACY-OBTAINING TRIG LEVEL RECOMMEND INCREASING PPN D10AA4.25 TO 65ML/HR TO PROVIDE 796KCALS, 66G PROTEIN (1.2G/KG) REPLETE LYTES NEEDED
[2022-03-28] MEDS: Potassium Chloride/H20 10 MEQ/100 ML PIGGYBACK 100 MEQ IV ×7 (11:32→23:22)
[2022-03-28 12:30] LABS: Triglycerides 54 mg/dL
--- NOTE | 2022-03-28 13:01 | HE.PHANOTE ---
RE: vanco Trough on 03/28/22 was drawn early @1200 instead of @1500 as put in, but came back at 13.0. Adjusted dose to 750mg Q24H with predicted AUC of 476mg/L. Put in order for next level to be drawn 03/30/22 @1500
--- NOTE | 2022-03-28 13:27 | PM.EVENT ---
Event Note Date of Service: 03/28/22 Event Note: GI consult dictated I discussed colonoscopy with the patient for further evaluation of rectal bleeding, anemia, and heme positive stools. She declines the prcedure.
--- NOTE | 2022-03-28 14:55 | P.PNIM_ITS ---
Subjective Subjective Date of Service: 03/28/22 Interval History: acute hypoxemic respiratory failure secondary to aspiration pneumonia possible. Review of Systems Patient is awake , answer simple questions denies any chest pain still short of breath ?abdominal pain or nausea Physical Exam Vital Signs: Vital Signs: Last Vital Signs Temp 97.8 F 03/28/22 11:28 Pulse 81 03/28/22 12:02 Resp 16 03/28/22 12:02 BP 107/67 03/28/22 11:28 Pulse Ox 99 03/28/22 11:28 O2 Del Method 03/28/22 11:28 O2 Flow Rate 4.5 03/28/22 11:28 FiO2 48.6 03/19/22 11:17 Oxygen Flow Rate 10 03/17/22 17:51 BMI result Body Mass Index 20.7 Appearance:? more awake, answers simple questions, somewhat short of breath cvs: [id number], [id number]. res: clear to auscultation ,no rhonchii or wheezing abd: no rebound or guarding ,nt, bs present. ext pulses present , no cyanosis. neuro: axo3 , nonfocal. Objective Data Active Medications Acetaminophen (Acetaminophen 325 Mg Tablet) 650 mg PO Q4H PRN PRN Reason: Pain, Mild (Pain Scale 1-3) Last Admin: 03/22/22 10:45 Dose: 650 mg Documented By: MARY ANNE Albuterol/Ipratropium (Albuterol/Iprat 2.5/0.5mg 3 Ml Ampul.Neb) 3 ml INHALE RQ4H WHILE AWAKE [facility] Last Admin: 03/28/22 12:01 Dose: 3 ml Documented By: BOZENA Piperacillin Sod/Tazobactam (Sod 3.375 gm/ Sodium Chloride) 50 mls @ 100 mls/hr IV Q6H [facility] Last Infusion: 03/28/22 12:02 Dose: 0 mls/hr Documented By: CAYLA-SOFFA Magnesium Sulfate 5 meq/Potassium Phosphate 15 mmol/Calcium Gluconate 4.65 meq/Potassium Acetate 20 meq/Multivitamins 18.5 ml/ Trace Metals 1.9 ml/ Amino Acids/Electrolytes/Dextrose 1,046.65 mls @ 45 mls/hr IVCONT DAILY@1800 [facility] Stop: 03/28/22 17:16 Last Admin: 03/27/22 20:12 Dose: 45 mls/hr Documented By: NONI Magnesium Sulfate 10 meq/Potassium Phosphate 30 mmol/Calcium Gluconate 9.3 meq/Potassium Acetate 80 meq/Multivitamins 12.8 ml/ Trace Metals 1.3 ml/ Amino Acids/Electrolytes/Dextrose 1,560 mls @ 65 mls/hr IVCONT DAILY@1800 [facility] Stop: 03/29/22 17:59 Vancomycin HCl 750 mg/ Sodium (Chloride) 265 mls @ 265 mls/hr IV Q24H [facility] Metoprolol Succinate (Metoprolol Succinate Er 100 Mg Tab.Er.24h) 100 mg PO DAILY [facility]; Protocol Last Admin: 03/26/22 10:12 Dose: 100 mg Documented By: CAYLA-ALOKFA Metoprolol Tartrate (Metoprolol Tartrate 5 Mg/5 Ml Vial) 2.5 mg IVPUSH Q6H PRN PRN Reason: afib Ondansetron HCl (Ondansetron Hcl 4 Mg/2 Ml Vial) 4 mg IVPUSH Q8H PRN PRN Reason: Nausea and Vomiting Pantoprazole Sodium (Pantoprazole Sodium 40 Mg/10 Ml Vial) 40 mg IVPUSH DAILY@0630 [facility] Last Admin: 03/28/22 04:45 Dose: 40 mg Documented By: HILDA Pharmacy Consult (Consult Rx Vancomycin Dosing) 1 each MISCELLANE DAILY PRN PRN Reason: Consult order Labs CBC & Chem 7: 03/28/22 05:41 03/28/22 05:41 Labs: Laboratory Results - last 24 hr 03/27/22 03/27/22 03/27/22 08:51 08:51 19:22 MCV MCH MCHC RDW Plt Count MPV Absolute Nucleated RBC Nucleated RBC % (auto) Anion Gap 12 Estim Creat Clear Calc 55.3 Estimated GFR > 60 Random Glucose 107 Calcium 8.0 L Phosphorus Magnesium Albumin Triglycerides Random Vancomycin Blood Type O Positive Antibody Screen POSITIVE Antibody Identification Negative Cancelled Crossmatch ([facility]) See Detail Enhanced Crossmatch See Detail Blood Bank Comment Technical 03/28/22 03/28/22 03/28/22 05:41 05:41 05:41 MCV 84.6 MCH 25.5 L MCHC 30.1 L RDW 21.2 H Plt Count 193 MPV 10.0 Absolute Nucleated RBC 0.000 Nucleated RBC % (auto) 0.0 Anion Gap 10 L Estim Creat Clear Calc 53.4 53.4 Estimated GFR > 60 > 60 Random Glucose 152 H Calcium 7.8 L Phosphorus 3.0 Magnesium 1.9 Albumin 2.8 L Triglycerides Random Vancomycin Blood Type Antibody Screen Antibody Identification Crossmatch ([facility]) Enhanced Crossmatch Blood Bank Comment 03/28/22 03/28/22 12:15 12:15 MCV MCH MCHC RDW Plt Count MPV Absolute Nucleated RBC Nucleated RBC % (auto) Anion Gap Estim Creat Clear Calc Estimated GFR Random Glucose Calcium Phosphorus Magnesium Albumin Triglycerides 54 Random Vancomycin 13.0 L Blood Type Antibody Screen Antibody Identification Crossmatch ([facility]) Enhanced Crossmatch Blood Bank Comment Microbiology Microbiology Results: Microbiology 03/26/22 11:03 Blood Culture - Preliminary Blood - Venous No growth after 48 hours. 03/26/22 11:03 Blood Culture - Preliminary Blood - Venous No growth after 48 hours. Assessment and Plan (1) MRSA bacteremia: Status: Acute (2) Proteus mirabilis infection: Status: Acute (3) Aspiration pneumonia: Status: Acute (4) Acute respiratory failure with hypoxia: Status: Acute (5) Anemia: Status: Acute Plan 72-year-old female with past medical history of AFib on anticoagulation, history of CVA, history of dementia, hypertension, hemiplegia, dysphagia, presents to the hospital with altered mental status and hypoxia ?acute hypoxemic respiratory failure secondary to possible? aspiration pneu monia. has Gram-negative bacteremia.? Proteus/MRSA ?toxic metabolic encephalopathy- seems multifactorial due to above-acute hypoxemic respiratory failure secondary to possible? aspiration pneumonia/uti/Gi bleed -continue vancomycin/ zosyn,dc ceftriaxone , nebs, oxygen support, incentive spirometry,nebs, chest physiotherapy, p.r.n. suctioning. ?NPO, may need MBbs today ?oxygen support to? sats around 92 % AFib with RVR.. seems in sinus -continue to hold anticoagulation -will add iv metoprolol anemia of acute blood loss -possible Acute GI bleed -Daughter does not want any further intervention until patient is more stable, back to her baseline - will hold anticoagulation...? No further bleeding noted received 1 prbc h/h stable in 9 range no episode of rand gibleed overnight ?E coli (UTI) -continue zosyn and vancomycin ?Poor oral intake/npo/aspiration pneumonia added ppn Boots in the setting of GI bleed DNR DNI ? Above management discussed with patient daughter in detail length- overall prognosis seems to be guarded,? daughter wants current conservative management,if patient condition? deteriorates, will call the family . ? In patient need: ? Acute hypoxemic respiratory failure secondary to aspiration pneumonia-for IV antibiotics to treat gram-negative bacteremia, aspiration pneumonia. Quality Stroke Does the patient have a stroke diagnosis?: No VTE Prior VTE?: No VTE Risk Level:: Medical - moderate - high VTE Device Contraindication: Treatment Not Indicated VTE Drug Contraindication: N/A - Med Ordered
[2022-03-28 17:30] LABS: Vancomycin Trough 12.2 mcg/mL (10.0-20.0)
--- NOTE | 2022-03-28 17:38 | MHC.SL.IMP ---
Date of Plan of Treatment: 03/28/22 Onset of Symptoms/Illness: 03/20/22 Date Treatment Started: 03/20/22 Admitting Diagnosis: Gram negative bacteremia, atrial fibrillation with rapid ventricular response, acute GI bleeding, aspiration PNA, acute respiratory failure with hypoxia, proteus mirabilis infection, MRSA bacteremia Primary Speech & Language Diagnosis: R13.12 Oropharyngeal Phase Dysphagia Secondary Speech & Language Diagnosis: R47.01 Aphasia Reason for Today's Visit: 33978 Modified Barium Swallow Study Pre-evaluation Dietary Consistencies: NPO Pre-evaluation Liquid Consistency: NPO Pre-evaluation Medication Administration: NPO Medical History: [place], [place] Modified Barium Swallow Study Fluoroscopic Evaluation of Swallowing Function CPT Code 93963 Evaluation Year: 2021 Reason for Study: Aspiration event Referring Physician: Dr. Saleh Evaluating Clinician: Moraima Perez MA, CCC-DIE CAST ENGINEER Study Number: 1 Patient Name: Emmy Marie Status: Inpatient, Stretcher Age: 72 Gender: Female MEDICAL HISTORY: AFIB, CVA, dementia, dysphagia, hemiplegia, residual R-sided weakness, hypertension, tachycardia, expressive aphasia, former tobacco user Current (pre-evaluation) Intake/Diet: Route: NPO pending MBSS results Pre-Study Functional Oral Intake Scale (FOIS): 1- No oral intake Pain: None reported at time of study SUBJECTIVE: Pt is a 72 year old female admitted for multiple medical issues. Hospital course was significant for worsening hypoxia secondary to recurrent pulmonary aspiration. Pt was seen by DIE CAST ENGINEER at bedside during hospitalization on 03/20, 03/22, and 03/25. She was recommended a pureed diet with nectar thick liquids at the time. On 03/26 pt had an aspiration event during lunch while being fed by SLATE CUTTER. Subsequently, pt required suctioning and had a chest x-ray. Pt is NPO pending MBSS. 03/26 Chest X-Ray: ? FINDINGS: Development of relatively extensive airspace opacity/consolidation left lung with mid lower and lower lung predominance obscuring the left hemidiaphragm and partially obscuring left heart border. Left costophrenic angle is indistinct. Difficult to exclude small left pleural effusion. Elevation left hemidiaphragm redemonstrated. Somewhat coarse and increased reticular markings in the right lung are noted, slightly more conspicuous than on prior. Right lung otherwise clear. No pneumothorax. Cardiomediastinal silhouette is unchanged. Status post median sternotomy. Fractures of the inferior most sternal wire noted. IVC filter ejects in the right upper abdomen. No acute osseous injury. There is a ununited displaced fracture deformity of the right proximal humerus and chronic right distal humeral fracture deformity. XR/XR chest 1V IMPRESSION: Development of relatively extensive airspace opacity/consolidation in the left mid and lower lung with obscuration of the left hemidiaphragm and left costophrenic angle. Findings consistent with pneumonia or aspiration in the appropriate clinical setting.? Food and Liquid Trials: Oral Impairment: Lip Closure: Did not test Oral Impairment: Tongue Control During Bolus Hold: 3=Posterior escape of greater than half of bolus Oral Impairment: Bolus Preparation/Mastication: Did not test Oral Impairment: Bolus Transport/Lingual Motion: 2=Slowed tongue motion Oral Impairment: Oral Residue: 1=Trace residue lining oral structures Oral Impairment:Initiation of Pharyngeal Swallow: 2=Bolus head at posterior laryngeal surface of epiglottis Pharyngeal Impairment: Soft Palate Elevation: 1=Trace column of contrast or air between SP and PW Pharyngeal Impairment: Laryngeal Elevation: 1=Partial thyroid cartilage/arytenoids to epiglottic petiole movement Pharyngeal Impairment: Anterior Hyoid Excursion: 1=Partial anterior movement Pharyngeal Impairment: Epiglottic Movement: 2=No inversion Pharyngeal Impairment: Laryngeal Vestibular Closure:: 2=None: No inversion Pharyngeal Impairment: Pharyngeal Stripping Wave: 1=Present: diminished Pharyngeal Impairment: Pharyngeal Contraction: Did not test Pharyngeal Impairment: Pharyngoesophageal Segment Openin=Complete distension and complete duration: no obstruction of flow Pharyngeal Impairment: Tongue Base (TB) Retraction: 3=Wide column of contrast/air between TB and posterior PW Pharyngeal Impairment: Pharyngeal Residue: 4=Minimal to no pharyngeal clearance Pharyngeal Impairment: Esophageal Clearance Upright Position: Did not test Impressions and Recommendations OBJECTIVE: Time-out: performed at 03:45 Evaluation Start: 03:30; Stop: 03:34 Patient Positioning: Seated 70-90 degrees Viewing Planes: LATERAL ONLY Contrast: MBSImP? Standardized Protocol using commercially prepared, standardized Barium viscosities, including: Varibar? THIN HONEY (40% w/v, <800-1800 cps) MBSImP ID: [id number] MBSImP Results: Lip closure for intraoral bolus containment could not be assessed due to logistical reasons not related to physiologic impairment. Tongue control during bolus hold allowed posterior escape of greater than half of the bolus. Bolus preparation and mastication received the highest impairment score; solid not given due to patient safety concerns related to oral impairment. Bolus transport/lingual motion was with slowed tongue motion. Oral residue was a trace, lining oral structures. Initiation of the pharyngeal swallow occurred as the bolus head was at the posterior laryngeal surface of the epiglottis. Soft palate elevation allowed a trace column of contrast or air between the soft palate and the pharyngeal wall. Laryngeal elevation was decreased, with partial superior movement of the thyroid cartilage/partial approximation of the arytenoids to the epiglottic petiole. Anterior hyoid excursion demonstrated partial anterior movement. Epiglottic movement resulted in no inversion. Laryngeal vestibular closure was absent, resulting in a wide column of air/contrast within the laryngeal vestibule at the height of the swallow. Pharyngeal stripping wave was present, but diminished. Pharyngeal contraction could not be determined due to logistical reasons not related to physiologic impairment. Pharyngoesophageal segment opening was completely distended for complete duration with no obstruction of bolus flow. Tongue base retraction allowed a wide column of contrast or air between the retracted tongue base and the posterior pharyngeal wall. Pharyngeal residue resulted from minimal to no pharyngeal clearance. Esophageal clearance in the upright position could not be assessed due to logistical reasons not related to physiologic impairment. Oral Impairment Score: 10 (absence of score, component 1) Pharyngeal Impairment Score: 15 (absence of score, component 13) Esophageal Impairment Score: --- (absence of score, component 17) Laryngeal Penetration and Aspiration: Aspiration was observed in today's study. Honey-thick Contrast entered the airway, passed below the vocal folds, and no effort was made to eject. ASSESSMENT: This exam was conducted by a multidisciplinary team, which included a speech pathologist, radiologist, and electronic development technician. Pt trialed bites of pureed solid (mixture applesauce with barium paste) and sips of honey thick liquid barium by teaspoon. There was premature posterior escape prior to productive tongue movement. Posterior lingual movement for the transport of bolus was slowed and delayed. There was trace lingual residue which subsequently cleared. Pharyngeal swallow trigger initiated when bolus head was at the posterior laryngeal surface of the epiglottis. There was a trace column of contrast between the soft palate and the pharyngeal wall. Laryngeal elevation was incomplete with partial anterior hyoid excursion and minimal to no epiglottic inversion. Pt first trialed bites of pureed solid. There was minimal to no pharyngeal clearance with the first swallow. Contrast collected mainly in the valleculae, with some contrast in the pyriforms. Pt swallowed again and reduced retention by approximately 50%. Multiple dry swallows further reduced residuals. There was less retention with subsequent swallows of puree. However, pt was still required to swallow 2-3 times between trials to reduce pharyngeal retention. There was no evidence of aspiration or penetration with trials of puree. Next pt took sip of honey thick liquid by teaspoon. There was rand, silent aspiration with trial of honey thick consistency. Pt did not produce a spontaneous cough in response to the aspiration event. Pt was instructed by the radiologist and speech pathologist to produce a strong cough several times. Pt was able to cough up some barium. The exam was discontinued for pt safety as, based on these observations, it was likely pt could aspirate with further trials. Liquid Intake Recommendation: NPO Dietary Recommendations: NPO Medication Administration: NPO Please contact the pharmacy regarding appropriate crushable or liquid drug formulations that are available whenever modified delivery is recommended. Recommended Treatments: Thermal Stimulation, Pharyngeal Resistive Exer, Compens. Strategy Educat. Recommendation for Speech Therapy: Inpatient Speech Therapy Speech Therapy through [facility] Speech Therapy through Rehab Facility Modified Barium Swallow Study - Outpatient Text Comment: PLAN: Intake Recommendations: Route: NPO/Alternate Route Post-Study Functional Oral Intake Scale (FOIS): 2- dependent with minimal/inconsistent oral intake: Therapeutic PO trials/pleasure/comfort feeds (2-3 trials) of pureed consistency (1/2 teaspoon) with DIE CAST ENGINEER Pt presents with SEVERE OROPHARYNGEAL DYSPHAGIA. Disorganized oral phase was characterized by reduced tongue control and delayed, slowed lingual movements. Pharyngeal impairments included incomplete laryngeal elevation, minimal to no epiglottic inversion, and minimal to no laryngeal vestibular closure. This exam revealed silent aspiration with honey thick liquid. Based on objective results of this exam, recommend continue NPO status, with dysphagia treatment during hospitalization and after discharge; Repeat-MBSS post-treatment to monitor for any improvement or potential upgrade in recommendations. Recommend consult with Gastroenterology/Nutrition Services to assess candidacy for alternate means of nutrition. Ensure precautions to reduce risk of microaspiration- Maintaining rigid daily oral care routine and elevating head of bed at least 30 degrees. With the knowledge and understanding of the risks of aspiration, the ultimate decisions for nutritional intake is to be made by the patient/caregiver and her medical team with consideration of the totality of the patient, other concomitant conditions, and overall quality of life. Suggested Referrals: The patient might benefit from a referral to: Gastroenterology, Nutrition Services Indication for Referral: Evaluate candidacy for alternate means of nutrition Therapy Recommendations: Recommend continue dysphagia treatment with a speech-language pathologist during hospitalization and at the next level of care. Prognosis for Improvement: The prognosis for the patient to meet nutritional needs by mouth is poor based on degree of impairment. Frequency/Duration: Date Range for Service Requested: Timeline to reassess: 3 months Clinician - Supplemental, Miscellaneous Communication: It is important to note MBSS objective studies are snapshots in time and Patient function might vary with factors such as time of day or concomitant medical conditions. For this reason, the final treatment plan for this patient should rest with their medical care team. Additional recommendations should be considered with the totality of the Patient in mind. Thank for the opportunity to participate in the care of this patient. If you have any questions about the content of this report, please contact the [facility] at [facility]. Plant Engineering Supervisor Clinician/Clinical Fellow: No Supervisory Statement: N/A Speech Language Pathologist: Moraima Perez M.A., [facility]-DIE CAST ENGINEER
--- NOTE | 2022-03-28 17:44 | MHC.SLORD ---
Speech Language Pathology Order Status: SLOT FLOOR PERSON notified MD & RD of MBSS results.
[2022-03-28] MEDS: vancomycin HCL 750 MG in 0.9 % Sodium Chloride 250 ML 265 MG IV (17:53)
[2022-03-29] VITALS (9 sets, daily range): BP systolic 101–152; BP diastolic 53–77; PULSE 79–96; RESP 16–20; TEMP 36.2–36.9; O2SAT 93–100
[2022-03-29] MEDS: Potassium Chloride/H20 10 MEQ/100 ML PIGGYBACK 100 MEQ IV (01:02)
--- NOTE | 2022-03-29 03:50 | CONS_ITS ---
DATE OF SERVICE: 03/28/2022 REFERRING PHYSICIAN: Jannette Saleh MD REASON FOR CONSULTATION: Anemia and question of GI bleeding. HISTORY OF PRESENT ILLNESS: The patient is a pleasant 72-year-old woman who was admitted to the hospital on March 18 after presenting to the emergency room from a care home with lethargy, altered mental status and hypoxia. On admission, she was found to have 2 episodes of bloody bowel movements in the emergency department. Since that time, she has had bowel movements and most recently, they were described by staff as black tarry and formed. The patient's hematocrit dropped to 25.3 on March 27 from 35 on March 26. Admission hematocrit was 30.2 on March 17. During this hospitalization, she has received blood transfusion of packed red blood cells, 1 unit on March 27, and 2 units on March 18. The patient does not recall undergoing colonoscopy. She denies any abdominal pain. PAST MEDICAL HISTORY: 1. Coronary artery disease. 2. Atrial fibrillation. 3. Dementia. 4. Dysphagia. 5. Hemiplegia. 6. Hypertension. 7. Tachycardia. CURRENT MEDICATIONS: Her current medication list is reviewed in the chart. ALLERGIES: LISINOPRIL. FAMILY HISTORY: Reviewed in electronic medical record. SOCIAL HISTORY: Reviewed in electronic medical record. REVIEW OF SYSTEMS: SKIN: No pruritus. HEENT: Negative. CARDIOPULMONARY: No shortness of breath or chest pain. GASTROINTESTINAL: As above. GENITOURINARY: Negative. NEUROPSYCHIATRIC: Negative. PHYSICAL EXAMINATION: GENERAL: Reveals a pleasant female, lying in bed. VITAL SIGNS: Reviewed in electronic medical record and are stable. SKIN: Anicteric. HEENT: Shows no scleral icterus. NECK: Without lymphadenopathy or thyromegaly. LUNGS: Clear. HEART: Shows a regular rate and rhythm. S1, S2. No murmur. ABDOMEN: Soft without focal masses or tenderness. Bowel sounds are present. No organomegaly is noted. EXTREMITIES: Without edema. LABORATORY DATA: Reviewed. IMPRESSION: Anemia with gastrointestinal bleeding. I discussed colonoscopy with the patient. She clearly does not wish to proceed with this, and in review of the records, her family has been against any interventional procedure as well. She has been on Eliquis and if she goes back on this, bleeding could be worse. If she or the family would like to proceed with interventional procedures, then colonoscopy could be arranged. However, she does seem to be at higher risk for the procedure given her underlying comorbid conditions. Thanks for asking me to see her. I will follow her in the hospital as needed. MD KIT Lamb/AKBAR / [phone]
[2022-03-29] MEDS: Piperacillin Sodium/Tazobactam 3.375 GM in 0.9 % Sodium Chloride 50 ML IV ×3 (04:35→17:39)
[2022-03-29 06:27] LABS: Estimated Glomerular Filt Rate > 60
[2022-03-29] MEDS: Albuterol/Iprat 2.5/0.5MG 3 ML AMPUL.NEB INHALE ×4 (08:35→19:56)
[2022-03-29] MEDS: Pantoprazole Sodium 40 MG/10 ML VIAL IVPUSH (09:17)
[2022-03-29 09:24] LABS: Albumin Level 2.6 g/dL (3.5-5.0); Anion Gap 12 (12-20); Blood Urea Nitrogen 18 mg/dL (9-16); Calcium 8.1 mg/dL (8.4-10.2); Carbon Dioxide 27 mmol/L (22-29); Chloride 111 mmol/L (96-108); Estimated Glomerular Filt Rate > 60; Glucose Random 71 mg/dL (60-115); Phosphorus 2.8 mg/dL (2.7-4.5); Potassium 4.2 mmol/L (3.3-5.1); Sodium 146 mmol/L (135-145); Triglycerides 89 mg/dL
--- NOTE | 2022-03-29 10:58 | MHC.CLN ---
F/U MBS COMPLETED AND OCCUPATIONAL THERAPIST RECOMMENDING NPO PT RECEIVED PPN D10AA4.25 AT 65ML/HR PROVIDED 796KCALS, 66G PROTEIN (1.2G/KG) REVIEWED LABS-TRIGS WNL DISCUSSED WITH PHARMACY RECOMMEND INCREASING PPN D10AA4.25 TO 85ML/HR WITH 14ML OF 20% LIPIDS TO PROVIDE 1712 TOTAL KCALS (30KCALS/KG), 87G PROTEIN (1.5G/KG) REPLETE LYTES NEEDED NOTED FAMILY DOES NOT WANT TO PROCEED WITH FEEDING TUBE SO POTENTIAL FOR HOSPICE EVAL/SEARCH ENGINE OPTIMIZATION STRATEGIST FOLLOWING WITH TEAM
--- NOTE | 2022-03-29 14:54 | MHC.CM.PN ---
NO DISCHARGE TODAY PER MD ROUNDS. PATIENT ASPIRATED, VAULT TELLER EVAL ORDERED. MD STATED THAT HE WOULD SPEAK WITH FAMILY RE GOALS OF CARE. PATIENT MAY NEED A G TUBE. IF FAMILY AGREES. PATIENT MAY BE TRANSPORTATION ENGINEERING TECHNICIAN IF FAMILY DECIDES AGAINST A G TUBE, IF NEEDED.) dp RETURN TO [facility] VIA s.
--- NOTE | 2022-03-29 17:42 | HO.PM.IMPN ---
Subjective Subjective Date of Service: 03/29/22 Interval History: acute hypoxemic respiratory failure secondary to aspiration pneumonia possible. Review of Systems Patient denies any chest pain Shortness of breath somewhat improvin no cough or fever Physical Exam Vital Signs: Vital Signs: Last Vital Signs Temp 97.6 F 03/29/22 16:00 Pulse 84 03/29/22 16:00 Resp 18 03/29/22 16:00 BP 130/71 03/29/22 16:00 Pulse Ox 97 03/29/22 16:00 O2 Del Method 03/29/22 16:00 O2 Flow Rate 4 03/29/22 16:00 FiO2 48.6 03/19/22 11:17 Oxygen Flow Rate 10 03/17/22 17:51 BMI result Body Mass Index 20.7 Appearance:? more awake, answers simple questions, somewhat short of breath cvs: rrr, [id number]. res: clear to auscultation ,no rhonchii or wheezing abd: no rebound or guarding ,nt, bs present. ext pulses present , no cyanosis. neuro: axo3 , nonfocal. Objective Data Active Medications Acetaminophen (Acetaminophen 325 Mg Tablet) 650 mg PO Q4H PRN PRN Reason: Pain, Mild (Pain Scale 1-3) Last Admin: 03/22/22 10:45 Dose: 650 mg Documented By: MARY ANNE Albuterol/Ipratropium (Albuterol/Iprat 2.5/0.5mg 3 Ml Ampul.Neb) 3 ml INHALE RQ4H WHILE AWAKE [facility] Last Admin: 03/29/22 15:00 Dose: 3 ml Documented By: RENARD Piperacillin Sod/Tazobactam (Sod 3.375 gm/ Sodium Chloride) 50 mls @ 100 mls/hr IV Q6H [facility] Last Infusion: 03/29/22 17:39 Dose: 0 mls/hr Documented By: OLLIE Magnesium Sulfate 10 meq/Potassium Phosphate 30 mmol/Calcium Gluconate 9.3 meq/Potassium Acetate 80 meq/Multivitamins 12.8 ml/ Trace Metals 1.3 ml/ Amino Acids/Electrolytes/Dextrose 1,560 mls @ 65 mls/hr IVCONT DAILY@1800 [facility] Stop: 03/29/22 17:59 Last Admin: 03/28/22 18:03 Dose: 65 mls/hr Documented By: DOMENICO Vancomycin HCl 750 mg/ Sodium (Chloride) 265 mls @ 265 mls/hr IV Q24H [facility] Last Infusion: 03/28/22 22:39 Dose: 0 mls/hr Documented By: JOE Magnesium Sulfate 10 meq/Potassium Phosphate 30 mmol/Calcium Gluconate 9.3 meq/Potassium Acetate 30 meq/Multivitamins 10 ml/ Trace Metals 1 ml/ Amino Acids/Electrolytes/Dextrose 2,000 mls @ 85 mls/hr IV DAILY@1800 [facility] Fat Emulsion Intravenous (Intralipid) 168 mls @ 14 mls/hr IV DAILY@0000,1800 [facility] Stop: 03/30/22 11:59 Metoprolol Succinate (Metoprolol Succinate Er 100 Mg Tab.Er.24h) 100 mg PO DAILY [facility]; Protocol Last Admin: 03/26/22 10:12 Dose: 100 mg Documented By: SHALOM Metoprolol Tartrate (Metoprolol Tartrate 5 Mg/5 Ml Vial) 2.5 mg IVPUSH Q6H PRN PRN Reason: afib Ondansetron HCl (Ondansetron Hcl 4 Mg/2 Ml Vial) 4 mg IVPUSH Q8H PRN PRN Reason: Nausea and Vomiting Pantoprazole Sodium (Pantoprazole Sodium 40 Mg/10 Ml Vial) 40 mg IVPUSH DAILY@0630 [facility] Last Admin: 03/29/22 09:17 Dose: 40 mg Documented By: OLLIE Comments: Patient says she does want her pantoprazole Pharmacy Consult (Consult Rx Vancomycin Dosing) 1 each MISCELLANE DAILY PRN PRN Reason: Consult order Labs CBC & Chem 7: 03/28/22 05:41 03/29/22 08:06 Labs: Laboratory Results - last 24 hr 03/29/22 03/29/22 05:43 08:06 Anion Gap 12 Estim Creat Clear Calc 59.0 59.0 Estimated GFR > 60 > 60 Random Glucose 71 Calcium 8.1 L Phosphorus 2.8 Magnesium 2.0 Albumin 2.6 L D Triglycerides 89 Microbiology Microbiology Results: Microbiology 03/26/22 11:03 Blood Culture - Preliminary Blood - Venous No growth after 48 hours. 03/26/22 11:03 Blood Culture - Preliminary Blood - Venous No growth after 48 hours. Assessment and Plan (1) MRSA bacteremia: Status: Acute (2) Proteus mirabilis infection: Status: Acute (3) Aspiration pneumonia: Status: Acute (4) Acute respiratory failure with hypoxia: Status: Acute (5) Anemia: Status: Acute (6) Dysphagia: Status: Acute Plan 72-year-old female with past medical history of AFib on anticoagulation, history of CVA, history of dementia, hypertension, hemiplegia, dysphagia, presents to the hospital with altered mental status and hypoxia ?acute hypoxemic respiratory failure secondary to possible? aspiration pneumonia. has Gram-negative bacteremia.? Proteus/MRSA ?toxic metabolic encephalopathy- seems multifactorial due to above-acute hypoxemic respiratory failure secondary to possible? aspiration pneumonia/uti/Gi bleed -continue vancomycin/ zosyn,dc ceftriaxone , nebs, oxygen support, incentive spirometry,nebs, chest physiotherapy, p.r.n. suctioning. ?NPO, may need MBbs today ?oxygen support to? sats around 92 % AFib with RVR.. seems in sinus -continue to hold anticoagulation -will add iv metoprolol anemia of acute blood loss -possible Acute GI bleed -Daughter does not want any further intervention until patient is more stable, back to her baseline - will hold anticoagulation...? No further bleeding noted received 1 prbc h/h stable in 9 range no episode of rand gibleed overnight ?E coli (UTI) -continue zosyn and vancomycin ?Poor oral intake/npo/aspiration pneumonia/dyspagia added ppn daughter does not want tube feedin, considering hospice [place] in the setting of GI bleed DNR DNI ? Above management discussed with patient daughter in detail length- overall prognosis seems to be guarded,? daughter does not want tube feedin, considering hospice,if patient condition? deteriorates, will call the family . ? In patient need: ? Acute hypoxemic respiratory failure secondary to aspiration pneumonia-for IV antibiotics to treat gram-negative bacteremia, aspiration pneumonia. Quality Stroke Does the patient have a stroke diagnosis?: No VTE Prior VTE?: No VTE Risk Level:: Medical - moderate - high VTE Device Contraindication: Treatment Not Indicated VTE Drug Contraindication: N/A - Med Ordered
[2022-03-29] MEDS: vancomycin HCL 750 MG in 0.9 % Sodium Chloride 250 ML 265 MG IV (18:42)
[2022-03-29] MEDS: Fat Emulsions 20% 500 ML 14 ML IV (18:55)
[2022-03-30] VITALS (11 sets, daily range): BP systolic 152–170; BP diastolic 80–92; PULSE 81–130; RESP 16–24; TEMP 36.1–36.8; O2SAT 91–99
[2022-03-30] MEDS: Fat Emulsions 20% 500 ML 14 ML IV (01:51)
[2022-03-30] MEDS: Piperacillin Sodium/Tazobactam 3.375 GM in 0.9 % Sodium Chloride 50 ML IV ×4 (01:51→20:06)
[2022-03-30 07:11] LABS: Triglycerides 104 mg/dL
[2022-03-30] MEDS: Pantoprazole Sodium 40 MG/10 ML VIAL IVPUSH (07:35)
[2022-03-30 08:03] LABS: Albumin Level 2.5 g/dL (3.5-5.0); Anion Gap 9 (12-20); Blood Urea Nitrogen 23 mg/dL (9-16); Calcium 8.2 mg/dL (8.4-10.2); Carbon Dioxide 26 mmol/L (22-29); Chloride 108 mmol/L (96-108); Creatinine Clr Calc Pharmacy 55.3; Estimated Glomerular Filt Rate > 60; Glucose Random 172 mg/dL (60-115); Phosphorus 3.1 mg/dL (2.7-4.5); Potassium 3.7 mmol/L (3.3-5.1); Sodium 139 mmol/L (135-145)
[2022-03-30] MEDS: Albuterol/Iprat 2.5/0.5MG 3 ML AMPUL.NEB INHALE ×3 (10:39→19:28)
--- NOTE | 2022-03-30 14:42 | HO.PM.IMPN ---
Subjective Subjective Date of Service: 03/30/22 Interval History: acute hypoxemic respiratory failure secondary to aspiration pneumonia possible. Review of Systems Patient denies any chest pain Shortness of breath somewhat improvin no cough or fever Physical Exam Vital Signs: Vital Signs: Last Vital Signs Temp 97.6 F 03/30/22 12:00 Pulse 102 H 03/30/22 14:32 Resp 18 03/30/22 14:32 BP 152/86 H 03/30/22 12:00 Pulse Ox 97 03/30/22 12:00 O2 Del Method 03/30/22 12:00 O2 Flow Rate 3 03/30/22 12:00 FiO2 48.6 03/19/22 11:17 Oxygen Flow Rate 10 03/17/22 17:51 BMI result Body Mass Index 20.7 Appearance:? more awake, answers simple questions, somewhat short of breath cvs: rrr, [id number]. res: clear to auscultation ,no rhonchii or wheezing abd: no rebound or guarding ,nt, bs present. ext pulses present , no cyanosis. neuro: axo3 , nonfocal. Objective Data Active Medications Acetaminophen (Acetaminophen 325 Mg Tablet) 650 mg PO Q4H PRN PRN Reason: Pain, Mild (Pain Scale 1-3) Last Admin: 03/22/22 10:45 Dose: 650 mg Documented By: MARY ANNE Albuterol/Ipratropium (Albuterol/Iprat 2.5/0.5mg 3 Ml Ampul.Neb) 3 ml INHALE RQ4H WHILE AWAKE [facility] Last Admin: 03/30/22 14:31 Dose: 3 ml Documented By: FRANKO Vancomycin HCl 750 mg/ Sodium (Chloride) 265 mls @ 265 mls/hr IV Q24H [facility] Last Infusion: 03/29/22 21:33 Dose: 0 mls/hr Documented By: OLLIE Magnesium Sulfate 10 meq/Potassium Phosphate 30 mmol/Calcium Gluconate 9.3 meq/Potassium Acetate 30 meq/Multivitamins 10 ml/ Trace Metals 1 ml/ Amino Acids/Electrolytes/Dextrose 2,000 mls @ 85 mls/hr IV DAILY@1800 [facility] Last Admin: 03/29/22 18:47 Dose: 85 mls/hr Documented By: CELIA Piperacillin Sod/Tazobactam (Sod 3.375 gm/ Sodium Chloride) 50 mls @ 100 mls/hr IV Q6H [facility] Last Admin: 03/30/22 14:20 Dose: 100 mls/hr Documented By: TIN Magnesium Sulfate 10 meq/Potassium Phosphate 30 mmol/Calcium Gluconate 9.3 meq/Potassium Acetate 30 meq/Multivitamins 10 ml/ Trace Metals 1 ml/ Amino Acids/Electrolytes/Dextrose 2,040 mls @ 85 mls/hr IVCONT DAILY@1800 [facility] Stop: 03/31/22 17:59 Fat Emulsion Intravenous (Intralipid) 168 mls @ 14 mls/hr IVCONT BID@0600,1800 [facility] Stop: 03/31/22 17:59 Metoprolol Succinate (Metoprolol Succinate Er 100 Mg Tab.Er.24h) 100 mg PO DAILY [facility]; Protocol Last Admin: 03/26/22 10:12 Dose: 100 mg Documented By: SHALOM Metoprolol Tartrate (Metoprolol Tartrate 5 Mg/5 Ml Vial) 2.5 mg IVPUSH Q6H PRN PRN Reason: afib Ondansetron HCl (Ondansetron Hcl 4 Mg/2 Ml Vial) 4 mg IVPUSH Q8H PRN PRN Reason: Nausea and Vomiting Pharmacy Consult (Consult Rx Vancomycin Dosing) 1 each MISCELLANE DAILY PRN PRN Reason: Consult order Labs CBC & Chem 7: 03/28/22 05:41 03/30/22 05:53 Labs: Laboratory Results - last 24 hr 03/30/22 03/30/22 05:52 05:53 Anion Gap 9 L Estim Creat Clear Calc 55.3 Estimated GFR > 60 Random Glucose 172 H Calcium 8.2 L Phosphorus 3.1 Magnesium 2.0 Albumin 2.5 L Triglycerides 104 Assessment and Plan (1) Dysphagia: Status: Acute (2) Aspiration pneumonia: Status: Acute Plan 72-year-old female with past medical history of AFib on anticoagulation, history of CVA, history of dementia, hypertension, hemiplegia, dysphagia, presents to the hospital with altered mental status and hypoxia ?acute hypoxemic respiratory failure secondary to possible? aspiration pneumonia. has Gram-negative bacteremia.? Proteus/MRSA ?toxic metabolic encephalopathy- seems multifactorial due to above-acute hypoxemic respiratory failure secondary to possible? aspiration pneumonia/uti/Gi bleed -continue vancomycin/ zosyn,dc ceftriaxone , nebs, oxygen support, incentive spirometry,nebs, chest physiotherapy, p.r.n. suctioning. ?NPO, may need MBbs today ?oxygen support to? sats around 92 % AFib with RVR.. seems in sinus -continue to hold anticoagulation -will add iv metoprolol anemia of acute blood loss -possible Acute GI bleed -Daughter does not want any further intervention until patient is more stable, back to her baseline - will hold anticoagulation.? No further bleeding noted received 1 prbc h/h stable in 9 range no episode of rand gibleed overnight ?E coli (UTI) -continue zosyn and vancomycin ?Poor oral intake/npo/aspiration pneumonia/dyspagia added ppn daughter does not want tube feedin, considering hospice [facility] in the setting of GI bleed DNR DNI ? Above management discussed with patient daughter in detail length- overall prognosis seems to be guarded,? daughter does not want tube feedin, considering hospice,if patient condition? deteriorates, will call the family . ? In patient need: ? Acute hypoxemic respiratory failure secondary to aspiration pneumonia-for IV antibiotics to treat gram-negative bacteremia, aspiration pneumonia. Quality Stroke Does the patient have a stroke diagnosis?: No VTE Prior VTE?: No VTE Risk Level:: Medical - moderate - high VTE Device Contraindication: Treatment Not Indicated VTE Drug Contraindication: N/A - Med Ordered
--- NOTE | 2022-03-30 14:57 | MHC.CM.PN ---
Per MD's request, CM has made a referral to [facility] requesting that they contact Patient's Daughter to arrange for a Hospice Informational. CHRISTIAN will follow.
[2022-03-30 15:44] LABS: Vancomycin Trough 17.5 mcg/mL (10.0-20.0)
--- NOTE | 2022-03-30 15:55 | HE.PHANOTE ---
vanco trough 17.5. AUC of 487, cont same dose
[2022-03-30] MEDS: vancomycin HCL 750 MG in 0.9 % Sodium Chloride 250 ML 265 MG IV (17:23)
[2022-03-30] MEDS: Fat Emulsions 20% 250 ML 14 ML IVCONT (17:31)
[2022-03-30] MEDS: Metoprolol Tartrate 5 MG/5 ML VIAL 2.5 MG IVPUSH (23:25)
[2022-03-31] VITALS (12 sets, daily range): BP systolic 136–178; BP diastolic 96–114; PULSE 118–143; RESP 18–32; TEMP 36.3–37.1; O2SAT 92–96
[2022-03-31] MEDS: Metoprolol Tartrate 5 MG/5 ML VIAL IVPUSH ×2 (00:31→09:15)
[2022-03-31] MEDS: Piperacillin Sodium/Tazobactam 3.375 GM in 0.9 % Sodium Chloride 50 ML IV ×4 (01:34→22:04)
[2022-03-31] MEDS: Morphine Sulfate 2 MG/ML CARTRIDGE 0.5 MG IVPUSH ×2 (02:53→15:07)
[2022-03-31] MEDS: Labetalol HCL 100 MG/20 ML VIAL 10 MG IVPUSH (04:10)
[2022-03-31] MEDS: Fat Emulsions 20% 250 ML 14 ML IVCONT ×2 (04:59→17:20)
[2022-03-31] MEDS: Albuterol/Iprat 2.5/0.5MG 3 ML AMPUL.NEB INHALE ×3 (07:51→14:39)
[2022-03-31 08:07] LABS: Albumin Level 2.7 g/dL (3.5-5.0); Anion Gap 9 (12-20); Blood Urea Nitrogen 36 mg/dL (9-16); Calcium 8.4 mg/dL (8.4-10.2); Carbon Dioxide 17 mmol/L (22-29); Chloride 111 mmol/L (96-108); Creatinine Clr Calc Pharmacy 35.7; Estimated Glomerular Filt Rate 41; Glucose Random 244 mg/dL (60-115); Magnesium 2.1 mg/dL (1.6-2.6); Phosphorus 4.1 mg/dL (2.7-4.5); Potassium 4.3 mmol/L (3.3-5.1); Sodium 133 mmol/L (135-145)
[2022-03-31 08:36] LABS: Triglycerides 130 mg/dL
--- NOTE | 2022-03-31 09:51 | MHC.CM.PN ---
inquired today RE hospice consult status; request for consult made by CHRISTIAN 03/30/22: [facility] has not yet responded to this request. notified.
--- NOTE | 2022-03-31 10:00 | HE.PHANOTE ---
Vancomycin Dosing Addendum Patients renal function has decreased, patients Scr jumped from 0.82 to 1.27. Will continue to monitor, level due tomorrow at 04/01 @1500
--- NOTE | 2022-03-31 12:03 | P.PNIM_ITS ---
Subjective Subjective Date of Service: 03/31/22 Interval History: acute hypoxemic respiratory failure secondary to aspiration pneumonia, Htn,tachycardia Review of Systems Patient denies any chest pain Shortness of breath similar to yesterday no cough or fever Physical Exam Vital Signs: Vital Signs: Last Vital Signs Temp 97.4 F 03/31/22 11:54 Pulse 134 H 03/31/22 11:54 Resp 20 03/31/22 11:54 BP 172/98 H 03/31/22 11:54 Pulse Ox 96 03/31/22 11:54 O2 Del Method 03/31/22 11:54 O2 Flow Rate 2 03/31/22 11:54 FiO2 48.6 03/19/22 11:17 Oxygen Flow Rate 10 03/17/22 17:51 BMI result Body Mass Index 20.7 Appearance:? more awake, answers simple questions, somewhat short of breath cvs: rrr, [id number]. res: clear to auscultation ,no rhonchii or wheezing abd: no rebound or guarding ,nt, bs present. ext pulses present , no cyanosis. neuro: axo3 , nonfocal. Objective Data Active Medications Acetaminophen (Acetaminophen 325 Mg Tablet) 650 mg PO Q4H PRN PRN Reason: Pain, Mild (Pain Scale 1-3) Last Admin: 03/22/22 10:45 Dose: 650 mg Documented By: MARY ANNE Albuterol/Ipratropium (Albuterol/Iprat 2.5/0.5mg 3 Ml Ampul.Neb) 3 ml INHALE RQ4H WHILE AWAKE [facility] Last Admin: 03/31/22 10:44 Dose: 3 ml Documented By: FRANKO Clonidine (Clonidine 0.1 Mg Patch.Tdwk) 0.1 mg TRANSDERMA Fr@0900 [facility]; Protocol Vancomycin HCl 750 mg/ Sodium (Chloride) 265 mls @ 265 mls/hr IV Q24H [facility] Last Infusion: 03/30/22 18:29 Dose: 0 mls/hr Documented By: TIN Magnesium Sulfate 10 meq/Potassium Phosphate 30 mmol/Calcium Gluconate 9.3 meq/Potassium Acetate 30 meq/Multivitamins 10 ml/ Trace Metals 1 ml/ Amino Acids/Electrolytes/Dextrose 2,000 mls @ 85 mls/hr IV DAILY@1800 [facility] Last Admin: 12/03/22 17:34 Dose: Not Given Documented By: TIN Non-Admin Reason: Duplicate Order Piperacillin Sod/Tazobactam (Sod 3.375 gm/ Sodium Chloride) 50 mls @ 100 mls/hr IV Q6H [facility] Last Infusion: 03/31/22 11:34 Dose: 0 mls/hr Documented By: DESHAWN Magnesium Sulfate 10 meq/Potassium Phosphate 30 mmol/Calcium Gluconate 9.3 meq/Potassium Acetate 30 meq/Multivitamins 10 ml/ Trace Metals 1 ml/ Amino Acids/Electrolytes/Dextrose 2,040 mls @ 85 mls/hr IVCONT DAILY@1800 [facility] Stop: 03/31/22 17:59 Last Admin: 03/30/22 17:27 Dose: 85 mls/hr Documented By: TIN Fat Emulsion Intravenous (Intralipid) 168 mls @ 14 mls/hr IVCONT BID@0600,1800 [facility] Stop: 03/31/22 17:59 Last Admin: 03/31/22 04:59 Dose: 14 mls/hr Documented By: REINALDO Fat Emulsion Intravenous (Intralipid) 168 mls @ 14 mls/hr IVCONT BID@0600,1800 [facility] Stop: 04/01/22 17:59 Magnesium Sulfate 10 meq/Potassium Phosphate 30 mmol/Calcium Gluconate 9.3 meq/Potassium Acetate 30 meq/Multivitamins 10 ml/ Trace Metals 1 ml/ Sodium Acetate 16 meq/ Amino Acids/Electrolytes /Dextrose 2,040 mls @ 85 mls/hr IVCONT DAILY@1800 [facility] Stop: 04/02/22 17:59 Metoprolol Succinate (Metoprolol Succinate Er 100 Mg Tab.Er.24h) 100 mg PO DAILY [facility]; Protocol Last Admin: 03/26/22 10:12 Dose: 100 mg Documented By: SHALOM Metoprolol Tartrate (Metoprolol Tartrate 5 Mg/5 Ml Vial) 5 mg IVPUSH Q6H [facility] Last Admin: 03/31/22 09:15 Dose: 5 mg Documented By: DESHAWN Ondansetron HCl (Ondansetron Hcl 4 Mg/2 Ml Vial) 4 mg IVPUSH Q8H PRN PRN Reason: Nausea and Vomiting Pharmacy Consult (Consult Rx Vancomycin Dosing) 1 each MISCELLANE DAILY PRN PRN Reason: Consult order Labs CBC & Chem 7: 12/01/22 05:41 03/31/22 06:26 Labs: Laboratory Results - last 24 hr 03/30/22 03/31/22 15:24 06:26 Anion Gap 9 L Estim Creat Clear Calc 35.7 Estimated GFR 41 Random Glucose 244 H Calcium 8.4 Phosphorus 4.1 Magnesium 2.1 Albumin 2.7 L Triglycerides 130 Vancomycin Trough 17.5 Assessment and Plan (1) Dysphagia: Status: Acute (2) Aspiration pneumonia: Status: Acute (3) MRSA bacteremia: Status: Acute (4) Atrial fibrillation with rapid ventricular response: Status: Acute Plan 72-year-old female with past medical history of AFib on anticoagulation, history of CVA, history of dementia, hypertension, hemiplegia, dysphagia, presents to the hospital with altered mental status and hypoxia ?acute hypoxemic respiratory failure secondary to possible? aspiration pneumonia. has Gram-negative bacteremia.? Proteus/MRSA ?toxic metabolic encephalopathy- seems multifactorial due to above-acute hypoxemic respiratory failure secondary to possible? aspiration pneumonia/uti/Gi bleed -continue vancomycin/ zosyn,dc ceftriaxone , nebs, oxygen support, incentive spirometry,nebs, chest physiotherapy, p.r.n. suctioning. ?NPO, may need MBbs today ?oxygen support to? sats around 92 % AFib with RVR.. seems in sinus -continue to hold anticoagulation -will add iv metoprolol-for sinus tachy/blood pressure. added clonidine patch also blood pressure control anemia of acute blood loss -possible Acute GI bleed -Daughter does not want any further intervention until patient is more stable, back to her baseline - will hold anticoagulation.? No further bleeding noted received 1 prbc h/h stable in 9 range no episode of rand gibleed overnight ?E coli (UTI) -continue zosyn and vancomycin ?Poor oral intake/npo/aspiration pneumonia/dyspagia added ppn daughter does not want tube feedin, considering hospice [facility] in the setting of GI bleed DNR DNI ? Above management discussed with patient daughter in detail length- overall prognosis seems to be guarded,? daughter does not want tube feedin, considering hospice,if patient condition? deteriorates, will call the family . ? In patient need: ? Acute hypoxemic respiratory failure secondary to aspiration pneumonia-for IV antibiotics to treat gram-negative bacteremia, aspiration pneumonia. Quality Stroke Does the patient have a stroke diagnosis?: No VTE Prior VTE?: No VTE Risk Level:: Medical - moderate - high VTE Device Contraindication: Treatment Not Indicated VTE Drug Contraindication: N/A - Med Ordered
[2022-03-31] MEDS: Lactated Ringers 1,000 ML 80 ML IVCONT (15:08)
[2022-03-31] MEDS: dilTIAZem HCL 50 MG/10 ML VIAL IVPUSH ×2 (16:22→21:57)
[2022-03-31] MEDS: cloNIDine 0.2 MG PATCH.TDWK TRANSDERMA (16:29)
[2022-03-31] MEDS: vancomycin HCL 750 MG in 0.9 % Sodium Chloride 250 ML 265 MG IV (16:53)
[2022-04-01] VITALS (8 sets, daily range): BP systolic 135–168; BP diastolic 83–98; PULSE 112–130; RESP 16–20; TEMP 36.4–36.8; O2SAT 93–97
[2022-04-01] MEDS: Lactated Ringers 1,000 ML 80 ML IVCONT (04:17)
[2022-04-01] MEDS: Piperacillin Sodium/Tazobactam 3.375 GM in 0.9 % Sodium Chloride 50 ML IV ×2 (04:18→11:28)
[2022-04-01] MEDS: Fat Emulsions 20% 250 ML 14 ML IVCONT (04:23)
--- NOTE | 2022-04-01 05:25 | PC.NURSE ---
Around 23:45 Dr Tineo notified of patients HR in 120's-130's after receiving IV Cardizem as ordered. Dr aware and stated to let him know if 140 or greater. Will continue to monitor.
[2022-04-01] MEDS: Albuterol/Iprat 2.5/0.5MG 3 ML AMPUL.NEB INHALE ×3 (07:05→14:13)
[2022-04-01 08:32] LABS: Albumin Level 2.5 g/dL (3.5-5.0); Anion Gap 18 (12-20); Blood Urea Nitrogen 69 mg/dL (9-16); Carbon Dioxide 17 mmol/L (22-29); Chloride 108 mmol/L (96-108); Creatinine Clr Calc Pharmacy 20.2; Estimated Glomerular Filt Rate 21; Glucose Random 95 mg/dL (60-115); Magnesium 2.3 mg/dL (1.6-2.6); Phosphorus 6.4 mg/dL (2.7-4.5); Potassium 5.2 mmol/L (3.3-5.1); Sodium 138 mmol/L (135-145)
--- NOTE | 2022-04-01 08:47 | MHC.CM.PN ---
Addendum entered by Saida Pandya 04/01/22 15:36: Per [facility]. They have made contact with Pts dtr. She agrees to hospice @ [facility]. DC is on hold today. Patients dtr will be available to sign Pt onto hospice tomorrow. Patients dtr is not available today. The facility has been notified. [facility] has been cancelled. Original Note: Patient from [facility]. A hospice consult was sent 03/30/22. A message was sent via [employer] this am requesting the consult again. [facility] vs [facility] via BLS.
[2022-04-01] MEDS: dilTIAZem HCL 50 MG/10 ML VIAL IVPUSH (08:56)
[2022-04-01 09:42] LABS: Triglycerides 90 mg/dL
[2022-04-01] MEDS: cloNIDine 0.3 MG PATCH.TDWK TRANSDERMA (11:25)
--- NOTE | 2022-04-01 11:32 | MHC.CLN ---
F/U REVIEWED LABS-NOTED ELEVATED RENAL INDICES PT RECEIVED PPN D10AA4.25 AT 85ML/HR WITH 14ML OF 20% LIPIDS PROVIDED 1712 TOTAL KCALS (30KCALS/KG), 87G PROTEIN (1.5G/KG) DISCUSSED WITH PHARMACY RECOMMEND DECREASING PPN D10AA4.25 AT 45ML/HR WITH 14ML OF 20% LIPIDS TO PROVIDE 1223KCALS (21KCALS/KG), 46G PROTEIN (.8G/KG) REPLETE LYTES NEEDED NOTED FAMILY DOES NOT WANT TO PROCEED WITH FEEDING TUBE SO POTENTIAL FOR HOSPICE EVAL/COMMUNITY LIAISON OFFICER FOLLOWING WITH TEAM
--- NOTE | 2022-04-01 15:00 | P.CONWO_ITS ---
History of Present Illness Data of Consult Service Date: 04/01/22 Requesting physician: Jannette Saleh Primary Care Provider: Farrukh Rebolledo MD [facility] Reason for consult: bilateral ankle wounds [id number]: 72-year-old female who comes in from subacute facility with hypoxia and shortness of breath and rapid AFib with RVR, history of CAD. She was admitted for encephalopathy and sepsis. GI bleed is also recorded in the history. She was seen in the past and noted to have stage II ulcers on her buttocks. Left elbow skin tear was also being managed. Were asked to comment on her ankle wounds today. Nutrition is of potential concern however she recently passed a swallowing evaluation on March 29 that suggest that she may be able to avoid feeding tube if speech therapy is involved. Review of Systems Review of Systems: Yes Unobtainable due to mental condition [facility] Medical History Afib CVA (cerebral vascular accident) Dementia Dysphasia Hemiplegia HTN (hypertension) Tachycardia Social History Household Members: Unknown / Unable to assess Housing: Care Home Patient Tobacco Use Status: Former Tobacco user Advance Directives Date on File: 11/15/20 service: No Current occupational status: retired Meds Allergies Allergy/AdvReac Type Severity Reaction Status Date / Time lisinopril Allergy Unknown passed out Verified 12/27/21 14:19 Active Medications: Current Medications Acetaminophen (Acetaminophen 325 Mg Tablet) 650 mg PO Q4H PRN PRN Reason: Pain, Mild (Pain Scale 1-3) Last Admin: 03/22/22 10:45 Dose: 650 mg Albuterol/Ipratropium (Albuterol/Iprat 2.5/0.5mg 3 Ml Ampul.Neb) 3 ml INHALE RQ4H WHILE AWAKE [facility] Last Admin: 04/01/22 14:13 Dose: 3 ml Clonidine (Clonidine 0.3 Mg Patch.Tdwk) 0.3 mg TRANSDERMA DAILY [facility]; Protocol Last Admin: 04/01/22 11:25 Dose: 0.3 mg Diltiazem HCl (Diltiazem Hcl 50 Mg/10 Ml Vial) 2.5 mg IVPUSH Q6H PRN PRN Reason: tachycaria Last Admin: 04/01/22 08:56 Dose: 2.5 mg Vancomycin HCl 750 mg/ Sodium (Chloride) 265 mls @ 265 mls/hr IV Q24H [facility] Last Infusion: 03/31/22 18:43 Dose: Infused Fat Emulsion Intravenous (Intralipid) 168 mls @ 14 mls/hr IVCONT BID@0600,1800 [facility] Stop: 04/01/22 17:59 Last Admin: 04/01/22 04:23 Dose: 14 mls/hr Magnesium Sulfate 10 meq/Potassium Phosphate 30 mmol/Calcium Gluconate 9.3 meq/Potassium Acetate 30 meq/Multivitamins 10 ml/ Trace Metals 1 ml/ Sodium Acetate 16 meq/ Amino Acids/Electrolytes /Dextrose 2,040 mls @ 85 mls/hr IVCONT DAILY@1800 [facility] Stop: 04/01/22 17:59 Last Admin: 03/31/22 17:20 Dose: 85 mls/hr Piperacillin Sod/Tazobactam (Sod 3.375 gm/ Sodium Chloride) 50 mls @ 100 mls/hr IV Q6H [facility] Last Infusion: 04/01/22 12:35 Dose: Infused Lactated Ringer's (Lr) 1,000 mls @ 80 mls/hr IVCONT .[id number] [facility] Last Admin: 04/01/22 04:17 Dose: 80 mls/hr Metoprolol Succinate (Metoprolol Succinate Er 100 Mg Tab.Er.24h) 100 mg PO DAILY [facility]; Protocol Last Admin: 03/26/22 10:12 Dose: 100 mg Ondansetron HCl (Ondansetron Hcl 4 Mg/2 Ml Vial) 4 mg IVPUSH Q8H PRN PRN Reason: Nausea and Vomiting Pharmacy Consult (Consult Rx Vancomycin Dosing) 1 each MISCELLANE DAILY PRN PRN Reason: Consult order Home Medications Medication Instructions Recorded Confirmed Last Taken Type acetaminophen 325 mg tablet 650 mg PO Q6H PRN Pain 12/15/21 03/18/22 Unknown History (Tylenol) aspirin 81 mg chewable tablet 81 mg PO DAILY 12/15/21 03/18/22 Unknown History calcium carbonate 500 mg-vitamin 1 tab PO DAILY 12/15/21 03/18/22 Unknown History D3 10 mcg (400 unit) tablet (Calcium 500 + D) docusate sodium 100 mg capsule 100 mg PO DAILY PRN Constipation 12/15/21 03/18/22 Unknown History (Colace) isosorbide mononitrate 60 mg 1 tab PO DAILY 12/15/21 03/18/22 Unknown History tablet,extended release 24 hr rosuvastatin 40 mg tablet 1 tab PO BEDTIME 12/15/21 03/18/22 Unknown History apixaban 5 mg tablet 5 mg PO BID 03/18/22 03/18/22 Unknown History losartan 25 mg tablet 1 tab PO DAILY 03/18/22 03/18/22 Unknown History metoprolol succinate 100 mg 100 mg PO DAILY 03/18/22 03/18/22 Unknown History tablet,extended release 24 hr mirtazapine 15 mg tablet 15 mg PO BEDTIME 03/18/22 03/18/22 Unknown History Physical Exam Vital Signs and Narrative: Vital Signs: Last Vital Signs Temp 97.5 F 04/01/22 11:25 Pulse 114 H 04/01/22 14:14 Resp 18 04/01/22 14:14 BP 153/98 H 04/01/22 11:25 Pulse Ox 95 04/01/22 11:25 O2 Del Method 04/01/22 11:25 O2 Flow Rate 3 04/01/22 11:25 FiO2 48.6 03/19/22 11:17 Oxygen Flow Rate 10 03/17/22 17:51 BMI result Body Mass Index 20.7 Unstageable right calcaneus ulcer is from pressure. It is a dry and stable eschar, appropriately offloaded in this encounter with elevation of the knees. She has sequential compression devices on. Adjacent to this is a lateral ankle wound beneath foam dressing which does not appear to be infected. Additionally, no maceration is seen with the use of the foam dressing. Also suspect for pressure but again, appropriately offloaded as of this moment. Lateral ankle wound on the left shows stable eschar as well. In the absence of Doppler ultrasound, dorsalis pedis pulses are not easily palpable, suggesting arterial component may exist along with pressure. Results Labs CBC and Chem 7: 03/28/22 05:41 04/01/22 07:33 Labs: Laboratory Results - last 24 hr 04/01/22 04/01/22 07:33 08:38 Anion Gap 18 Estim Creat Clear Calc 20.2 Estimated GFR 21 Random Glucose 95 Calcium 8.0 L Phosphorus 6.4 H Magnesium 2.3 Albumin 2.5 L Triglycerides 90 Cancelled Assessment and Plan (1) Pressure ulcer of right heel, unstageable: Status: Acute Plan Betadine paint is probably the best way to manage the right calcaneus eschar to keep it dry, stable and not infected. In the absence of definitive vascular picture, debridement is contraindicated. Similarly with the ankle and foot skin breakdown, Betadine is the safest way to manage the eschar in keep it dry. Note that Allevyn foam can cause maceration and in turn harbor moisture/infection. This is currently being utilized with alginate with zinc oxide to the periwound. This is seemingly a reasonable way to proceed as well. It will be to the discretion of the accepting facility upon her discharge from the hospital as to whether outpatient wound care follow up is possible.
[2022-04-01 16:29] LABS: IDNOW Serial# BCCEAD1C
[2022-04-01 16:30] LABS: COVID-19 Test Negative (Negative)
--- NOTE | 2022-04-01 16:32 | MHC.CM.PN ---
pt will be dcd at 5 to [facility] at 5 via [facility] dgter notified md dr jang speaking with damaris at [facility] unit secrrertary will fax covid results
--- NOTE | 2022-04-01 16:54 | MHC.SLORD ---
Speech Language Pathology Order Status: Spoke w/ Dr. Saleh on the phone. Per Dr. Saleh, pt will be on hospice and family decided they did not want feeding tube. MD reported pt will be fed puree for comfort.
--- NOTE | 2022-04-01 16:54 | PM.DS ---
DS: Providers Provider Date of Service: 04/01/22 Date of admission: 03/18/22 01:02 Primary care physician: Farrukh Rebolledo MD Consults: 03/19/22 15:14 Consult to Wound Care Routine Consulting Provider: Kiki Almanza Reason for consultation: stage 2 to right buttock and small open areas distal Bilat buttocks 03/19/22 16:57 Consult to Infectious Diseases Routine Consulting Provider: Chika Good Reason for consultation: GN Bacteremia Has provider been notified: Yes 03/26/22 10:19 Consult to Cardiology Routine Consulting Provider: [facility] [place] [facility] Reason for consultation: afib with rvr Has provider been notified: No 03/26/22 15:48 Consult to Pulmonology Routine Consulting Provider: Kurt Scales Reason for consultation: acute Hypoxemic respiratory failure secondary to aspiration pneumonia p Has provider been notified: No 03/27/22 15:50 Consult to Gastroenterology Routine Consulting Provider: [facility] [place] [facility] Reason for consultation: anemia -?Gi bleed Has provider been notified: No 03/29/22 13:23 Consult to Wound Care Routine Consulting Provider: Kiki Almanza Reason for consultation: wounds on bilateral lateral malleoli DS: Diagnosis Discharge Diagnosis (1) Pressure ulcer of right heel, unstageable: Status: Acute (2) Dysphagia: Status: Acute (3) Anemia: Status: Acute (4) MRSA bacteremia: Status: Acute (5) Proteus mirabilis infection: Status: Acute (6) Aspiration pneumonia: Status: Acute (7) Pulmonary aspiration: Status: Acute (8) Atrial fibrillation with rapid ventricular response: Status: Acute (9) Acute GI bleeding: Status: Acute DS: Summary Hospital Course Hospital Course: 72-year-old female with past medical history of coronary artery disease, comes in from retirement for lethargy, AMS and hypoxia.? Patient is completely up tended, minimally responsive to painful stimuli, unable to respond.? History is obtained from EMR, as well as her daughter in ED physician.? Least sent from retirement for hypoxia as well as altered mental status.? On arrival to the ED patient was found to be in AFib with RVR with a heart rate in the 150s to 160s, patient also found to have tachypnea with a respiratory rate in the mid 20s, hypoxic requiring 10 L on non-rebreather, with hypotension.? I spoke extensively with her daughter, who states that at this time she does want patient to be treated with IV antibiotics for the current problem, but does not want patient to have significant or invasive intervention at this time. For the patient's RVR she was initially started on Cardizem drip with minimal affect, patient was cardioverted in the ED with improvement in her heart rate.? Her blood pressure was low, she received the 30 cc/kg fluids, patient also had 2 episodes of bloody bowel movements while in the ED. Labs are significant for WBC count of 25, hemoglobin of 9.2, medic of 30.2, pH of 7.53, PT of 30.2, INR of 2.5, sodium of 142, potassium of 5.4, creatinine of 3.47 with a baseline of around 0.74, lactic acid of 2.2 improved with IV fluids, troponin 52.5 repeat pending, UA positive for large leukocyte Estrace and WBC Patient started on IV antibiotics and will be admitted for further management. Hospital course: Patient was admitted for acute hypoxemic respiratory failure, UTI, acute GI bleed, toxic metabolic encephalopathy,afib with rvr : Received treatment with iv antibiotics, her blood culture grew MRSA/Proteus, hospital course -patient also developed aspiration pneumonia(which probably the case during the initial presentation because patient had hypoxemic respiratory failure possibly slightly aspirating), for GI bleeding also received PRBC and refused GI workup. In addition patient also had severe oral pharyngeal dysphagia a-seen by speech and Swallow and mbss done -high risk for aspiration even with purred food ,aspiration with liquids -discussed with the family family does not want alternative means of feeding including to feedings. Family decided for hospice. Discussed with in detail with family-family's goal right now to continue pureed food and comfort meds as needed -understanding the risk of aspiration and passing from that. In addition to family is not pursuing any active treatment above-mentioned medical issues including the use of antibiotics. Family currently deferring medication than mostly comfort/hospice care medication . Above was discussed with the daughter in detail length as well as the hospice care ([facility]) as an at retirement. Time Spent with Patient Time attestation: Total time spent providing and/or coordinating discharge services: Discharge coordination time: Greater than 30 minutes Quality: Safe Use of Opioids Does Pt have an Active Cancer Diagnosis on the Problem List?: No Quality: Stroke Does the patient have a stroke diagnosis?: No Physical Exam Vital Signs: Vital Signs: Last Vital Signs Temp 98.0 F 04/01/22 15:31 Pulse 124 H 04/01/22 15:31 Resp 20 04/01/22 15:31 BP 135/83 04/01/22 15:31 Pulse Ox 93 04/01/22 15:31 O2 Del Method 04/01/22 15:31 O2 Flow Rate 2.5 04/01/22 15:31 FiO2 48.6 03/19/22 11:17 Oxygen Flow Rate 10 03/17/22 17:51 BMI result Body Mass Index 20.7 ?Appearance:? more awake, answers simple questions, somewhat short of breath cvs: rrr, [id number]. res: clear to auscultation ,no rhonchii or wheezing abd: no rebound or guarding ,nt, bs present. ext pulses present ,Lateral ankle wound on the left shows stable eschar as well, right calcaneus ulcer is from pressure.? neuro: axo3 , nonfocal ?Allevyn foam can cause maceration and in turn harbor moisture/infection.? This is currently being utilized with alginate with zinc oxide to the periwound. DS: Data Data Completed and Pending Labs on day of discharge: Laboratory Results - last 24 hr 04/01/22 04/01/22 04/01/22 07:33 08:38 15:40 Sodium 138 Potassium 5.2 H D Chloride 108 Carbon Dioxide 17 L Anion Gap 18 BUN 69 H D Creatinine 2.24 H Estim Creat Clear Calc 20.2 Estimated GFR 21 Random Glucose 95 Calcium 8.0 L Phosphorus 6.4 H Magnesium 2.3 Albumin 2.5 L Triglycerides 90 Cancelled COVID-19 (DEBBIE) Negative COVID-19 Clin Com See Note Imaging CT scan - chest: Radiologist's impression: ITS Impressions Chest X-Ray 03/17/22 17:53 IMPRESSION: No acute abnormality of chest. Head CT 03/18/22 00:30 IMPRESSION: 1. No acute intracranial pathology. 2. The degree of marked ventriculomegaly appears slightly increased as compared to prior. 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 3. Chronic lacunar infarcts in the cerebellar hemispheres and left caudate head. Moderate chronic microangiopathic white matter changes. Chest CT 03/18/22 08:00 IMPRESSION: 1. Respiratory motion artifact limits evaluation. 2. Redemonstration of multiple nodules throughout the bilateral lung reza some of which demonstrate increase in size or new for example in the right upper lobe measuring up to 4 mm. Follow-up as per Fleischner criteria. 3. Consolidative focus versus atelectasis in the left lower lobe. 4. Mild bronchiectatic changes in the lingula and the right lower lobe. Mild bronchial wall thickening which may be seen in setting of infectious/inflammatory etiology. 5. Nonspecific soft tissue thickening in the posterior mediastinum which may represent thickened esophagus versus enlarged lymph nodes, evaluation limited without intravenous contrast. Additionally the proximal portion of the esophagus demonstrates wall thickening which may be secondary to underdistention. 6. Osteopenia. Various management parameters for solitary pulmonary nodules are in the literature. According to the Fleischner Society, recommendations for pulmonary nodules are as follows: According to the UPDATED 2017 Fleischner Society recommendations, the advised follow-up imaging for solid nodules < 6 mm is: LOW RISK PATIENT: No routine follow-up. HIGH RISK PATIENT: Optional CT at 12 months. Chest X-Ray 03/26/22 14:42 IMPRESSION: Development of relatively extensive airspace opacity/consolidation in the left mid and lower lung with obscuration of the left hemidiaphragm and left costophrenic angle. Findings consistent with pneumonia or aspiration in the appropriate clinical setting. Discharge Plan Discharge Anticipated Discharge Date/Time: 04/01/22 14:04 Patient Disposition: [facility] Discharge Diagnosis: FTT, severe oropharygeal dysphagia Referrals: Oumar Huff [Outside] - 1 Week Farrukh Rebolledo MD [Primary Care Provider] - 1 Week Discharge Medications: New morphine 20 mg/5 mL (4 mg/mL) solution 10 mg PO Q4H PRN (Reason: pain) Qty: 10 0RF Rx Instructions: Partial Fill upon patient request. Continued metoprolol succinate 100 mg Tablet Extended Release 24 Hr 100 mg PO DAILY acetaminophen [Tylenol] 325 mg Tablet 650 mg PO Q6H PRN (Reason: Pain) Discontinued losartan 25 mg tablet 1 tab PO DAILY mirtazapine 15 mg Tablet 15 mg PO BEDTIME apixaban 5 mg Tablet 5 mg PO BID aspirin 81 mg Tablet,Chewable 81 mg PO DAILY calcium carbonate-vitamin D3 [Calcium 500 + D] 500 mg-10 mcg (400 unit) Tablet 1 tab PO DAILY isosorbide mononitrate 60 mg tablet extended release 24 hr 1 tab PO DAILY docusate sodium [Colace] 100 mg Capsule 100 mg PO DAILY PRN (Reason: Constipation) rosuvastatin 40 mg tablet 1 tab PO BEDTIME oxycodone 5 mg Tablet 5 mg PO Q6H PRN (Reason: Pain, Severe (Pain Scale 7-10)) Qty: 12 0RF Rx Instructions: Partial Fill upon patient request. Discharge Orders: Discharge Order (Routine); Ordered 04/01/22 Ordered By: Jannette Saleh Diet: Advance to usual diet Activity on Discharge: As tolerated Stand Alone Forms: Patient Portal Discharge page Care Plan Goals: Patient was admitted for acute hypoxemic respiratory failure, UTI, acute GI bleed, toxic metabolic encephalopathy,afib with rvr : Received treatment with iv antibiotics, her blood culture grew MRSA/Proteus, hospital course -patient also developed aspiration pneumonia(which probably the case during the initial presentation because patient had hypoxemic respiratory failure possibly slightly aspirating), for GI bleeding also received PRBC and refused GI workup. In addition patient also had severe oral pharyngeal dysphagia a-seen by speech and Swallow and mbss done -high risk for aspiration even with purred food ,aspiration with liquids -discussed with the family family does not want alternative means of feeding including to feedings. Family decided for hospice. Discussed with in detail with family-family's goal right now to continue pureed food and comfort meds as needed -understanding the risk of aspiration and passing from that. In addition to family is not pursuing any active treatment above-mentioned medical issues including the use of antibiotics. Family currently deferring medication than mostly comfort/hospice care medication . Above was discussed with the daughter in detail length as well as the hospice care ([facility]) as an at retirement. Health Concerns: As above. Plan of Treatment: As above. Assessment: As above.
== END 2022-04-01 19:14 | disposition skilled nursing facility (03) | DRG 871 ==
LOC: HO.ED 03-18 00:10 → HO.EDOVER 03-18 01:06 → HO.IMC 03-18 13:24
PROVIDERS: Hospitalist; Physician Assistant; Admitting Provider Internal Medicine; Emergency Provider Internal Medicine; PCP Family Medicine; Visit Provider Internal Medicine
DX: A41.51 Sepsis due to Escherichia coli [E. coli] (principal); G92.8 Other toxic encephalopathy; J96.01 Acute respiratory failure with hypoxia; J69.0 Pneumonitis due to inhalation of food and vomit; N39.0 Urinary tract infection, site not specified; N17.9 Acute kidney failure, unspecified; E87.0 Hyperosmolality and hypernatremia; E87.1 Hypo-osmolality and hyponatremia; D62 Acute posthemorrhagic anemia; K92.1 Melena; I69.351 Hemiplegia and hemiparesis following cerebral infarction affecting right dominant side; L89.302 Pressure ulcer of unspecified buttock, stage 2; L98.492 Non-pressure chronic ulcer of skin of other sites with fat layer exposed; E87.6 Hypokalemia; B96.20 Unspecified Escherichia coli [E. coli] as the cause of diseases classified elsewhere; I25.10 Atherosclerotic heart disease of native coronary artery without angina pectoris; B96.4 Proteus (mirabilis) (morganii) as the cause of diseases classified elsewhere; B95.62 Methicillin resistant Staphylococcus aureus infection as the cause of diseases classified elsewhere; L89.610 Pressure ulcer of right heel, unstageable; R13.12 Dysphagia, oropharyngeal phase; F03.90 Unspecified dementia, unspecified severity, without behavioral disturbance, psychotic disturbance, mood disturbance, and anxiety; I48.0 Paroxysmal atrial fibrillation; Z66 Do not resuscitate; Z20.822 Contact with and (suspected) exposure to COVID-19; Z87.891 Personal history of nicotine dependence; Z88.8 Allergy status to other drugs, medicaments and biological substances; Z79.02 Long term (current) use of antithrombotics/antiplatelets; Z79.899 Other long term (current) drug therapy
CPT/HCPCS: 0241U; 36415; 36600; 70450; 71045; 71250; 74230; 80048; 80053; 80202; 81001; 82040; 82272; 82565; 82803; 83605; 83735; 84100; 84478; 84484; 85007; 85014; 85018; 85025; 85027; 85610; 86803; 86850; 86870; 86900; 86901; 86920; 86921; 86923; 87040; 87077; 87086; 87088; 87186; 87205; 87635; 92526; 92610; 92611; 93005; 93306; 94640; 99285; C1758; J0610; J0696; J1940; J2270; J2543; J3370; J3475; P9016; P9047; Q9957